=== PATIENT | male | born 1975 | race Caucasian/White ===

== ENCOUNTER 2020-01-08 06:07 | Emergency (ER) | payer OTHER, SELFPAY ==
[2020-01-08] VITALS (8 sets, daily range): BP systolic 121–153; BP diastolic 74–111; PULSE 94–113; RESP 14–24; TEMP 36; O2SAT 95–100
--- NOTE | ~2020-01-08 | XR_ITS ---
EXAMINATION: XR chest 2V DATE: 01/08/2020 06:49 INDICATION: Chest pain. Overdose. TECHNIQUE: frontal and lateral views of the chest were obtained. COMPARISON: None FINDINGS: The lungs are clear with no focal airspace opacities, pulmonary edema, pleural effusion or pneumothor ax. The cardiomediastinal silhouette is normal. Mild thoracic spondylosis. IMPRESSION: 1. No acute cardiopulmonary disease. Reviewed, dictated and finalized at location A.
--- NOTE | ~2020-01-08 | CT_ITS ---
EXAMINATION: CTA chest PE protocol DATE: 01/08/2020 11:10 CDT INDICATION: Chest pain. Meth used today. Overdose. TECHNIQUE: Computed tomographic angiography (CTA) of the chest was performed with 100 mL Omnipaque-35 0 intravenous contrast. The dose-length product was 239.71 mGy-cm. Maximum intensity projection 3D-re constructions of the aorta and other arteries were constructed by the technologist on a separate work station. Automated exposure control and iterative reconstruction technique were employed. COMPARISON: Chest dated 01/08/2020 FINDINGS: The study is technically adequate without evidence for pulmonary embolism. Heart size carola l. No significant pleural or pericardial effusion. No thoracic lymphadenopathy. No evidence for aorti c aneurysm or dissection. The upper abdomen is unremarkable. There is dependent atelectasis. There is mild emphysema. No endobronchial lesions. Mild thoracic spondylosis. IMPRESSION: 1. No acute cardiopulmonary disease. No evidence for pulmonary embolism. Reviewed, dictated and finalized at location A.
--- NOTE | ~2020-01-08 | CT_ITS ---
EXAMINATION: CT brain wo con DATE: 01/08/2020 06:41 INDICATION: Altered mental status TECHNIQUE: Computed tomography (CT) of the head was performed without intravenous contrast. Sagittal and coronal reconstructions were performed. The mA was adjusted according to patient size. Iterative reconstruction technique was employed. The dose-length product was 605.33 mGy-cm. COMPARISON: None FINDINGS: Mild streak artifact along the skull base which mildly limits evaluation. Normal randle-white matter di fferentiation. No acute intracranial hemorrhage, acute infarction or abnormal extra axial fluid colle ction. Ventricles are normal and symmetric. No mass/mass effect. Mucosal thickening throughout the pa ranasal sinuses most prominent in the bilateral ethmoid sinuses. The orbits and mastoid air cells are normal. IMPRESSION: 1. No acute intracranial process. Reviewed, dictated and finalized at location A.
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
[2020-01-08] MEDS: LORAZEPAM INJ 2 MG/ML VIAL 1 MG IV PUSH (06:30)
--- NOTE | 2020-01-08 06:37 | PC.NURSE ---
pt to CT and xray at this time.
[2020-01-08 06:42] LABS: Basophils Absolute Auto 0.1 K/mm3 (0.0-0.1); Eosinophils Absolute Auto 0.5 K/mm3 (0-0.3); Eosinophils Percent Auto 3.7 % (0-4.4); Hematocrit 49.7 % (42.0-52.0); Hemoglobin 17.1 g/dL (14.0-18.0); Immature Granulocyte Absolute 0.07 K/mm3 (0.00-0.031); Immature Granulocyte Percent A 0.6 % (0-0.5); Lymphocytes Absolute Auto 2.45 K/mm3 (0.9-3.2); Lymphocytes Percent Auto 19.9 % (18.3-44.2); Mean Corpuscular HGB Conc 34.4 g/dl (32-36); Mean Corpuscular Hemoglobin 31.7 pg (26-34); Mean Corpuscular Volume 92.2 fl (80-100); Mean Platelet Volume 9.1 fl (7.4-10.4); Monocytes Absolute Auto 1.5 K/mm3 (0.1-0.6); Monocytes Percent Auto 11.9 % (2.6-8.5); Neutrophils Absolute Auto 7.8 K/mm3 (1.3-6.7); Neutrophils Percent Auto 62.9 % (45.5-73.1); Platelet Count Result 273 k/mm3 (150-375); Red Blood Count 5.39 M/mm3 (4.6-6.20); Red Cell Distribution Width 14.4 % (11.5-14.5); White Blood Count 12.3 K/mm3 (4.5-10.0)
[2020-01-08] MEDS: THIAMINE HCL 200 MG/2 ML VIAL 100 MG IV PUSH (06:51)
[2020-01-08] MEDS: FOLIC ACID 1 MG TABLET PO (06:51)
[2020-01-08] MEDS: SODIUM CHLORIDE 0.9% IV 2,000 ML 999 ML IV CONT (06:51)
--- NOTE | 2020-01-08 06:55 | PC.NURSE ---
pt attempting to urinate at this time.
[2020-01-08 06:56] LABS: Acetaminophen < 10 ug/mL (10-30); Ammonia < 9 umol/L (9-30); Ethanol < 10 mg/dL (<10); Salicylate < 1.0 mg/dL (2-20)
[2020-01-08 06:57] LABS: Alanine Aminotransferase 23 U/L (4-50); Albumin Level 4.9 g/dL (3.5-5.1); Alkaline Phosphatase 105 U/L (38-126); Aspartate Amino Transferase 34 U/L (17-59); Bilirubin,Total 0.4 mg/dL (0.2-1.3); Blood Urea Nitrogen 21 mg/dL (9-20); Carbon Dioxide 24 mmol/L (22-30); Chloride 101 mmol/L (98-107); Creatine Kinase 205 U/L (55-170); Estimated Glomerular Filt Rate > 60; Glucose 82 mg/dL (75-110); Potassium 3.9 mmol/L (3.4-5.0); Sodium 137 mmol/L (137-145)
[2020-01-08 07:00] LABS: Prothrombin Time 13.2 Seconds (11.1-14.7)
--- NOTE | 2020-01-08 07:00 | PC.NURSE ---
pt states he isn't able to urinate at this time. refused straight cath. pt instructed to use call light when he is able to give urine sample. urinal at bedside at this time. call light in reach of pt.
[2020-01-08 07:01] LABS: Partial Thromboplastin Time 27.7 SECONDS (22.3-36.8)
[2020-01-08 07:09] LABS: Troponin I < 0.012 ng/mL (0.000-0.034)
--- NOTE | 2020-01-08 07:12 | PC.NURSE ---
Assumed care of pt, pt is alert and upright on stretcher, pt on tele monitor w/ VSS, pt has fluids infusing at KVO - pt unable to provide u/a at this time, declines straight cath.
--- NOTE | 2020-01-08 07:42 | PC.NURSE ---
fluids finished infusing, pt will attempt to provide u/a
[2020-01-08 08:00] LABS: Add Urine Microscopic? YES; Appearance Urine Clear (Clear); Bilirubin Urine Negative (Negative); Blood Urine Negative (Negative); Color Urine Yellow (Yellow); Glucose Urine UA Negative (Negative); Ketones Urine 1+ mg/dL (Negative); Leukocyte Esterase Ur Negative LEU/UL (Negative); Mucus Urine Rare /lpf; Nitrate Urine Negative (Negative); Protein Urine 2+ mg/dL (Negative); RBC Urine 0-2 /hpf (0-2); Specific Grav Ur 1.021 (1.001-1.035); Squamous Epithelial Cell Urine Rare /hpf (Few); WBC Urine 0-3 /hpf
[2020-01-08 08:15] LABS: Barbiturate Screen Urine Negative (Negative); Benzodiazepines Screen Urine Negative (Negative)
[2020-01-08 08:17] LABS: Cannabinoid Screen Urine Negative (Negative); Cocaine Screen Urine Negative (Negative); Methadone Screen Urine Negative (Negative); Opiate Screen Urine Negative (Negative); Phencyclidine Screen Urine Negative (Negative)
[2020-01-08 08:28] LABS: Amphetamine Screen Urine Positive (Negative)
--- NOTE | 2020-01-08 10:37 | ECG_ITS ---
Measurements Intervals [place] Rate: 108 P: 74 FL: 170 QRS: 95 QRSD: 99 T: 57 QT: 342 QTc: 459 Interpretive Statements SINUS TACHYCARDIA RIGHT AXIS DEVIATION BASELINE ARTIFACT- I, II, AVR, AVL, AVF, V1-V2 ABNORMAL ECG Electronically Signed On 01-08-2020 10:45:04 CDT by Walter Gray D.O.
[2020-01-08 11:16] LABS: Troponin I < 0.012 ng/mL (0.000-0.034)
[2020-01-08] MEDS: LACTATED RINGERS 1,000 ML 999 ML IV CONT (11:19)
== END 2020-01-08 14:21 | disposition home or self-care (01) ==
PROVIDERS: Emergency Medicine; Emergency Provider General Practice
DX: F15.10 Other stimulant abuse, uncomplicated (principal); R41.0 Disorientation, unspecified
CPT/HCPCS: 36415; 70450; 71046; 71275; 80053; 80307; 81001; 82140; 82550; 84443; 84484; 85025; 85610; 85730; 93005; 96361; 96374; 96375; 99284; A9270; J0131; J2060; J3411; J7030; J7120; Q9967

== ENCOUNTER 2020-01-11 00:30 | Emergency (ER) | payer OTHER, SELFPAY ==
[2020-01-11] VITALS (38 sets, daily range): BP systolic 117–168; BP diastolic 76–106; PULSE 69–122; RESP 16–24; TEMP 37.3; O2SAT 91–100
[2020-01-11] MEDS: LORAZEPAM INJ 2 MG/ML VIAL IV PUSH (00:53)
[2020-01-11] MEDS: SODIUM CHLORIDE 0.9% IV 2,000 ML 999 ML IV CONT (00:53)
[2020-01-11 01:05] LABS: Ethanol 22 mg/dL (<10)
--- NOTE | 2020-01-11 01:06 | ED.PSYCH ---
HPI - Psych General Chief Complaint: Psychiatric Symptoms <Kaushal Salinas MD - Last Filed: 01/11/20 19:38> Stated Complaint: SI/meth <Kaushal Salinas MD - Last Filed: 01/11/20 19:38> Time Seen by Provider: 01/11/20 00:35 <Kaushal Salinas MD - Last Filed: 01/11/20 19:38> History of Present Illness HPI Narrative: 44 yo male w/ h/o polysubstance abuse, depression, and anxiety BIBEMS For shaking and suicidal thoughts. He reports that he has been using methamphetamine, marijuana, and alcohol for the past few days. He now reports auditory and visual halucinations and suicidal thoughts. He plans to jump off of a bridge. He was recently discharged from a psychiatric facility and says that they didn't help him because they were only concerned about his drug use. <Kaushal Salinas MD - Last Filed: 01/11/20 19:38> Related Data Home Medications: Home Medications Medication Instructions Recorded Confirmed Unable to Obtain Home Medications 01/08/20 01/08/20 <Kaushal Salinas MD - Last Filed: 01/11/20 19:38> Allergies/Adverse Reactions: Allergies Allergy/AdvReac Type Severity Reaction Status Date / Time No Known Allergies Allergy Verified 01/11/20 01:14 <Kaushal Salinas MD - Last Filed: 01/11/20 19:38> Review of Systems Review of Systems: All systems reviewed & are unremarkable except as noted in HPI and below <Kaushal Salinas MD - Last Filed: 01/11/20 19:38> Constitutional: Constitutional: Denies fever(s) <Kaushal Salinas MD - Last Filed: 01/11/20 19:38> Cardiovascular: Cardiovascular: Reports chest pain <Kaushal Salinas MD - Last Filed: 01/11/20 19:38> Respiratory: Respiratory: Reports dyspnea <Kaushal Salinas MD - Last Filed: 01/11/20 19:38> Gastrointestinal: Gastrointestinal: Reports abdominal pain <Kaushal Salinas MD - Last Filed: 01/11/20 19:38> Musculoskeletal: Musculoskeletal: Reports back pain <Kaushal Salinas MD - Last Filed: 01/11/20 19:38> Neurologic: Reports confusion and Reports weakness <Kaushal Salinas MD - Last Filed: 01/11/20 19:38> Psychiatric: Psychiatric: Reports anxiety, Reports depression and Reports suicidal ideation <Kaushal Salinas MD - Last Filed: 01/11/20 19:38> PMFSH Past Medical History Medical History: Medical History Alcohol abuse Methamphetamine use <Kaushal Salinas MD - Last Filed: 01/11/20 19:38> Social History Social History: Social History Smoking status: Current every day smoker Alcohol intake: current Substance use: current Substance use type: amphetamines Gender identity (if verbalized by the patient): Male <Kaushal Salinas MD - Last Filed: 01/11/20 19:38> Exam Const: General: alert <Kaushal Salinas MD - Last Filed: 01/11/20 19:38> Nutritional Appearance: well nourished <Kaushal Salinas MD - Last Filed: 01/11/20 19:38> Orientation/consciousness: patient oriented x3 <Kaushal Salinas MD - Last Filed: 01/11/20 19:38> HENMT: Other: Dry MM <Kaushal Salinas MD - Last Filed: 01/11/20 19:38> Resp: Effort & Inspection: normal respiratory effort <Kaushal Salinas MD - Last Filed: 01/11/20 19:38> Auscultation: clear to auscultation bilaterally <Kaushal Salinas MD - Last Filed: 01/11/20 19:38> Cardio: Rate: tachycardic <Kaushal Salinas MD - Last Filed: 01/11/20 19:38> Rhythm: regular rhythm <Kaushal Salinas MD - Last Filed: 01/11/20 19:38> GI: GI Palp: Yes Soft to palpation and No Tenderness to palpation present (GI) <Kaushal Salinas MD - Last Filed: 01/11/20 19:38> Skin: General skin exam: normal color <Kaushal Salinas MD - Last Filed: 01/11/20 19:38> Neuro: General: patient oriented x3, moves all extremities and CN's II-XI intact bilaterally <Kaushal Salinas MD - Last Filed:
[2020-01-11 01:09] LABS: Troponin I < 0.012 ng/mL (0.000-0.034)
[2020-01-11 01:18] LABS: Alanine Aminotransferase 21 U/L (4-50); Albumin Level 4.1 g/dL (3.5-5.1); Alkaline Phosphatase 80 U/L (38-126); Aspartate Amino Transferase 31 U/L (17-59); Bilirubin,Total 0.3 mg/dL (0.2-1.3); Blood Urea Nitrogen 12 mg/dL (9-20); Calcium 9.1 mg/dL (8.4-10.2); Carbon Dioxide 24 mmol/L (22-30); Chloride 103 mmol/L (98-107); Creatine Kinase 222 U/L (55-170); Estimated CRCL calculation 71 ml/min; Estimated Glomerular Filt Rate > 60; Glucose 101 mg/dL (75-110); Potassium 3.6 mmol/L (3.4-5.0); Sodium 135 mmol/L (137-145)
[2020-01-11 01:30] LABS: Basophils Absolute Auto 0.1 K/mm3 (0.0-0.1); Eosinophils Absolute Auto 0.4 K/mm3 (0-0.3); Eosinophils Percent Auto 4.4 % (0-4.4); Hematocrit 36.6 % (42.0-52.0); Hemoglobin 12.2 g/dL (14.0-18.0); Immature Granulocyte Absolute 0.02 K/mm3 (0.00-0.031); Immature Granulocyte Percent A 0.2 % (0-0.5); Lymphocytes Absolute Auto 2.32 K/mm3 (0.9-3.2); Lymphocytes Percent Auto 25.9 % (18.3-44.2); Mean Corpuscular HGB Conc 33.3 g/dl (32-36); Mean Corpuscular Hemoglobin 31.4 pg (26-34); Mean Corpuscular Volume 94.1 fl (80-100); Mean Platelet Volume 8.8 fl (7.4-10.4); Monocytes Absolute Auto 1.1 K/mm3 (0.1-0.6); Monocytes Percent Auto 12.3 % (2.6-8.5); Neutrophils Percent Auto 56.2 % (45.5-73.1); Platelet Count Result 217 k/mm3 (150-375); Red Blood Count 3.89 M/mm3 (4.6-6.20); Red Cell Distribution Width 14.4 % (11.5-14.5)
[2020-01-11 03:12] LABS: Add Urine Microscopic? NO; Amphetamine Screen Urine Positive (Negative); Appearance Urine Clear (Clear); Barbiturate Screen Urine Negative (Negative); Benzodiazepines Screen Urine Negative (Negative); Bilirubin Urine Negative (Negative); Blood Urine Negative (Negative); Cannabinoid Screen Urine Positive (Negative); Cocaine Screen Urine Negative (Negative); Color Urine Yellow (Yellow); Glucose Urine UA Negative (Negative); Ketones Urine Negative (Negative); Leukocyte Esterase Ur Negative LEU/UL (Negative); Methadone Screen Urine Negative (Negative); Mucus Urine Rare /lpf; Nitrate Urine Negative (Negative); Opiate Screen Urine Negative (Negative); Phencyclidine Screen Urine Negative (Negative); Protein Urine Negative (Negative); RBC Urine 0-2 /hpf (0-2); Specific Grav Ur 1.014 (1.001-1.035); Urobilinogen Urine Negative mg/dL (<2.0); WBC Urine 0-3 /hpf
--- NOTE | 2020-01-11 03:33 | PC.NURSE ---
This nurse attempted to contact Crisis twice with no answer. This nurse left a message for them to call back.
--- NOTE | 2020-01-11 03:43 | PC.NURSE ---
Jon from Crisis calls back to get patient information. Jon stated he will send someone out to evaluate patient. Patient is medically cleared by EDP.
[2020-01-11] MEDS: ACETAMINOPHEN 500 MG TABLET 1000 MG PO (04:25)
--- NOTE | 2020-01-11 04:31 | PC.NURSE ---
This nurse went to give patient ordered tylenol to patient and after giving patient the medications, patient then inquired and asked about the vocera this nurse was wearing and its function. Patient then urgently placed his right hand on this nurse's right breast. This nurse immediately pulled away and instructed the patient that it was not appropriate and will not be tolerated at all. Patient then rested back in the stretcher. This nurse left the room, sitter at bedside. ED manager activities notified of incident.
--- NOTE | 2020-01-11 04:51 | PC.NURSE ---
Crisis here to evaluate patient.
--- NOTE | 2020-01-11 16:32 | PC.NURSE ---
spoke with crisis per dr harley request. Per Dr. Harley, pt is req to speak to crisis again, stating he is no longer si. the groundskeeping maintenance worker stated they will not reassess the pt until his involuntary petition expires Sunday am. Dr. Harley aware, Dr. Harley back in to see the patient.
--- NOTE | 2020-01-11 19:04 | PC.NURSE ---
Report taken from MASSIEL Otero.
[2020-01-12] MEDS: LORAZEPAM 1 MG TABLET 2 MG PO (01:27)
--- NOTE | 2020-01-12 01:30 | PC.NURSE ---
Patient called out to desk, credit controller into room. Patient requested medication for agitation. MD aware, orders placed, meds given. Patient remains calm and cooperative at this time. Sitter at bedside.
[2020-01-12 01:35] VITALS: BP 130/86; PULSE 84; RESP 16; O2SAT 100
--- NOTE | 2020-01-12 07:39 | PC.NURSE ---
Pt resting at this time with eyes closed. Pt has even rise and fall of chest. Pt has no signs of distress. Pt has sitter at bedside.
== END 2020-01-12 10:19 | disposition home or self-care (01) ==
PROVIDERS: Emergency Medicine; Emergency Provider Emergency Medicine
DX: F15.10 Other stimulant abuse, uncomplicated (principal); F12.10 Cannabis abuse, uncomplicated; Z72.89 Other problems related to lifestyle; R45.850 Homicidal ideations; F17.200 Nicotine dependence, unspecified, uncomplicated
CPT/HCPCS: 36415; 80053; 80307; 81003; 82550; 84443; 84484; 85025; 96361; 96374; 99284; A9270; J2060; J7030

== ENCOUNTER 2020-02-01 09:05 | Emergency (ER) | payer OTHER, SELFPAY ==
[2020-02-01 09:01] VITALS: BP 117/80; PULSE 93; RESP 21; O2SAT 96
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
[2020-02-01 09:10] VITALS: RESP 21
--- NOTE | 2020-02-01 09:12 | ECG_ITS ---
Measurements Intervals [place] Rate: 93 P: 74 MA: 159 QRS: 80 QRSD: 92 T: 55 QT: 356 QTc: 443 Interpretive Statements SINUS RHYTHM BASELINE ARTIFACT- I, II, III, AVR, AVL, AVF, V3 BORDERLINE ECG Electronically Signed On 02-01-2020 12:55:47 CDT by Walter Gray D.O.
[2020-02-01 09:27] LABS: Basophils Absolute Auto 0.1 K/mm3 (0.0-0.1); Eosinophils Absolute Auto 0.5 K/mm3 (0-0.3); Eosinophils Percent Auto 5.6 % (0-4.4); Hematocrit 47.9 % (42.0-52.0); Hemoglobin 16.3 g/dL (14.0-18.0); Immature Granulocyte Absolute 0.03 K/mm3 (0.00-0.031); Immature Granulocyte Percent A 0.3 % (0-0.5); Lymphocytes Absolute Auto 2.16 K/mm3 (0.9-3.2); Lymphocytes Percent Auto 22.5 % (18.3-44.2); Mean Corpuscular Hemoglobin 31.5 pg (26-34); Mean Corpuscular Volume 92.5 fl (80-100); Mean Platelet Volume 9.2 fl (7.4-10.4); Monocytes Absolute Auto 0.9 K/mm3 (0.1-0.6); Monocytes Percent Auto 9.4 % (2.6-8.5); Neutrophils Absolute Auto 5.9 K/mm3 (1.3-6.7); Neutrophils Percent Auto 61.2 % (45.5-73.1); Platelet Count Result 245 k/mm3 (150-375); Red Blood Count 5.18 M/mm3 (4.6-6.20); Red Cell Distribution Width 14.4 % (11.5-14.5); White Blood Count 9.6 K/mm3 (4.5-10.0)
[2020-02-01] MEDS: SODIUM CHLORIDE 0.9% IV 1,000 ML 999 ML IV CONT (09:32)
[2020-02-01 09:39] LABS: Sodium 137 mmol/L (137-145)
[2020-02-01 09:41] LABS: Acetaminophen < 10 ug/mL (10-30); Alanine Aminotransferase 17 U/L (4-50); Albumin Level 4.4 g/dL (3.5-5.1); Alkaline Phosphatase 101 U/L (38-126); Aspartate Amino Transferase 27 U/L (17-59); Bilirubin,Total 0.7 mg/dL (0.2-1.3); Blood Urea Nitrogen 11 mg/dL (9-20); Calcium 9.7 mg/dL (8.4-10.2); Carbon Dioxide 27 mmol/L (22-30); Chloride 103 mmol/L (98-107); Estimated CRCL calculation 63 ml/min; Estimated Glomerular Filt Rate > 60; Ethanol < 10 mg/dL (<10); Glucose 106 mg/dL (75-110); Potassium 3.7 mmol/L (3.4-5.0); Salicylate < 1.0 mg/dL (2-20)
[2020-02-01 10:10] LABS: Thyroid Stimulating Hormone 0.505 uIU/mL (0.465-4.680)
[2020-02-01 10:35] VITALS: BP 103/74; PULSE 92; RESP 22; O2SAT 98
[2020-02-01 10:41] LABS: Add Urine Microscopic? YES; Appearance Urine Clear (Clear); Bilirubin Urine Negative (Negative); Blood Urine Negative (Negative); Calcium Oxalate Crystals Urine Present /hpf; Color Urine Amber (Yellow); Glucose Urine UA Negative (Negative); Hyaline Casts Urine 20-29 /lpf; Ketones Urine Trace mg/dL (Negative); Leukocyte Esterase Ur Negative LEU/UL (Negative); Mucus Urine Heavy /lpf; Nitrate Urine Negative (Negative); Protein Urine 1+ mg/dL (Negative); Specific Grav Ur 1.029 (1.001-1.035)
[2020-02-01 10:48] LABS: Barbiturate Screen Urine Negative (Negative); Benzodiazepines Screen Urine Negative (Negative)
[2020-02-01 11:07] LABS: Cannabinoid Screen Urine Positive (Negative); Cocaine Screen Urine Negative (Negative); Methadone Screen Urine Negative (Negative); Opiate Screen Urine Negative (Negative); Phencyclidine Screen Urine Negative (Negative)
[2020-02-01 11:32] LABS: Amphetamine Screen Urine Positive (Negative)
[2020-02-01 11:41] VITALS: BP 127/77; PULSE 88; RESP 20; O2SAT 100
[2020-02-01 12:05] VITALS: BP 112/81; PULSE 85; RESP 18; O2SAT 100
== END 2020-02-01 12:05 | disposition home or self-care (01) ==
PROVIDERS: Emergency Provider Emergency Medicine
DX: F19.10 Other psychoactive substance abuse, uncomplicated (principal); F17.210 Nicotine dependence, cigarettes, uncomplicated
CPT/HCPCS: 36415; 51701; 80053; 80307; 81001; 84443; 85025; 87086; 93005; 96360; 99283; J7030

== ENCOUNTER 2020-05-25 14:32 | Emergency (ER) | payer OTHER, SELFPAY ==
--- NOTE | 2020-05-25 14:38 | ECG_ITS ---
Measurements Intervals [place] Rate: 121 P: 73 PA: 147 QRS: 100 QRSD: 94 T: 53 QT: 302 QTc: 429 Interpretive Statements SINUS TACHYCARDIA DELAYED PRECORDIAL R/S TRANSITION BASELINE ARTIFACT- I, II, III, AVR, AVL, AVF, V1-V6 ABNORMAL ECG Electronically Signed On 05-25-2020 14:47:26 CDT by Walter Gray D.O.
[2020-05-25 14:41] VITALS: BP 145/93; PULSE 60; RESP 18; TEMP 36.8; O2SAT 100
--- NOTE | 2020-05-25 14:46 | PC.NURSE ---
EKG done at 1443. Patient will not hold still at this time, and keeps shaking. Dr. Street said to delete this EKG, and that we would do another one later.
[2020-05-25 14:52] LABS: Basophils Absolute Auto 0.1 K/mm3 (0.0-0.1); Basophils Percent Auto 1.3 % (0.2-1.2); Eosinophils Absolute Auto 0.3 K/mm3 (0-0.3); Eosinophils Percent Auto 3.1 % (0-4.4); Hematocrit 49.5 % (42.0-52.0); Hemoglobin 16.9 g/dL (14.0-18.0); Immature Granulocyte Absolute 0.03 K/mm3 (0.00-0.031); Immature Granulocyte Percent A 0.3 % (0-0.5); Lymphocytes Absolute Auto 2.57 K/mm3 (0.9-3.2); Lymphocytes Percent Auto 23.2 % (18.3-44.2); Mean Corpuscular HGB Conc 34.1 g/dl (32-36); Mean Corpuscular Hemoglobin 31.5 pg (26-34); Mean Corpuscular Volume 92.2 fl (80-100); Mean Platelet Volume 8.7 fl (7.4-10.4); Monocytes Percent Auto 9.1 % (2.6-8.5); Platelet Count Result 309 k/mm3 (150-375); Red Blood Count 5.37 M/mm3 (4.6-6.20); Red Cell Distribution Width 14.8 % (11.5-14.5); White Blood Count 11.1 K/mm3 (4.5-10.0)
--- NOTE | 2020-05-25 15:02 | PC.NURSE ---
Pt ambulatory out of waiting room.
[2020-05-25 15:03] LABS: Anion Gap 9 mmol/L (8-16); Blood Urea Nitrogen 11 mg/dL (9-20); Calcium 9.8 mg/dL (8.4-10.2); Carbon Dioxide 27 mmol/L (22-30); Chloride 104 mmol/L (98-107); Estimated CRCL calculation 78 ml/min; Estimated Glomerular Filt Rate > 60; Glucose 106 mg/dL (75-110); Potassium 4.2 mmol/L (3.4-5.0); Prothrombin Time 13.1 Seconds (11.1-14.7); Sodium 140 mmol/L (137-145)
[2020-05-25 15:04] LABS: Partial Thromboplastin Time 27.5 SECONDS (22.3-36.8)
[2020-05-25 15:15] LABS: Troponin I < 0.012 ng/mL (0.000-0.034)
== END 2020-05-25 15:41 | disposition left against medical advice (07) ==
LOC: ANHED 15:31
PROVIDERS: Emergency Provider Emergency Medicine
DX: R07.9 Chest pain, unspecified (principal); R00.0 Tachycardia, unspecified
CPT/HCPCS: 36415; 80048; 84484; 85025; 85610; 85730; 93005; 99199

== ENCOUNTER 2020-11-13 08:35 | Emergency (ER) | payer OTHER, SELFPAY ==
[2020-11-13] VITALS (12 sets, daily range): BP systolic 84–137; BP diastolic 53–116; PULSE 72–108; RESP 15–30; TEMP 37; O2SAT 97–100
--- NOTE | ~2020-11-13 | CT_ITS ---
EXAMINATION: CT brain wo con DATE: 11/13/2020 11:07 INDICATION: Altered mental status TECHNIQUE: Computed tomography (CT) of the head was performed without intravenous contrast. Sagittal and coronal reconstructions were performed. The mA was adjusted according to patient size. Iterative reconstruction technique was employed. The dose-length product was 605.33 mGy-cm. COMPARISON: head CT dated 01/08/2020 FINDINGS: No acute intracranial hemorrhage, acute infarction or abnormal extra axial fluid collection. Ventricl es are normal and symmetric. No mass/mass effect. Mucosal thickening in the left sphenoid and bilater al frontal and ethmoid sinuses. The orbits and mastoid air cells are normal. IMPRESSION: 1. No acute intracranial process. Reviewed, dictated and finalized at location A.
--- NOTE | ~2020-11-13 | XR_ITS ---
EXAMINATION: XR chest 1V portable DATE: 11/13/2020 10:43 INDICATION: Chest pain TECHNIQUE: frontal view of the chest was obtained. COMPARISON: Chest radiograph and CT dated 01/08/2020 FINDINGS: Persistent small opacity at the medial left lung base corresponding to a focus of atelectasis/scarrin g on the prior studies. No other airspace opacities, pulmonary edema, pleural effusion or pneumothora x. The cardiomediastinal silhouette is normal conifer mild leftward rotation of the patient. Visualiz ed bones and soft tissues are unremarkable. IMPRESSION: 1. No significant change in focal mild left basilar atelectasis/scarring. No other acute cardiopulmon gabbi disease. Reviewed, dictated and finalized at location A. IMPRESSION: 1. No significant change in focal mild left basilar atelectasis/scarring. No ot her acute cardiopulmonary disease.
--- NOTE | 2020-11-13 08:40 | ECG_ITS ---
Measurements Intervals [place] Rate: 103 P: 81 [place]: 146 QRS: 227 QRSD: 90 T: 72 QT: 345 QTc: 452 Interpretive Statements SINUS TACHYCARDIA LEFT ATRIAL ENLARGEMENT DELAYED PRECORDIAL R/S TRANSITION NONSPECIFIC ST ELEVATION IN ANTERIOR LEADS BASELINE ARTIFACT- I, II, III, AVR, AVL, AVF, V1-V6 ABNORMAL ECG Electronically Signed On 11-13-2020 9:02:30 CDT by Walter Gray D.O.
--- NOTE | 2020-11-13 08:45 | PC.NURSE ---
Pt arrives alert and unable to focus to answer questions appropriately. Repeatedly states I woke up in piss all over myself, I am hearing voices. I wont do this again, I did meth last night but just a little. I never did so much like that before. I wont do this again. I feel terrible, I've never felt like this. Dont put a tube in my throat, its not that bad. Pt shaking and unable to remain still for appropriate vs and ekg. This RN questioned patient on voices and asked if he is having command hallucinations. Pt states No, I just keep hearing things, I feel terrible, I will never do this again. Pt given urinal to attempt u/a. Declines straight cath at this time. Pt on tele monitor, given call light, blood work sent to lab.
[2020-11-13 08:50] LABS: Basophils Absolute Auto 0.1 K/mm3 (0.0-0.1); Basophils Percent Auto 1.2 % (0.2-1.2); Eosinophils Absolute Auto 0.4 K/mm3 (0-0.3); Eosinophils Percent Auto 3.9 % (0-4.4); Hematocrit 48.5 % (42.0-52.0); Hemoglobin 16.6 g/dL (14.0-18.0); Immature Granulocyte Absolute 0.04 K/mm3 (0.00-0.031); Immature Granulocyte Percent A 0.4 % (0-0.5); Lymphocytes Absolute Auto 2.37 K/mm3 (0.9-3.2); Lymphocytes Percent Auto 23.2 % (18.3-44.2); Mean Corpuscular HGB Conc 34.2 g/dl (32-36); Mean Corpuscular Hemoglobin 30.8 pg (26-34); Mean Platelet Volume 8.8 fl (7.4-10.4); Monocytes Absolute Auto 1.2 K/mm3 (0.1-0.6); Monocytes Percent Auto 11.6 % (2.6-8.5); Neutrophils Absolute Auto 6.1 K/mm3 (1.3-6.7); Neutrophils Percent Auto 59.7 % (45.5-73.1); Platelet Count Result 379 k/mm3 (150-375); Red Blood Count 5.39 M/mm3 (4.6-6.20); Red Cell Distribution Width 14.3 % (11.5-14.5); White Blood Count 10.2 K/mm3 (4.5-10.0)
--- NOTE | 2020-11-13 08:51 | PC.NURSE ---
Pt also states he has midsternal CP on arrival. Per EMS pt ambulated to the station (reports he is homeless) and c/o chest pain following meth use.
[2020-11-13] MEDS: SODIUM CHLORIDE 0.9% IV 1,000 ML 999 ML IV CONT ×4 (09:17→14:37)
[2020-11-13 09:23] LABS: Alanine Aminotransferase 34 U/L (4-50); Albumin Level 4.9 g/dL (3.5-5.1); Alkaline Phosphatase 110 U/L (38-126); Anion Gap 11 mmol/L (8-16); Aspartate Amino Transferase 93 U/L (17-59); Bilirubin,Total 1.1 mg/dL (0.2-1.3); Blood Urea Nitrogen 32 mg/dL (9-20); Calcium 9.9 mg/dL (8.4-10.2); Carbon Dioxide 28 mmol/L (22-30); Chloride 98 mmol/L (98-107); Estimated Glomerular Filt Rate > 60; Glucose 122 mg/dL (75-110); Sodium 137 mmol/L (137-145)
--- NOTE | 2020-11-13 09:39 | PC.NURSE ---
Pt reports to this RN Just let me go, let me walk out of here and I will let my heart explode. Im a worthless piece of shit. Just let me go . This RN asked pt if he planned to harm himself. Pt states Yes, I probably will. I'm homeless and a worthless piece of shit. Suicide precautions initiated, room cleared for pt safety, belongings removed, pt placed in green scrubs, EDP made aware. Sitter at bedside.
[2020-11-13 09:56] LABS: Ethanol < 10 mg/dL (<10)
[2020-11-13 10:07] LABS: Add Urine Microscopic? YES; Appearance Urine Clear (Clear); Bilirubin Urine Negative (Negative); Blood Urine Negative (Negative); Color Urine Yellow (Yellow); Glucose Urine UA Negative (Negative); Ketones Urine Trace mg/dL (Negative); Leukocyte Esterase Ur Negative LEU/UL (Negative); Mucus Urine Rare /lpf; Nitrate Urine Negative (Negative); Protein Urine 1+ mg/dL (Negative); RBC Urine 0-2 /hpf (0-2); Specific Grav Ur 1.023 (1.001-1.035); Urobilinogen Urine Negative mg/dL (<2.0); WBC Urine 0-3 /hpf
[2020-11-13 10:14] LABS: Barbiturate Screen Urine Negative (Negative); Benzodiazepines Screen Urine Negative (Negative)
[2020-11-13 10:34] LABS: Thyroid Stimulating Hormone 0.946 uIU/mL (0.465-4.680)
[2020-11-13 10:39] LABS: Amphetamine Screen Urine Positive (Negative)
[2020-11-13 10:41] LABS: Cannabinoid Screen Urine Negative (Negative); Cocaine Screen Urine Negative (Negative); Methadone Screen Urine Negative (Negative); Opiate Screen Urine Negative (Negative); Phencyclidine Screen Urine Negative (Negative)
--- NOTE | 2020-11-13 10:47 | PC.NURSE ---
called laboratory and requested additional labs to be added to tubes sent down per provider order.
[2020-11-13] MEDS: FAMOTIDINE 20 MG/2 ML VIAL IV PUSH (10:50)
[2020-11-13] MEDS: LORazepam INJ (*CRX) 2 MG/ML VIAL 1 MG IV PUSH (10:50)
[2020-11-13 11:06] LABS: Creatine Kinase 1183 U/L (55-170)
[2020-11-13 11:20] LABS: Troponin I < 0.012 ng/mL (0.000-0.034)
--- NOTE | 2020-11-13 12:26 | ED.GENADULT ---
HPI - General Adult General Chief complaint: Psychiatric Symptoms <Garrett De Leon PA-C - Last Filed: 11/13/20 19:56> Stated complaint: CP <Garrett De Leon PA-C - Last Filed: 11/13/20 19:56> Time Seen by Provider: 11/13/20 10:06 <Garrett De Leon PA-C - Last Filed: 11/13/20 19:56> Source: patient and RN notes reviewed <Garrett De Leon PA-C - Last Filed: 11/13/20 19:56> Mode of arrival: ambulatory <Garrett De Leon PA-C - Last Filed: 11/13/20 19:56> Limitations: no limitations <Garrett De Leon PA-C - Last Filed: 11/13/20 19:56> History of Present Illness HPI narrative: Patient is a 45-year-old male who presents to emergency department with SI patient with longstanding history of mental illness and drug abuse patient on arrival notes that he has thoughts of harming himself has had recent hospitalizations for similar patient notes history of methamphetamine and has had a recent use of methamphetamine. Patient notes some mild discomfort of the upper abdomen and on arrival is restless and appears anxious but does answer questions. Patient denies injury or trauma or any self-harm <Garrett De Leon PA-C - Last Filed: 11/13/20 19:56> Related Data Home medications: Home Medications Medication Instructions Recorded Confirmed Unable to Obtain Home Medications 01/08/20 01/08/20 <Garrett De Leon PA-C - Last Filed: 11/13/20 19:56> Allergies/adverse reactions: Allergies Allergy/AdvReac Type Severity Reaction Status Date / Time haloperidol Allergy Swelling Verified 11/13/20 10:17 of Lip/Tongue/Throat <Garrett De Leon PA-C - Last Filed: 11/13/20 19:56> Review of Systems Review of Systems: All systems reviewed & are unremarkable except as noted in HPI and below <Garrett De Leon PA-C - Last Filed: 11/13/20 19:56> PMFSH Past Medical History Medical History: Medical History (Updated 11/13/20 @ 12:29 by Garrett De Leon PA-C) Alcohol abuse Methamphetamine use <BEBA Gee Last Filed: 11/13/20 19:56> Social History Social History: Social History Smoking status: Current every day smoker Alcohol intake: current Substance use: current Substance use type: methamphetamine Gender identity (if verbalized by the patient): Male <Garrett De Leon PA-C - Last Filed: 11/13/20 19:56> Exam Narrative: Exam Narrative: GENERAL: Well-appearing, well-nourished, and in no acute distress. HEAD: Normocephalic, atraumatic. EYES: PERRLA and EOMI. ENT: Nares clear, no rhinorrhea or epistaxis. Mucous membranes moist. CHEST: Clear to auscultation. No respiratory distress. No wheezes rales or rhonchi HEART: Regular rate and rhythm. No murmur heard. Normal peripheral pulses. ABDOMEN: Soft, nontender, nondistended EXTREMITIES: Normal range of motion. No edema. SKIN: Warm, dry, no rash. NEURO: No focal deficits. Alert and oriented. Cranial nerves II through XII grossly intact PSYCH: Acutely anxious <Garrett De Leon PA-C - Last Filed: 11/13/20 19:56> Course Course Emergency Course: Patient resting comfortably at this time hemodynamically stable in no distress with continued hydration <BEBA Gee Last Filed: 11/13/20 19:56> Reevaluation(s) Reevaluation #1: Patient has remained stable throughout the day and is resting comfortably in the room in no distress <Garrett De Leon PA-C - Last Filed: 11/13/20 19:56> Patient feeling okay, telling me that when he is reported that he would like to kill himself was under the influence of drugs and currently feeling okay and declined any ideation or feelings about harming himself. He would like to quit using drugs and live a decent life. Patient agreed with the contract between him and the crisis <Dusty Biggs MD - Last Filed: 11/14/20 14:13> Date: 11/13/20 <Garrett De Leon PA-C - Last Jose
--- NOTE | 2020-11-13 15:10 | PC.NURSE ---
Spoke with Vane from [facility] regarding pt. Requested pt chart. Faxed at [phone].
--- NOTE | 2020-11-13 16:15 | PC.NURSE ---
Food tray ordered for pt at this time.
--- NOTE | 2020-11-13 18:59 | PC.NURSE ---
Spoke w/ Korin from Crisis on the phone, discussed pt status. States she will continue to seek placement for the pt. Notified her no accepting facilities at this time, notified pt states he is voluntary and willing to seek treatment. Pt is calm and cooperative. Pt on tele monitor. VSS. Sitter at bedside.
[2020-11-13 19:44] LABS: SARS-CoV-2 RNA PCR Negative
[2020-11-14 02:46] VITALS: BP 113/68; PULSE 74; RESP 18; O2SAT 100
--- NOTE | 2020-11-14 09:47 | PC.NURSE ---
Spoke with Becki at [facility] for psychiatric placement. States they are unable to meet this patients needs at this time.
--- NOTE | 2020-11-14 09:53 | PC.NURSE ---
Spoke with Crisis at this time and updated facility that patient is no SI. States will come out to evaluate patient around noon.
[2020-11-14 14:22] VITALS: BP 118/76; PULSE 70; RESP 20; O2SAT 100
== END 2020-11-14 14:25 | disposition home or self-care (01) ==
PROVIDERS: Emergency Medicine Emergency Medical Services; Emergency Provider Emergency Medicine
DX: R45.851 Suicidal ideations (principal); E86.0 Dehydration; F15.10 Other stimulant abuse, uncomplicated; Z20.822 Contact with and (suspected) exposure to COVID-19; F17.200 Nicotine dependence, unspecified, uncomplicated
CPT/HCPCS: 36415; 51701; 70450; 71045; 80053; 80307; 81001; 82550; 84443; 84484; 85025; 93005; 96361; 96374; 96375; 99284; C9803; J2060; J7030; U0003; U0005

== ENCOUNTER 2021-02-10 12:22 | Observation (INO) | payer OTHER, SELFPAY ==
[2021-02-10] VITALS (19 sets, daily range): BP systolic 105–117; BP diastolic 48–70; PULSE 83–100; RESP 14–28; TEMP 36.2–36.8; O2SAT 90–100; BMI 26.2
--- NOTE | ~2021-02-10 | US_ITS ---
EXAMINATION: US venous doppler [facility] DATE: 02/10/2021 13:53 INDICATION: Lower limb edema. TECHNIQUE: Grayscale ultrasound images without and with compression and Doppler ultrasound images of the bilateral lower extremity veins were obtained. COMPARISON: None. FINDINGS: The visualized portions of right common femoral vein, profunda (deep) femoral vein, femoral vein, pop liteal vein, peroneal veins, posterior tibial veins, and greater saphenous vein outflow are patent. The visualized portions of left common femoral vein, profunda femoral vein, femoral vein, popliteal v ein, peroneal veins, posterior tibial veins, and greater saphenous vein outflow are patent. IMPRESSION: 1. No deep venous thrombosis. Reviewed, dictated and finalized at location A.
--- NOTE | ~2021-02-10 | CT_ITS ---
EXAMINATION: CTA chest PE protocol DATE: 02/10/2021 17:18 INDICATION: Shortness of breath. Elevated d-dimer. TECHNIQUE: Computed tomography (CT) pulmonary angiogram of the chest was performed with 100 mL Omnipa que-350 intravenous contrast. Additional 3D reconstructions utilizing coronal maximum intensity proje ction (MIP) were performed. The dose-length product was 204.46 mGy-cm. COMPARISON: None FINDINGS: Excellent contrast opacification of the pulmonary arteries. There is mild streak artifact from dense contrast in the superior vena cava and right atrium. There is moderate respiratory motion artifact wh ich decreases sensitivity in the subsegmental pulmonary arteries at the bilateral lower lung zones. A dditional mild respiratory motion in the mid and upper lungs which does not significantly limit evalu ation. No pulmonary embolism. Reticular at the lung bases and along the dependent aspect of the bilat eral upper and lower lobes which could represent atelectasis or mild pulmonary edema in the acute set ting or or chronic interstitial lung disease.. No pneumonia, pleural effusion or pneumothorax. Heart size is normal. There appears to be left ventricular myocardial hypertrophy although this could be re lated to systolic phase of imaging as the heart size appears decreased since the prior study. Moderat e-sized pericardial effusion. No evident leftward bowing of the ventricular septum to suggest tampona de physiology. Thoracic aorta is normal in caliber with no dissection. Small sliding-type hiatal ge ia. Wall thickening in the mid to distal esophagus which could be related to reflux esophagitis. Mild ly prominent but still normal-sized mediastinal and right hilar lymph nodes which may be reactive. No pathologically enlarged thoracic lymphadenopathy. Mild thoracic spondylosis. IMPRESSION: 1. No pulmonary embolism. Sensitivity decreased in the subsegmental pulmonary arteries in the bilater al lower lung zones due to respiratory motion. 2. New moderate-sized pericardial effusion. There is also new apparent myocardial thickening of the l eft ventricle although this could be related to systolic phase of imaging as the heart size normal ap pears decreased since the prior study. 3. Mild reticular opacities at the lung bases and dependent lungs most likely atelectasis although di fferential includes mild pulmonary edema or chronic interstitial lung disease. 4. Small sliding-type hiatal hernia with wall thickening in the mid to distal esophagus which could b e related to reflux esophagitis. Reviewed, dictated and finalized at location A. IMPRESSION: 1. No pulmonary embolism. Sensitivity decreased in the subsegmental pulmonary a rteries in the bilateral lower lung zones due to respiratory motion. 2. New moderate-sized pericardial effusion. There is also new apparent myocardi al thickening of the left ventricle although this could be related to systolic phase of imaging as the heart size normal appears decreased since the prior castro dy. 3. Mild reticular opacities at the lung bases and dependent lungs most likely a telectasis although differential includes mild pulmonary edema or chronic inter stitial lung disease. 4. Small sliding-type hiatal hernia with wall thickening in the mid to distal e sophagus which could be related to reflux esophagitis.
--- NOTE | ~2021-02-10 | XR_ITS ---
EXAMINATION: XR chest 2V EXAM DATE: 02/10/2021 13:26 INDICATION: Edema, sob, lower extremity edema. TECHNIQUE: Frontal and lateral projections of the chest obtained and reviewed. Comparison is made to prior examination from 11/13/2020. FINDINGS: Small amount of left basilar atelectasis or pneumonia. The lungs are otherwise clear. The re are no pleural effusions. The cardiomediastinal silhouette is within normal limits. There is no pneumothorax suspected. The bones and soft tissues are unremarkable. IMPRESSION: Small amount of left basilar atelectasis or pneumonia. Reviewed, dictated and finalized at location B.
--- NOTE | 2021-02-10 13:15 | ECG_ITS ---
Measurements Intervals [place] Rate: 84 P: 71 WI: 152 QRS: 89 QRSD: 91 T: 56 QT: 363 QTc: 432 Interpretive Statements SINUS RHYTHM DELAYED PRECORDIAL R/S TRANSITION BORDERLINE ECG Electronically Signed On 02-10-2021 15:56:25 CDT by Walter Gray D.O.
--- NOTE | 2021-02-10 13:18 | ED.EXTPRO ---
HPI - Extremity Problem General Chief complaint: Extremity Problem,Nontraumatic <Yvonne Cleaning PA-C - Last Filed: 02/10/21 19:43> Stated complaint: swollen hands & feet <BEBA Griffin Last Filed: 02/10/21 19:43> Time Seen by Provider: 02/10/21 12:45 <Yvonne Cleaning PA-C - Last Filed: 02/10/21 19:43> Source: patient <BEBA Griffin Last Filed: 02/10/21 19:43> Mode of arrival: EMS <BEBA Griffin Last Filed: 02/10/21 19:43> Limitations: no limitations <BEBA Griffin Last Filed: 02/10/21 19:43> History of Present Illness HPI Narrative: This is a 45 year old male that presents to the ER for swollen hands and feet present over the last couple of days. Reports pain in the right foot that is now radiating up into the leg. Also reports feeling short of breath over the last couple of days, worse with exertion. Denies fever, erythema, warmth, or chest pain. <BEBA Griffin Last Filed: 02/10/21 19:43> Related Data Home medications: Home Medications Medication Instructions Recorded Confirmed aripiprazole mg 02/10/21 02/10/21 bupropion HCl mg PO 02/10/21 buspirone mg 02/10/21 <BEBA Griffin Last Filed: 02/10/21 19:43> Allergies/Adverse reactions: Allergies Allergy/AdvReac Type Severity Reaction Status Date / Time haloperidol Allergy Swelling Verified 02/10/21 13:51 of Lip/Tongue/Throat <BEBA Griffin Last Filed: 02/10/21 19:43> Review of Systems Review of Systems: Narrative: CONSTITUTIONAL: Denies fever CARDIOVASCULAR: Reports edema. Denies chest pain RESPIRATORY: Reports dyspnea. SKIN: Denies rash MUSCULOSKELETAL: Reports myalgia. NEUROLOGIC: Denies numbness <BEBA Griffin Last Filed: 02/10/21 19:43> All systems reviewed & are unremarkable except as noted in HPI and below <Yvonne Cleaning PA-C - Last Filed: 02/10/21 19:43> [facility] Past Medical History Medical History: Medical History (Updated 02/10/21 @ 19:32 by Yvonne Cleaning PA-C) Alcohol abuse Methamphetamine use <Yvonne Cleaning PA-C - Last Filed: 02/10/21 19:43> Social History Social History: Social History Smoking status: Current every day smoker Alcohol intake: current Substance use: current Substance use type: methamphetamine Gender identity (if verbalized by the patient): Male <Yvonne Cleaning PA-C - Last Filed: 02/10/21 19:43> Exam Narrative: Exam Narrative: GENERAL: Disheveled, well-nourished, and in no acute distress. HEAD: Normocephalic, atraumatic. EYES: EOMI. ENT: Nares clear, no rhinorrhea or epistaxis. Mucous membranes moist. Oropharynx without tonsillar hypertrophy exudate or other lesions. NECK: Supple. No adenopathy or masses. CHEST: Clear to auscultation. No respiratory distress. No wheezes rales or rhonchi HEART: Regular rate and rhythm. No murmur heard. Normal peripheral pulses. EXTREMITIES: Normal range of motion. No erythema or warmth. Mild edema about the feet bilaterally (R>L). Normal peripheral pulses SKIN: Warm, dry, no rash. NEURO: No focal deficits. Alert and oriented x3. PSYCH: Normal mood and affect <Yvonne Cleaning PA-C - Last Filed: 02/10/21 19:43> Course STOCK FITTER/PA Physician Supervision Patient seen evaluate myself, heart regular rate and rhythm without murmur lungs clear to station bilaterally abdomen soft nontender discussed with patient need for admission all questions were answered patient in agreement at this time <Bernard Pedroza DO - Last Filed: 02/10/21 19:46> Consultations Consultation #1: Spoke with Dr. Reese about patient and workup who will consult <Yvonne Cleaning PA-C - Last Filed: 02/10/21 19:43> Date: 02/10/21 <Yvonne Cleaning PA-C - Last Filed: 02/10/21 19:43> Time: 19:32 <Yvonne Cleaning PA-C - Last Filed: 02/10/21 19:43> Consultation #2:
--- NOTE | 2021-02-10 13:31 | PC.NURSE ---
Pt in ultrasound at this time
[2021-02-10 14:11] LABS: Basophils Absolute Auto 0.1 K/mm3 (0.0-0.1); Basophils Percent Auto 0.8 % (0.2-1.2); Eosinophils Absolute Auto 1.4 K/mm3 (0-0.3); Eosinophils Percent Auto 8.2 % (0-4.4); Hematocrit 35.3 % (42.0-52.0); Hemoglobin 11.2 g/dL (14.0-18.0); Immature Granulocyte Absolute 0.25 K/mm3 (0.00-0.031); Immature Granulocyte Percent A 1.5 % (0-0.5); Lymphocytes Absolute Auto 1.39 K/mm3 (0.9-3.2); Lymphocytes Percent Auto 8.4 % (18.3-44.2); Mean Corpuscular HGB Conc 31.7 g/dl (32-36); Mean Corpuscular Volume 91.5 fl (80-100); Mean Platelet Volume 8.1 fl (7.4-10.4); Monocytes Absolute Auto 0.8 K/mm3 (0.1-0.6); Monocytes Percent Auto 4.7 % (2.6-8.5); Neutrophils Absolute Auto 12.7 K/mm3 (1.3-6.7); Neutrophils Percent Auto 76.4 % (45.5-73.1); Platelet Count Result 475 k/mm3 (150-375); Red Blood Count 3.86 M/mm3 (4.6-6.20); White Blood Count 16.6 K/mm3 (4.5-10.0)
[2021-02-10 14:20] LABS: Prothrombin Time 13.3 Seconds (11.1-14.7)
[2021-02-10 14:22] LABS: Partial Thromboplastin Time 33.6 SECONDS (22.3-36.8)
[2021-02-10 14:23] LABS: Alanine Aminotransferase 44 U/L (4-50); Albumin Level 2.6 g/dL (3.5-5.1); Alkaline Phosphatase 73 U/L (38-126); Anion Gap 3 mmol/L (8-16); Aspartate Amino Transferase 62 U/L (17-59); Bilirubin,Total < 0.1 mg/dL (0.2-1.3); Blood Urea Nitrogen 12 mg/dL (9-20); Calcium 8.6 mg/dL (8.4-10.2); Carbon Dioxide 30 mmol/L (22-30); Chloride 97 mmol/L (98-107); Estimated Glomerular Filt Rate > 60; Glucose 91 mg/dL (75-110); Potassium 3.8 mmol/L (3.4-5.0); Sodium 130 mmol/L (137-145)
[2021-02-10 14:31] LABS: NT Pro B Type Natriuretic Pept 191 pg/mL (5-100)
--- NOTE | 2021-02-10 14:48 | PC.NURSE ---
called hematology and talked to kasi humphrey on a D dimer at [id number]
--- NOTE | 2021-02-10 15:06 | PC.NURSE ---
Pt requesting meal tray.
[2021-02-10 15:30] LABS: D Dimer 1.23 ug/mL (<0.48)
[2021-02-10 18:44] LABS: Troponin I 0.164 ng/mL (0.000-0.034)
[2021-02-10 19:29] LABS: Troponin I 0.178 ng/mL (0.000-0.034)
--- NOTE | 2021-02-10 20:54 | PM.IMHP ---
H&P: HPI History of Present Illness Date/Time: 02/11/21 00:15 Chief Complaint: Swelling of hands and feet Narrative: 45-year-old male past medical history of chronic alcohol and amphetamine abuse, schizophrenia, depression and PTSD who presented to the ER via EMS due to bilateral hands and feet swelling. He reports that for the last 3 days he has been having bilateral hand and feet swelling. It has been associated with shortness of breath. His shortness of breath is worse with activity. He denies any orthopnea or paroxysmal nocturnal dyspnea. He denies any significant cough. He has not had a fevers or chills. He is fully vaccinated is COVID-19. He last Smoked methamphetamines 5-7 days ago. He last used marijuana On the day of presentation to the ER. he used to use heroin but quit using it several years ago. he reports he quit drinking alcohol several months ago. 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 He denies any chest pain or palpitations. He has been having intermittent nausea and he is associated with his chronic heartburn. He does not take any medications for heartburn. He denies any hematochezia or melena. He has been having normal bowel movements. He denies any changes in urinary frequency. He denies any foaming urine. Review of Systems Review of Systems: Narrative: 12 systems were reviewed with pertinent positives and negatives per HPI. Except as documented in the HPI, all other systems were reviewed and are negative. [facility] Past Medical History Medical History (Updated 02/10/21 @ 21:11 by Betsy Hagan DO) Alcohol abuse Depression Methamphetamine use PTSD (post-traumatic stress disorder) Schizophrenia Surgical History Surgical History (Updated 02/10/21 @ 20:58 by Betsy Hagan DO) No pertinent past surgical history Family History Family History Sibling Asthma Grandparent Cancer Social History Social History (Updated 02/11/21 @ 04:41 by Betys Hagan DO) Social History: He is unemployed and homeless. He is estranged from his family members. Smoking packs per day: 2 Smoking cigarettes per day: 40.0 Years smoked: 34 Smoking pack-years: 68.00 Smoking status: Current every day smoker Tobacco type: cigarettes Alcohol intake: former Substance use: current Substance use type: marijuana and methamphetamine Last use: 02/04 meth 02/10 marijuana Living arrangements: homeless Additional occupation/education comments: Unemployed Gender identity (if verbalized by the patient): Male Spiritual care concerns: No Comments He reports that he is estranged from his family members. He has not talked to his mother in over here. He does not know much about his father. He has not spoken to his siblings and several years. Meds Home Medications and Allergies Home Medications Medication Instructions Recorded Confirmed Type aripiprazole 10 mg PO DAILY 02/10/21 02/10/21 History bupropion HCl 150 mg PO DAILY 02/10/21 02/10/21 History buspirone 10 mg PO BID 02/10/21 02/10/21 History Allergies Allergy/AdvReac Type Severity Reaction Status Date / Time haloperidol Allergy Swelling Verified 02/10/21 13:51 of Lip/Tongue/Throat Vital Signs Vital Signs - 24 hr 02/10/21 12:21 02/10/21 13:50 02/10/21 16:58 Temperature 98.2 F Pulse Rate 98 86 92 Respiratory Rate 28 H 21 H 14 Blood Pressure 117/70 105/62 105/62 Pulse Oximetry 96 97 96 02/10/21 18:28 02/10/21 19:00 02/10/21 19:15 Temperature Pulse Rate 88 87 88 Respiratory Rate 20 18 Blood Pressure 110/66 Pulse Oximetry 98 98 100 02/10/21 19:30 02/10/21 19:45 02/10/21 20:00 Temperature Pulse Rate 88 88 89 Respiratory Rate 19 18 Blood Pressure Pulse Oximetry 99 99 98 02/10/21 20:15 Temperature Pu
[2021-02-10 21:14] LABS: Ethanol < 10 mg/dL (<10)
[2021-02-10 23:13] LABS: Alanine Aminotransferase 39 U/L (4-50); Albumin Level 2.4 g/dL (3.5-5.1); Alkaline Phosphatase 75 U/L (38-126); Anion Gap 3 mmol/L (8-16); Aspartate Amino Transferase 53 U/L (17-59); Bilirubin,Total 0.2 mg/dL (0.2-1.3); Blood Urea Nitrogen 13 mg/dL (9-20); Calcium 8.7 mg/dL (8.4-10.2); Carbon Dioxide 30 mmol/L (22-30); Chloride 99 mmol/L (98-107); Estimated CRCL calculation 77 ml/min; Estimated Glomerular Filt Rate > 60; Glucose 124 mg/dL (75-110); Potassium 3.9 mmol/L (3.4-5.0); Sodium 132 mmol/L (137-145)
[2021-02-10 23:22] LABS: Troponin I 0.186 ng/mL (0.000-0.034)
[2021-02-10] MEDS: THIAMINE HCL 200 MG/2 ML VIAL 100 MG IV PUSH (23:30)
--- NOTE | 2021-02-10 23:41 | PC.NURSE ---
This patient, Dhiraj Keane, was admitted to IMU Room 206-02 on 02/10/21 at 2225. Patient/family oriented to hospital policies and general routines including ID bracelet, bed and alarms, visiting hours, pain management, procedures, bathroom and other care routines, personal items, smoking policy, room service/diet, and visiting hours. Information on how to activate the Rapid Response Team has been discussed. Patient/Family are encouraged to report perceived risks to care and to ask questions if they do not understand what they are told or what they should do.
[2021-02-11] VITALS (13 sets, daily range): BP systolic 100–115; BP diastolic 45–54; PULSE 81–101; RESP 16–20; TEMP 36.1–36.8; O2SAT 94–98; BMI 26.2
[2021-02-11] MEDS: ZOLPIDEM TARTRATE (*CRX) 5 MG TABLET PO (01:29)
[2021-02-11 01:31] LABS: Add Urine Microscopic? NO; Appearance Urine Clear (Clear); Bilirubin Urine Negative (Negative); Blood Urine Negative (Negative); Color Urine Yellow (Yellow); Glucose Urine UA Negative (Negative); Ketones Urine Negative (Negative); Leukocyte Esterase Ur Negative LEU/UL (Negative); Nitrate Urine Negative (Negative); Protein Urine Negative (Negative); Specific Grav Ur 1.019 (1.001-1.035); Urobilinogen Urine Negative mg/dL (<2.0)
[2021-02-11 02:08] LABS: Amphetamine Screen Urine Negative (Negative); Barbiturate Screen Urine Negative (Negative); Benzodiazepines Screen Urine Negative (Negative); Cannabinoid Screen Urine Positive (Negative); Cocaine Screen Urine Negative (Negative); Methadone Screen Urine Negative (Negative); Opiate Screen Urine Negative (Negative); Phencyclidine Screen Urine Negative (Negative)
[2021-02-11 05:18] LABS: Hematocrit 36.8 % (42.0-52.0); Hemoglobin 11.7 g/dL (14.0-18.0); Mean Corpuscular HGB Conc 31.8 g/dl (32-36); Mean Corpuscular Hemoglobin 29.2 pg (26-34); Mean Corpuscular Volume 91.8 fl (80-100); Mean Platelet Volume 8.2 fl (7.4-10.4); Platelet Count Result 497 k/mm3 (150-375); Red Blood Count 4.01 M/mm3 (4.6-6.20); Red Cell Distribution Width 16.2 % (11.5-14.5); White Blood Count 14.9 K/mm3 (4.5-10.0)
[2021-02-11 05:37] LABS: Alanine Aminotransferase 37 U/L (4-50); Albumin Level 2.4 g/dL (3.5-5.1); Alkaline Phosphatase 78 U/L (38-126); Anion Gap 0 mmol/L (8-16); Aspartate Amino Transferase 54 U/L (17-59); Bilirubin,Total 0.2 mg/dL (0.2-1.3); Blood Urea Nitrogen 13 mg/dL (9-20); Calcium 8.4 mg/dL (8.4-10.2); Carbon Dioxide 28 mmol/L (22-30); Chloride 103 mmol/L (98-107); Estimated CRCL calculation 86 ml/min; Estimated Glomerular Filt Rate > 60; Glucose 99 mg/dL (75-110); Magnesium 1.7 mg/dL (1.6-2.3); Potassium 4.2 mmol/L (3.4-5.0); Sodium 131 mmol/L (137-145)
[2021-02-11 05:41] LABS: Troponin I 0.177 ng/mL (0.000-0.034)
--- NOTE | 2021-02-11 06:00 | ECHO_ITS ---
Patient Info Name: Dhiraj Keane Age: 45 years : 1975 Gender: Male Ht: 65 in Wt: 157 lbs BSA: 1.82 m2 HR: 91 bpm BP: 113 / 45 mmHg Heart Rhythm: Sinus Rhythm Technical Quality: Good Exam Date: 02/11/2021 8:04 AM Exam Location: [facility] Patient Status: Inpatient Admit Date: 02/10/2021 Staff Ordering Physician: Yvonne Cleaning PA-C [employer] Chief: Martlel Tobias RDCS, RT Attending Provider: Betsy Hagan DO Referring Physician: Black MARTINEZ; Exam Type: CA echo doppler color flow Study Info Indications I31.3 - Pericardial effusion (noninflammatory) Complete two-dimentional, color flow and Doppler transthoracic echocardiogram is performed with agitated saline and with contrast to opacify the left ventricle and to improve the delineation of the left ventricle endocardial borders. Complete two-dimensional, color flow and Doppler transthoracic echocardiogram is performed. Strain analysis performed. Summary 1. Complete two-dimensional, color flow and Doppler transthoracic echocardiogram is performed. 2. Left ventricular chamber dimension is normal. 3. Left ventricular systolic function is normal, estimated at >70%. 4. There is moderately increased left ventricular wall thickness. 5. The left ventricular diastolic function is normal. 6. Global longitudinal strain is normal at -19 %. 7. Normal inferior vena cava with >50% collapse upon inspiration consistent with normal right atrial pressure, 5 mmHg. 8. There is a small pericardial effusion largest anteriorly at 0.9cm, trivial posteriorly. No tamponade physiology by mitral/tricuspid inflow velocities. Left Ventricle Left ventricular chamber dimension is normal. Left ventricular systolic function is normal, estimated at >70%. There is moderately increased left ventricular wall thickness. The left ventricular diastolic function is normal. Global longitudinal strain is normal at -19 %. Right Ventricle Right ventricular chamber dimension is normal. Left Atria Left atrial chamber dimension is normal. Right Atria Right atrial chamber dimension is normal. Aortic Valve The aortic valve is trileaflet. There is no aortic valve stenosis. There is no aortic valve regurgitation. Pulmonic Valve The pulmonic valve is normal. There is trace pulmonic regurgitation. Mitral Valve The mitral valve has normal leaflets. There is no mitral valve regurgitation. Tricuspid Valve The tricuspid valve leaflets are normal. There is trace tricuspid valve regurgitation. No pulmonary hypertension, estimated pulmonary arterial systolic pressure is 24 mmHg. Pericardium/Pleural The pericardium appears normal. There is a small pericardial effusion largest anteriorly at 0.9cm, trivial posteriorly. No tamponade physiology by mitral/tricuspid inflow velocities. Inferior Vena Cava Normal inferior vena cava with >50% collapse upon inspiration consistent with normal right atrial pressure, 5 mmHg. Aorta The aortic root size at the sinus of Valsalva is normal. Left Ventricular Outflow Tract Name Value Normal LVOT 2D LVOT Diameter 2.1 cm LVOT Doppler
[2021-02-11 06:35] LABS: Hepatitis B Surface Antigen Negative (Negative)
[2021-02-11 06:41] LABS: HAV RESULT Negative (Negative); Hepatitis B Core IgM Result Negative (Negative)
[2021-02-11 06:52] LABS: Hepatitis C Virus Antibody Negative (Negative)
--- NOTE | 2021-02-11 09:05 | PM.IMPN ---
Progress Note: A&P Assessment and Plan (1) Acute pericardial effusion: Code(s): I30.9 - Acute pericarditis, unspecified Status: Acute Assessment and Plan: New moderate pericardial effusion by CT. Could be infectious/inflammatory or due to low protein state given patient's low total serum protein and hypoalbuminemia. Given the patient's IV drug use history, blood cultures checked. Echo ordered. Add TB testing since he is homeless. Cardiology consulted. Echo ordered. (2) Elevated troponin: Code(s): R77.8 - Other specified abnormalities of plasma proteins Status: Acute Assessment and Plan: Troponin 0.164 up to 0.186. EKG showing delayed transition. Suspect pericarditis, possibly viral. Echo ordered. Cardiology consult. (3) Hypoalbuminemia: Code(s): E88.09 - Other disorders of plasma-protein metabolism, not elsewhere classified Status: Acute Assessment and Plan: Patient had normal albumin in October but here albumin low at 2.6. UA has shown proteinuria in the past intermittently but no proteinuria at this time. This could be related to malnutrition, celiac or GI loss. Consider also loss and that he need to be at a higher serum threshold to spill protein. Also consider liver dysfunction but felt less likely given the normal coags. Check prealbumin, etc. Check urine protein. (4) Alcohol abuse: Code(s): F10.10 - Alcohol abuse, uncomplicated Status: Acute Assessment and Plan: The patient claims that she has not drank alcohol in several months. Alcohol level negative. CIWA protocol ordered and is running 0-1. Continue thiamine and folic acid supplementation. Ativan available prn for signs/symptoms of worsening withdrawal. (5) Methamphetamine use: Code(s): F15.10 - Other stimulant abuse, uncomplicated Status: Acute Assessment and Plan: Patient smoked methamphetamines 5-7 days ago. UDS positive only for marijuana. Chase has been educated about the benefits of abstaining from drug use. Hepatitis panel negative. Check HIV (6) DVT prophylaxis: Code(s): Z29.9 - Encounter for prophylactic measures, unspecified Status: Acute Assessment and Plan: SCDs Subjective Date/time seen: 02/11/21 09:05 Interval history: 45yo male with hx of alcoholism, methamphetamine abuse, schizophrenia, depression and PTSD here for bilateral hands and feet swelling. Patient is hungry and threatening to sign out against medical advise. He feels 'crabby' but denies CP or abd pain. Complains of mild SOB. No n/v. No change in the leg edema. received J&J COVID vaccine in September Exam Narrative: Exam Narrative: AF 97.5 104/53 81 16 98% ra Gen - NARD lying almost flat in bed Chest - mild bibasialr inspiratory crackles, nml RR CV - RRR S1/S2; tele showing 8 beat run NSVT Abd - Soft, NT/ND, Positive BS Ext - 1+ mostly nonpitting pedal edema Neuro - Alert and oriented. Nonfocal exam. Psych - alert, easily redirected. disheveled appearing Skin - Warm and dry, numerous tattoos through out Objective Data Vital Signs Vital Signs: Vital Signs - 24 hr 02/10/21 12:21 02/10/21 13:50 02/10/21 16:58 Temperature 98.2 F Pulse Rate 98 86 92 Respiratory Rate 28 H 21 H 14 Blood Pressure 117/70 105/62 105/62 Pulse Oximetry 96 97 96 02/10/21 18:28 02/10/21 19:00 02/10/21 19:15 Temperature Pulse Rate 88 87 88 Respiratory Rate 20 18 Blood Pressure 110/66 Pulse Oximetry 98 98 100 02/10/21 19:30 02/10/21 19:45 02/10/21 20:00 Temperature Pulse Rate 88 88 89 Respiratory Rate 19 18 Blood Pressure Pulse Oximetry 99 99 98 02/10/21 20:15 02/10/21 20:30 02/10/21 20:45 Temperature Pulse Rate 85 93 95 Respiratory Rate 16 20 16 Blood Pressure Pulse Oximetry 99 97 97 02/10/21 21:00 02/10/21 21:15 02/10/21 21:23 Temperature Pulse Rate 98 95 Respiratory Rate 20 Blood Pressure 1
[2021-02-11] MEDS: THIAMINE HCL 100 MG TABLET PO (10:02)
[2021-02-11] MEDS: buPROPion HCL XL (24 HR) 150 MG TABCR PO (10:02)
[2021-02-11] MEDS: FAMOTIDINE 20 MG TABLET PO ×2 (10:03→22:06)
[2021-02-11] MEDS: ARIPiprazole 10 MG TABLET PO (10:03)
[2021-02-11] MEDS: FOLIC ACID 1 MG TABLET PO (10:03)
[2021-02-11] MEDS: busPIRone HCL 10 MG TABLET PO ×2 (10:03→18:10)
[2021-02-11 11:52] LABS: Magnesium 1.7 mg/dL (1.6-2.3)
[2021-02-11 11:59] LABS: Prealbumin 11.1 mg/dL (17.6-36.0)
[2021-02-11 12:32] LABS: HIV 1/2 Ab P24 Ag Result Negative (Negative)
[2021-02-11 12:53] LABS: Iron 23 ug/dL (49-181)
[2021-02-11 13:03] LABS: Percent Iron Saturation 12 % (20-50)
--- NOTE | 2021-02-11 13:08 | PCNSR ---
On 02/11/21, the student,Laura Pacheco, provided care and completed [facility] documentation on this patient. I have reviewed the student's documentation and agree with the findings.
[2021-02-11 13:25] LABS: Thyroid Stimulating Hormone Reflex 0.801 uIU/mL (0.465-4.68)
[2021-02-11] MEDS: FUROSEMIDE INJ 40 MG/4 ML VIAL 20 MG IV PUSH (14:21)
[2021-02-11 14:41] LABS: Creatinine Urine 31.1 mg/dL; Total Protein Urine Random 13 mg/dL; Ur Ttl Prot Creatinine Ratio 0.42 mg/mg (0-0.20)
--- NOTE | 2021-02-11 16:10 | PM.CNCAR ---
Assessment and Plan Assessment and plan (1) Elevated troponin: Code(s): R77.8 - Other specified abnormalities of plasma proteins Status: Acute Assessment and Plan: Flat troponin elevation most likely type 2 infarct in setting of strain secondary to nutritional status, drug abuse. No clinical evidence of ACS by EKG or troponin trend. Patient did not present with chest pain although reports atypical sharp chest pain randomly. 2D echocardiogram with normal LV systolic function, moderate LVH without wall motion abnormality. Elevated troponin may be secondary to pericardial inflammatory process although symptoms nor exam corroborate clinical diagnosis of pericarditis. Therefore, I do not feel antiinflammatories indicated at this time. Continue to monitor in this regard. No indication for ischemic workup at this time unless change in clinical status warrants. (2) SOB (shortness of breath): Code(s): R06.02 - Shortness of breath Status: Acute Assessment and Plan: Resolved with IV Lasix x1. BNP 191, mildly elevated presentation with suggestion of possible mild pulmonary vascular congestion on chest x-ray and CT angiogram. No pulmonary embolism noted. Normal LV systolic function. Lower extremity edema more likely secondary to low protein and hypoalbuminemia with 3rd spacing possible strain due to drug abuse as opposed to acute decompensated heart failure. Nonetheless, continue to monitor volume status. As needed diuresis. (3) Hypoalbuminemia: Code(s): E88.09 - Other disorders of plasma-protein metabolism, not elsewhere classified Status: Acute Assessment and Plan: Nutritional support. Defer to primary service. (4) Pericardial effusion: Code(s): I31.3 - Pericardial effusion (noninflammatory) Status: Acute Assessment and Plan: Small, incidental discovery on CT angiogram of the chest and echocardiogram. No indication for hemodynamic instability. Clinical picture is not consistent with acute pericarditis. Will monitor clinically as appropriate recommendations to follow. (5) Polysubstance abuse: Code(s): F19.10 - Other psychoactive substance abuse, uncomplicated Status: Acute Assessment and Plan: Abstinence from alcohol, amphetamines. Defer to primary service in this regard. History of Present Illness History of Present Illness Consult date/time: Date of service:02/11/21 16:10 Cardiology consultation at the request of Dr. Hagan of the [facility] service for opinion regarding pericardial effusion noted on CT scan and elevated troponin. Requesting physician: Betsy Hagan, Consult reason: Other ( pericardial effusion, elevated troponin) Reason For Visit: Pericardial Effusion, Elevated Troponin Narrative: patient is a 45-year-old male with a history of alcohol abuse, methamphetamine abuse, schizophrenia, depression, PTSD who presented to the emergency department in [place] for swelling in his hands and feet for the past 2-3 days. He said he also appreciated some mild shortness of breath with activity but no orthopnea or PND at presentation. He denied cough or chest pain. He denies recent illness or fevers or chills. Patient was given IV Lasix 20 mg x 1 and states his breathing has improved. CT angiogram of the chest at presentation was obtained which revealed moderate pericardial effusion per radiology, no pulmonary embolism reticular opacities at lung bases atelectasis although mild pulmonary edema or interstitial lung disease considerations. There is a small sliding hiatal hernia with wall thickening possibly related to reflux esophagitis. Patient states he has had occasional mild sharp pain none presently but nonexertional. Eating and drinking without difficulty. Blood cultures pending. Drug screen positive for cannabinoids this time although previous drug screens repeatedly positive for amphetamines. patient reports he has Re
[2021-02-12] VITALS (7 sets, daily range): BP systolic 112–125; BP diastolic 47–65; PULSE 82–97; RESP 16; TEMP 36.1–36.3; O2SAT 99–100
--- NOTE | 2021-02-12 04:40 | PC.NURSE ---
Patient refuses to have am labs drawn.
[2021-02-12 07:56] LABS: Basophils Absolute Auto 0.1 K/mm3 (0.0-0.1); Basophils Percent Auto 0.9 % (0.2-1.2); Eosinophils Absolute Auto 1.3 K/mm3 (0-0.3); Eosinophils Percent Auto 9.1 % (0-4.4); Hematocrit 38.1 % (42.0-52.0); Hemoglobin 12.3 g/dL (14.0-18.0); Immature Granulocyte Absolute 0.39 K/mm3 (0.00-0.031); Immature Granulocyte Percent A 2.7 % (0-0.5); Lymphocytes Absolute Auto 1.08 K/mm3 (0.9-3.2); Lymphocytes Percent Auto 7.5 % (18.3-44.2); Mean Corpuscular HGB Conc 32.3 g/dl (32-36); Mean Corpuscular Hemoglobin 29.1 pg (26-34); Mean Corpuscular Volume 90.3 fl (80-100); Mean Platelet Volume 7.8 fl (7.4-10.4); Monocytes Absolute Auto 0.4 K/mm3 (0.1-0.6); Monocytes Percent Auto 2.6 % (2.6-8.5); Neutrophils Absolute Auto 11.1 K/mm3 (1.3-6.7); Neutrophils Percent Auto 77.2 % (45.5-73.1); Platelet Count Result 500 k/mm3 (150-375); Red Blood Count 4.22 M/mm3 (4.6-6.20); White Blood Count 14.3 K/mm3 (4.5-10.0)
[2021-02-12 08:11] LABS: Albumin Level 2.5 g/dL (3.5-5.1); Anion Gap 4 mmol/L (8-16); Blood Urea Nitrogen 13 mg/dL (9-20); Calcium 8.3 mg/dL (8.4-10.2); Carbon Dioxide 27 mmol/L (22-30); Chloride 100 mmol/L (98-107); Estimated CRCL calculation 86 ml/min; Estimated Glomerular Filt Rate > 60; Glucose 157 mg/dL (65-110); Phosphorus 3.4 mg/dL (2.5-4.5); Potassium 3.9 mmol/L (3.4-5.0); Sodium 131 mmol/L (137-145)
[2021-02-12] MEDS: ARIPiprazole 10 MG TABLET PO (08:47)
[2021-02-12] MEDS: FAMOTIDINE 20 MG TABLET PO (08:47)
[2021-02-12] MEDS: busPIRone HCL 10 MG TABLET PO (08:47)
[2021-02-12] MEDS: buPROPion HCL XL (24 HR) 150 MG TABCR PO (08:47)
[2021-02-12] MEDS: FOLIC ACID 1 MG TABLET PO (08:47)
[2021-02-12] MEDS: THIAMINE HCL 100 MG TABLET PO (08:47)
--- NOTE | 2021-02-12 10:47 | PM.PNCARD ---
Progress Note: A&P Assessment and Plan (1) Elevated troponin: Code(s): R77.8 - Other specified abnormalities of plasma proteins Status: Acute Assessment and Plan: Flat troponin elevation most likely type 2 infarct in setting of strain secondary to nutritional status, drug abuse. No clinical evidence of ACS by EKG or troponin trend. Patient did not present with chest pain although reports atypical sharp chest pain randomly. 2D echocardiogram with normal LV systolic function, moderate LVH without wall motion abnormality. No clinical evidence of pericarditis. Advised patient should he developed chest pain, declining activity tolerance, worsening shortness of breath to return to the emergency department. We discussed ischemic evaluation with stress test patient is not interested in pursuing additional testing at this time and sites is homeless status as an additional problem. Advised to take aspirin enteric-coated 81 mg daily if possible. He states he will seek assistance from his local [employer] and see if they are able to help. Minimize sodium intake as much as possible monitor for recurrence of swelling. Primary service plans for discharge today. No indication to keep patient hospitalized for cardiac perspective. Patient is without means for scheduled follow-up unfortunately. He understands these risks as discussed and the limitations. Advised patient will assist in anyway possible but should he have further problems to return to the emergency department. Disposition per hospitalist service. (2) SOB (shortness of breath): Code(s): R06.02 - Shortness of breath Status: Acute Assessment and Plan: Resolved with IV Lasix x1 with Prominent response and resolution of symptoms. No clinical indication to continue diuretic therapy. Follow-up inability to obtain medications highly problematic Given social circumstances. (3) Hypoalbuminemia: Code(s): E88.09 - Other disorders of plasma-protein metabolism, not elsewhere classified Status: Acute Assessment and Plan: Nutritional support. Defer to primary service. (4) Pericardial effusion: Code(s): I31.3 - Pericardial effusion (noninflammatory) Status: Acute Assessment and Plan: Small, incidental discovery on CT angiogram of the chest and echocardiogram. No indication for hemodynamic instability. Clinical picture is not consistent with acute pericarditis. precise etiology remains unclear at this time. (5) Polysubstance abuse: Code(s): F19.10 - Other psychoactive substance abuse, uncomplicated Status: Acute Assessment and Plan: Abstinence from alcohol, amphetamines. Defer to primary service in this regard. Subjective Date/time seen: Date of service: 02/12/21 10:47 Follow-up for pericardial effusion, elevated troponin no new issues overnight. Patient states he is feeling much better and would like to be discharged. Patient is homeless and has no direct resources. No chest pain, shortness of breath edema resolved. No dizziness. Eating well, no nausea vomiting. Telemetry unremarkable. Review of Systems Review of Systems: All systems reviewed & are unremarkable except as noted in HPI and below Constitutional: Constitutional: Reports as per HPI, Reports no additional constitutional complaints and Denies fatigue Eyes: Eyes: Reports as per HPI and Reports no additional eye complaints ENT: Reports system reviewed and no additional complaints, except as documented and Reports as per HPI Cardiovascular: Cardiovascular: Reports as per HPI, Reports no additional cardiovascular complaints, Denies chest pain, Denies pedal edema, Denies leg edema, Denies palpitations and Reports dyspnea Respiratory: Respiratory: Reports as per HPI, Reports no additional respiratory complaints, Denies cough and Denies dyspnea Gastrointestinal: Gastrointestinal: Reports as per HPI, Reports no evelyn
--- NOTE | 2021-02-12 12:45 | PM.DS ---
DS: Admitting Diagnosis Admitting Diagnosis Admitting Diagnosis: Acute pericarditis with associated pericardial effusion elevated troponin likely demand ischemia hypo albuminemia history of alcohol abuse DS: Discharge Diagnosis Discharge Diagnosis (1) Elevated troponin: Code(s): R77.8 - Other specified abnormalities of plasma proteins Status: Acute Assessment and Plan: Flat troponin elevation most likely type 2 infarct in setting of strain secondary to nutritional status, drug abuse. No clinical evidence of ACS by EKG or troponin trend. Patient did not present with chest pain although reports atypical sharp chest pain randomly. 2D echocardiogram with normal LV systolic function, moderate LVH without wall motion abnormality. No clinical evidence of pericarditis. Advised patient should he developed chest pain, declining activity tolerance, worsening shortness of breath to return to the emergency department. We discussed ischemic evaluation with stress test patient is not interested in pursuing additional testing at this time and cites is homeless status as an additional problem. Advised to take aspirin enteric-coated 81 mg daily if possible. He states he will seek assistance from his local [employer] and see if they are able to help. Minimize sodium intake as much as possible monitor for recurrence of swelling. Cardiology service have cleared him for discharge. Patient is without means for scheduled follow-up unfortunately. He understands these risks as discussed and the limitations. Advised patient will assist in anyway possible but should he have further problems to return to the emergency department. he had minimal leukocytosis which has been trending down. His WBC count on the day of discharge was 14.3. He remained afebrile. There was no other focus of infection. Cultures remain negative. He was not started on any antibiotics. (2) SOB (shortness of breath): Code(s): R06.02 - Shortness of breath Status: Acute Assessment and Plan: Resolved with IV Lasix x1 with prominent response and resolution of symptoms. No clinical indication to continue diuretic therapy. Follow-up inability to obtain medications highly problematic given social circumstances. (3) Hypoalbuminemia: Code(s): E88.09 - Other disorders of plasma-protein metabolism, not elsewhere classified Status: Acute Assessment and Plan: Patient had normal albumin in October but here albumin low at 2.6. UA has shown proteinuria in the past intermittently but no proteinuria at this time. This could be related to malnutrition, celiac or GI loss. Consider also loss and that he need to be at a higher serum threshold to spill protein. Also consider liver dysfunction but felt less likely given the normal coags. Nutritional support. He was encouraged to address his nutritional status. (4) Pericardial effusion: Code(s): I31.3 - Pericardial effusion (noninflammatory) Status: Acute Assessment and Plan: Small, incidental discovery on CT angiogram of the chest and echocardiogram. No indication for hemodynamic instability. Clinical picture is not consistent with acute pericarditis. precise etiology remains unclear at this time. It can be related to patient low total serum protein and hypo albuminemia. No further workup from Cardiology recommended. He was encouraged to address his nutritional status. QuantiFERON gold test has been ordered which is pending. (5) Polysubstance abuse: Code(s): F19.10 - Other psychoactive substance abuse, uncomplicated Status: Acute Assessment and Plan: Abstinence from alcohol, amphetamines. Patient smoked methamphetamines 5-7 days ago. UDS positive only for marijuana. Patient has been educated about the benefits of abstaining from drug use. Hepatitis panel negative. (6) Alcohol abuse: Code(s): F10.10 -
== END 2021-02-12 11:18 | disposition home or self-care (01) ==
LOC: ANHED 19:32 → ANHIMU 23:32
PROVIDERS: Internal Medicine; Physician Assistant; Admitting Provider Internal Medicine; Emergency Provider Emergency Medicine; Visit Provider Internal Medicine Critical Care Medicine
DX: R77.8 Other specified abnormalities of plasma proteins (principal); I31.3 Pericardial effusion (noninflammatory); M79.89 Other specified soft tissue disorders; R06.02 Shortness of breath; E87.1 Hypo-osmolality and hyponatremia; F20.9 Schizophrenia, unspecified; F12.90 Cannabis use, unspecified, uncomplicated; F15.10 Other stimulant abuse, uncomplicated; F19.10 Other psychoactive substance abuse, uncomplicated; F32.9 Major depressive disorder, single episode, unspecified; F43.10 Post-traumatic stress disorder, unspecified; F17.210 Nicotine dependence, cigarettes, uncomplicated; F10.10 Alcohol abuse, uncomplicated; Z59.0 Homelessness; Z20.6 Contact with and (suspected) exposure to human immunodeficiency virus [HIV]; Z11.4 Encounter for screening for human immunodeficiency virus [HIV]
CPT/HCPCS: 36415; 71046; 71275; 80053; 80069; 80074; 80307; 81003; 82570; 83540; 83550; 83735; 83880; 84134; 84156; 84443; 84484; 85025; 85027; 85380; 85610; 85730; 86703; 87040; 93005; 93306; 93970; 96374; 99285; A9270; G0378; G0379; G0432; J1940; J3411; Q9967

== ENCOUNTER 2021-02-20 12:44 | Emergency (ER) | payer OTHER, SELFPAY ==
--- NOTE | ~2021-02-20 | XR_ITS ---
XR chest 2V DATE: 02/20/2021 13:11 INDICATION: Shortness of breath. Bilateral lower extremity edema for 3 days TECHNIQUE: PA and lateral views COMPARISON: 02/10/2021 CT pulmonary scan 02/10/2021 2 view chest 01/07/2022 view chest FINDINGS: There is mild infiltrate and/or atelectasis at the lung bases. Normal heart size. No hilar or mediastinal enlargement. No pleural effusion or pulmonary vascular con gestion or pneumothorax. IMPRESSION: Mild bibasilar infiltrate and/atelectasis Reviewed, dictated and finalized at [facility].
--- NOTE | 2021-02-20 12:46 | ECG_ITS ---
Measurements Intervals [place] Rate: 97 P: 63 ND: 176 QRS: 55 QRSD: 98 T: 41 QT: 353 QTc: 450 Interpretive Statements SINUS RHYTHM BASELINE WANDER- V4-V6 NORMAL ECG Electronically Signed On 02-20-2021 16:27:52 CDT by Walter Gray D.O.
[2021-02-20 12:47] VITALS: BP 110/72; PULSE 99; RESP 20; TEMP 36.5; O2SAT 97
[2021-02-20 13:22] LABS: Basophils Absolute Auto 0.2 K/mm3 (0.0-0.1); Basophils Percent Auto 0.9 % (0.2-1.2); Eosinophils Absolute Auto 1.4 K/mm3 (0-0.3); Eosinophils Percent Auto 8.5 % (0-4.4); Hematocrit 38.8 % (42.0-52.0); Hemoglobin 12.1 g/dL (14.0-18.0); Immature Granulocyte Absolute 0.39 K/mm3 (0.00-0.031); Immature Granulocyte Percent A 2.3 % (0-0.5); Lymphocytes Absolute Auto 1.43 K/mm3 (0.9-3.2); Lymphocytes Percent Auto 8.5 % (18.3-44.2); Mean Corpuscular HGB Conc 31.2 g/dl (32-36); Mean Corpuscular Hemoglobin 28.3 pg (26-34); Mean Corpuscular Volume 90.9 fl (80-100); Mean Platelet Volume 8.3 fl (7.4-10.4); Monocytes Absolute Auto 0.5 K/mm3 (0.1-0.6); Monocytes Percent Auto 2.7 % (2.6-8.5); Neutrophils Percent Auto 77.1 % (45.5-73.1); Platelet Count Result 529 k/mm3 (150-375); Red Blood Count 4.27 M/mm3 (4.6-6.20); Red Cell Distribution Width 16.8 % (11.5-14.5); White Blood Count 16.9 K/mm3 (4.5-10.0)
[2021-02-20 13:31] LABS: INR 1.1; Prothrombin Time 13.6 Seconds (11.1-14.7)
[2021-02-20 13:32] LABS: Partial Thromboplastin Time 38.8 SECONDS (22.3-36.8)
[2021-02-20 13:34] LABS: Anion Gap 5 mmol/L (8-16); Blood Urea Nitrogen 14 mg/dL (9-20); Calcium 8.3 mg/dL (8.4-10.2); Carbon Dioxide 26 mmol/L (22-30); Chloride 103 mmol/L (98-107); Estimated CRCL calculation 77 ml/min; Estimated Glomerular Filt Rate > 60; Glucose 136 mg/dL (65-110); Potassium 3.4 mmol/L (3.4-5.0); Sodium 134 mmol/L (137-145)
[2021-02-20 13:54] LABS: NT Pro B Type Natriuretic Pept 98 pg/mL (5-100)
--- NOTE | 2021-02-20 14:34 | ED.SOB ---
HPI - SOB/Dyspnea General Chief Complaint: Shortness of Breath/Dyspnea Stated Complaint: swelling Time Seen by Provider: 02/20/21 14:31 History of Present Illness HPI Narrative: Chest pain, SOB, LE swelling. He has had these symptoms before, but states that they are worse since yesterday after using meth. He was recently hospitalized for the same. He was found to have elevated, but flat troponins and relatively normal ECHO. He declined further testing. Related Data Home Medications Medication Instructions Recorded Confirmed aripiprazole 10 mg PO DAILY 02/10/21 02/10/21 buspirone 10 mg PO BID 02/10/21 02/10/21 aspirin [Adult Aspirin EC Low 81 mg PO DAILY 02/20/21 Strength] Allergies Allergy/AdvReac Type Severity Reaction Status Date / Time haloperidol Allergy Swelling Verified 02/20/21 14:19 of Lip/Tongue/Throat Review of Systems Review of Systems: All systems reviewed & are unremarkable except as noted in HPI and below Constitutional: Constitutional: Denies fever(s) Cardiovascular: Cardiovascular: Reports chest pain Respiratory: Respiratory: Reports dyspnea Gastrointestinal: Gastrointestinal: Denies abdominal pain PMFSH Past Medical History Medical History Alcohol abuse Depression Methamphetamine use PTSD (post-traumatic stress disorder) Schizophrenia Smoker Surgical History Surgical History No pertinent past surgical history Family History Family History Sibling Asthma Grandparent Cancer Social History Social History Social History: He is unemployed and homeless. He is estranged from his family members. Smoking packs per day: 2 Smoking cigarettes per day: 40.0 Years smoked: 34 Smoking pack-years: 68.00 Smoking status: Current every day smoker Tobacco type: cigarettes Alcohol intake: former Substance use: current Substance use type: marijuana and methamphetamine Last use: 02/04 meth 02/10 marijuana Additional occupation/education comments: Unemployed Gender identity (if verbalized by the patient): Male Spiritual care concerns: No Exam Const: General: no acute distress and alert Nutritional Appearance: well nourished Orientation/consciousness: patient oriented x3 HENMT: Head: normal to inspection Neck: Neck: normal visual inspection Chest: Chest palpation & inspection: normal inspection of the chest and no tenderness Resp: Effort & Inspection: normal respiratory effort Auscultation: clear to auscultation bilaterally Cardio: Rate: regular rate Rhythm: regular rhythm GI: GI Palp: Yes Soft to palpation and No Tenderness to palpation present (GI) Skin: General skin exam: normal color Neuro: General: patient oriented x3 and moves all extremities Speech: normal speech Extrem: General: edema bilateral (2+ ) Psych: Mental Status: mental status grossly normal Course Vital Signs Vital signs: Vital Signs Temperature 36.5 C 02/20/21 12:47 Pulse Rate 99 02/20/21 12:47 Respiratory Rate 20 02/20/21 12:47 Blood Pressure 110/72 02/20/21 12:47 Pulse Oximetry 97 02/20/21 12:47 Temperature 36.5 C 02/20/21 12:47 Pulse Rate 99 02/20/21 12:47 Respiratory Rate 20 02/20/21 12:47 Blood Pressure 110/72 02/20/21 12:47 Pulse Oximetry 97 02/20/21 12:47 MDM - SOB/Dyspnea MDM Narrative Medical decision making narrative: He again has elevated, but flat troponins. Exam appears to be unchanged from previous presentation. Patient discussed in detail with Cardiology. She does not believe that there would be any benefit to hospitalizing him again. I will emphasize obstaining from meth use and outpatient follow-up. Leukocytosis is not significantly changed from previous. Differential Diagnosis Differential diagnosis: Likely congestive hea
[2021-02-20 16:44] LABS: Troponin I 0.165 ng/mL (0.000-0.034)
[2021-02-20] MEDS: AZITHROMYCIN 250 MG TABLET 500 MG PO (17:50)
--- NOTE | 2021-02-20 18:00 | PC.NURSE ---
Covid swab ordered, pt refuses to be swabbed, states, I don't need that. Encouraged to have nurse complete test prior to discharge. Pt left without covid swab completed.
== END 2021-02-20 18:20 | disposition home or self-care (01) ==
PROVIDERS: Emergency Provider Emergency Medicine
DX: J18.9 Pneumonia, unspecified organism (principal); R07.89 Other chest pain; F32.9 Major depressive disorder, single episode, unspecified; F43.10 Post-traumatic stress disorder, unspecified; F20.9 Schizophrenia, unspecified; F17.210 Nicotine dependence, cigarettes, uncomplicated; F15.90 Other stimulant use, unspecified, uncomplicated
CPT/HCPCS: 36415; 71046; 80048; 83880; 84484; 85025; 85610; 85730; 93005; 99284; A9270

== ENCOUNTER 2021-03-15 09:39 | Emergency (ER) | payer OTHER, SELFPAY ==
--- NOTE | ~2021-03-15 | CT_ITS ---
EXAMINATION: CT abdomen pelvis w con DATE: 03/15/2021 18:58 INDICATION: Vomiting TECHNIQUE: Computed tomography (CT) of the abdomen and pelvis was performed with 100 cc Omnipaque 350 intravenous contrast. Automated exposure control and iterative reconstruction technique were employe d. Exam dose: 276.65 mGy-cm total exam DLP. COMPARISON: None. FINDINGS: Predominantly peripheral and basilar bilateral interstitial infiltrates and/or atelectasis, most prominent in the right lower lobe. Mild to moderate pericardial effusion. Heart size is within normal range. There is prominent circumferential soft tissue thickening of the distal esophagus. No hepatic space-occupying mass lesion is evident. No intrahepatic or extrahepatic bile duct or pancr eatic duct dilatation. No pancreatic mass lesion or calcification is detected. Normal morphology of the adrenal glands. Bilateral chronic pyelonephritis. 3.6 mm upper pole nonobstructing right renal calculus. 4.6 mm nonobstructing posterior mid right renal calculus. 2.4 mm nonobstructing upper pole left renal calculus. 3.9 mm nonobstructing lower pole left renal calculus. No ureteral calculus or hydroureteronephrosis is evident. Normal caliber of the abdominal aorta. No intraperitoneal or retroperitoneal or pelvic mass lesion or adenopathy or ascites. No bowel obstruction or intraperitoneal free air. The urinary bladder is distended. No bladder wall thickening. Moderate prostate enlargement. No suspicious osteolytic or osteoblastic lesions. IMPRESSION: Bilateral chronic pyelonephritis and bilateral nonobstructive nephrolithiasis Prominent circumferential soft tissue thickening of the distal esophagus suggesting esophagitis. Mild to moderate pericardial effusion Primarily peripheral and basilar bilateral interstitial infiltrates and/atelectasis, most prominent r ight lower lobe Reviewed, dictated and finalized at [facility]. Reviewed, dictated and finalized at [facility]. IMPRESSION: Bilateral chronic pyelonephritis and bilateral nonobstructive neph rolithiasis Prominent circumferential soft tissue thickening of the distal esophagus sugges ting esophagitis. Mild to moderate pericardial effusion Primarily peripheral and basilar bilateral interstitial infiltrates and/atelect asis, most prominent right lower lobe
--- NOTE | ~2021-03-15 | XR_ITS ---
EXAMINATION: XR chest 2V DATE: 03/15/2021 16:51 INDICATION: Midsternal chest pain TECHNIQUE: PA and lateral views of the chest were obtained. COMPARISON: Chest radiograph dated 02/20/2021 FINDINGS: Airspace opacities and coarse reticular opacities at the posterior lung bases. No pleural effusion or pneumothorax. The cardiomediastinal silhouette is normal. Mild thoracic spondylosis. IMPRESSION: 1. Persistent opacities in the dependent lower lung zones which could represent atelectasis, mild pul monary edema, pneumonia, chronic interstitial lung disease or some combination thereof. Reviewed, dictated and finalized at location A. IMPRESSION: 1. Persistent opacities in the dependent lower lung zones which could represent atelectasis, mild pulmonary edema, pneumonia, chronic interstitial lung diseas e or some combination thereof.
[2021-03-15 09:45] VITALS: BP 141/83; PULSE 73; RESP 18; TEMP 36.9; O2SAT 97
[2021-03-15 10:30] LABS: Basophils Absolute Auto 0.1 K/mm3 (0.0-0.1); Basophils Percent Auto 0.8 % (0.2-1.2); Eosinophils Absolute Auto 0.4 K/mm3 (0-0.3); Hematocrit 39.4 % (42.0-52.0); Hemoglobin 12.5 g/dL (14.0-18.0); Immature Granulocyte Absolute 0.22 K/mm3 (0.00-0.031); Immature Granulocyte Percent A 1.7 % (0-0.5); Lymphocytes Percent Auto 9.1 % (18.3-44.2); Mean Corpuscular HGB Conc 31.7 g/dl (32-36); Mean Corpuscular Hemoglobin 27.5 pg (26-34); Mean Corpuscular Volume 86.6 fl (80-100); Mean Platelet Volume 8.2 fl (7.4-10.4); Monocytes Absolute Auto 0.6 K/mm3 (0.1-0.6); Monocytes Percent Auto 4.3 % (2.6-8.5); Neutrophils Absolute Auto 10.7 K/mm3 (1.3-6.7); Neutrophils Percent Auto 81.1 % (45.5-73.1); Platelet Count Result 540 k/mm3 (150-375); Red Blood Count 4.55 M/mm3 (4.6-6.20); Red Cell Distribution Width 17.2 % (11.5-14.5); White Blood Count 13.2 K/mm3 (4.5-10.0)
[2021-03-15 10:34] LABS: Ethanol < 10 mg/dL (<10)
[2021-03-15 10:35] LABS: Alanine Aminotransferase 131 U/L (4-50); Albumin Level 2.7 g/dL (3.5-5.1); Alkaline Phosphatase 85 U/L (38-126); Anion Gap 0 mmol/L (8-16); Aspartate Amino Transferase 116 U/L (17-59); Bilirubin,Total 0.2 mg/dL (0.2-1.3); Blood Urea Nitrogen 15 mg/dL (9-20); Calcium 8.2 mg/dL (8.4-10.2); Carbon Dioxide 32 mmol/L (22-30); Chloride 98 mmol/L (98-107); Estimated CRCL calculation 92 ml/min; Estimated Glomerular Filt Rate > 60; Glucose 115 mg/dL (65-110); Potassium 3.9 mmol/L (3.4-5.0); Sodium 130 mmol/L (137-145)
[2021-03-15 13:08] LABS: Add Urine Microscopic? YES; Amorphous Sediment Urine Moderate; Appearance Urine Cloudy (Clear); Bilirubin Urine Negative (Negative); Blood Urine Negative (Negative); Color Urine Yellow (Yellow); Glucose Urine UA Negative (Negative); Ketones Urine Negative (Negative); Leukocyte Esterase Ur Negative LEU/UL (Negative); Nitrate Urine Negative (Negative); Protein Urine Negative (Negative); Specific Grav Ur 1.017 (1.001-1.035); Urobilinogen Urine Negative mg/dL (<2.0); WBC Urine 0-3 /hpf
--- NOTE | 2021-03-15 13:26 | ED.GENADULT ---
HPI - General Adult General Chief complaint: Psychiatric Symptoms Stated complaint: Swollen Hands and Feet,SI Time Seen by Provider: 03/15/21 11:11 Source: patient History of Present Illness HPI narrative: Patient is a 45 y/o male complaining of suicidal ideation. He states that he is depressed and wants to end his life. He is thinking about laying on railroad tracks. He also complains of bilateral hand pain and swelling for 2 weeks. He also has some abdominal pain and vomiting. Related Data Home Medications Medication Instructions Recorded Confirmed aripiprazole 10 mg PO DAILY 02/10/21 02/10/21 buspirone 10 mg PO BID 02/10/21 02/10/21 aspirin [Adult Aspirin EC Low 81 mg PO DAILY 02/20/21 Strength] Allergies Allergy/AdvReac Type Severity Reaction Status Date / Time haloperidol Allergy Swelling Verified 02/20/21 14:19 of Lip/Tongue/Throat Review of Systems Constitutional: Constitutional: Denies chills, Denies fever(s), Denies headache(s) and Denies weakness Eyes: Eyes: Denies blurry vision ENT: Denies headache(s) and Denies neck pain Cardiovascular: Cardiovascular: Denies chest pain and Denies dyspnea Respiratory: Respiratory: Denies cough and Denies dyspnea Gastrointestinal: Gastrointestinal: Reports abdominal pain, Denies diarrhea, Reports nausea and Reports vomiting Genitourinary: Genitourinary: Denies hematuria and Denies dysuria Musculoskeletal: Musculoskeletal: Denies back pain, Denies neck pain and Reports other (hand swelling) Neurologic: Denies headache(s) and Denies weakness PMFSH Past Medical History Medical History Alcohol abuse Depression Methamphetamine use PTSD (post-traumatic stress disorder) Schizophrenia Smoker Surgical History Surgical History No pertinent past surgical history Family History Family History Sibling Asthma Grandparent Cancer Social History Social History Social History: He is unemployed and homeless. He is estranged from his family members. Smoking packs per day: 2 Smoking cigarettes per day: 40.0 Years smoked: 34 Smoking pack-years: 68.00 Smoking status: Current every day smoker Tobacco type: cigarettes Alcohol intake: former Substance use: current Substance use type: amphetamines Last use: 02/04 meth 02/10 marijuana Additional occupation/education comments: Unemployed Gender identity (if verbalized by the patient): Male Spiritual care concerns: No Exam Const: General: no acute distress and well developed Orientation/consciousness: oriented to person, oriented to place, oriented to time and patient oriented x3 HENMT: Head: normocephalic Ears: external ears normal General nose exam: Normal external nose present Eyes: General: appearance normal, both eyes and all related structures Conjunctivae: conjunctivae normal Neck: Neck: normal visual inspection and full ROM Chest: Chest palpation & inspection: normal inspection of the chest and no tenderness Resp: Effort & Inspection: normal respiratory effort Auscultation: clear to auscultation bilaterally Cardio: Rate: regular rate Rhythm: regular rhythm GI: GI Palp: No abdominal tenderness and Yes Soft to palpation Skin: General skin exam: normal color and turgor normal Neuro: General: oriented to person, oriented to place, oriented to time and patient oriented x3 Cognition (Neuro): normal cognition Extrem: General: normal to inspection, full ROM and edema bilateral Psych: Appearance: grossly normal Mental Status: mental status grossly normal Affect: Sad affect present Thought content: Yes Suicidality present Course Reevaluation(s) Reevaluation #1: Patient is medically clear. Date: 03/15/21 Time: 16:07 Vital Signs Vital signs: Vital Signs Temperature 36.9 C
[2021-03-15] MEDS: MAG HYDROX/AL HYDROX/SIMETH 30 ML UDC PO (13:55)
[2021-03-15 14:32] LABS: Benzodiazepines Screen Urine Negative (Negative)
[2021-03-15 14:35] LABS: Amphetamine Screen Urine Positive (Negative); Cannabinoid Screen Urine Positive (Negative); Cocaine Screen Urine Negative (Negative); Methadone Screen Urine Negative (Negative); Opiate Screen Urine Negative (Negative); Phencyclidine Screen Urine Negative (Negative)
[2021-03-15 14:43] LABS: Barbiturate Screen Urine Negative (Negative)
--- NOTE | 2021-03-15 18:10 | PC.NURSE ---
PT PROJECTILE VOMITED RED UNDIGESTED FOOD AFTER COVID SWAB OBTAINED. PT WITH HORRIBLE GAG REFLEX AND IT TOOK 4 ATTEMPTS TO GET TO BACK OF THROAT. PT STATE ATE CANNED RAVIOLIS LAST NIGHT. DR PHILLIPS AWARE AND ORDERS GIVEN FOR IVF AND ANTIEMETIC.
[2021-03-15] MEDS: SODIUM CHLORIDE 0.9% IV 1,000 ML 999 ML IV CONT (18:15)
[2021-03-15] MEDS: ONDANSETRON INJ 4 MG/2 ML VIAL IV PUSH (18:15)
[2021-03-15 18:29] LABS: NT Pro B Type Natriuretic Pept 454 pg/mL (5-100)
[2021-03-15 18:49] LABS: EDCOVIDSCREEN Negative (Negative)
[2021-03-15 19:30] VITALS: BP 117/72; PULSE 94; RESP 16; O2SAT 99
[2021-03-15] MEDS: KETOROLAC 30 MG/ML VIAL (*BKC) IV PUSH (21:30)
--- NOTE | 2021-03-15 21:40 | PC.NURSE ---
Natalia from [facility] called at this time, [facility] would like a full chart faxed to facility.
--- NOTE | 2021-03-15 21:46 | PC.NURSE ---
Paperwork faxed to [facility] at 2013, [facility] at 2015, [facility] at [phone].
--- NOTE | 2021-03-15 21:58 | PC.NURSE ---
[facility] accepting pt at this time. Dr. Garcia will be accepting physician.
--- NOTE | 2021-03-15 22:00 | PC.NURSE ---
[facility] to call ED for report.
--- NOTE | 2021-03-15 23:21 | PC.NURSE ---
Natalia from [facility] called for pt update.
--- NOTE | 2021-03-15 23:50 | PC.NURSE ---
Gave report to Saundra at [facility] at [phone].
--- NOTE | 2021-03-16 00:04 | PC.NURSE ---
called [facility] to request transport. ETA [id number]
[2021-03-16 01:19] VITALS: BP 134/70; PULSE 76; RESP 16; TEMP 37.1; O2SAT 97
--- NOTE | 2021-03-16 02:21 | PC.NURSE ---
called [facility] for ETA update. ETA is [phone]
== END 2021-03-16 04:42 ==
PROVIDERS: Emergency Medicine; Emergency Provider Emergency Medicine
DX: F33.9 Major depressive disorder, recurrent, unspecified (principal); R10.84 Generalized abdominal pain; Z20.822 Contact with and (suspected) exposure to COVID-19; F43.10 Post-traumatic stress disorder, unspecified; F17.210 Nicotine dependence, cigarettes, uncomplicated; Z59.0 Homelessness
CPT/HCPCS: 36415; 71046; 74177; 80053; 80307; 81001; 83880; 84443; 85025; 87426; 96361; 96374; 96375; 99285; A9270; C9803; J1885; J2405; J7030; Q9967

== ENCOUNTER 2021-03-29 15:53 | Inpatient (IN) | payer OTHER, SELFPAY ==
--- NOTE | ~2021-03-29 | XR_ITS ---
EXAMINATION: XR chest 1V portable DATE: 03/29/2021 22:02 INDICATION: Smoker. TECHNIQUE: A single frontal view of the chest was obtained. COMPARISON: Chest 2 views 03/15/2021, CT abdomen and pelvis 03/15/2021, chest CT 02/10/2021 FINDINGS: There is mild atelectasis in the lower lung zones. No pleural effusion or pneumothorax. The re is enlargement of the cardiac silhouette. IMPRESSION: 1. Mild atelectasis in the lower lung zones. 2. Enlargement of the cardiac silhouette, which may be secondary to pericardial effusion as seen on t he prior CT. Reviewed, dictated and finalized at location A. IMPRESSION: 1. Mild atelectasis in the lower lung zones. 2. Enlargement of the cardiac silhouette, which may be secondary to pericardial effusion as seen on the prior CT.
[2021-03-29 15:50] VITALS: BP 125/98; PULSE 100; RESP 16; TEMP 37.1; O2SAT 98
[2021-03-29 16:24] LABS: Basophils Absolute Auto 0.1 K/mm3 (0.0-0.1); Basophils Percent Auto 0.8 % (0.2-1.2); Eosinophils Absolute Auto 0.6 K/mm3 (0-0.3); Eosinophils Percent Auto 4.2 % (0-4.4); Hematocrit 36.5 % (42.0-52.0); Hemoglobin 11.5 g/dL (14.0-18.0); Immature Granulocyte Absolute 0.23 K/mm3 (0.00-0.031); Immature Granulocyte Percent A 1.6 % (0-0.5); Lymphocytes Absolute Auto 1.71 K/mm3 (0.9-3.2); Lymphocytes Percent Auto 12.1 % (18.3-44.2); Mean Corpuscular HGB Conc 31.5 g/dl (32-36); Mean Corpuscular Hemoglobin 27.1 pg (26-34); Mean Corpuscular Volume 85.9 fl (80-100); Mean Platelet Volume 8.1 fl (7.4-10.4); Monocytes Absolute Auto 1.2 K/mm3 (0.1-0.6); Monocytes Percent Auto 8.3 % (2.6-8.5); Neutrophils Absolute Auto 10.3 K/mm3 (1.3-6.7); Platelet Count Result 504 k/mm3 (150-375); Red Blood Count 4.25 M/mm3 (4.6-6.20); Red Cell Distribution Width 18.8 % (11.5-14.5); White Blood Count 14.1 K/mm3 (4.5-10.0)
[2021-03-29 16:36] LABS: Alanine Aminotransferase 159 U/L (4-50); Albumin Level 2.7 g/dL (3.5-5.1); Alkaline Phosphatase 88 U/L (38-126); Anion Gap 3 mmol/L (8-16); Aspartate Amino Transferase 159 U/L (17-59); Bilirubin,Total 0.4 mg/dL (0.2-1.3); Blood Urea Nitrogen 14 mg/dL (9-20); Calcium 8.4 mg/dL (8.4-10.2); Carbon Dioxide 25 mmol/L (22-30); Chloride 107 mmol/L (98-107); Estimated CRCL calculation 83 ml/min; Estimated Glomerular Filt Rate > 60; Glucose 122 mg/dL (65-110); Potassium 3.7 mmol/L (3.4-5.0); Sodium 135 mmol/L (137-145)
--- NOTE | 2021-03-29 17:08 | ED.PSYCH ---
HPI - Psych General Chief Complaint: Psychiatric Symptoms <Bernard Syed MD - Last Filed: 03/30/21 17:03> Stated Complaint: SI <Bernard Syed MD - Last Filed: 03/30/21 17:03> Time Seen by Provider: 03/29/21 16:10 <Bernard Syed MD - Last Filed: 03/30/21 17:03> Source: patient <Bernard Syed MD - Last Filed: 03/30/21 17:03> Mode of arrival: ambulatory <Bernard Syed MD - Last Filed: 03/30/21 17:03> Limitations: no limitations <Bernard Syed MD - Last Filed: 03/30/21 17:03> History of Present Illness HPI Narrative: Patient is a 45-year-old male complaining of suicidal ideations that started today. Patient states that he has history of schizophrenia, anxiety and depression. Patient denies auditory or visual hallucinations. Patient denies any homicidal ideations. Patient does admit to taking meth today. <Bernard Syed MD - Last Filed: 03/30/21 17:03> Related Data Home Medications: Home Medications Medication Instructions Recorded Confirmed No Home Medications 03/29/21 03/29/21 <Bernard Syed MD - Last Filed: 03/30/21 17:03> Allergies/Adverse Reactions: Allergies Allergy/AdvReac Type Severity Reaction Status Date / Time haloperidol Allergy Swelling Verified 03/29/21 16:09 of Lip/Tongue/Throat <Bernard Syed MD - Last Filed: 03/30/21 17:03> Review of Systems Review of Systems: All systems reviewed & are unremarkable except as noted in HPI and below <Bernard Syed MD - Last Filed: 03/30/21 17:03> Constitutional: Constitutional: Denies body ache(s), Denies chills, Denies excessive sweating, Denies fatigue, Denies fever(s), Denies headache(s), Denies lethargy, Denies malaise, Denies weakness and Denies weight loss <Bernard Syed MD - Last Filed: 03/30/21 17:03> Eyes: Eyes: Denies blurry vision, Denies change in vision and Denies loss of vision <Bernard Syed MD - Last Filed: 03/30/21 17:03> ENT: Denies dizziness, Denies ear discharge, Denies headache(s), Denies lip swelling, Denies epistaxis, Denies nasal congestion, Denies neck pain, Denies throat swelling and Denies tongue swelling <Bernard Syed MD - Last Filed: 03/30/21 17:03> Cardiovascular: Cardiovascular: Denies chest pain, Denies chest pain at rest, Denies chest pain with activity, Denies diaphoresis, Denies rapid heart rate, Denies edema, Denies irregular heart rhythm, Denies lightheadedness, Denies palpitations, Denies dyspnea and Denies dyspnea on exertion <Bernard Syed MD - Last Filed: 03/30/21 17:03> Respiratory: Respiratory: Denies chest congestion, Denies cough, Denies hemoptysis, Denies dyspnea and Denies dyspnea on exertion <Bernard Syed MD - Last Filed: 03/30/21 17:03> Gastrointestinal: Gastrointestinal: Denies abdominal pain, Denies melena, Denies hematochezia, Denies diarrhea, Denies nausea, Denies vomiting and Denies hematemesis <Bernard Syed MD - Last Filed: 03/30/21 17:03> Musculoskeletal: Musculoskeletal: Denies abnormal gait, Denies deformity, Denies joint swelling, Denies limited range of motion, Denies neck pain and Denies numbness <Bernard Syed MD - Last Filed: 03/30/21 17:03> Neurologic: Denies Abnormal speech present, Denies abnormal gait, Denies confusion, Denies dizziness, Denies headache(s), Denies focal weakness, Denies loss of vision, Denies numbness, Denies Other visual disturbances, Denies Sensory deficit (Neuro) and Denies weakness <Bernard Syed MD - Last Filed: 03/30/21 17:03> Psychiatric: Psychiatric: Denies confusion, Denies depression, Denies auditory hallucinations and Denies homicidal ideation <Bernard Syed MD - Last Filed: 03/30/21 17:03> Endocrine: Endocrine: Denies cold intolerance, Denies excessive sweating, Denies fatigue, Denies heat intolerance and Denies palpitations <Bernard Syed MD - Last Filed: 03/30/21 17:03> Hematologic/Lymphatic: H
[2021-03-29 17:26] LABS: Ethanol < 10 mg/dL (<10)
[2021-03-29 17:52] LABS: Add Urine Microscopic? NO; Appearance Urine Clear (Clear); Bilirubin Urine Negative (Negative); Blood Urine Negative (Negative); Color Urine Yellow (Yellow); Glucose Urine UA Negative (Negative); Ketones Urine Negative (Negative); Leukocyte Esterase Ur Negative LEU/UL (Negative); Nitrate Urine Negative (Negative); Protein Urine Negative (Negative); Urobilinogen Urine Negative mg/dL (<2.0)
[2021-03-29 18:06] LABS: Barbiturate Screen Urine Negative (Negative); Benzodiazepines Screen Urine Negative (Negative)
[2021-03-29 18:09] LABS: Cannabinoid Screen Urine Positive (Negative); Cocaine Screen Urine Negative (Negative); Methadone Screen Urine Negative (Negative); Opiate Screen Urine Negative (Negative); Phencyclidine Screen Urine Negative (Negative)
[2021-03-29 18:44] LABS: Amphetamine Screen Urine Positive (Negative)
[2021-03-29 19:00] VITALS: BP 101/66; PULSE 90; RESP 20; O2SAT 100
[2021-03-29] MEDS: LORazepam (*CRX) 1 MG TABLET 2 MG PO (19:56)
--- NOTE | 2021-03-29 20:52 | PC.NURSE ---
Natalia from [facility] wants RN to call [facility] at [phone] so they can gather further information.
--- NOTE | 2021-03-29 20:56 | PC.NURSE ---
Called [facility] at this time, request for toxicology and voluntary admission form to be faxed to [phone].
[2021-03-29 21:17] LABS: EDCOVIDSCREEN Negative (Negative)
--- NOTE | 2021-03-29 21:46 | PC.NURSE ---
[facility] contacted RN, potential accepting physician requesting chest XY and BNP prior to admission due to a recent admission to their facility. ERP aware.
[2021-03-29 22:14] LABS: NT Pro B Type Natriuretic Pept 627 pg/mL (5-100)
--- NOTE | 2021-03-29 22:33 | PC.NURSE ---
Faxed further information needed to [facility] at this time.
--- NOTE | 2021-03-29 22:48 | PC.NURSE ---
[facility] called, [facility] will not be accepting pt because pt is too medically complicated for facility at this time.
--- NOTE | 2021-03-29 23:04 | PC.NURSE ---
Spoke with Natalia about [facility] not accepting pt at this time. Natalia will call for further updates in the morning.
[2021-03-29] MEDS: FUROSEMIDE 40 MG TABLET PO (23:05)
[2021-03-29 23:06] VITALS: BP 136/73; PULSE 72; RESP 18; O2SAT 97
[2021-03-30] MEDS: LORazepam (*CRX) 1 MG TABLET PO (05:34)
[2021-03-30 05:35] VITALS: BP 106/63; PULSE 85; RESP 18; O2SAT 100
--- NOTE | 2021-03-30 06:56 | PC.NURSE ---
Safety tray ordered for pt at this time.
[2021-03-30] MEDS: ONDANSETRON HCL ODT 4 MG TABLET PO (12:44)
--- NOTE | 2021-03-30 12:44 | PC.NURSE ---
medicated for nausea after lunch. no emesis
--- NOTE | 2021-03-30 14:17 | PC.NURSE ---
pt reports no longer having nausea or stomach upset after zofran odt
[2021-03-30 14:28] LABS: Alanine Aminotransferase 155 U/L (4-50); Albumin Level 2.5 g/dL (3.5-5.1); Alkaline Phosphatase 108 U/L (38-126); Anion Gap 5 mmol/L (8-16); Aspartate Amino Transferase 127 U/L (17-59); Bilirubin,Total < 0.1 mg/dL (0.2-1.3); Blood Urea Nitrogen 12 mg/dL (9-20); Calcium 8.4 mg/dL (8.4-10.2); Carbon Dioxide 32 mmol/L (22-30); Chloride 97 mmol/L (98-107); Estimated CRCL calculation 83 ml/min; Estimated Glomerular Filt Rate > 60; Glucose 109 mg/dL (65-110); Potassium 3.6 mmol/L (3.4-5.0); Sodium 134 mmol/L (137-145)
[2021-03-30 14:37] LABS: NT Pro B Type Natriuretic Pept 572 pg/mL (5-100)
[2021-03-30 17:34] VITALS: BP 145/90; PULSE 81; RESP 16; TEMP 36.5; O2SAT 97
--- NOTE | 2021-03-30 19:16 | PC.NURSE ---
lg amt brown emesis
--- NOTE | 2021-03-30 19:25 | ECG_ITS ---
Measurements Intervals [place] Rate: 70 P: 66 VA: 161 QRS: -30 QRSD: 124 T: 53 QT: 428 QTc: 463 Interpretive Statements SINUS RHYTHM ATRIAL PREMATURE COMPLEX INTRAVENTRICULAR CONDUCTION DELAY CANNOT RULE OUT SEPTAL INFARCT, AGE INDETERMINATE BASELINE ARTIFACT- II, III, AVR, AVF, V2-V6 ABNORMAL ECG Electronically Signed On 03-31-2021 6:19:44 CDT by Walter Gray D.O.
--- NOTE | 2021-03-30 19:25 | PC.NURSE ---
emesis tests positive for blood. will transfer to medical room in ed.
[2021-03-30 19:47] LABS: Basophils Absolute Auto 0.1 K/mm3 (0.0-0.1); Basophils Percent Auto 0.6 % (0.2-1.2); Eosinophils Absolute Auto 0.4 K/mm3 (0-0.3); Eosinophils Percent Auto 2.3 % (0-4.4); Hematocrit 38.8 % (42.0-52.0); Hemoglobin 12.2 g/dL (14.0-18.0); Immature Granulocyte Absolute 0.15 K/mm3 (0.00-0.031); Lymphocytes Absolute Auto 1.08 K/mm3 (0.9-3.2); Lymphocytes Percent Auto 7.2 % (18.3-44.2); Mean Corpuscular HGB Conc 31.4 g/dl (32-36); Mean Corpuscular Hemoglobin 27.4 pg (26-34); Mean Platelet Volume 8.3 fl (7.4-10.4); Monocytes Percent Auto 6.4 % (2.6-8.5); Neutrophils Absolute Auto 12.3 K/mm3 (1.3-6.7); Neutrophils Percent Auto 82.5 % (45.5-73.1); Platelet Count Result 522 k/mm3 (150-375); Red Blood Count 4.46 M/mm3 (4.6-6.20); Red Cell Distribution Width 18.7 % (11.5-14.5); White Blood Count 14.9 K/mm3 (4.5-10.0)
[2021-03-30] MEDS: ONDANSETRON INJ 4 MG/2 ML VIAL IV PUSH (19:48)
[2021-03-30] MEDS: PANTOPRAZOLE SODIUM IV 40 MG VIAL IV PUSH (19:48)
[2021-03-30] MEDS: SODIUM CHLORIDE 0.9% IV 1,000 ML 999 ML IV CONT ×2 (19:48)
[2021-03-30 20:02] LABS: Alanine Aminotransferase 141 U/L (4-50); Albumin Level 2.5 g/dL (3.5-5.1); Alkaline Phosphatase 102 U/L (38-126); Anion Gap 0 mmol/L (8-16); Aspartate Amino Transferase 110 U/L (17-59); Bilirubin,Total 0.3 mg/dL (0.2-1.3); Blood Urea Nitrogen 15 mg/dL (9-20); Calcium 8.4 mg/dL (8.4-10.2); Carbon Dioxide 33 mmol/L (22-30); Chloride 100 mmol/L (98-107); Estimated CRCL calculation 94 ml/min; Estimated Glomerular Filt Rate > 60; Glucose 121 mg/dL (65-110); Sodium 133 mmol/L (137-145)
[2021-03-30 21:21] VITALS: BP 152/110; PULSE 77; RESP 25; O2SAT 98
--- NOTE | 2021-03-30 21:21 | PC.NURSE ---
pt vomited on self and in the bed. pt cleaned up w/ fresh scrubs. pt resting at this time. sitter at bedside.
[2021-03-30 21:35] VITALS: BP 131/93; PULSE 71; RESP 20; O2SAT 97
--- NOTE | 2021-03-30 21:35 | PC.NURSE ---
Pt refusing NG tube at this time. Discussed POC and purpose for order, pt states has had one in the past and will absolutely not allow an RN to place per order at this time. night clerk auditor made aware.
[2021-03-30 21:46] LABS: Hematocrit 34.9 % (42.0-52.0)
--- NOTE | 2021-03-30 23:53 | PM.IMHP ---
H&P: HPI History of Present Illness Date/Time: 03/30/21 23:53 Chief Complaint: COFFEE-GROUND EMESIS Narrative: THIS IS A 45-YEAR-OLD MALE WITH PAST MEDICAL HISTORY SIGNIFICANT FOR ALCOHOL DEPENDENCE, METHAMPHETAMINE ABUSE, SCHIZOPHRENIA, DEPRESSION. PATIENT HAS BEEN BOARDED IN EMERGENCY ROOM AFTER HE PRESENTED DUE TO SUICIDAL IDEATIONS PATIENT HAS BEEN AWAITING HE A BED IN PSYCH FACILITY WHEN HE HAD COFFEE-GROUND EMESIS. NOW THE PATIENT HAS BEEN PLACED IN OBSERVATION STATUS FOR FURTHER EVALUATION AND ASSESSMENT. AT THE TIME OF MY VISIT PATIENT WAS UNDER THE EFFECT OF PSYCHOTROPICS IN A RECUMBENT POSITION. PRELIMINARY WORKUP HAS BEEN ESSENTIALLY NONREVEALING. Review of Systems Review of Systems: ROS unobtainable: Yes unobtainable due to mental status (SEDATED) PMFSH Past Medical History Medical History Alcohol abuse Depression Methamphetamine use PTSD (post-traumatic stress disorder) Schizophrenia Smoker Surgical History Surgical History No pertinent past surgical history Family History Family History Sibling Asthma Grandparent Cancer Social History Social History Social History: He is unemployed and homeless. He is estranged from his family members. Smoking packs per day: 2 Smoking cigarettes per day: 40.0 Years smoked: 35 Smoking pack-years: 70.00 Smoking status: Current some day smoker Tobacco type: cigarettes Alcohol intake: former Substance use: current Substance use type: marijuana and methamphetamine Last use: 02/04 meth 02/10 marijuana Additional occupation/education comments: Unemployed Gender identity (if verbalized by the patient): Male Spiritual care concerns: No Meds Home Medications and Allergies Home Medications Medication Instructions Recorded Confirmed Type No Home Medications 03/29/21 03/29/21 History Allergies Allergy/AdvReac Type Severity Reaction Status Date / Time haloperidol Allergy Swelling Verified 03/29/21 16:09 of Lip/Tongue/Throat Vital Signs Vital Signs - 24 hr 03/30/21 05:35 03/30/21 17:34 03/30/21 21:21 Temperature 97.7 F Pulse Rate 85 81 77 Respiratory Rate 18 16 25 H Blood Pressure 106/63 145/90 H 152/110 H Pulse Oximetry 100 97 98 03/30/21 21:35 Temperature Pulse Rate 71 Respiratory Rate 20 Blood Pressure 131/93 H Pulse Oximetry 97 Exam Narrative: LAYING IN STORM Const: General: comfortable, no acute distress, well developed, alert, awake, ill appearing chronically and other (Unkempt) Nutritional Appearance: thin HENMT: Head: normal to inspection, normocephalic and atraumatic Ears: hearing grossly normal bilaterally General nose exam: Normal external nose present Face and sinus: normal facial exam Mouth: Yes Normal oral and palatal mucosa present Eyes: General: appearance normal, both eyes and all related structures Alignment and Position: alignment normal Sclera: sclerae normal Pupils: Equal, round and reactive pupils present EOM: EOMs intact bilaterally Neck: Neck: normal visual inspection, full ROM, no lymphadenopathy, supple and no JVD Thyroid: thyroid normal Lymphatic: no lymphadenopathy noted Resp: Effort & Inspection: normal respiratory effort and able to speak in complete sentences Auscultation: clear to auscultation bilaterally Cardio: Jugular venous distension: no JVD Rate: regular rate Rhythm: regular rhythm Heart sounds: S1 normal heart sound present and S2 normal heart sound present GI: GI Palp: Yes Soft to palpation, No Tenderness to palpation present (GI), No Guarding due to palpation present (GI) and Yes No hepatosplenomegaly present : General: Yes deferred Skin: Rashes: no rashes Wounds: no wounds Neuro: General: oriented to person, oriented to place and CN's II-XI intact bilaterally
[2021-03-31] VITALS (15 sets, daily range): BP systolic 92–142; BP diastolic 52–91; PULSE 67–103; RESP 19–27; TEMP 35.7–37.2; O2SAT 93–100; BMI 25.6
[2021-03-31] MEDS: SODIUM CHLORIDE 0.9% IV 1,000 ML 125 ML IV CONT ×3 (00:41→17:05)
--- NOTE | 2021-03-31 01:35 | ADMGEN ---
This patient, Dhiraj Keane, was admitted to Intensive Care Unit-10. Patient/family oriented to hospital policies and general routines including ID bracelet, bed and alarms, visiting hours, pain management, procedures, bathroom and other care routines, personal items, smoking policy, room service/diet, and visiting hours. Information on how to activate the Rapid Response Team has been discussed. Patient/Family are encouraged to report perceived risks to care and to ask questions if they do not understand what they are told or what they should do.
--- NOTE | 2021-03-31 01:41 | PC.NURSE ---
Pt fluids not stopped in chart because they were still running when pt sent to floor.
[2021-03-31 03:52] LABS: Basophils Absolute Auto 0.1 K/mm3 (0.0-0.1); Basophils Percent Auto 0.7 % (0.2-1.2); Eosinophils Absolute Auto 0.2 K/mm3 (0-0.3); Eosinophils Percent Auto 1.7 % (0-4.4); Hematocrit 36.2 % (42.0-52.0); Hemoglobin 11.5 g/dL (14.0-18.0); Immature Granulocyte Percent A 0.7 % (0-0.5); Lymphocytes Percent Auto 8.8 % (18.3-44.2); Mean Corpuscular HGB Conc 31.8 g/dl (32-36); Mean Corpuscular Hemoglobin 27.9 pg (26-34); Mean Corpuscular Volume 87.9 fl (80-100); Mean Platelet Volume 8.4 fl (7.4-10.4); Monocytes Absolute Auto 1.1 K/mm3 (0.1-0.6); Monocytes Percent Auto 8.2 % (2.6-8.5); Neutrophils Absolute Auto 10.9 K/mm3 (1.3-6.7); Neutrophils Percent Auto 79.9 % (45.5-73.1); Platelet Count Result 464 k/mm3 (150-375); Red Blood Count 4.12 M/mm3 (4.6-6.20); Red Cell Distribution Width 18.7 % (11.5-14.5); White Blood Count 13.6 K/mm3 (4.5-10.0)
--- NOTE | 2021-03-31 06:48 | PC.NURSE ---
This patient, hDiraj Keane, was transferred to [facility] on 03/31/21 at 0645. Personal belongings sent with patient. Report given to Juli. Appropriate documentation sent with patient.
[2021-03-31] MEDS: PANTOPRAZOLE SODIUM IV 40 MG VIAL IV PUSH (07:55)
[2021-03-31 09:29] LABS: Hematocrit 35.5 % (42.0-52.0); Hemoglobin 11.1 g/dL (14.0-18.0)
[2021-03-31 09:46] LABS: Lipase 25 U/L (23-300)
--- NOTE | 2021-03-31 11:16 | PM.IMPN ---
Progress Note: A&P Assessment and Plan (1) Acute upper GI bleeding: Code(s): K92.2 - Gastrointestinal hemorrhage, unspecified Status: Acute Assessment and Plan: patient has not had any vomiting since coming to this room. his hemoglobin has been stable this morning. patient is currently NPO GI consulted plan for EGD today. monitor hemoglobin and transfuse if needed continue IV PPI q.12 hours (2) Abdominal pain: Code(s): R10.9 - Unspecified abdominal pain Status: Acute Assessment and Plan: likely secondary to gastritis I check lipase and was normal his LFTs abnormal likely secondary to alcohol abuse Patient had recent CT abdomen pelvis which was unremarkable from he paddle biliary standpoint (3) Suicide ideation: Code(s): R45.851 - Suicidal ideations Status: Acute Assessment and Plan: Sitter at bedside one-to-one Awaiting bed psych facility (4) Schizophrenia: Qualifiers: Schizophrenia type: unspecified Qualified Code(s): F20.9 - Schizophrenia, unspecified Code(s): F20.9 - Schizophrenia, unspecified Status: Acute Assessment and Plan: Patient apparently on no home medication patient will be transferred to psych facility after EGD depending on findings (5) Polysubstance abuse: Code(s): F19.10 - Other psychoactive substance abuse, uncomplicated Status: Acute Assessment and Plan: Patient uses methamphetamine, tobacco and alcohol. (6) Alcohol abuse: Code(s): F10.10 - Alcohol abuse, uncomplicated Status: Acute Assessment and Plan: encourage patient to quit add thiamine and folic acid monitor for withdrawal symptoms (7) Methamphetamine abuse: Code(s): F15.10 - Other stimulant abuse, uncomplicated Status: Acute Assessment and Plan: encouraged patient to quit (8) Tobacco abuse: Code(s): Z72.0 - Tobacco use Status: Acute Assessment and Plan: patient was counseled to quit smoking Additional Plan DVT prophylaxis - SCDs Subjective Date/time seen: 03/31/21 11:16 patient states he is feeling better although he continues to feel weak and tired. He has not had any vomiting since he came to this from. He was eating in the ED but currently is NPO. He states he still feels depressed. He states his abdomen is still hurting it is 3 to 4/10, does not radiate anywhere else, mostly located upper abdomen, no aggravating or relieving factor. All othersystems were reviewed and were negative Review of Systems Review of Systems: All systems reviewed & are unremarkable except as noted in HPI and below ( subjective) Exam Narrative: General: Pt is alert awake and in NAD Lungs/Chest: Trachea central Clear BS B/L, No crackles or wheezing. Cardiac: RRR. Normal S1 S2. No murmurs Circulation: Pedal pulses are intact and symmetrical. Abdomen: Normal bowel sounds.. Soft. mild tenderness to palpation in epigastric area Extremities: No clubbing, cyanosis or edema. Warm : Be in place Neurologic: Follows commands. Moves all 4 extremities PERRL AO x3 Skin: No Rash, several tattoos Objective Data Vital Signs Vital Signs: Vital Signs - 24 hr 03/30/21 17:34 03/30/21 21:21 03/30/21 21:35 Temperature 36.5 C Pulse Rate 81 77 71 Respiratory Rate 16 25 H 20 Blood Pressure 145/90 H 152/110 H 131/93 H Pulse Oximetry 97 98 97 03/31/21 01:40 03/31/21 02:00 03/31/21 04:00 Temperature 37.2 C Pulse Rate 82 78 89 Respiratory Rate 19 20 Blood Pressure 136/80 141/91 H Pulse Oximetry 98 97 03/31/21 06:00 03/31/21 08:00 03/31/21 10:00 Temperature 36.8 C Pulse Rate 95 103 H 96 Respiratory Rate 21 H Blood Pressure 126/73 Pulse Oximetry 94 Intake/Output Intake/Output: Intake & Output 03/28/21 03/29/21 03/30/21 03/31/21 23:59 23:59 23:59 23:59 Intake Total 1999 1000 Output Total 0 Balance 1999 1000 Meds/Re
[2021-03-31] MEDS: LACTATED RINGERS 1,000 ML 150 ML IV CONT (11:30)
--- NOTE | 2021-03-31 11:33 | SUR.PREOP ---
Patient brought down to GI lab with sitter at bedside.
--- NOTE | 2021-03-31 11:46 | WPDANESEPPF ---
Anes - Initial Pre Proc Eval Procedure: Operation Date: 03/31/21 11:45 Proposed Procedures p Esophagogastroduodenoscopy - Remy Hyatt MD Date/Time: 03/31/21 11:46 Surgeon: Justino Wiley MD Pre Op Diagnosis: Upper GI Bleed, Suicidal Ideation Patient Data Age: 45 Gender: M Height: 1.63 m Weight: 67.8 kg Last Vital Signs Temp 96.3 F L 03/31/21 11:31 Pulse 91 03/31/21 11:31 Resp 22 H 03/31/21 11:31 BP 142/90 H 03/31/21 11:31 Pulse Ox 93 03/31/21 11:31 Allergies Allergy/AdvReac Type Severity Reaction Status Date / Time haloperidol Allergy Swelling Verified 03/29/21 16:09 of Lip/Tongue/Throat Home Medications Medication Instructions Recorded Confirmed Type No Home Medications 03/29/21 03/29/21 History Laboratory Tests 03/30/21 03/30/21 03/30/21 14:01 14:01 19:41 WBC 14.9 K/mm3 H K/mm3 (4.5-10.0) RBC 4.46 M/mm3 L M/mm3 (4.6-6.20) Hgb 12.2 g/dL L g/dL (14.0-18.0) Hct 38.8 % L % (42.0-52.0) MCV 87.0 fl fl (80-100) MCH 27.4 pg pg (26-34) MCHC 31.4 g/dl L g/dl (32-36) RDW 18.7 % H % (11.5-14.5) Plt Count 522 k/mm3 H k/mm3 (150-375) MPV 8.3 fl fl (7.4-10.4) Immature Gran % (Auto) 1.0 % H % (0-0.5) Neut % (Auto) 82.5 % H % (45.5-73.1) Lymph % (Auto) 7.2 % L % (18.3-44.2) [place] % (Auto) 6.4 % % (2.6-8.5) Eos % (Auto) 2.3 % % (0-4.4) Baso % (Auto) 0.6 % % (0.2-1.2) Lymph # (Auto) 1.08 K/mm3 K/mm3 (0.9-3.2) [place] # (Auto) 1.0 K/mm3 H K/mm3 (0.1-0.6) Eos # (Auto) 0.4 K/mm3 H K/mm3 (0-0.3) Baso # (Auto) 0.1 K/mm3 K/mm3 (0.0-0.1) Abs Immat Gran (auto) 0.15 K/mm3 H K/mm3 (0.00-0.031) Absolute Neuts (auto) 12.3 K/mm3 H K/mm3 (1.3-6.7) Absolute Nucleated RBC 0.0 K/mm3 K/mm3 (0.0-0.012) Nucleated RBC % 0.0 % % (0.0-0.2) Sodium 134 mmol/L L mmol/L (137-145) Potassium 3.6 mmol/L mmol/L (3.4-5.0) Chloride 97 mmol/L L mmol/L (98-107) Carbon Dioxide 32 mmol/L H mmol/L (22-30) Anion Gap 5 mmol/L L mmol/L (8-16) BUN 12 mg/dL mg/dL (9-20) Creatinine 0.80 mg/dL mg/dL (0.7-1.3) Estim Creat Clear Calc 83 ml/min ml/min Estimated GFR > 60 (59 - ) Glucose 109 mg/dL mg/dL (65-110) Calcium 8.4 mg/dL mg/dL (8.4-10.2) Total Bilirubin < 0.1 mg/dL L mg/dL (0.2-1.3) AST 127 U/L H U/L (17-59) ALT 155 U/L H U/L (4-50) Alkaline Phosphatase 108 U/L U/L (38-126) NT-Pro-B Natriuret Pep 572 pg/mL H pg/mL (5-100) Total Protein 5.0 g/dL L g/dL (6.3-8.2) Albumin 2.5 g/dL L g/dL (3.5-5.1) Lipase 03/30/21 03/30/21 03/31/21 19:41 21:42 03:44 WBC 13.6 K/mm3 H K/mm3 (4.5-10.0) RBC 4.12 M/mm3 L M/mm3 (4.6-6.20) Hgb 11.0 g/dL L g/dL 11.5 g/dL L g/dL (14.0-18.0) (14.0-18.0) Hct 34.9 % L % 36.2 % L % (42.0-52.0) (42.0-52.0) MCV 87.9 fl fl (80-100) MCH 27.9 pg pg (26-34) MCHC 31.8 g/dl L g/dl (32-36) RDW 18.7 % H % (11.5-14.5) Plt Count 464 k/mm3 H k/mm3 (150-375) MPV 8.4 fl fl (7.4-10.4) Immature Gran % (Auto) 0.7 % H % (0-0.5) Neut % (Auto) 79.9 % H % (45.5-73.1) Lymph % (Auto) 8.8 % L % (18.3-44.2) [place] % (Auto) 8.2 % % (2.6-8.5) Eos % (Auto) 1.7 % % (0-4.4) Baso % (Auto) 0.7 % % (0.2-1.2) Lymph # (Auto) 1.20 K/mm3 K/mm3 (0.9-3.2) [place] # (Auto) 1.1 K/mm3 H K/mm3 (0.1-0.6) Eos # (Auto) 0.2 K/mm3 K/mm3 (0-0.3) Baso # (Auto) 0.1 K/mm3 K/mm3 (0.0-0.1) Abs Immat Gran
--- NOTE | 2021-03-31 11:49 | WPDGICN ---
Assessment and Plan Assessment and plan (1) Acute upper GI bleeding: Code(s): K92.2 - Gastrointestinal hemorrhage, unspecified Status: Acute Assessment and Plan: on iv protonix, hb stable will proceed with urgent egd and more recommendations after scope he is hemodynamically stable (2) Coffee ground emesis: Code(s): K92.0 - Hematemesis Status: Acute Assessment and Plan: egd, assess if ulcers, esophagitis, etc (3) Suicide ideation: Code(s): R45.851 - Suicidal ideations Status: Acute Assessment and Plan: sitter at bedside and eventually will need psych evaluation (4) Polysubstance abuse: Code(s): F19.10 - Other psychoactive substance abuse, uncomplicated Status: Acute (5) Alcohol abuse: Code(s): F10.10 - Alcohol abuse, uncomplicated Status: Acute (6) Schizophrenia: Qualifiers: Schizophrenia type: unspecified Qualified Code(s): F20.9 - Schizophrenia, unspecified Code(s): F20.9 - Schizophrenia, unspecified Status: Acute GI Consult Note Consult date/time: 03/31/21 11:49 Reason for consult: coffee ground emesis HPI: Dhiraj Keane is a 45 year old male with chronic alcohol and amphetamine abuse, schizophrenia, depression and PTSD who was brought here for suicidal ideation but also complained of coffee ground emesis on arrival. He says that is not taking any meds in regular basis, he thinks that had EGD years ago but he is not good historian. Hb stable at mid 11. He was admitted to ICU for suicidal precautions and plan is to transfer to psych facility after medical stable. Last hospitalization 01/2021 for edema. Review of Systems Constitutional: Constitutional: Denies headache(s) and Denies weakness Eyes: Eyes: Denies blurry vision ENT: Reports Normal hearing present, Denies headache(s) and Denies neck pain Cardiovascular: Cardiovascular: Denies chest pain and Denies dyspnea Respiratory: Respiratory: Denies dyspnea Gastrointestinal: Gastrointestinal: Reports hematemesis Genitourinary: Genitourinary: Denies dysuria Musculoskeletal: Musculoskeletal: Denies neck pain Integumentary/Breasts: Skin/Breast: Denies dry skin Neurologic: Reports Normal hearing present, Denies headache(s) and Denies weakness Psychiatric: Psychiatric: Reports anxiety, Reports depression and Reports suicidal ideation Endocrine: Endocrine: Denies change in body appearance Hematologic/Lymphatic: Hematologic/Lymphatic: Denies easy bleeding Allergic/Immunologic: Allergic/Immunologic: Denies urticaria PMFSH Past Medical History Medical History Alcohol abuse 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 He is estranged from his family members. Smoking packs per day: 2 Smoking cigarettes per day: 40.0 Years smoked: 35 Smoking pack-years: 70.00 Smoking status: Current some day smoker Tobacco type: cigarettes Alcohol intake: former Substance use: current Substance use type: marijuana and methamphetamine Last use: 02/04 meth 02/10 marijuana Additional occupation/education comments: Unemployed Gender identity (if verbalized by the patient): Male Spiritual care concerns: No Meds Home Medications and Allergies Home Medications Medication Instructions Recorded Confirmed Type No Home Medications 03/29/21 03/29/21 History Allergies Allergy/AdvReac Type Severity Reaction Status Date / Time haloperidol Allergy Swelling Verified
[2021-03-31 15:52] LABS: Hematocrit 34.9 % (42.0-52.0); Hemoglobin 10.9 g/dL (14.0-18.0)
[2021-03-31] MEDS: SUCRALFATE SUSP 100 MG/ML 10 ML UDC 1000 MG PO ×2 (17:04→20:47)
[2021-03-31] MEDS: PANTOPRAZOLE 40 MG TABLET PO (20:47)
[2021-04-01] VITALS (9 sets, daily range): BP systolic 111–115; BP diastolic 66–72; PULSE 79–87; RESP 20–23; TEMP 36.7–36.9; O2SAT 94–97
[2021-04-01] MEDS: SODIUM CHLORIDE 0.9% IV 1,000 ML 125 ML IV CONT ×2 (00:55→08:55)
[2021-04-01 05:09] LABS: Hematocrit 35.5 % (42.0-52.0); Hemoglobin 10.8 g/dL (14.0-18.0); Mean Corpuscular HGB Conc 30.4 g/dl (32-36); Mean Corpuscular Hemoglobin 27.5 pg (26-34); Mean Corpuscular Volume 90.3 fl (80-100); Mean Platelet Volume 8.5 fl (7.4-10.4); Platelet Count Result 452 k/mm3 (150-375); Red Blood Count 3.93 M/mm3 (4.6-6.20); Red Cell Distribution Width 19.3 % (11.5-14.5)
[2021-04-01 05:22] LABS: Alanine Aminotransferase 82 U/L (4-50); Alkaline Phosphatase 78 U/L (38-126); Anion Gap 4 mmol/L (8-16); Aspartate Amino Transferase 70 U/L (17-59); Bilirubin,Total < 0.1 mg/dL (0.2-1.3); Blood Urea Nitrogen 10 mg/dL (9-20); Calcium 7.4 mg/dL (8.4-10.2); Carbon Dioxide 25 mmol/L (22-30); Chloride 106 mmol/L (98-107); Estimated CRCL calculation 108 ml/min; Estimated Glomerular Filt Rate > 60; Glucose 119 mg/dL (65-110); Magnesium 1.7 mg/dL (1.6-2.3); Potassium 3.5 mmol/L (3.4-5.0); Sodium 135 mmol/L (137-145)
[2021-04-01] MEDS: SUCRALFATE SUSP 100 MG/ML 10 ML UDC 1000 MG PO (06:39)
[2021-04-01] MEDS: PANTOPRAZOLE 40 MG TABLET PO (08:55)
[2021-04-01] MEDS: THIAMINE HCL 200 MG/2 ML VIAL 100 MG IV PUSH (08:55)
[2021-04-01] MEDS: FOLIC ACID 1 MG/0.2 ML INJ IV PUSH (08:55)
--- NOTE | 2021-04-01 19:58 | PM.DS ---
DS: Admitting Diagnosis Admitting Diagnosis Acute upper GI bleeding DS: Discharge Diagnosis Discharge Diagnosis (1) Acute upper GI bleeding: Code(s): K92.2 - Gastrointestinal hemorrhage, unspecified Status: Acute Assessment and Plan: Reflux esophagitis Hiatal hernia No active bleeding. NO additional episodes of vomiting. His hemoglobin has been stable this morning. Discharge on PPI and sucralfate per Gi recommendations. (2) Abdominal pain: Code(s): R10.9 - Unspecified abdominal pain Status: Acute Assessment and Plan: likely secondary to gastritis; lipase was normal; deranged LFTs likely secondary to alcohol abuse Patient had recent CT abdomen pelvis which was unremarkable from the hepatobiliary standpoint (3) Suicide ideation: Code(s): R45.851 - Suicidal ideations Status: Acute Assessment and Plan: Sitter at bedside one-to-one Awaiting bed psych facility Discharge after signing care contract. (4) Schizophrenia: Qualifiers: Schizophrenia type: unspecified Qualified Code(s): F20.9 - Schizophrenia, unspecified Code(s): F20.9 - Schizophrenia, unspecified Status: Acute Assessment and Plan: Patient apparently on no home medication patient will be discharged home and follow up with psychiatry as an outpatient. (5) Polysubstance abuse: Code(s): F19.10 - Other psychoactive substance abuse, uncomplicated Status: Acute Assessment and Plan: Patient uses methamphetamine, tobacco and alcohol. (6) Alcohol abuse: Code(s): F10.10 - Alcohol abuse, uncomplicated Status: Acute Assessment and Plan: encouraged patient to quit supplemented thiamine and folic acid monitor for withdrawal symptoms; no events. (7) Methamphetamine abuse: Code(s): F15.10 - Other stimulant abuse, uncomplicated Status: Acute Assessment and Plan: encouraged patient to quit (8) Tobacco abuse: Code(s): Z72.0 - Tobacco use Status: Acute Assessment and Plan: patient was counseled to quit smoking DS: Summary Hospital Course Reason for hospitalization: upper GI bleeding Hospital Course: THIS IS A 45-YEAR-OLD MALE WITH PAST MEDICAL HISTORY SIGNIFICANT FOR ALCOHOL DEPENDENCE, METHAMPHETAMINE ABUSE, SCHIZOPHRENIA, DEPRESSION. PATIENT HAS BEEN BOARDED IN EMERGENCY ROOM AFTER HE PRESENTED DUE TO SUICIDAL IDEATIONS PATIENT HAS BEEN AWAITING HE A BED IN PSYCH FACILITY WHEN HE HAD COFFEE-GROUND EMESIS. NOW THE PATIENT HAS BEEN PLACED IN OBSERVATION STATUS FOR FURTHER EVALUATION AND ASSESSMENT. PATIENT UNDERWENT EGD REVEALING A HIATAL HERNIA AND REFLUX ESOPHAGITIS. PATIENT HAS BEEN HOMELESS FOR A WHILE. HE STILL FEELS DEPRESSED, BUT WILLING TO GO STAY WITH HIS BROTHER. HE WAS DISCHARGED ON HIGH DOSE PPI AND CARAFATE. HE WILL FOLLOW UP FOR PSYCHIATRIC AND CHEMICAL DEPENDENCY CARE AN OUTPATIENT. Time Spent with Patient Time attestation: Total time spent providing and/or coordinating discharge services: Exam Narrative: General: Pt is alert awake and in NAD Lungs/Chest: Trachea central Clear BS B/L, No crackles or wheezing. Cardiac: RRR. Normal S1 S2. No murmurs Circulation: Pedal pulses are intact and symmetrical. Abdomen: Normal bowel sounds.. Soft. mild tenderness to palpation in epigastric area Extremities: No clubbing, cyanosis; moderate edema all 4 extremities. Warm : Be in place Neurologic: Follows commands. Moves all 4 extremities PERRL AO x3 Skin: No Rash, several tattoos Const: General: comfortable, no acute distress, well developed, alert, awake, ill appearing chronically and other (Unkempt) Nutritional Appearance: thin Orientation/consciousness: oriented to person and oriented to place HENMT: Head: normal to inspection, normocephalic and atraumatic Ears: hearing grossly normal bilaterally General nose exam: Normal external nose present Face and sinus: normal facial exam Mo
== END 2021-04-01 15:10 | disposition home or self-care (01) | DRG 243 ==
LOC: ANHED 03-30 21:23 → ANHICU 03-31 09:40
PROVIDERS: Emergency Medicine; Internal Medicine; Internal Medicine Gastroenterology; Admitting Provider Internal Medicine; Emergency Provider Family Medicine; Visit Provider Internal Medicine
PROC: 0DJ08ZZ Inspection of Upper Intestinal Tract, Via Natural or Artificial Opening Endoscopic (ICD-10-PCS; CPT 43235; principal; 2021-03-31 11:45)
DX: K21.01 Gastro-esophageal reflux disease with esophagitis, with bleeding (principal); K29.70 Gastritis, unspecified, without bleeding; K44.9 Diaphragmatic hernia without obstruction or gangrene; Z20.822 Contact with and (suspected) exposure to COVID-19; R45.851 Suicidal ideations; F20.9 Schizophrenia, unspecified; F10.10 Alcohol abuse, uncomplicated; F15.10 Other stimulant abuse, uncomplicated; F17.210 Nicotine dependence, cigarettes, uncomplicated; F32.9 Major depressive disorder, single episode, unspecified; F43.10 Post-traumatic stress disorder, unspecified; Z59.0 Homelessness; Z63.8 Other specified problems related to primary support group
CPT/HCPCS: 36415; 71045; 80053; 80307; 81003; 83690; 83735; 83880; 84443; 85014; 85018; 85025; 85027; 87426; 88305; 88313; 93005; 96361; 96374; 96375; 99285; A9270; C9113; C9803; J2405; J2704; J3411; J7030; J7120

== ENCOUNTER 2021-04-24 18:20 | Emergency (ER) | payer OTHER, SELFPAY ==
--- NOTE | 2021-04-24 18:30 | PC.NURSE ---
Patient was brought in my [facility] for hand swelling. While checking patient in, patient states he was just trying to fall asleep on the train tracks so he could fall asleep and not wake up. EMS also states patient has been doing meth daily for 3 days. Patient denies that in intake. Patient repeatedly saying I just wish I would have gone to bed on the tracks to wait for the train.
[2021-04-24 18:52] VITALS: BP 114/66; PULSE 111; RESP 16; TEMP 36.8; O2SAT 96
--- NOTE | 2021-04-24 19:28 | ED.PSYCH ---
HPI - Psych General Chief Complaint: Psychiatric Symptoms <Cristian Brown MD - Last Filed: 04/25/21 07:20> Stated Complaint: hand swelling, SI <Cristian Brown MD - Last Filed: 04/25/21 07:20> Time Seen by Provider: 04/24/21 18:59 <Cristian Brown MD - Last Filed: 04/25/21 07:20> History of Present Illness HPI Narrative: Patient is a 45-year-old male who presents to the ER with suicidal ideation. Reports history of depression and previous hospitalizations for suicidal ideation. Reports that he is lost everything in his life due to drug use. Last use was 1 or 2 days ago he is unsure when. He prefers methamphetamine. His plan is to lay down and go to sleep on the train tracks and attempt to end his own life. Patient also reports some swelling in his hands and feet. Unsure when it started. No pain. No redness. Denies trauma. Patient reported abdominal pain to the nurse but specifically denies it for me. <Cristian Brown MD - Last Filed: 04/25/21 07:20> Related Data Allergies/Adverse Reactions: Allergies Allergy/AdvReac Type Severity Reaction Status Date / Time haloperidol Allergy Swelling Verified 04/24/21 19:04 of Lip/Tongue/Throat <Cristian Brown MD - Last Filed: 04/25/21 07:20> Review of Systems Review of Systems: All systems reviewed & are unremarkable except as noted in HPI and below <Cristian Brown MD - Last Filed: 04/25/21 07:20> Constitutional: Constitutional: Denies chills, Denies fever(s) and Denies weakness <Cristian Brown MD - Last Filed: 04/25/21 07:20> ENT: Denies nasal congestion and Denies sore throat <Cristian Brown MD - Last Filed: 04/25/21 07:20> Cardiovascular: Cardiovascular: Denies chest pain, Denies rapid heart rate and Denies radiating jaw, neck or arm pain <Cristian Brown MD - Last Filed: 04/25/21 07:20> Respiratory: Respiratory: Denies cough, Denies dyspnea and Denies wheezing <Crsitian Brown MD - Last Filed: 04/25/21 07:20> Gastrointestinal: Gastrointestinal: Denies abdominal pain, Denies nausea and Denies vomiting <Cristian Brown MD - Last Filed: 04/25/21 07:20> Genitourinary: Genitourinary: Denies dysuria and Denies urinary frequency <Cristian Brown MD - Last Filed: 04/25/21 07:20> Musculoskeletal: Musculoskeletal: Denies arthralgias and Denies muscle cramps <Cristian Brown MD - Last Filed: 04/25/21 07:20> Comments: Hand and foot edema <Cristian Brown MD - Last Filed: 04/25/21 07:20> Neurologic: Denies focal weakness and Denies numbness <Cristian Brown MD - Last Filed: 04/25/21 07:20> PMFSH Past Medical History Medical History: Medical History Alcohol abuse Coffee ground emesis Depression Methamphetamine use PTSD (post-traumatic stress disorder) Schizophrenia Smoker <Cristian Brown MD - Last Filed: 04/25/21 07:20> Surgical History Surgical History: Surgical History No pertinent past surgical history <Cristian Brown MD - Last Filed: 04/25/21 07:20> Family History Family History: Family History Sibling Asthma Grandparent Cancer <Cristian Brown MD - Last Filed: 04/25/21 07:20> Social History Social History: Social History Social History: He is unemployed and homeless. He is estranged from his family members. Smoking packs per day: 2 Smoking cigarettes per day: 40.0 Years smoked: 35 Smoking pack-years: 70.00 Smoking status: Current some day smoker Tobacco type: cigarettes Alcohol intake: former Substance use: current Substance use type: marijuana and methamphetamine Last use: 02/04 meth 02/10 marijuana Additional occupation/education comments: Unemployed Gender identity (if verbalized by the patient): Male Spiritual care concern
--- NOTE | 2021-04-24 19:45 | PC.NURSE ---
pt resting on stretcher c eyes closed. awakens easily to voice. speech mumbled. a/o x 4. answers yes when asked if he wants to hurt himself. reports he wants to fall asleep on the train tracks . Denies homicidal thoughts. Denies auditory or visual hallucinations. blood and urine obtained and sent to lab as ordered. awaiting medical clearance for crisis counseling.
[2021-04-24 19:59] LABS: Basophils Absolute Auto 0.1 K/mm3 (0.0-0.1); Basophils Percent Auto 0.8 % (0.2-1.2); Eosinophils Absolute Auto 0.1 K/mm3 (0-0.3); Eosinophils Percent Auto 0.5 % (0-4.4); Hematocrit 32.3 % (42.0-52.0); Hemoglobin 10.5 g/dL (14.0-18.0); Immature Granulocyte Percent A 1.4 % (0-0.5); Lymphocytes Absolute Auto 1.16 K/mm3 (0.9-3.2); Lymphocytes Percent Auto 8.1 % (18.3-44.2); Mean Corpuscular HGB Conc 32.5 g/dl (32-36); Mean Corpuscular Hemoglobin 28.1 pg (26-34); Mean Corpuscular Volume 86.4 fl (80-100); Mean Platelet Volume 8.4 fl (7.4-10.4); Monocytes Absolute Auto 1.6 K/mm3 (0.1-0.6); Monocytes Percent Auto 10.9 % (2.6-8.5); Neutrophils Absolute Auto 11.2 K/mm3 (1.3-6.7); Neutrophils Percent Auto 78.3 % (45.5-73.1); Platelet Count Result 570 k/mm3 (150-375); Red Blood Count 3.74 M/mm3 (4.6-6.20); Red Cell Distribution Width 20.6 % (11.5-14.5); White Blood Count 14.3 K/mm3 (4.5-10.0)
[2021-04-24 20:04] LABS: Add Urine Microscopic? YES; Appearance Urine Clear (Clear); Bacteria Urine Trace /hpf; Bilirubin Urine Negative (Negative); Blood Urine 1+ (Negative); Color Urine Yellow (Yellow); Glucose Urine UA Negative (Negative); Ketones Urine 2+ mg/dL (Negative); Leukocyte Esterase Ur Negative LEU/UL (Negative); Mucus Urine Rare /lpf; Nitrate Urine Negative (Negative); Protein Urine Negative (Negative); RBC Urine 0-2 /hpf (0-2); Specific Grav Ur 1.017 (1.001-1.035); Urobilinogen Urine Negative mg/dL (<2.0); WBC Urine 0-3 /hpf
[2021-04-24 20:11] LABS: Ethanol < 10 mg/dL (<10)
[2021-04-24 20:12] LABS: Anion Gap 8 mmol/L (8-16); Barbiturate Screen Urine Negative (Negative); Benzodiazepines Screen Urine Negative (Negative); Blood Urea Nitrogen 23 mg/dL (9-20); Calcium 8.9 mg/dL (8.4-10.2); Carbon Dioxide 24 mmol/L (22-30); Chloride 109 mmol/L (98-107); Estimated CRCL calculation 86 ml/min; Estimated Glomerular Filt Rate > 60; Glucose 144 mg/dL (65-110); Potassium 4.1 mmol/L (3.4-5.0); Sodium 141 mmol/L (137-145)
[2021-04-24 20:14] LABS: Cannabinoid Screen Urine Negative (Negative); Cocaine Screen Urine Negative (Negative); Methadone Screen Urine Negative (Negative); Opiate Screen Urine Negative (Negative); Phencyclidine Screen Urine Negative (Negative)
[2021-04-24 20:37] LABS: Amphetamine Screen Urine Positive (Negative)
--- NOTE | 2021-04-24 22:02 | PC.NURSE ---
Pt moved from ED 14 to ED 15 at approx. 2114.
--- NOTE | 2021-04-25 00:10 | PC.NURSE ---
Per crisis education coordinator, who saw pt approx. 2200 last pm, pt to be reevaluated in the am. homeless pt reported to multiple staff members that he was withdrawing from crystal meth, and needed to sleep bc he had been awake x 3 days. pt currently resting on bed with eyes closed, resps even, nonlabored, regular. no s/s of distress.
--- NOTE | 2021-04-25 01:59 | PC.NURSE ---
appears asleep. no distress. requested sleeping med and md declined.
[2021-04-25] MEDS: LORazepam (*CRX) 1 MG TABLET PO ×2 (08:02→18:03)
--- NOTE | 2021-04-25 08:02 | PC.NURSE ---
medicated with ativan for pt c/o feeling anxious
[2021-04-25 09:00] VITALS: BP 112/69; PULSE 93; RESP 16; TEMP 36.7; O2SAT 96
--- NOTE | 2021-04-25 13:07 | PC.NURSE ---
CK ordered per request of [facility]'s request.
[2021-04-25 13:34] LABS: Creatine Kinase 1147 U/L (55-170)
[2021-04-25 17:57] VITALS: BP 138/80; PULSE 95; RESP 16; O2SAT 95
[2021-04-25] MEDS: ONDANSETRON HCL ODT 4 MG TABLET PO (18:54)
--- NOTE | 2021-04-25 20:47 | PC.NURSE ---
Spoke with crisis and scheduled a 24 hour re eval for 2200 tonight.
[2021-04-25 21:33] VITALS: BP 121/74; PULSE 78; RESP 20; O2SAT 98
[2021-04-25] MEDS: SUCRALFATE SUSP 100 MG/ML 10 ML UDC 1000 MG PO (23:58)
[2021-04-26] MEDS: PANTOPRAZOLE 40 MG TABLET PO (00:43)
[2021-04-26 02:57] VITALS: BP 118/70; PULSE 72; RESP 18; O2SAT 98
[2021-04-26 05:48] VITALS: BP 119/70; PULSE 79; RESP 18; TEMP 36.8; O2SAT 99
--- NOTE | 2021-04-26 20:52 | PC.NURSE ---
vrbo from erp dr bo for ativan 1mg
[2021-04-26] MEDS: LORazepam (*CRX) 1 MG TABLET PO (21:20)
--- NOTE | 2021-04-26 22:15 | PC.NURSE ---
this rn at bedside to collect covid swab for [facility] placement at this time. pt compliant and nice, willing to do swab if it is going to help him get a placement.
[2021-04-26 22:32] LABS: EDCOVIDSCREEN Negative (Negative)
--- NOTE | 2021-04-26 22:42 | PC.NURSE ---
called Amparo from [place] to notify her that pt's covid swab was negative. faxed results over to her.
--- NOTE | 2021-04-27 01:32 | PC.NURSE ---
Amparo from [facility] called. Patient denied by Dr. Luong.
[2021-04-27 05:38] VITALS: BP 91/56; PULSE 93; RESP 15; O2SAT 96
--- NOTE | 2021-04-27 07:03 | PC.NURSE ---
pt. agitated and requesting ativan
[2021-04-27 07:06] VITALS: BP 97/56; PULSE 85; RESP 22; O2SAT 98
--- NOTE | 2021-04-27 07:06 | PC.NURSE ---
pt tray ordered
[2021-04-27 07:59] LABS: Basophils Absolute Auto 0.2 K/mm3 (0.0-0.1); Basophils Percent Auto 1.3 % (0.2-1.2); Eosinophils Percent Auto 7.9 % (0-4.4); Hematocrit 34.7 % (42.0-52.0); Hemoglobin 10.8 g/dL (14.0-18.0); Immature Granulocyte Absolute 0.16 K/mm3 (0.00-0.031); Immature Granulocyte Percent A 1.3 % (0-0.5); Lymphocytes Absolute Auto 1.75 K/mm3 (0.9-3.2); Lymphocytes Percent Auto 13.8 % (18.3-44.2); Mean Corpuscular HGB Conc 31.1 g/dl (32-36); Mean Corpuscular Hemoglobin 27.6 pg (26-34); Mean Corpuscular Volume 88.5 fl (80-100); Mean Platelet Volume 8.1 fl (7.4-10.4); Monocytes Absolute Auto 0.9 K/mm3 (0.1-0.6); Monocytes Percent Auto 6.9 % (2.6-8.5); Neutrophils Absolute Auto 8.7 K/mm3 (1.3-6.7); Neutrophils Percent Auto 68.8 % (45.5-73.1); Platelet Count Result 491 k/mm3 (150-375); Red Blood Count 3.92 M/mm3 (4.6-6.20); White Blood Count 12.7 K/mm3 (4.5-10.0)
[2021-04-27 08:15] LABS: Alanine Aminotransferase 92 U/L (4-50); Albumin Level 2.8 g/dL (3.5-5.1); Alkaline Phosphatase 74 U/L (38-126); Anion Gap 4 mmol/L (8-16); Aspartate Amino Transferase 75 U/L (17-59); Bilirubin,Total 0.2 mg/dL (0.2-1.3); Blood Urea Nitrogen 12 mg/dL (9-20); Calcium 8.6 mg/dL (8.4-10.2); Carbon Dioxide 33 mmol/L (22-30); Chloride 98 mmol/L (98-107); Creatine Kinase 882 U/L (55-170); Estimated CRCL calculation 98 ml/min; Estimated Glomerular Filt Rate > 60; Glucose 116 mg/dL (65-110); Potassium 3.8 mmol/L (3.4-5.0); Sodium 135 mmol/L (137-145)
--- NOTE | 2021-04-27 08:46 | PC.NURSE ---
Patient requested medication, patient currently sleeping will hold medication until patient is awake.
--- NOTE | 2021-04-27 11:08 | PC.NURSE ---
Patient now awake and requesting his meal and medication and states he would like to sign out after his meal
[2021-04-27] MEDS: LORazepam (*CRX) 1 MG TABLET PO (11:45)
== END 2021-04-27 14:14 | disposition home or self-care (01) ==
PROVIDERS: Emergency Medicine; General Practice; Emergency Provider Emergency Medicine
DX: F32.9 Major depressive disorder, single episode, unspecified (principal); Z20.822 Contact with and (suspected) exposure to COVID-19; F43.10 Post-traumatic stress disorder, unspecified; F20.9 Schizophrenia, unspecified; F17.210 Nicotine dependence, cigarettes, uncomplicated
CPT/HCPCS: 36415; 80048; 80053; 80307; 81001; 82550; 84443; 85025; 87426; 99284; A9270; C9803

== ENCOUNTER 2021-05-01 03:15 | Emergency (ER) | payer OTHER, SELFPAY ==
[2021-05-01 03:17] VITALS: BP 109/70; PULSE 69; RESP 16; TEMP 36.4; O2SAT 98
[2021-05-01 04:07] LABS: Basophils Absolute Auto 0.1 K/mm3 (0.0-0.1); Eosinophils Absolute Auto 0.7 K/mm3 (0-0.3); Eosinophils Percent Auto 5.3 % (0-4.4); Hematocrit 32.9 % (42.0-52.0); Hemoglobin 10.4 g/dL (14.0-18.0); Immature Granulocyte Absolute 0.15 K/mm3 (0.00-0.031); Immature Granulocyte Percent A 1.2 % (0-0.5); Lymphocytes Absolute Auto 1.51 K/mm3 (0.9-3.2); Mean Corpuscular HGB Conc 31.6 g/dl (32-36); Mean Corpuscular Hemoglobin 27.5 pg (26-34); Mean Platelet Volume 8.5 fl (7.4-10.4); Monocytes Absolute Auto 1.3 K/mm3 (0.1-0.6); Monocytes Percent Auto 10.6 % (2.6-8.5); Neutrophils Absolute Auto 8.8 K/mm3 (1.3-6.7); Neutrophils Percent Auto 69.9 % (45.5-73.1); Platelet Count Result 496 k/mm3 (150-375); Red Blood Count 3.78 M/mm3 (4.6-6.20); Red Cell Distribution Width 21.2 % (11.5-14.5); White Blood Count 12.6 K/mm3 (4.5-10.0)
[2021-05-01 04:18] LABS: Add Urine Microscopic? NO; Appearance Urine Clear (Clear); Bilirubin Urine Negative (Negative); Blood Urine Negative (Negative); Color Urine Yellow (Yellow); Glucose Urine UA Negative (Negative); Ketones Urine Negative (Negative); Leukocyte Esterase Ur Negative LEU/UL (Negative); Nitrate Urine Negative (Negative); Protein Urine Negative (Negative); Specific Grav Ur 1.016 (1.001-1.035); Urobilinogen Urine Negative mg/dL (<2.0)
[2021-05-01 04:24] LABS: Potassium 3.9 mmol/L (3.4-5.0)
[2021-05-01 04:26] LABS: Alanine Aminotransferase 97 U/L (4-50); Albumin Level 3.2 g/dL (3.5-5.1); Alkaline Phosphatase 65 U/L (38-126); Anion Gap 4 mmol/L (8-16); Aspartate Amino Transferase 103 U/L (17-59); Bilirubin,Total < 0.1 mg/dL (0.2-1.3); Blood Urea Nitrogen 19 mg/dL (9-20); Calcium 8.8 mg/dL (8.4-10.2); Carbon Dioxide 31 mmol/L (22-30); Chloride 98 mmol/L (98-107); Estimated Glomerular Filt Rate > 60; Glucose 111 mg/dL (65-110); Sodium 133 mmol/L (137-145)
[2021-05-01 04:31] LABS: Amphetamine Screen Urine Positive (Negative); Barbiturate Screen Urine Negative (Negative); Benzodiazepines Screen Urine Negative (Negative); Cannabinoid Screen Urine Positive (Negative); Cocaine Screen Urine Negative (Negative); Methadone Screen Urine Negative (Negative); Opiate Screen Urine Negative (Negative); Phencyclidine Screen Urine Negative (Negative)
[2021-05-01 04:42] LABS: Ethanol < 10 mg/dL (<10)
[2021-05-01 04:58] LABS: Thyroid Stimulating Hormone 0.806 uIU/mL (0.465-4.680)
--- NOTE | 2021-05-01 06:26 | ED.GENADULT ---
HPI - General Adult General Chief complaint: Psychiatric Symptoms <Cristian Brown MD - Last Filed: 05/01/21 06:29> Stated complaint: SI/ meth <Cristian Brown MD - Last Filed: 05/01/21 06:29> Time Seen by Provider: 05/01/21 03:28 <Cristian Brown MD - Last Filed: 05/01/21 06:29> History of Present Illness HPI narrative: Patient is a 45-year-old male who presents ER reports of suicidal ideation. He walked into a police station and stated he wanted a medical exam for swollen hands and then when EMS arrived he reported that he was suicidal. Reports he wants to hang himself. To me he reports he wants to both hang himself or lay on a railroad track and be hit by a train. This is similar to when he was here previously declaring suicidal ideation. The suicidal ideation seems very passive. He reports he wants to take his own life because he is relapsed and started using methamphetamine again. <Cristian Brown MD - Last Filed: 05/01/21 06:29> Related Data Allergies/adverse reactions: Allergies Allergy/AdvReac Type Severity Reaction Status Date / Time haloperidol Allergy Swelling Verified 04/24/21 19:04 of Lip/Tongue/Throat <Cristian Brown MD - Last Filed: 05/01/21 06:29> Review of Systems Review of Systems: All systems reviewed & are unremarkable except as noted in HPI and below <Cristian Brown MD - Last Filed: 05/01/21 06:29> Constitutional: Constitutional: Denies chills, Denies fever(s) and Denies weakness <Cristian Brown MD - Last Filed: 05/01/21 06:29> ENT: Denies nasal congestion and Denies sore throat <Cristian Brown MD - Last Filed: 05/01/21 06:29> Cardiovascular: Cardiovascular: Denies chest pain, Denies rapid heart rate and Denies radiating jaw, neck or arm pain <Cristian Brown MD - Last Filed: 05/01/21 06:29> Respiratory: Respiratory: Denies cough and Denies dyspnea <Cristian Brown MD - Last Filed: 05/01/21 06:29> Gastrointestinal: Gastrointestinal: Denies abdominal pain, Denies diarrhea, Denies nausea and Denies vomiting <Cristian Brown MD - Last Filed: 05/01/21 06:29> Psychiatric: Psychiatric: Reports depression, Denies homicidal ideation and Reports suicidal ideation <Cristian Brown MD - Last Filed: 05/01/21 06:29> PMFSH Past Medical History Medical History: Medical History Alcohol abuse Coffee ground emesis Depression Methamphetamine use PTSD (post-traumatic stress disorder) Schizophrenia Smoker <Cristian Brown MD - Last Filed: 05/01/21 06:29> Surgical History Surgical History: Surgical History No pertinent past surgical history <Cristian Brown MD - Last Filed: 05/01/21 06:29> Family History Family History: Family History Sibling Asthma Grandparent Cancer <Cristian Brown MD - Last Filed: 05/01/21 06:29> Social History Social History: Social History Social History: He is unemployed and homeless. He is estranged from his family members. Smoking packs per day: 2 Smoking cigarettes per day: 40.0 Years smoked: 35 Smoking pack-years: 70.00 Smoking status: Current some day smoker Tobacco type: cigarettes Alcohol intake: former Substance use: current Substance use type: marijuana and methamphetamine Last use: 02/04 meth 02/10 marijuana Additional occupation/education comments: Unemployed Gender identity (if verbalized by the patient): Male Spiritual care concerns: No <Cristian Brown MD - Last Filed: 05/01/21 06:29> Exam Narrative: GENERAL: Unkept in appearance, malodorous, and in no acute distress. HEAD: Normocephalic, atraumatic. EYES: PERRL and EOMI. ENT: Mucous membranes moist. CHEST: Clear to auscultation. No respiratory distress. HEART: Regular rate and rhyt
--- NOTE | 2021-05-01 11:30 | PC.NURSE ---
patient reports that he is homeless by choice and that he comes to the er for a safe place to sleep and to get some meals. denies thoughts of self harm at this time
--- NOTE | 2021-05-01 12:19 | PC.NURSE ---
discussed with patient impending discharge after being safety contracted by [facility]. patient states he is not ready to leave and that he will kill himself if we make him go. [facility] crisis called with up date
--- NOTE | 2021-05-01 17:15 | PC.NURSE ---
[facility] break up worker here to see patient . patient states he is no longerhaving thoughts of self harm and is ready to go
[2021-05-01 17:16] VITALS: BP 140/78; PULSE 87; RESP 18; O2SAT 99
== END 2021-05-01 17:18 | disposition home or self-care (01) ==
PROVIDERS: Emergency Provider Emergency Medicine
DX: F19.10 Other psychoactive substance abuse, uncomplicated (principal); F32.A Depression, unspecified; F17.210 Nicotine dependence, cigarettes, uncomplicated
CPT/HCPCS: 36415; 80053; 80307; 81003; 84443; 85025; 99284

== ENCOUNTER 2021-05-11 19:22 | Observation (INO) | payer OTHER, SELFPAY ==
--- NOTE | ~2021-05-11 | CT_ITS ---
EXAMINATION: CT brain wo con DATE: 05/11/2021 20:19 INDICATION: Altered mental status. Overdose. Confusion. TECHNIQUE: Computed tomography (CT) of the head was performed without intravenous contrast. The mA wa s adjusted according to patient size. Iterative reconstruction technique was employed. The dose-lengt h product was 1210.67 mGy-cm. COMPARISON: Head CT 11/13/2020 FINDINGS: Motion artifact is noted. There is no intracranial hemorrhage, acute infarction, or abnorma l intracranial mass lesion. The ventricles are normal in size. The paranasal sinuses are clear. The o rbits are normal. The mastoid air cells are normal. IMPRESSION: 1. Normal brain. Reviewed, dictated and finalized at location A. IMPRESSION: 1. Normal brain.
--- NOTE | ~2021-05-11 | XR_ITS ---
EXAMINATION: XR chest 1V DATE: 05/11/2021 20:03 INDICATION: Chest pain. Overdose. TECHNIQUE: A single frontal view of the chest was obtained. COMPARISON: Chest single view 03/29/2021, CT abdomen and pelvis 03/15/2021 FINDINGS: There is no pneumonia, pleural effusion, or pneumothorax. There is enlargement of the cardi ac silhouette. IMPRESSION: 1. Enlargement of the cardiac silhouette, which may be secondary to pericardial effusion as seen on t he prior CT. Reviewed, dictated and finalized at location A. IMPRESSION: 1. Enlargement of the cardiac silhouette, which may be secondary to pericardial effusion as seen on the prior CT.
--- NOTE | 2021-05-11 19:21 | ED.OVERDOSE ---
HPI - Overdose General Chief Complaint: Psychiatric Symptoms Stated Complaint: withdraw from meth Source: patient and EMS Mode of arrival: EMS Limitations: clinical condition and intoxication History of Present Illness HPI Narrative: Patient is a 45-year-old male with a history of methamphetamine use, alcohol abuse, who presents for evaluation of chest pain. Patient reports that he has been using methamphetamines, last use over 12 hours ago. Patient states he has chest pain in the center of his chest. He reports abdominal pain. Patient is quite agitated at the time of assessment. He is awake, alert and oriented to person, place, and to time. He is rocking back and forth on the bed, arms crossed over his chest. He denies heroin use, cocaine use. He does report marijuana use. He reports taking a few shots of alcohol last night. Patient states he is from [place]. He also is suicidal, states he wants in his life by jumping in front of a train. Patient states he has a history of suicide attempt with hospitalization in the past. Related Data Home Medications Medication Instructions Recorded Confirmed No Home Medications 05/11/21 05/11/21 Allergies Allergy/AdvReac Type Severity Reaction Status Date / Time haloperidol Allergy Swelling Verified 05/11/21 20:00 of Lip/Tongue/Throat Review of Systems Review of Systems: CONSTITUTIONAL: Denies fever, chills, or sweats. EYES: Denies visual changes, redness, or discharge. ENT: Denies rhinorrhea, congestion, sore throat, or otalgia. CARDIOVASCULAR: Reports chest pain RESPIRATORY: Denies cough or dyspnea. GASTROINTESTINAL: Reports abdominal pain, without nausea, vomiting, or diarrhea. GENITOURINARY: Denies dysuria or hematuria. SKIN: Denies rash or itching. MUSCULOSKELETAL: Denies back pain, joint pain, or myalgia. NEUROLOGIC: Denies headache, numbness, or weakness. PSYCH: Reports suicidal ideation PMFSH Past Medical History Medical History Alcohol abuse 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 He is estranged from his family members. Smoking packs per day: 2 Smoking cigarettes per day: 40.0 Years smoked: 35 Smoking pack-years: 70.00 Smoking status: Current some day smoker Tobacco type: cigarettes Alcohol intake: former Substance use: current Substance use type: methamphetamine Last use: 02/04 meth 02/10 marijuana Additional occupation/education comments: Unemployed Gender identity (if verbalized by the patient): Male Spiritual care concerns: No Exam Narrative: GENERAL: Awake, alert, agitated HEAD: Normocephalic, atraumatic. EYES: PERRLA and EOMI. ENT: Nares clear, no rhinorrhea or epistaxis. Mucous membranes dry. NECK: Supple. CHEST: No respiratory distress, breathing even and non labored HEART: Regular rate, sinus rhythm ABDOMEN:Non distended, non tender EXTREMITIES: Normal range of motion. Bilateral lower extremity edema to the mid shins, nonpitting, no erythema or calf pain SKIN: Warm, dry, no rash. NEURO:No focal deficits. Alert and oriented x3 Course Vital Signs Vital signs: Vital Signs Temperature 36.7 C 05/11/21 19:28 Pulse Rate 110 H 05/11/21 19:28 Respiratory Rate 26 H 05/11/21 19:28 Blood Pressure 113/69 05/11/21 19:28 Pulse Oximetry 97 05/11/21 19:28 Temperature 36.7 C 05/11/21 19:28 Pulse Rate 99 05/11/21 22:41 Respiratory Rate 16 05/11/21 22:41 Blood Pressure 109/71 05/11/21 22:41 Pulse Oximetry 98 05/11/21
[2021-05-11 19:28] VITALS: BP 113/69; PULSE 110; RESP 26; TEMP 36.7; O2SAT 97
--- NOTE | 2021-05-11 19:30 | ECG_ITS ---
Measurements Intervals [place] Rate: 106 P: 69 AK: 186 QRS: -50 QRSD: 129 T: 68 QT: 359 QTc: 478 Interpretive Statements SINUS TACHYCARDIA LEFT AXIS DEVIATION CANNOT RULE OUT SEPTAL INFARCT, AGE INDETERMINATE BASELINE ARTIFACT- I, II, AVR, AVL, AVF, V1, V3-V6 ABNORMAL ECG Electronically Signed On 05-12-2021 6:43:23 CDT by Walter Gray D.O.
[2021-05-11] MEDS: LORazepam INJ (*CRX) 2 MG/ML VIAL 1 MG IM (19:46)
[2021-05-11 19:54] LABS: Basophils Absolute Auto 0.1 K/mm3 (0.0-0.1); Basophils Percent Auto 1.1 % (0.2-1.2); Eosinophils Absolute Auto 0.4 K/mm3 (0-0.3); Eosinophils Percent Auto 2.9 % (0-4.4); Hematocrit 32.4 % (42.0-52.0); Hemoglobin 10.4 g/dL (14.0-18.0); Immature Granulocyte Absolute 0.21 K/mm3 (0.00-0.031); Immature Granulocyte Percent A 1.6 % (0-0.5); Mean Corpuscular HGB Conc 32.1 g/dl (32-36); Mean Corpuscular Hemoglobin 27.7 pg (26-34); Mean Corpuscular Volume 86.2 fl (80-100); Mean Platelet Volume 8.2 fl (7.4-10.4); Monocytes Absolute Auto 1.3 K/mm3 (0.1-0.6); Monocytes Percent Auto 9.8 % (2.6-8.5); Neutrophils Absolute Auto 9.1 K/mm3 (1.3-6.7); Neutrophils Percent Auto 70.6 % (45.5-73.1); Platelet Count Result 484 k/mm3 (150-375); Red Blood Count 3.76 M/mm3 (4.6-6.20); Red Cell Distribution Width 19.9 % (11.5-14.5); White Blood Count 12.9 K/mm3 (4.5-10.0)
[2021-05-11 20:06] LABS: Alanine Aminotransferase 98 U/L (4-50); Albumin Level 3.3 g/dL (3.5-5.1); Alkaline Phosphatase 81 U/L (38-126); Anion Gap 8 mmol/L (8-16); Aspartate Amino Transferase 124 U/L (17-59); Bilirubin,Total 0.5 mg/dL (0.2-1.3); Blood Urea Nitrogen 22 mg/dL (9-20); Carbon Dioxide 23 mmol/L (22-30); Chloride 102 mmol/L (98-107); Estimated CRCL calculation 77 ml/min; Estimated Glomerular Filt Rate > 60; Glucose 77 mg/dL (65-110); Potassium 4.1 mmol/L (3.4-5.0); Sodium 133 mmol/L (137-145)
[2021-05-11 20:10] LABS: Acetaminophen < 10 ug/mL (10-30); Ethanol < 10 mg/dL (<10); Salicylate < 1.0 mg/dL (2-20)
--- NOTE | 2021-05-11 20:31 | ECG_ITS ---
Measurements Intervals [place] Rate: 106 P: 77 NC: 200 QRS: -55 QRSD: 130 T: 78 QT: 362 QTc: 482 Interpretive Statements SINUS TACHYCARDIA LEFT AXIS DEVIATION CANNOT RULE OUT SEPTAL INFARCT, AGE INDETERMINATE BASELINE ARTIFACT- II, V3-V5 ABNORMAL ECG Electronically Signed On 05-12-2021 6:43:51 CDT by Walter Gray D.O.
[2021-05-11 20:32] LABS: Troponin I 0.198 ng/mL (0.000-0.034)
[2021-05-11 20:37] LABS: Thyroid Stimulating Hormone 0.819 uIU/mL (0.465-4.680)
--- NOTE | 2021-05-11 22:08 | PM.IMHP ---
H&P: HPI History of Present Illness Date/Time: 05/11/21 22:08 Chief Complaint: Chest pain Narrative: This is a 45-year-old male with past medical history significant for methamphetamine use, pericardial effusion, posttraumatic stress disorder, schizophrenia, tobacco dependence. Patient presented to the emergency room complaining of chest pain and suicidal ideation also patient does admit to doing methamphetamine for the last several days. Patient denies any shortness of breath ,cough ,sputum production, PND ,orthopnea ,nausea, vomiting ,abdominal pain, leg pain, leg swelling ,syncope or near-syncope. When asked if he still thinking about hurting himself he says yes patient can not really give much history he denied any discomfort at the time of my visit. Preliminary workup was significant for chest x-ray with abnormal cardiac silhouette. A urine tox was significant for amphetamine. Initial troponins were elevated. Review of Systems Review of Systems: Chest pain, suicidal ideation, methamphetamine use. Constitutional: Constitutional: Denies chills, Denies fever(s), Denies night sweats and Denies weakness Eyes: Eyes: Denies change in vision ENT: Denies dysphagia, Denies nasal congestion, Denies nasal discharge, Denies nasal obstruction and Denies odynophagia Cardiovascular: Cardiovascular: Reports chest pain Respiratory: Respiratory: Denies cough and Denies dyspnea Gastrointestinal: Gastrointestinal: Denies diarrhea, Denies nausea and Denies vomiting Genitourinary: Genitourinary: Reports no additional male genitourinary complaints Musculoskeletal: Musculoskeletal: Reports no additional musculoskeletal complaints Integumentary/Breasts: Skin/Breast: Reports system reviewed and no additional complaints, except as docu Neurologic: Reports system reviewed and no additional complaints, except as documented Psychiatric: Psychiatric: Reports suicidal ideation Endocrine: Endocrine: Reports no additional endocrine complaints Hematologic/Lymphatic: Hematologic/Lymphatic: Reports no additional hematologic/lymphatic complaints Allergic/Immunologic: Allergic/Immunologic: Reports no additional allergic/immunologic complaints PMFSH Past Medical History Medical History Alcohol abuse 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 He is estranged from his family members. Smoking packs per day: 2 Smoking cigarettes per day: 40.0 Years smoked: 35 Smoking pack-years: 70.00 Smoking status: Current every day smoker Tobacco type: cigarettes Alcohol intake: current Substance use: current Substance use type: amphetamines Last use: 02/04 meth 02/10 marijuana Additional occupation/education comments: Unemployed Gender identity (if verbalized by the patient): Male Spiritual care concerns: No Meds Home Medications and Allergies Home Medications Medication Instructions Recorded Confirmed Type No Home Medications 05/11/21 05/11/21 History Allergies Allergy/AdvReac Type Severity Reaction Status Date / Time haloperidol Allergy Swelling Verified 05/11/21 20:00 of Lip/Tongue/Throat Vital Signs Vital Signs - 24 hr 05/11/21 19:28 Temperature 98.1 F Pulse Rate 110 H Respiratory Rate 26 H Blood Pressure 113/69 Pulse Oximetry 97 Exam Const: General: comfortable, no acute distress, well developed, alert and awake Nutritional Appearance: thin Orientation/consciousness: patient oriented x3 HENMT: Head: normal to inspection, n
[2021-05-11 22:41] VITALS: BP 109/71; PULSE 99; RESP 16; O2SAT 98
[2021-05-11 22:59] LABS: Add Urine Microscopic? YES; Appearance Urine Clear (Clear); Bilirubin Urine Negative (Negative); Blood Urine 2+ (Negative); Color Urine Yellow (Yellow); Glucose Urine UA Negative (Negative); Ketones Urine 1+ mg/dL (Negative); Leukocyte Esterase Ur Negative LEU/UL (Negative); Nitrate Urine Negative (Negative); Protein Urine 1+ mg/dL (Negative); Specific Grav Ur 1.015 (1.001-1.035); Urobilinogen Urine Negative mg/dL (<2.0); WBC Urine 0-3 /hpf
[2021-05-11 23:19] LABS: Barbiturate Screen Urine Negative (Negative); Benzodiazepines Screen Urine Negative (Negative)
[2021-05-11 23:34] LABS: Cannabinoid Screen Urine Negative (Negative); Methadone Screen Urine Negative (Negative); Opiate Screen Urine Negative (Negative); Phencyclidine Screen Urine Negative (Negative)
[2021-05-11 23:41] LABS: Troponin I 0.216 ng/mL (0.000-0.034)
[2021-05-11 23:57] LABS: Amphetamine Screen Urine Positive (Negative)
[2021-05-12] VITALS (11 sets, daily range): BP systolic 96–115; BP diastolic 64–84; PULSE 84–103; RESP 16–33; TEMP 36.6–36.7; O2SAT 96–98; BMI 23.3
[2021-05-12] MEDS: LACTATED RINGERS 1,000 ML 125 ML IV CONT (00:48)
[2021-05-12] MEDS: LORazepam INJ (*CRX) 2 MG/ML VIAL 1 MG IV PUSH ×3 (00:48→19:53)
[2021-05-12 02:07] LABS: Troponin I 0.215 ng/mL (0.000-0.034)
--- NOTE | 2021-05-12 11:24 | PM.CNCAR ---
Assessment and Plan Assessment and plan (1) Chest pain: Code(s): R07.9 - Chest pain, unspecified Status: Acute Assessment and Plan: Atypical, highly reproducible with palpation the chest wall diffusely described as sharp by the patient most likely musculoskeletal and noncardiac. This is very likely sequelae of methamphetamine use and not consistent with angina or myocardial ischemia. At this time, patient is otherwise hemodynamically stable and not suffering acute myocardial infarction. He is not a candidate for any further invasive testing nor is it warranted at present. (2) Elevated troponin: Code(s): R77.8 - Other specified abnormalities of plasma proteins Status: Acute Assessment and Plan: Mild elevation, flat curve essentially unchanged since January not secondary to acute coronary syndrome and/or plaque rupture. This may be secondary to an inflammatory response with polysubstance abuse possible although less likely myopericarditis. Given history of anemia, severe reflux esophagitis with mucosal tear avoidance of NSAID therapy Will advised. (3) Methamphetamine abuse: Code(s): F15.10 - Other stimulant abuse, uncomplicated Status: Acute Assessment and Plan: As above, definitely complicating patient's physical and mental health. Substance abuse support/rehabilitation crucial. (4) Polysubstance abuse: Code(s): F19.10 - Other psychoactive substance abuse, uncomplicated Status: Acute Assessment and Plan: As above. (5) Suicide ideation: Code(s): R45.851 - Suicidal ideations Status: Acute Assessment and Plan: Disposition per primary service with additional support and precautions as appropriate. (6) Pericardial effusion: Code(s): I31.3 - Pericardial effusion (noninflammatory) Status: Acute Assessment and Plan: Hemodynamically stable, incidentally noted on echocardiogram prior hospitalization without tamponade physiology. Pericardial effusion was small in size at that time. No clinical indication to suggest significant progression nor with there being intervention appropriate as he is not tachycardic nor is he hypotensive. History of Present Illness History of Present Illness Consult date/time: Date of service:05/12/21 11:24 Cardiology consultation at the request of Dr. Wiley for opinion regarding chest pain and elevated troponin. Requesting physician: Justino Wiley MD Consult reason: chest pain and Other (elevated troponin) Reason For Visit: Atypical CP, Troponin Elevation Narrative: Pt is a 45-year-old male with a past medical history significant for polysubstance abuse including methamphetamine, cocaine, alcohol, tobacco, history of small pericardial effusion, PTSD, schizophrenia whom we have previously been consulted for flat mild troponin elevation and pericardial effusion. patient presented to their emergency room with complaints of chest pain and suicidal ideation and methamphetamine use for the past several days. Electronic medical record mentions no complain of shortness of breath, cough, fevers, chills, nausea vomiting, abdominal pain. During my interview with the patient patient was not answering all questions but answered yes to complaints of chest pain he reported as sharp worse with movement, deep breathing, and coughing. patient is on suicidal precautions on IMU but in the ICU. we were asked to see this patient for complaints of chest pain and mild troponin elevation. Upon review of medical record patient has a chronically elevated troponin approximately 0.1-0.2 without significant policy change clerks supervisor this time. He had EKG is unchanged compared to prior tracings. His echocardiogram revealed normal LV function without focal wall motion abnormalities. Chest pain was highly reproducible upon palpation of his chest diffusely without obvious wincing and withdrawal. Urine drug screen significant for am
[2021-05-12 12:26] LABS: EDCOVIDSCREEN Negative (Negative)
--- NOTE | 2021-05-12 13:37 | PC.NURSE ---
PCR Covid swab sent for placement per Crisis Nurse request. Certain facilities don't accept the rapid swab.
--- NOTE | 2021-05-12 20:09 | PC.NURSE ---
When asked it pt was having thoughts of harming himself, pt stated yes. When asked if he had a plan, pt states I would jump out a window so it would be quick.
--- NOTE | 2021-05-12 20:30 | PM.IMPN ---
Progress Note: A&P Assessment and Plan (1) Suicide ideation: Code(s): R45.851 - Suicidal ideations Status: Acute Assessment and Plan: Patient was admitted the ICU on IMU status. The patient has been downgraded to medical status and is cleared for psychiatric evaluation. engine house helper is at bedside. The patient is on suicide precautions. The patient is still verbalizing suicidal ideation and methodology. (2) Methamphetamine abuse: Code(s): F15.10 - Other stimulant abuse, uncomplicated Status: Acute Assessment and Plan: Ativan as needed. (3) Chest pain: Qualifiers: Chest pain type: unspecified Qualified Code(s): R07.9 - Chest pain, unspecified Code(s): R07.9 - Chest pain, unspecified Status: Acute Assessment and Plan: Patient has elevated troponins due to methamphetamine use. His troponin profile is flat and not indicative of acute cardiac ischemia. The patient is medically cleared for psychiatric evaluation. (4) Tobacco abuse: Code(s): Z72.0 - Tobacco use Status: Acute Assessment and Plan: Nicotine patch has been ordered as needed for symptoms of withdrawal. Time Spent With Patient Time with patient: less than 15 minutes Subjective Date/time seen: 05/12/21 20:30 Interval history: The patient reports that he feels numb all over. He had been using methamphetamines for the last several days. He last used methamphetamines on the night of the he will smoke and inject methamphetamine. He reports that he still has a plan to jump out a window to harm himself as it seems the best way possible to end his life. He denies any nausea or vomiting. He denies abdominal pain. He has been urinating without difficulty. Review of Systems Constitutional: Constitutional: Reports as per HPI Exam Narrative: PHYSICAL EXAM: WEIGHT 63.5 kg BMI 23.3 General: Disheveled, poor hygiene, thin body habitus HEENT: Mucous membranes are tacky, edentulous, no oral pharyngeal erythema, no scleral icterus Respiratory: Clear to auscultation bilaterally, no increased work of breathing Cardiovascular: Regular rate, 2+ bilateral radial pedal pulses Gastrointestinal: Soft, nontender, nondistended Skin: Multiple tattoos, tanned Musculoskeletal: No clubbing, cyanosis or edema Neurological: Alert and oriented x3, speech is faint and somewhat garbled, no gross motor deficits noted on limited exam Psychiatric: Agitated, restless, uncooperative, poor judgment insight : Continent of urine Hematologic/lymphatic: No anterior cervical lymphadenopathy, no petechiae Objective Data Vital Signs Vital Signs: Vital Signs - 24 hr 05/11/21 22:41 05/12/21 01:14 05/12/21 02:00 Temperature Pulse Rate 99 99 95 Respiratory Rate 16 16 19 Blood Pressure 109/71 108/64 Pulse Oximetry 98 96 97 05/12/21 03:30 05/12/21 04:00 05/12/21 06:00 Temperature 97.8 F Pulse Rate 95 102 H 89 Respiratory Rate 25 H 26 H 19 Blood Pressure 115/79 109/84 Pulse Oximetry 96 98 97 05/12/21 08:00 05/12/21 08:08 05/12/21 09:58 Temperature Pulse Rate 84 98 88 Respiratory Rate 33 H 31 H Blood Pressure 96/69 L 108/71 Pulse Oximetry 97 05/12/21 10:00 05/12/21 16:00 Temperature 97.9 F Pulse Rate 86 91 Respiratory Rate 16 Blood Pressure 110/74 Pulse Oximetry 96 Intake/Output Intake/Output: Intake & Output 05/09/21 05/10/21 05/11/21 05/12/21 23:59 23:59 23:59 23:59 Intake Total 3060 Output Total 1200 Balance 1860 Meds/Results Medications: Active Medications Generic Name Dose Route Start Last Admin Trade Name Freq PRN Reason Stop Dose Admin Lorazepam 1 mg 05/12/21 00:38 05/12/21 19:53 Lorazepam Inj (*Crx) 2 Mg/Ml Vial IV PUSH 1 mg Q6H PRN Administration Anxiety Ondansetron HCl 4 mg 05/11/21 22:08 Ondansetron Inj 4 Mg/2 Ml Vial IV PUSH Q4H PRN Nausea Radiology Results: ITS I
[2021-05-13] MEDS: LORazepam INJ (*CRX) 2 MG/ML VIAL 1 MG IV PUSH ×3 (01:37→21:02)
[2021-05-13 05:34] LABS: Hematocrit 33.9 % (42.0-52.0); Hemoglobin 10.6 g/dL (14.0-18.0); Mean Corpuscular HGB Conc 31.3 g/dl (32-36); Mean Corpuscular Hemoglobin 27.5 pg (26-34); Mean Corpuscular Volume 87.8 fl (80-100); Mean Platelet Volume 8.4 fl (7.4-10.4); Platelet Count Result 503 k/mm3 (150-375); Red Blood Count 3.86 M/mm3 (4.6-6.20); Red Cell Distribution Width 20.1 % (11.5-14.5); White Blood Count 9.8 K/mm3 (4.5-10.0)
[2021-05-13 06:17] LABS: Alanine Aminotransferase 76 U/L (4-50); Albumin Level 2.7 g/dL (3.5-5.1); Alkaline Phosphatase 77 U/L (38-126); Anion Gap 3 mmol/L (8-16); Aspartate Amino Transferase 74 U/L (17-59); Bilirubin,Total 0.2 mg/dL (0.2-1.3); Blood Urea Nitrogen 11 mg/dL (9-20); Calcium 8.1 mg/dL (8.4-10.2); Carbon Dioxide 30 mmol/L (22-30); Chloride 102 mmol/L (98-107); Estimated CRCL calculation 113 ml/min; Estimated Glomerular Filt Rate > 60; Glucose 108 mg/dL (65-110); Potassium 3.7 mmol/L (3.4-5.0); Sodium 135 mmol/L (137-145)
[2021-05-13 08:00] VITALS: BP 111/74; PULSE 94; RESP 18; TEMP 36.6; O2SAT 97
--- NOTE | 2021-05-13 08:11 | PM.IMPN ---
Progress Note: A&P Assessment and Plan (1) Suicide ideation: Code(s): R45.851 - Suicidal ideations Status: Acute Assessment and Plan: Patient was admitted the ICU on IMU status, yesterday was downgraded to medical status and is cleared for psychiatric evaluation. hat trimmer is at bedside. The patient is on suicide precautions. The patient is still verbalizing suicidal ideation, with an active plan. (2) Methamphetamine abuse: Code(s): F15.10 - Other stimulant abuse, uncomplicated Status: Acute Assessment and Plan: Ativan as needed. (3) Chest pain: Qualifiers: Chest pain type: unspecified Qualified Code(s): R07.9 - Chest pain, unspecified Code(s): R07.9 - Chest pain, unspecified Status: Acute Assessment and Plan: Patient has elevated troponins due to methamphetamine use. His troponin profile is flat and not indicative of acute cardiac ischemia. The patient is medically cleared for psychiatric evaluation. (4) Tobacco abuse: Code(s): Z72.0 - Tobacco use Status: Acute Assessment and Plan: Nicotine patch has been ordered as needed for symptoms of withdrawal and or/per patient's request. Subjective Date/time seen: 05/13/21 08:11 Interval history: This is a 45-year-old male with past medical history significant for methamphetamine use, pericardial effusion, posttraumatic stress disorder, schizophrenia, tobacco dependence who was admitted on 05/11/2021 with complaints of chest pain and suicidal ideation. He last used methamphetamines on the night of the he will smoke and inject methamphetamine. He reports that he still has a plan to jump out a window to harm himself as it seems the best way possible to end his life. He denies any nausea or vomiting. He denies abdominal pain. He has been urinating without difficulty. S: Patient is sleeping comfortably without any distress. Review of Systems Constitutional: Constitutional: Reports as per HPI, Denies chills, Denies fever(s), Denies night sweats and Denies weakness Eyes: Eyes: Denies change in vision ENT: Denies dysphagia, Denies nasal congestion, Denies nasal discharge, Denies nasal obstruction and Denies odynophagia Cardiovascular: Cardiovascular: Reports chest pain and Denies dyspnea Respiratory: Respiratory: Denies cough and Denies dyspnea Gastrointestinal: Gastrointestinal: Denies dysphagia, Denies diarrhea, Denies nausea, Denies odynophagia and Denies vomiting Genitourinary: Genitourinary: Reports no additional male genitourinary complaints Musculoskeletal: Musculoskeletal: Reports no additional musculoskeletal complaints Integumentary/Breasts: Skin/Breast: Reports system reviewed and no additional complaints, except as docu Neurologic: Reports system reviewed and no additional complaints, except as documented and Denies weakness Psychiatric: Psychiatric: Reports suicidal ideation Endocrine: Endocrine: Reports no additional endocrine complaints Hematologic/Lymphatic: Hematologic/Lymphatic: Reports no additional hematologic/lymphatic complaints Allergic/Immunologic: Allergic/Immunologic: Reports no additional allergic/immunologic complaints Exam Narrative: PHYSICAL EXAM: WEIGHT 63.5 kg BMI 23.3 General: Disheveled, poor hygiene, thin body habitus HEENT: Mucous membranes are tacky, edentulous, no oral pharyngeal erythema, no scleral icterus Respiratory: Clear to auscultation bilaterally, no increased work of breathing Cardiovascular: Regular rate, 2+ bilateral radial pedal pulses Gastrointestinal: Soft, nontender, nondistended Skin: Multiple tattoos, tanned Musculoskeletal: No clubbing, cyanosis or edema Neurological: Alert and oriented x3, speech is faint and somewhat garbled, no gross motor deficits noted on limited exam Psychiatric: Agitated, restless, uncooperative, poor judgment insight : Continent of urine Hematologic/lymphatic: No a
[2021-05-13 16:00] VITALS: BP 111/74; PULSE 94; RESP 18; O2SAT 97
[2021-05-13 17:46] LABS: SARS-CoV-2 RNA PCR Negative
--- NOTE | 2021-05-13 18:37 | PC.NURSE ---
[facility] CALLED TO COME FILL OUT PETITION FOR [facility]. LEFT MESSAGE.
--- NOTE | 2021-05-13 20:50 | PC.NURSE ---
conditioning room worker had pt sign voluntary paperwork for placement at [facility]. Paperwork faxed and adult bed given to pt per reworker. Rosi from [facility] called back to ICU and stated that pt has to go involuntary to their facility because if he gets up here and changes his mind, there is nothing we can do about it.
[2021-05-13] MEDS: ONDANSETRON INJ 4 MG/2 ML VIAL IV PUSH (21:01)
[2021-05-14] VITALS: BP 117/72; PULSE 104; RESP 18; TEMP 37; O2SAT 96
[2021-05-14 08:00] VITALS: BP 112/72; PULSE 94; RESP 20; TEMP 36.7; O2SAT 98
[2021-05-14] MEDS: LORazepam INJ (*CRX) 2 MG/ML VIAL 1 MG IV PUSH ×2 (08:48→18:36)
--- NOTE | 2021-05-14 12:38 | PM.IMPN ---
Progress Note: A&P Assessment and Plan (1) Suicide ideation: Code(s): R45.851 - Suicidal ideations Status: Acute Assessment and Plan: Patient was admitted the ICU on IMU status, yesterday was downgraded to medical status and is cleared for psychiatric evaluation. investments manager is at bedside. The patient is on suicide precautions. The patient is still verbalizing suicidal ideation, with an active plan. (2) Methamphetamine abuse: Code(s): F15.10 - Other stimulant abuse, uncomplicated Status: Acute Assessment and Plan: Ativan as needed. (3) Chest pain: Qualifiers: Chest pain type: unspecified Qualified Code(s): R07.9 - Chest pain, unspecified Code(s): R07.9 - Chest pain, unspecified Status: Acute Assessment and Plan: Patient has elevated troponins due to methamphetamine use. His troponin profile is flat and not indicative of acute cardiac ischemia. The patient is medically cleared for psychiatric evaluation. (4) Tobacco abuse: Code(s): Z72.0 - Tobacco use Status: Acute Assessment and Plan: Nicotine patch has been ordered as needed for symptoms of withdrawal and or/per patient's request. Additional Plan Care coordination and crisis management evaluated the patient, he is awaiting placement to a psych facility Subjective Date/time seen: 05/14/21 12:38 Interval history: This is a 45-year-old male with past medical history significant for methamphetamine use, pericardial effusion, posttraumatic stress disorder, schizophrenia, tobacco dependence who was admitted on 05/11/2021 with complaints of chest pain and suicidal ideation. He last used methamphetamines on the night of the he will smoke and inject methamphetamine. He reports that he still has a plan to jump out a window to harm himself as it seems the best way possible to end his life. He denies any nausea or vomiting. He denies abdominal pain. He has been urinating without difficulty. 05/14/2021: Patient being seen for hospitalist group. Patient is easily arousable, hungry and asking for breakfast. Denies any pain, shortness of breath, nausea vomiting at this time. Goes back to sleep as soon as he answers one-word questions. Moves all extremities spontaneously Review of Systems Review of Systems: All systems reviewed & are unremarkable except as noted in HPI and below Exam Narrative: General: Disheveled, poor hygiene, thin body habitus, not in any distress HEENT: Mucous membranes, no scleral icterus Respiratory: Clear to auscultation bilaterally, no increased work of breathing Cardiovascular: Regular rate, rhythm, normal S1-S2, 2+ bilateral radial pedal pulses Gastrointestinal: Soft, nontender, nondistended, normoactive bowel sounds Skin: Multiple tattoos, Musculoskeletal: No clubbing, cyanosis or edema Neurological: Patient is easily arousable, give 6 one-word answers and then goes back to sleep. Moves all extremities spontaneously Psychiatric:calm and cooperative : Continent of urine, urine is clear Objective Data Vital Signs Vital Signs: Vital Signs - 24 hr 05/13/21 16:00 05/14/21 00:00 05/14/21 08:00 Temperature 98.6 F 98.1 F Pulse Rate 94 104 H 94 Respiratory Rate 18 18 20 Blood Pressure 111/74 117/72 112/72 Pulse Oximetry 97 96 98 Intake/Output Intake/Output: Intake & Output 05/11/21 05/12/21 05/13/21 05/14/21 23:59 23:59 23:59 23:59 Intake Total 3060 2520 360 Output Total 1200 1550 Balance 1860 970 360 Meds/Results Medications: Active Medications Generic Name Dose Route Start Last Admin Trade Name Freq PRN Reason Stop Dose Admin Lorazepam 1 mg 05/12/21 00:38 05/14/21 08:48 Lorazepam Inj (*Crx) 2 Mg/Ml Vial IV PUSH 1 mg Q6H PRN Administration Anxiety Nicotine 1 patch 05/12/21 20:42 Nicotine (*Pbkc) 21 Mg Patch TRANSDERM QAM PRN Nicotine withdrawal Ondansetron HC
[2021-05-14 16:00] VITALS: BP 102/56; PULSE 99; RESP 16; TEMP 36.8; O2SAT 97
[2021-05-14] MEDS: ONDANSETRON INJ 4 MG/2 ML VIAL IV PUSH ×2 (19:48→23:47)
[2021-05-14] MEDS: PROMETHAZINE HCL 25 MG/ML AMPUL 12.5 MG IV PUSH (21:32)
[2021-05-15] VITALS: BP 118/92; PULSE 66; RESP 14; TEMP 37; O2SAT 99
[2021-05-15] MEDS: LORazepam INJ (*CRX) 2 MG/ML VIAL 1 MG IV PUSH ×3 (00:33→18:57)
[2021-05-15 04:35] LABS: Hematocrit 37.4 % (42.0-52.0); Hemoglobin 11.6 g/dL (14.0-18.0); Mean Corpuscular Hemoglobin 26.8 pg (26-34); Mean Corpuscular Volume 86.4 fl (80-100); Mean Platelet Volume 7.8 fl (7.4-10.4); Platelet Count Result 506 k/mm3 (150-375); Red Blood Count 4.33 M/mm3 (4.6-6.20); Red Cell Distribution Width 19.9 % (11.5-14.5)
[2021-05-15 04:49] LABS: Alanine Aminotransferase 73 U/L (4-50); Albumin Level 3.1 g/dL (3.5-5.1); Alkaline Phosphatase 83 U/L (38-126); Anion Gap 1 mmol/L (8-16); Aspartate Amino Transferase 76 U/L (17-59); Bilirubin,Total 0.1 mg/dL (0.2-1.3); Blood Urea Nitrogen 14 mg/dL (9-20); Calcium 9.3 mg/dL (8.4-10.2); Carbon Dioxide 36 mmol/L (22-30); Chloride 97 mmol/L (98-107); Estimated CRCL calculation 98 ml/min; Estimated Glomerular Filt Rate > 60; Glucose 117 mg/dL (65-110); Magnesium 1.8 mg/dL (1.6-2.3); Potassium 4.4 mmol/L (3.4-5.0); Sodium 134 mmol/L (137-145)
[2021-05-15] MEDS: ONDANSETRON INJ 4 MG/2 ML VIAL IV PUSH ×2 (05:07→08:54)
[2021-05-15 08:00] VITALS: BP 145/97; PULSE 77; RESP 20; TEMP 36.7; O2SAT 98
--- NOTE | 2021-05-15 11:39 | PM.IMPN ---
Progress Note: A&P Assessment and Plan (1) Suicide ideation: Code(s): R45.851 - Suicidal ideations Status: Acute Assessment and Plan: Patient was admitted the ICU on IMU status, yesterday was downgraded to medical status and is cleared for psychiatric evaluation. full time babysitter is at bedside. The patient is on suicide precautions. The patient is still verbalizing suicidal ideation, with an active plan. (2) Methamphetamine abuse: Code(s): F15.10 - Other stimulant abuse, uncomplicated Status: Acute Assessment and Plan: Ativan as needed. (3) Chest pain: Qualifiers: Chest pain type: unspecified Qualified Code(s): R07.9 - Chest pain, unspecified Code(s): R07.9 - Chest pain, unspecified Status: Acute Assessment and Plan: Patient has elevated troponins due to methamphetamine use. His troponin profile is flat and not indicative of acute cardiac ischemia. The patient is medically cleared for psychiatric evaluation. (4) Tobacco abuse: Code(s): Z72.0 - Tobacco use Status: Acute Assessment and Plan: Nicotine patch has been ordered as needed for symptoms of withdrawal and or/per patient's request. Additional Plan Care coordination and crisis management evaluated the patient, he is awaiting placement to a psych facility Subjective Date/time seen: 05/15/21 08:39 S: Patient was examined at the bedside. He reports stomach upset. No additional complaints. He does not seem in any acute distress. Interval history: This is a 45-year-old male with past medical history significant for methamphetamine use, pericardial effusion, posttraumatic stress disorder, schizophrenia, tobacco dependence was admitted on 05/11/2021 with complaints of chest pain and suicidal ideation. He last used methamphetamines on the night of the he will smoke and inject methamphetamine. He reports that he still has a plan to jump out a window to harm himself as it seems the best way possible to end his life. He denies any nausea or vomiting. He denies abdominal pain. He has been urinating without difficulty. 05/15/2021: Patient returns to sleep as soon as he answers one-word questions. Moves all extremities spontaneously. Review of Systems Review of Systems: All systems reviewed & are unremarkable except as noted in HPI and below Constitutional: Constitutional: Reports no additional constitutional complaints Eyes: Eyes: Reports no additional eye complaints ENT: Reports system reviewed and no additional complaints, except as documented Cardiovascular: Cardiovascular: Reports no additional cardiovascular complaints Respiratory: Respiratory: Reports no additional respiratory complaints Gastrointestinal: Gastrointestinal: Reports abdominal pain and Reports nausea Genitourinary: Genitourinary: Reports no additional male genitourinary complaints Musculoskeletal: Musculoskeletal: Reports no additional musculoskeletal complaints Integumentary/Breasts: Skin/Breast: Reports system reviewed and no additional complaints, except as docu Neurologic: Reports system reviewed and no additional complaints, except as documented Psychiatric: Psychiatric: Reports suicidal ideation Exam Narrative: General: Disheveled, poor hygiene, thin body habitus, not in any distress HEENT: Mucous membranes, no scleral icterus Respiratory: Clear to auscultation bilaterally, no increased work of breathing Cardiovascular: Regular rate, rhythm, normal S1-S2, 2+ bilateral radial pedal pulses Gastrointestinal: Soft, nontender, nondistended, normoactive bowel sounds Skin: Multiple tattoos, Musculoskeletal: No clubbing, cyanosis or edema Neurological: Patient is easily arousable, give one-word answers and then goes back to sleep. Moves all extremities spontaneously Psychiatric:calm and cooperative : Continent of urine, urine is clear Const: General: comfortable, no a
[2021-05-15 13:02] LABS: EDCOVIDSCREEN Negative (Negative)
[2021-05-15 16:00] VITALS: BP 136/93; PULSE 90; RESP 18; TEMP 36.8; O2SAT 98
[2021-05-15 23:50] VITALS: BP 142/98; PULSE 89; RESP 20; TEMP 36.4; O2SAT 96
--- NOTE | 2021-05-16 00:59 | PC.NURSE ---
Spoke with Robin at [facility]. States that patient will need PCR within the last 24 hours to be placed and that bed will be available later today. They will need to be notified when results are available. They have confirmed that they received face sheet for this patient.
[2021-05-16] MEDS: LORazepam INJ (*CRX) 2 MG/ML VIAL 1 MG IV PUSH (07:27)
[2021-05-16 08:00] VITALS: BP 99/64; PULSE 102; RESP 12; TEMP 36.8; O2SAT 96
--- NOTE | 2021-05-16 09:47 | PM.IMPN ---
Progress Note: A&P Assessment and Plan (1) Suicide ideation: Code(s): R45.851 - Suicidal ideations Status: Acute Assessment and Plan: Patient currently in ICU on medical status and is cleared for psychiatric evaluation. house sitter is at bedside. The patient is on suicide precautions. The patient is still verbalizing suicidal ideation, with an active plan. (2) Methamphetamine abuse: Code(s): F15.10 - Other stimulant abuse, uncomplicated Status: Acute Assessment and Plan: Ativan as needed. (3) Chest pain: Qualifiers: Chest pain type: unspecified Qualified Code(s): R07.9 - Chest pain, unspecified Code(s): R07.9 - Chest pain, unspecified Status: Acute Assessment and Plan: Patient has elevated troponins due to methamphetamine use. His troponin profile is flat and not indicative of acute cardiac ischemia. The patient is medically cleared for psychiatric evaluation. (4) Tobacco abuse: Code(s): Z72.0 - Tobacco use Status: Acute Assessment and Plan: Nicotine patch has been ordered as needed for symptoms of withdrawal and or/per patient's request. Additional Plan Care coordination and crisis management evaluated the patient, he is awaiting placement to a psych facility Subjective Date/time seen: 05/16/21 09:47 S: Patient returns to sleep as soon as he answers one-word questions. Moves all extremities spontaneously. He does not have any complaints today. He does not appear to be in any distress. Interval history: This is a 45-year-old male with past medical history significant for methamphetamine use, pericardial effusion, posttraumatic stress disorder, schizophrenia, tobacco dependence was admitted on 05/11/2021 with complaints of chest pain and suicidal ideation. He last used methamphetamines on the night of the he will smoke and inject methamphetamine. He reports that he still has a plan to jump out a window to harm himself as it seems the best way possible to end his life. He denies any nausea or vomiting. He denies abdominal pain. He has been urinating without difficulty. HE ate 80% of his breakfast today. Review of Systems Review of Systems: All systems reviewed & are unremarkable except as noted in HPI and below ROS unobtainable: Yes unobtainable due to medical condition Constitutional: Constitutional: Denies fever(s) Eyes: Eyes: Denies change in vision ENT: Denies nasal obstruction and Denies odynophagia Cardiovascular: Cardiovascular: Denies dyspnea Gastrointestinal: Gastrointestinal: Denies dysphagia and Denies odynophagia Neurologic: Denies weakness Endocrine: Endocrine: Reports no additional endocrine complaints Hematologic/Lymphatic: Hematologic/Lymphatic: Reports no additional hematologic/lymphatic complaints Allergic/Immunologic: Allergic/Immunologic: Reports no additional allergic/immunologic complaints Exam Narrative: General: Disheveled, poor hygiene, thin body habitus, not in any distress HEENT: Mucous membranes, no scleral icterus Respiratory: Clear to auscultation bilaterally, no increased work of breathing Cardiovascular: Regular rate, rhythm, normal S1-S2, 2+ bilateral radial pedal pulses Gastrointestinal: Soft, nontender, nondistended, normoactive bowel sounds Skin: Multiple tattoos, Musculoskeletal: No clubbing, cyanosis or edema Neurological: Patient is easily arousable, give one-word answers and then goes back to sleep. Moves all extremities spontaneously Psychiatric:calm and cooperative : Continent of urine, urine is clear Const: General: comfortable, no acute distress, well developed, alert and awake Nutritional Appearance: thin Orientation/consciousness: patient oriented x3 HENMT: Head: normal to inspection, normocephalic and atraumatic Ears: hearing grossly normal bilaterally General nose exam: Normal external nose present Face and sinus: normal facial exa
--- NOTE | 2021-05-16 11:13 | PCDIET ---
Nutrition Follow-Up Complete: Nutrition Diagnosis: Involuntary weight loss related to unknown etiology, possibly psychosocial factors, as evidenced by documented 11.1% weight loss x 3 months which is significant. Nutrition Goal: Patient to consume 75% of meals/supplements or greater and maintain weight. Goal in progress. Average intake since 05/12/21 has been 73% of recorded meals. Noted patient refused all meals yesterday. Patient sleeping soundly at time of visit; spoke with sitter who reports patient ate well at breakfast. Recommend continuing regular diet with Ensure Compact BID. Last recorded weight is 56 kg which is down from last review. Recommend re-weighing to ensure accuracy. Bowel Motility: No documented BM. If medically appropriate, would consider adding medication(s) to promote BM. Labs Reviewed: WBC (15.0), RBC (4.33), Glu (117), Na (134), Alb (3.1) Meds Noted: Ativan Additional Notes: No documented skin breakdown. Will continue to monitor with same goal. Nutrition Monitoring and Evaluation: Follow up every 5 days.
--- NOTE | 2021-05-16 14:45 | PC.NURSE ---
Report called to MASSIEL Desai at [facility].
[2021-05-16] MEDS: LORazepam (*CRX) 1 MG TABLET 2 MG PO (15:15)
[2021-05-16 18:52] LABS: SARS-CoV-2 RNA PCR Negative
--- NOTE | 2021-05-18 19:42 | PM.TDS ---
Transfer Discharge Sum: Prov Provider Date of admission: 05/11/21 22:08 Primary care physician: BREWERY TECHNICIAN PHYSICIAN Admitting clinician: Justino Wiley MD Consults: 05/11/21 22:13 Consult to Physician Routine Comment: Consulting Provider: Wicho Tabares Reason for consultation: elevated troponin Has provider been notified: Yes DS: Admitting Diagnosis Discharge Date 05/16/21 Admitting Diagnosis Chest pain DS: Discharge Diagnosis Discharge Diagnosis (1) Suicide ideation: Code(s): R45.851 - Suicidal ideations Status: Acute Assessment and Plan: Patient currently in ICU on medical status and is cleared for psychiatric evaluation. envelope sealing machine operator is at bedside. The patient is on suicide precautions. The patient is still verbalizing suicidal ideation, with an active plan. (2) Methamphetamine abuse: Code(s): F15.10 - Other stimulant abuse, uncomplicated Status: Acute Assessment and Plan: Ativan as needed. (3) Chest pain: Qualifiers: Chest pain type: unspecified Qualified Code(s): R07.9 - Chest pain, unspecified Code(s): R07.9 - Chest pain, unspecified Status: Acute Assessment and Plan: Patient has elevated troponins due to methamphetamine use. His troponin profile is flat and not indicative of acute cardiac ischemia. The patient is medically cleared for psychiatric evaluation. (4) Tobacco abuse: Code(s): Z72.0 - Tobacco use Status: Acute Assessment and Plan: Nicotine patch has been ordered as needed for symptoms of withdrawal and or/per patient's request. Transfer Discharge Sum: Med Medications Active and Home Medications: Home Medications No Home Medications 05/11/21 [History Confirmed 05/11/21] Transfer Discharge Sum: Hosp Hospital Course Hospital course: This is a 45-year-old male with past medical history significant for methamphetamine use, pericardial effusion, posttraumatic stress disorder, schizophrenia, tobacco dependence. Patient presented to the emergency room complaining of chest pain and suicidal ideation also patient does admit to doing methamphetamine for the last several days. Patient denies any shortness of breath ,cough ,sputum production, PND ,orthopnea ,nausea, vomiting ,abdominal pain, leg pain, leg swelling ,syncope or near-syncope. When asked if he still thinking about hurting himself he says yes patient can not really give much history he denied any discomfort at the time of my visit. Preliminary workup was significant for chest x-ray with abnormal cardiac silhouette. A urine tox was significant for amphetamine. Initial troponins were elevated. Patient has elevated troponins due to methamphetamine use. His troponin profile is flat and not indicative of acute cardiac ischemia. He was evaluated by cardiology/ Atypical, highly reproducible chest pain with palpation the chest wall diffusely described as sharp by the patient most likely musculoskeletal and noncardiac. This is very likely sequelae of methamphetamine use and not consistent with angina or myocardial ischemia. At this time, patient is otherwise hemodynamically stable and not suffering acute myocardial infarction. He is not a candidate for any further invasive testing nor is it warranted at present. The patient was medically cleared for psychiatric evaluation. Patient is a chronic smoker and nicotine patch has been ordered as needed for symptoms of withdrawal and or/per patient's request. Patient was monitored in ICU for 72 hours. There were no telemetry events. He was cleared and downgraded to a medical status pending transfer. envelope sealing machine operator remained at his bedside. The patient was on suicide watch. Throughout the admission the patient was still verbalizing suicidal ideation, with an active plan. Patient was transferred to [facility] for psychiatric care. Time Spent with Patient Time attestation: Total ti
[2021-06-15 15:09] LABS: Reference Lab Test Result None Detected
== END 2021-05-16 16:05 ==
LOC: ANHED 20:08 → ANHICU 05-12 00:12
PROVIDERS: Internal Medicine; Physician Assistant; Admitting Provider Internal Medicine; Emergency Provider Emergency Medicine; Visit Provider Internal Medicine
DX: R07.89 Other chest pain (principal); R45.851 Suicidal ideations; I31.3 Pericardial effusion (noninflammatory); R77.8 Other specified abnormalities of plasma proteins; F20.9 Schizophrenia, unspecified; F17.210 Nicotine dependence, cigarettes, uncomplicated; F15.10 Other stimulant abuse, uncomplicated; F19.10 Other psychoactive substance abuse, uncomplicated; F43.10 Post-traumatic stress disorder, unspecified; Z20.822 Contact with and (suspected) exposure to COVID-19; R10.9 Unspecified abdominal pain
CPT/HCPCS: 36415; 70450; 71045; 80053; 80307; 81001; 83735; 84443; 84484; 85025; 85027; 87426; 93005; 96361; 96374; 96375; 96376; 99285; A9270; C9803; G0378; G0379; J2060; J2405; J2550; J7120; U0003; U0005

== ENCOUNTER 2021-09-22 08:57 | Emergency (ER) | payer OTHER, SELFPAY ==
--- NOTE | ~2021-09-22 | XR_ITS ---
EXAMINATION: XR chest 1V portable DATE: 09/22/2021 09:47 INDICATION: Dizziness. TECHNIQUE: A single frontal view of the chest was obtained. COMPARISON: Chest single view 05/11/2021, CT abdomen and pelvis 03/15/2021 FINDINGS: The chest demonstrates clear lungs without pneumonia, pleural effusion, or pneumothorax. Th e heart size is normal. IMPRESSION: 1. No acute cardiopulmonary disease. Reviewed, dictated and finalized at location A. PER FEEDER
--- NOTE | 2021-09-22 09:00 | ECG_ITS ---
Measurements Intervals [place] Rate: 94 P: 82 [place]: 198 QRS: -68 QRSD: 114 T: 68 QT: 350 QTc: 439 Interpretive Statements SINUS RHYTHM LEFT AXIS DEVIATION INCOMPLETE LEFT BUNDLE BRANCH BLOCK ANTEROSEPTAL INFARCT, AGE INDETERMINATE BASELINE ARTIFACT- I, II, III, AVR, AVL, AVF, V1-V3 ABNORMAL ECG Electronically Signed On 09-23-2021 20:51:22 TRAVEL ACCOMMODATION INSPECTOR by Walter Gray D.O.
--- NOTE | 2021-09-22 09:08 | ED.GENADULT ---
HPI - General Adult General Chief complaint: Unspecified Stated complaint: not feeling well took meth yesterday Time Seen by Provider: 09/22/21 09:03 Source: RN notes reviewed History of Present Illness HPI narrative: Patient presents emergency department via EMS for not feeling well. Patient states that he did methamphetamine yesterday and has been feeling weak and shaky since that time. States he has been having intermittent feelings of the dizziness as well as numbness and tingling in his hands and feet he denies any fevers or chills chest pain shortness of breath abdominal pain nausea or vomiting or any other symptoms he denies any unilateral weakness. The patient apparently spent the night and a police waiting room last night and then had flagged down EMS today Related Data Home Medications Medication Instructions Recorded Confirmed No Home Medications 05/11/21 05/11/21 Allergies Allergy/AdvReac Type Severity Reaction Status Date / Time haloperidol Allergy Swelling Verified 05/11/21 20:00 of Lip/Tongue/Throat Review of Systems Review of Systems: Gen.: Denies fevers or chills Eyes: Denies eye pain or visual change ENT: Denies congestion Respiratory: Denies shortness of breath or cough CV: Denies chest pain or palpitations GI: Denies abdominal pain nausea, emesis or diarrhea denies burning, urgency, frequency or hematuria Musculoskeletal: Denies back pain or muscle pain Neuro: Reports weakness and intermittent dizziness Skin: Denies rash Except as documented, all other systems reviewed and negative [facility] Past Medical History Medical History Alcohol abuse 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 He is estranged from his family members. Smoking packs per day: 2 Smoking cigarettes per day: 40.0 Years smoked: 35 Smoking pack-years: 70.00 Smoking status: Current every day smoker Tobacco type: cigarettes Alcohol intake: current Substance use: current Substance use type: amphetamines Last use: 02/04 meth 02/10 marijuana Additional occupation/education comments: Unemployed Gender identity (if verbalized by the patient): Male Spiritual care concerns: No Exam Narrative: APPEARANCE: No acute distress, nontoxic, resting in bed HEENT: Normocephalic, atraumatic, OMM, TMs clear bilaterally EYES: PERRL, EOMI NECK: Supple, nontender, full range of motion without pain, no meningismus RESPIRATORY: No respiratory distress, clear to auscultation bilaterally with no rhonchi wheezing or rales CARDIOVASCULAR: RRR s murmur ABDOMINAL: Soft, nontender, nondistended MUSCULOSKELETAL: Moves all extremities. No clubbing, cyanosis or edema. NEURO: A and O ?3, following commands, speech normal, no facial droop,muscle strength 5 out of 5 bilateral upper and lower extremities SKIN:: Warm, dry. Normal Color PSYCHIATRIC: Normal affect/mood Course Course Emergency Course: Patient states he is feeling much better today for discharge states he can call his brother to pick him up and that he can stay at his brother's house I did offer case management for placement in a jail today but he states that he can go with his brother Attempted to redraw a repeat CK on the patient the patient really is refusing blood draw discussed with him the risks of renal failure and rhabdomyolysis he has received 2 L of fluid and urinated numerous times he continues to refuse case management saw the patient patient wishing to leave at this time has bus toke
[2021-09-22 09:36] VITALS: BP 139/93; PULSE 93; RESP 18; TEMP 36.9; O2SAT 100
[2021-09-22] MEDS: SODIUM CHLORIDE 0.9% IV 1,000 ML 999 ML IV CONT ×2 (09:37→10:47)
[2021-09-22 09:48] LABS: INR 1.1; Partial Thromboplastin Time 30.9 SECONDS (22.3-36.8); Prothrombin Time 14.1 Seconds (11.1-14.7)
[2021-09-22 09:49] LABS: Ethanol < 10 mg/dL (<10)
[2021-09-22 09:50] LABS: Alanine Aminotransferase 32 U/L (4-50); Albumin Level 3.2 g/dL (3.5-5.1); Alkaline Phosphatase 100 U/L (38-126); Anion Gap 5 mmol/L (8-16); Aspartate Amino Transferase 68 U/L (17-59); Bilirubin,Total 0.3 mg/dL (0.2-1.3); Blood Urea Nitrogen 17 mg/dL (9-20); Calcium 8.4 mg/dL (8.4-10.2); Carbon Dioxide 25 mmol/L (22-30); Chloride 108 mmol/L (98-107); Creatine Kinase 1069 U/L (55-170); Estimated Glomerular Filt Rate > 60; Glucose 87 mg/dL (65-110); Potassium 4.5 mmol/L (3.4-5.0); Sodium 138 mmol/L (137-145)
[2021-09-22 09:51] LABS: Basophils Absolute Auto 0.2 K/mm3 (0.0-0.1); Basophils Percent Auto 1.5 % (0.2-1.2); Eosinophils Absolute Auto 0.6 K/mm3 (0-0.3); Eosinophils Percent Auto 5.5 % (0-4.4); Hematocrit 36.9 % (42.0-52.0); Hemoglobin 11.3 g/dL (14.0-18.0); Immature Granulocyte Absolute 0.23 K/mm3 (0.00-0.031); Immature Granulocyte Percent A 2.2 % (0-0.5); Lymphocytes Absolute Auto 1.48 K/mm3 (0.9-3.2); Lymphocytes Percent Auto 14.5 % (18.3-44.2); Magnesium 1.9 mg/dL (1.6-2.3); Mean Corpuscular HGB Conc 30.6 g/dl (32-36); Mean Corpuscular Hemoglobin 24.2 pg (26-34); Monocytes Absolute Auto 0.8 K/mm3 (0.1-0.6); Neutrophils Percent Auto 68.3 % (45.5-73.1); Platelet Count Result 579 k/mm3 (150-375); Red Blood Count 4.67 M/mm3 (4.6-6.20); Red Cell Distribution Width 21.9 % (11.5-14.5); White Blood Count 10.2 K/mm3 (4.5-10.0)
--- NOTE | 2021-09-22 11:13 | PC.NURSE ---
Has refused to provide a urine specimen until this time; also refuses urinary catheter
[2021-09-22 11:26] VITALS: BP 131/75; PULSE 89
--- NOTE | 2021-09-22 11:31 | PC.NURSE ---
orthostatic BP done and patient tolerated procedure well, denies SOB, dizziness , yet C/O hands shaking per patient hands and legs shaking this is normal for him and he just needed to be checked out the the EC
[2021-09-22 11:39] LABS: Add Urine Microscopic? NO; Appearance Urine Clear (Clear); Bilirubin Urine Negative (Negative); Blood Urine Negative (Negative); Color Urine Yellow (Yellow); Glucose Urine UA Negative (Negative); Ketones Urine Negative (Negative); Leukocyte Esterase Ur Negative LEU/UL (Negative); Nitrate Urine Negative (Negative); Protein Urine Negative (Negative); Specific Grav Ur 1.015 (1.001-1.035); Urobilinogen Urine Negative mg/dL (<2.0)
[2021-09-22 11:49] LABS: Barbiturate Screen Urine Negative (Negative); Benzodiazepines Screen Urine Negative (Negative)
[2021-09-22 12:03] VITALS: BP 125/83; PULSE 93; RESP 18; TEMP 36.8; O2SAT 100
[2021-09-22 12:13] LABS: Cannabinoid Screen Urine Positive (Negative); Cocaine Screen Urine Negative (Negative); Methadone Screen Urine Negative (Negative); Opiate Screen Urine Negative (Negative); Phencyclidine Screen Urine Negative (Negative)
[2021-09-22 12:30] LABS: Amphetamine Screen Urine Positive (Negative)
[2021-09-22 12:46] VITALS: BP 130/86; PULSE 110; RESP 18; TEMP 37.2; O2SAT 100
--- NOTE | 2021-09-22 12:47 | PCCCNOTE ---
Phone call received from ER to assist patient with homeless resources. Spoke with bedside RN Shameka, she states that he was staying at [place] [employer] and there is not contact number for his brother and he doesn't know the number. Spoke with patient at bedside, explained about calling [facility] hotline, he states that it won't work and he doesn't like homeless shelters. Advised that he could use our phone to call the hotlines for both [facility] or [place], patient refusing just wants to get out of here. Advised that if he does not want to make calls, the only walk in intermediate is [facility] in [place], explained about day program and if needing overnight will need to be there between 7pm-9pm. Patient states, he thinks that might work. Bedside RN Shameka came in and has found phone number for patient's brother. Shameka walks to house phone and patient calls his brother but his brother declines for patient to come to his house. Patient is reggie and ready to go, healthcare translator states that we want to give him a meal before he leaves. Patient states that he knows the bus route to get to [facility]. incident coordinator will provide him with bus tokens. incident coordinator provides him with bus tokens and extra sweatshirt, patient states that he wants to go and wants his IV out. Notified Shameka, his bedside RN. Patient was provided with sandwich by ER team. Has list of resources and bus tokens.
[2021-09-22 13:28] LABS: Creatine Kinase 1018 U/L (55-170)
--- NOTE | 2021-09-29 08:23 | PC.NURSE ---
LATE ENTRY This note is being entered to document information to the patient's record. The following information was omitted on [09/29/2021], by Shameka Fink RN[] Normal Saline stopped on 1008 and 1052 total of 2000ml infused on 09/23/2021.
== END 2021-09-22 12:50 | disposition home or self-care (01) ==
PROVIDERS: Emergency Provider Emergency Medicine
DX: E86.0 Dehydration (principal); F15.10 Other stimulant abuse, uncomplicated; Z59.00 Homelessness unspecified; F17.210 Nicotine dependence, cigarettes, uncomplicated; I44.7 Left bundle-branch block, unspecified; R94.31 Abnormal electrocardiogram [ECG] [EKG]
CPT/HCPCS: 36415; 71045; 80053; 80307; 81003; 82550; 83735; 85025; 85610; 85730; 93005; 96360; 99283; J7030

== ENCOUNTER 2021-11-11 02:00 | Inpatient (IN) | payer OTHER, SELFPAY ==
[2021-11-11] VITALS (11 sets, daily range): BP systolic 94–154; BP diastolic 63–97; PULSE 53–90; RESP 15–24; TEMP 36.4–36.8; O2SAT 95–100; BMI 23.1
--- NOTE | ~2021-11-11 | NM_ITS ---
EXAMINATION: NM vanessa stress w perfusion DATE: 11/11/2021 15:23 INDICATION: Chest pain. TECHNIQUE: Rest images were obtained following intravenous administration of 8.9 mCi Tc99m tetrofosmi n (Myoview). The patient was infused intravenously with Lexiscan (regadenoson). Then, 28.2 mCi Tc99m tetrofosmin (Myoview) was administered intravenously, and stress images were obtained. Data was recon structed into short axis and horizontal and vertical long axis SPECT images. Gated SPECT images were also obtained. COMPARISON: Chest CT 02/10/2021 FINDINGS: There is no definite reversible or fixed perfusion abnormality to suggest ischemia or infar ction. There is no segmental wall motion abnormality. Left ventricular ejection fraction measures 5 4%. IMPRESSION: 1. No definite ischemia or infarct. 2. Normal left ventricular ejection fraction measuring 54%. Reviewed, dictated and finalized at location A.
--- NOTE | ~2021-11-11 | XR_ITS ---
EXAMINATION: XR chest 1V portable INDICATION: Overdose TECHNIQUE: Portable AP chest at 0251 hours COMPARISON: 09/22/2021 FINDINGS: The lungs are free of acute opacities. There is no pleural effusion or pneumothorax. The ca rdiomediastinal silhouette is normal. IMPRESSION: 1. No acute cardiopulmonary abnormality. Reviewed, dictated and finalized at location A.
--- NOTE | ~2021-11-11 | CT_ITS ---
EXAMINATION: CT abdomen pelvis wo con DATE: 11/17/2021 13:16 INDICATION: Abdominal pain. TECHNIQUE: Computed tomography (CT) of the abdomen and pelvis was performed without intravenous contr ast. Automated exposure control and iterative reconstruction technique were employed. The dose-length product was 206.11 mGy-cm. COMPARISON: CT abdomen and pelvis 03/15/2021 FINDINGS: The visualized portions of the lung bases demonstrate peripheral reticular and groundglass opacities in the lungs, consistent with chronic interstitial lung disease. No pleural effusion. The h eart size is normal. No pericardial effusion. There is wall thickening of the distal esophagus. The l iver, gallbladder, spleen, pancreas, and adrenal glands are normal. There is mild atrophy of right ki dney moderate atrophy of left kidney. There is a 1 mm stone in right kidney. There are parenchymal ca lcifications in the kidneys. The bladder is distended. There are no dilated loops of bowel. The appen laura is normal. There are no pathologically enlarged lymph nodes. There is no free intraperitoneal flu id. There is mild thoracolumbar spondylosis. IMPRESSION: 1. Wall thickening of distal esophagus, likely esophagitis. Reviewed, dictated and finalized at location B.
--- NOTE | 2021-11-11 02:07 | ECG_ITS ---
Measurements Intervals [place] Rate: 88 P: 75 [place]: 191 QRS: -76 QRSD: 126 T: 80 QT: 377 QTc: 458 Interpretive Statements SINUS RHYTHM LEFT ANTERIOR FASCICULAR BLOCK [QRS AXIS <= -45, QR IN I, RS IN II] ANTEROSEPTAL MYOCARDIAL INFARCTION , OF INDETERMINATE AGE [40+ ms Q WAVE IN V1-V4] ABNORMAL ECG COMPARED TO ECG 09/22/2021 09:00:16 LEFT ANTERIOR FASCICULAR BLOCK NOW PRESENT Electronically Signed On 11-11-2021 15:44:10 CDT by Tino Chavira M.D.
[2021-11-11] MEDS: ENOXAPARIN 80 MG/0.8 ML SYRINGE SUB-Q (04:00)
[2021-11-11] MEDS: ONDANSETRON INJ 4 MG/2 ML VIAL IV PUSH ×3 (04:00→21:11)
[2021-11-11] MEDS: NITROGLYCERIN OINTMENT 1 INCH DOSE TRANSDERM (04:00)
[2021-11-11] MEDS: KETOROLAC 30 MG/ML VIAL (*BKC) IV PUSH (04:00)
--- NOTE | 2021-11-11 04:20 | ADMGEN ---
This patient, Dhiraj Keane, was admitted to Intensive Care Unit-9. Patient/family oriented to hospital policies and general routines including ID bracelet, bed and alarms, visiting hours, pain management, procedures, bathroom and other care routines, personal items, smoking policy, room service/diet, and visiting hours. Information on how to activate the Rapid Response Team has been discussed. Patient/Family are encouraged to report perceived risks to care and to ask questions if they do not understand what they are told or what they should do.
--- NOTE | 2021-11-11 05:57 | ED.CHESTPAIN ---
HPI - Chest Pain General Source: patient and EMS Mode of arrival: EMS Limitations: no limitations History of Present Illness HPI narrative: 46-year-old male presents emergency room I am secondary to chest pain. Patient is homeless. He uses meth and last use this morning. He states he been having visual hallucinations of angels coming to get him. Patient also states he is having some depressive and suicidal thoughts and wants to jump off a bridge. He went to the police station telling him as having chest pain they called EMS and brought him to the emergency room. He is very nonspecific in the way describes the pain he describes it as sharp pain in the midportion of his chest. He states I have had several heart attacks before . However he is never had any stents placed. Related Data Home Medications Medication Instructions Recorded Confirmed No Home Medications 05/11/21 05/11/21 Allergies Allergy/AdvReac Type Severity Reaction Status Date / Time haloperidol Allergy Swelling Verified 05/11/21 20:00 of Lip/Tongue/Throat Review of Systems Review of Systems: CONSTITUTIONAL: Denies fever, chills, or sweats. EYES: Denies visual changes, redness, or discharge. ENT: Denies rhinorrhea, congestion, sore throat, or otalgia. CARDIOVASCULAR: Chest pain as noted above no palpitations. No edema RESPIRATORY: Denies cough or dyspnea. GASTROINTESTINAL: Denies abdominal pain, nausea, vomiting, or diarrhea. GENITOURINARY: Denies dysuria or hematuria. SKIN: Denies rash or itching. MUSCULOSKELETAL: Denies back pain, joint pain, or myalgia. NEUROLOGIC: Denies headache, numbness, or weakness. 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 He is estranged from his family members. Smoking packs per day: 1 Smoking cigarettes per day: 20.0 Years smoked: 30 Smoking pack-years: 30.00 Smoking status: Current every day smoker Tobacco type: cigarettes Alcohol intake: current Drinks per week: 10 Substance use: current Substance use type: methamphetamine Last use: 02/04 meth 02/10 marijuana Additional occupation/education comments: Unemployed Gender identity (if verbalized by the patient): Male Spiritual care concerns: No Exam Narrative: APPEARANCE: Well appearing, no pain or distress, well-nourished. Head normocephalic and atraumatic. EYES: PERRLA/EOMI, conjunctivae very clear. NOSE: Normal with no drainage EARS:TMS clear Geovany Waters, with good light reflex. THROAT: Pharynx clear, no exudate. NECK: Supple. No adenopathy, no masses. RESPIRATORY: Airway patent, respirations nonlabored. Clear to auscultation bilaterally, no rales, rhonchi, wheezing. CARDIOVASCULAR: Regular rate and rhythm without murmurs, rubs, or gallops. ABDOMINAL: Soft, nontender, nondistended, no hepatosplenomegaly Musculoskeletal: Moves all extremities. Strength/ROM intact, No edema, No calf tenderness. NEURO: Alert. Cranial nerves II through XII intact. Normal gait. Good coordination. Nonfocal examination. SKIN:: Warm, dry. Normal Color PSYCHIATRIC: Patient somewhat agitated. He keeps moving around in the bed. Course Vital Signs Vital signs: Vital Signs Temperature 97.9 F 11/11/21 05:22 Pulse Rate 89 11/11/21 05:22 Respiratory Rate 18 11/11/21 05:22 Blood Pressure 116/83 11/11/21 05:22 Pulse Oximetry 97 11/11/21 05:22 Temperature 97.9 F 04
--- NOTE | 2021-11-11 05:59 | PC.NURSE ---
Dr Wiley called for Admission orders at 0325am. yolanda cuelloech
[2021-11-11 06:09] LABS: Basophils Absolute Auto 0.1 K/mm3 (0.0-0.1); Basophils Percent Auto 1.4 % (0.2-1.2); Eosinophils Absolute Auto 0.6 K/mm3 (0-0.3); Eosinophils Percent Auto 5.7 % (0-4.4); Hematocrit 35.5 % (42.0-52.0); Hemoglobin 11.1 g/dL (14.0-18.0); Immature Granulocyte Absolute 0.05 K/mm3 (0.00-0.031); Immature Granulocyte Percent A 0.5 % (0-0.5); Lymphocytes Absolute Auto 2.07 K/mm3 (0.9-3.2); Lymphocytes Percent Auto 21.1 % (18.3-44.2); Mean Corpuscular HGB Conc 31.3 g/dl (32-36); Mean Corpuscular Hemoglobin 24.7 pg (26-34); Mean Corpuscular Volume 79.1 fl (80-100); Mean Platelet Volume 8.6 fl (7.4-10.4); Monocytes Absolute Auto 1.4 K/mm3 (0.1-0.6); Monocytes Percent Auto 13.8 % (2.6-8.5); Neutrophils Absolute Auto 5.6 K/mm3 (1.3-6.7); Neutrophils Percent Auto 57.5 % (45.5-73.1); Platelet Count Result 476 k/mm3 (150-375); Red Blood Count 4.49 M/mm3 (4.6-6.20); White Blood Count 9.8 K/mm3 (4.5-10.0)
[2021-11-11 06:12] LABS: Alanine Aminotransferase 12 U/L (4-50); Albumin Level 3.5 g/dL (3.5-5.1); Alkaline Phosphatase 111 U/L (38-126); Anion Gap 5 mmol/L (8-16); Aspartate Amino Transferase 36 U/L (17-59); Bilirubin,Total < 0.1 mg/dL (0.2-1.3); Blood Urea Nitrogen 23 mg/dL (9-20); Calcium 8.5 mg/dL (8.4-10.2); Carbon Dioxide 32 mmol/L (22-30); Chloride 100 mmol/L (98-107); Estimated Glomerular Filt Rate > 60; Glucose 107 mg/dL (65-110); Sodium 137 mmol/L (137-145)
[2021-11-11 06:13] LABS: Ethanol < 10 mg/dL (<10); Troponin I 0.075 ng/mL (0.000-0.034)
[2021-11-11 07:02] LABS: Troponin I 0.086 ng/mL (0.000-0.034)
--- NOTE | 2021-11-11 09:48 | EST_ITS ---
Patient Info Name: Dhiraj Keane Age: 46 years : 1975 Gender: Male Ht: 64 in Wt: 160 lbs BSA: 1.83 m2 Exam Date: 11/11/2021 2:13 PM Exam Location: [facility] Stress Patient Status: Outpatient Admit Date: 11/11/2021 Staff Ordering Physician: Gen Lee MD Attending Provider: Justino Wiley MD Exercise Technologist: Quin Cooney RDCS Exercise Physician: Walter Gray DO Exam Type: CA stress vanessa w NM Study Info Indications - elevated troponin R07.9 - Chest pain, unspecified A regadenoson stress test was performed. Summary 1. 1. Inconclusive lexiscan stress test for ischemic ST changes due to baseline LBBB. 2. 2. Baseline hypertension. 3. 3. Nuclear scan to follow and will be reported separately. Please correlate with it. 4. 4. Patient informed of the above results. Protocol: Lexiscan Stress ECG Details Stage: REST Duration (min): 5 min : 26 sec HR (bpm): 58 SBP (mmHg): 143 DBP (mmHg): 95 Stage: REST Duration (min): 12 min : 10 sec HR (bpm): 58 SBP (mmHg): 143 DBP (mmHg): 95 Stage: STAGE 1 Duration (min): 0 min : 59 sec HR (bpm): 87 SBP (mmHg): 167 DBP (mmHg): 99 Stage: RECOVERY Duration (min): 1 min : 0 sec HR (bpm): 86 SBP (mmHg): 149 DBP (mmHg): 85 Stage: RECOVERY Duration (min): 2 min : 0 sec HR (bpm): 80 SBP (mmHg): 149 DBP (mmHg): 85 Stage: RECOVERY Duration (min): 3 min : 0 sec HR (bpm): 81 SBP (mmHg): 143 DBP (mmHg): 89 Stage: RECOVERY Duration (min): 3 min : 3 sec HR (bpm): 81 SBP (mmHg): 143 DBP (mmHg): 89 Rest HR: 58 bpm Peak HR: 90 bpm Rest Sys BP: 143 mmHg Peak Sys BP: 167 mmHg Max Pred HR: 172 bpm % Max Pred HR: 52 % Target HR: 146 bpm Max RPP: 15,030 bpm*mmHg Termination Reason: Completed protocol Cardiac Symptoms: Shortness of breath, Baseline 3/10 chest pain Total Time: 1 min : 0 sec Rest Cuevas BP: 95 mmHg Peak Cuevas BP: 99 mmHg Total Dose: 0.4 mg Resting ECG Sinus rhythm, LBBB. Stress ECG No ST changes. Arrhythmias None. Report Signatures
[2021-11-11 09:57] LABS: Troponin I 0.088 ng/mL (0.000-0.034)
[2021-11-11] MEDS: MORPHINE SULFATE (*CRX) 2 MG/ML INJ IV PUSH ×3 (10:45→18:43)
[2021-11-11 12:09] LABS: Barbiturate Screen Urine Negative (Negative); Benzodiazepines Screen Urine Negative (Negative)
[2021-11-11 12:11] LABS: Add Urine Microscopic? NO; Appearance Urine Clear (Clear); Bilirubin Urine Negative (Negative); Blood Urine Negative (Negative); Cannabinoid Screen Urine Positive (Negative); Cocaine Screen Urine Negative (Negative); Color Urine Yellow (Yellow); Glucose Urine UA Negative (Negative); Ketones Urine Negative (Negative); Leukocyte Esterase Ur Negative LEU/UL (Negative); Methadone Screen Urine Negative (Negative); Nitrate Urine Negative (Negative); Opiate Screen Urine Negative (Negative); Phencyclidine Screen Urine Negative (Negative); Protein Urine Negative (Negative); Specific Grav Ur 1.025 (1.001-1.035); Urobilinogen Urine 0.2 mg/dL (<2.0); pH Urine 6.5 (5.0-9.0)
[2021-11-11 12:51] LABS: Amphetamine Screen Urine Positive (Negative)
[2021-11-11] MEDS: DICYCLOMINE HCL INJ 20 MG/2 ML VIAL 10 MG IM (13:06)
--- NOTE | 2021-11-11 16:31 | PM.IMHP ---
H&P: HPI History of Present Illness Date/Time: 11/11/21 16:31 ED-HPI narrative: 46-year-old male presents emergency room I am secondary to chest pain. Patient is homeless. He uses meth and last use this morning. He states he been having visual hallucinations of angels coming to get him. Patient also states he is having some depressive and suicidal thoughts and wants to jump off a bridge. He went to the police station telling him as having chest pain they called EMS and brought him to the emergency room. He is very nonspecific in the way describes the pain he describes it as sharp pain in the midportion of his chest. He states I have had several heart attacks before . However he is never had any stents placed. 11/11/2021 interval history: Patient continue to complain of chest pain, currently patient also having abdominal pain nausea, vomiting and diarrhea, patient has several episode of nausea and vomiting will give the patient Bentyl, patient also received morphine for chest pain, will do the Lexiscan to further evaluate patient's chest pain and elevated tropes and further recommendation to follow, patient has history of illicit drug abuse methenamine, patient also expressed that he was to commit suicide by jumping off the bridge, once patient is medically stable will have crisis team evaluate the patient patient will benefit going to inpatient psych irvin, patient is admitted as observation status Chief Complaint: chest pain suicidal ideation Review of Systems Review of Systems: All systems reviewed & are unremarkable except as noted in HPI and below PMFSH Past Medical History Medical History Alcohol abuse 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 He is estranged from his family members. Smoking packs per day: 1 Smoking cigarettes per day: 20.0 Years smoked: 30 Smoking pack-years: 30.00 Smoking status: Current every day smoker Tobacco type: cigarettes Alcohol intake: current Drinks per week: 10 Substance use: current Substance use type: methamphetamine Last use: 7/9 meth 02/10 marijuana Additional occupation/education comments: Unemployed Gender identity (if verbalized by the patient): Male Spiritual care concerns: No Meds Home Medications and Allergies Home Medications Medication Instructions Recorded Confirmed Type No Home Medications 05/11/21 11/11/21 History Allergies Allergy/AdvReac Type Severity Reaction Status Date / Time haloperidol Allergy Swelling Verified 05/11/21 20:00 of Lip/Tongue/Throat Vital Signs Vital Signs - 24 hr 11/11/21 05:22 11/11/21 06:00 11/11/21 08:00 Temperature 97.9 F 98.2 F Pulse Rate 89 90 88 Respiratory Rate 18 18 18 Blood Pressure 116/83 111/79 94/63 L Pulse Oximetry 97 97 97 11/11/21 10:00 11/11/21 11:47 11/11/21 12:00 Temperature 97.5 F L Pulse Rate 68 61 58 L Respiratory Rate 24 H 20 18 Blood Pressure 133/90 150/97 H Pulse Oximetry 99 100 100 11/11/21 14:00 Temperature Pulse Rate 62 Respiratory Rate 16 Blood Pressure 149/92 H Pulse Oximetry 98 Exam Narrative: patient appears chronically ill older than his age Patient is comfortable, NAD but in pain HEENT: eyes are clear and none icteric LUNGS: normal respiratory effort ABD: not distended Lower extremities: no edema SKIN: nonjaundiced Neuro: grossly intact. H&P: Results Labs Labs: Short CBC 11/11/21 Range/Units 02:31 WBC 9.8 (4.5-10.0) K/mm3 Hgb 11.1 L
[2021-11-11] MEDS: ENOXAPARIN 60 MG/0.6 ML SYRINGE SUB-Q (21:05)
[2021-11-12] VITALS (9 sets, daily range): BP systolic 138–159; BP diastolic 71–100; PULSE 59–94; RESP 15–26; TEMP 36.1–36.9; O2SAT 94–99
--- NOTE | 2021-11-12 | ECHO_ITS ---
Patient Info Name: Dhiraj Keane Age: 46 years : 1975 Gender: Male Ht: 64 in Wt: 128 lbs BSA: 1.62 m2 HR: 61 bpm BP: 152 / 71 mmHg Heart Rhythm: Sinus Rhythm Technical Quality: Good Exam Date: 11/12/2021 10:19 AM Exam Location: [facility] Patient Status: Inpatient Admit Date: 11/11/2021 Staff Ordering Physician: Gen Lee MD [employer] Crm Developer: Elise Degroot RDCS Attending Provider: Justino Wiley MD Exam Type: CA echo doppler color flow Study Info Indications R07.1 - Chest pain on breathing Complete two-dimensional, color flow and Doppler transthoracic echocardiogram is performed. Summary 1. Complete two-dimensional, color flow and Doppler transthoracic echocardiogram is performed. 2. Left ventricular chamber dimension is mildly enlarged. 3. Left ventricular systolic function is low normal, estimated at 50%. 4. There is no increased left ventricular wall thickness. 5. The left ventricular diastolic function is normal. 6. There is mild aortic valve regurgitation. 7. There is mild mitral valve regurgitation. 8. There is mild tricuspid valve regurgitation. Left Ventricle Left ventricular chamber dimension is mildly enlarged. Left ventricular systolic function is low normal, estimated at 50%. There is no increased left ventricular wall thickness. The left ventricular diastolic function is normal. Right Ventricle Right ventricular chamber dimension is normal. Right ventricular systolic function is normal. Left Atria Left atrial chamber dimension is normal. Right Atria Right atrial chamber dimension is normal. Atrial Septum Intact interatrial septum visualized by color flow imaging. Aortic Valve The aortic valve is trileaflet. There is no aortic valve sclerosis. There is no aortic valve stenosis. There is mild aortic valve regurgitation. Pulmonic Valve The pulmonic valve is normal. There is no pulmonic valve stenosis. There is trace pulmonic regurgitation. Mitral Valve The mitral valve has normal leaflets. There is no mitral valve stenosis. There is mild mitral valve regurgitation. Tricuspid Valve The tricuspid valve leaflets are normal. There is no significant tricuspid valve stenosis. There is mild tricuspid valve regurgitation. Pericardium/Pleural The pericardium appears normal. There is trivial pericardial effusion. Inferior Vena Cava Normal inferior vena cava with >50% collapse upon inspiration consistent with normal right atrial pressure, 5 mmHg. Aorta The aortic root size at the sinus of Valsalva is borderline dilated. Left Ventricular Outflow Tract Name Value Normal LVOT 2D LVOT Diameter 2.5 cm LVOT Doppler LVOT Peak Gradient 2 mmHg LVOT Mean Gradient 1 mmHg LVOT VTI 18 cm LVOT VTI/AV VTI Ratio 0.8 LVOT Stroke Volume 87 ml LVOT CO 18.0 l/min LVOT CI 11.1 l/min/m2 Pulmonic Valve
--- NOTE | 2021-11-12 09:07 | PM.CNCAR ---
Assessment and Plan Assessment and plan (1) Elevated troponin: Code(s): R77.8 - Other specified abnormalities of plasma proteins Status: Acute Assessment and Plan: Patient has had chronically elevated troponins during most hospitalizations over the past year at this facility. Likely secondary to ongoing and continued substance abuse including methamphetamines. (2) Active substance abuse: Code(s): F19.10 - Other psychoactive substance abuse, uncomplicated Status: Acute (3) Chest pain: Qualifiers: Chest pain type: unspecified Qualified Code(s): R07.9 - Chest pain, unspecified Code(s): R07.9 - Chest pain, unspecified Status: Acute Assessment and Plan: His chest pain is noncardiac in my opinion. It is highly reproducible by pushing on his chest. (4) Equivocal stress test: Code(s): R94.39 - Abnormal result of other cardiovascular function study Status: Acute Assessment and Plan: His stress test is essentially normal. His perfusion imaging is normal. Ejection fraction is normal. His EKG portion of a stress test is inconclusive because of his underlying baseline ECG abnormalities but with normal perfusion imaging, this should be considered a normal stress test (5) Tobacco abuse: Code(s): Z72.0 - Tobacco use Status: Acute Assessment and Plan: Counseling performed (6) Pericardial effusion: Code(s): I31.3 - Pericardial effusion (noninflammatory) Status: Acute Assessment and Plan: ECHO is ordered and pending Assuming echocardiogram is unremarkable, no further cardiac workup needed History of Present Illness History of Present Illness Consult date/time: 11/12/21 09:07 Requesting physician: Gen Lee MD Consult reason: chest pain Reason For Visit: Chest Pain Narrative: Reason consultation: Chest pain, inconclusive stress test Requesting provider: Dr. Lee Date of service 11/12/2021 History patient is a 46-year-old male who was admitted to the hospital because of chest pain. Patient has significant psychiatric history. He is homeless. Patient states that he has been having some chest pain for the past couple of days. It hurts by breathing as well as by pushing on his chest. He had a stress test yesterday that was normal by perfusion imaging but inconclusive by EKG simply because his incomplete left bundle-branch block. Patient denies any syncope, presyncope. Has had some shortness of breath. No unusual edema. No palpitations. Review of Systems Review of Systems: All systems reviewed & are unremarkable except as noted in HPI and below Constitutional: Constitutional: Denies weakness Eyes: Eyes: Denies blurry vision ENT: Reports Normal hearing present Cardiovascular: Cardiovascular: Reports chest pain Respiratory: Respiratory: Denies hemoptysis Gastrointestinal: Gastrointestinal: Denies abdominal pain Genitourinary: Genitourinary: Denies dysuria Musculoskeletal: Musculoskeletal: Denies neck pain Integumentary/Breasts: Skin/Breast: Denies dry skin Neurologic: Denies headache(s) Psychiatric: Psychiatric: Reports behavioral changes Endocrine: Endocrine: Denies excessive sweating Hematologic/Lymphatic: Hematologic/Lymphatic: Denies easy bleeding Allergic/Immunologic: Allergic/Immunologic: Denies GI upset with certain foods PMFSH Past Medical History Medical History Alcohol abuse 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
[2021-11-12] MEDS: ENOXAPARIN 60 MG/0.6 ML SYRINGE SUB-Q ×2 (09:26→21:01)
[2021-11-12] MEDS: ONDANSETRON INJ 4 MG/2 ML VIAL IV PUSH ×3 (11:00→23:36)
--- NOTE | 2021-11-12 12:19 | PM.IMPN ---
Progress Note: A&P Assessment and Plan (1) Non-ST elevated myocardial infarction (non-STEMI): Code(s): I21.4 - Non-ST elevation (NSTEMI) myocardial infarction Status: Acute Assessment and Plan: ED-[facility] narrative: 46-year-old male presents emergency room I am secondary to chest pain. Patient is homeless. He uses meth and last use this morning. He states he been having visual hallucinations of angels coming to get him. Patient also states he is having some depressive and suicidal thoughts and wants to jump off a bridge. He went to the police station telling him as having chest pain they called EMS and brought him to the emergency room. He is very nonspecific in the way describes the pain he describes it as sharp pain in the midportion of his chest. He states I have had several heart attacks before . However he is never had any stents placed. 11/11/2021 interval history: Patient continue to complain of chest pain, currently patient also having abdominal pain nausea, vomiting and diarrhea, patient has several episode of nausea and vomiting will give the patient Bentyl, patient also received morphine for chest pain, will do the Lexiscan to further evaluate patient's chest pain and elevated tropes and further recommendation to follow, patient has history of illicit drug abuse methenamine, patient also expressed that he was to commit suicide by jumping off the bridge, once patient is medically stable will have crisis team evaluate the patient patient will benefit going to inpatient [facility]. 11/12/2021 interval history: Patient with chest pain and elevated tropes a Lexiscan patient nuclear medication portion of the stress test did not show any ischemic event however EKG portion of the stress test appear to be abnormal, patient was seen by hydroelectric plant maintainer suggested since nuclear medicine stress test if normal suggesting normal perfusion EKG portion of the stress test may not be significant to further evaluate patient will have cardiac echo, if the cardiac echo is normal the patient does not need further workup for elevated tropes and chest pain, patient continued to remain somnolent not cooperative okay if cardiac echo is normal we will have crisis team evaluate the patient for possible transfer to [facility]. (2) Suicidal ideation: Code(s): R45.851 - Suicidal ideations Status: Acute Assessment and Plan: once patient is clinically and medically stable, will have crisis team evaluate the patient, will benefit going to inpatient [facility]. (3) Active substance abuse: Code(s): F19.10 - Other psychoactive substance abuse, uncomplicated Status: Acute Assessment and Plan: patient needs be evaluated by psychiatrist (4) Depression: Qualifiers: Active/Remission status: currently active Depression Type: major depressive disorder Major depression episode severity: moderate Major depression recurrence: unspecified whether recurrent Qualified Code(s): F32.1 - Major depressive disorder, single episode, moderate Code(s): F32.A - Depression, unspecified Status: Acute Assessment and Plan: patient needs to be evaluated by psychiatrist. Subjective Date/time seen: 11/12/21 12:19 ED-HPI narrative: 46-year-old male presents emergency room I am secondary to chest pain. Patient is homeless. He uses meth and last use this morning. He states he been having visual hallucinations of angels coming to get him. Patient also states he is having some depressive and suicidal thoughts and wants to jump off a bridge. He went to the police station telling him as having chest pain they called EMS and brought him to the emergency room. He is very nonspecific in the way describes the pain he describes it as sharp pain in the midportion of his chest. He states I have had several heart attacks before . However he is never had any stents placed. 11/11/2021 interval history: Patient continue
[2021-11-12 15:45] LABS: EDCOVIDSCREEN Negative (Negative)
--- NOTE | 2021-11-12 15:48 | PM.DS ---
DS: Summary Time Spent with Patient Time attestation: Total time spent providing and/or coordinating discharge services: DS: Data Data Completed and Pending Labs on day of discharge: Labs from last 24 hours 11/12/21 15:27 SARS-CoV-2 IgG/IgM Ag?Rapid Negative Discharge Plan Discharge Attending physician on discharge: Gen Lee Consulting providers: Tino Chavira Discharging Clinician: Gen Lee Patient Disposition: Acute Care Hospital Activity: as tolerated Diet: heart healthy Discharge Instructions: patient being discharged to inpatient psychiatric hospital Discharge Medications: No Action No Home Medications RF: 0 Date of admission: 11/11/21 10:28 Primary Care Provider: PHYSICIAN,DRY CLIPPER TENDER Admitting Provider: Justino Wiley V. Attending physician on admission: Justino Wiely V. Condition: Serious Quality VTE Prophylaxis VTE prophylaxis: pharmacologic ordered
--- NOTE | 2021-11-12 22:00 | PC.NURSE ---
Report given to Wilma RANKIN who is taking over care of patient at this time.
[2021-11-12] MEDS: DICYCLOMINE HCL INJ 20 MG/2 ML VIAL 10 MG IM (23:30)
[2021-11-13] VITALS: BP 134/85; PULSE 99; RESP 18; TEMP 37.1; O2SAT 99
[2021-11-13] MEDS: ONDANSETRON INJ 4 MG/2 ML VIAL IV PUSH ×2 (05:37→16:31)
[2021-11-13 08:00] VITALS: BP 158/96; PULSE 61; RESP 24; TEMP 36.8; O2SAT 97
[2021-11-13 08:48] LABS: Hematocrit 40.3 % (42.0-52.0); Hemoglobin 12.3 g/dL (14.0-18.0); Mean Corpuscular HGB Conc 30.5 g/dl (32-36); Mean Corpuscular Hemoglobin 24.6 pg (26-34); Mean Corpuscular Volume 80.4 fl (80-100); Platelet Count Result 394 k/mm3 (150-375); Red Blood Count 5.01 M/mm3 (4.6-6.20); Red Cell Distribution Width 20.8 % (11.5-14.5)
[2021-11-13 09:02] LABS: Alanine Aminotransferase 12 U/L (4-50); Albumin Level 3.7 g/dL (3.5-5.1); Alkaline Phosphatase 89 U/L (38-126); Anion Gap 6 mmol/L (8-16); Aspartate Amino Transferase 33 U/L (17-59); Bilirubin,Total 0.2 mg/dL (0.2-1.3); Blood Urea Nitrogen 16 mg/dL (9-20); Calcium 9.3 mg/dL (8.4-10.2); Carbon Dioxide 28 mmol/L (22-30); Chloride 100 mmol/L (98-107); Estimated CRCL calculation 82 ml/min; Estimated Glomerular Filt Rate > 60; Glucose 100 mg/dL (65-110); Magnesium 1.8 mg/dL (1.6-2.3); Sodium 134 mmol/L (137-145)
[2021-11-13] MEDS: ENOXAPARIN 60 MG/0.6 ML SYRINGE SUB-Q (09:29)
--- NOTE | 2021-11-13 10:04 | PM.PNCARD ---
Progress Note: A&P Assessment and Plan (1) Elevated troponin: Code(s): R77.8 - Other specified abnormalities of plasma proteins Status: Acute Assessment and Plan: Patient has had chronically elevated troponins during most hospitalizations over the past year at this facility. Likely secondary to ongoing and continued substance abuse including methamphetamines. (2) Active substance abuse: Code(s): F19.10 - Other psychoactive substance abuse, uncomplicated Status: Acute (3) Chest pain: Qualifiers: Chest pain type: unspecified Qualified Code(s): R07.9 - Chest pain, unspecified Code(s): R07.9 - Chest pain, unspecified Status: Acute Assessment and Plan: His chest pain is noncardiac in my opinion. It is highly reproducible by pushing on his chest. Will give a dose Toradol 15 mg IV x1 (4) Equivocal stress test: Code(s): R94.39 - Abnormal result of other cardiovascular function study Status: Acute Assessment and Plan: His stress test is essentially normal. His perfusion imaging is normal. Ejection fraction is normal. His EKG portion of a stress test is inconclusive because of his underlying baseline ECG abnormalities but with normal perfusion imaging, this should be considered a normal stress test (5) Tobacco abuse: Code(s): Z72.0 - Tobacco use Status: Acute Assessment and Plan: Counseling performed (6) Pericardial effusion: Code(s): I31.3 - Pericardial effusion (noninflammatory) Status: Acute Assessment and Plan: 2. Left ventricular chamber dimension is mildly enlarged. 3. Left ventricular systolic function is low normal, estimated at 50%. 4. There is no increased left ventricular wall thickness. 5. The left ventricular diastolic function is normal. 6. There is mild aortic valve regurgitation. 7. There is mild mitral valve regurgitation. 8. There is mild tricuspid valve regurgitation. (7) Hypertension: Code(s): I10 - Essential (primary) hypertension Status: Acute Assessment and Plan: Will start amlodipine 5 mg p.o. daily. Avoid beta-ruthie given his substance use history Subjective Date/time seen: 11/13/21 10:04 Interval history: 46-year-old admitted for psychiatric as well as chest pain reasons Date of service 11/13/2021: Still has some chest pain today. Waiting placement. Blood pressure is elevated. No shortness of breath Review of Systems Review of Systems: All systems reviewed & are unremarkable except as noted in HPI and below Constitutional: Constitutional: Denies excessive sweating, Denies headache(s) and Denies weakness Eyes: Eyes: Denies blurry vision ENT: Reports Normal hearing present, Denies headache(s) and Denies neck pain Cardiovascular: Cardiovascular: Reports chest pain Respiratory: Respiratory: Denies hemoptysis Gastrointestinal: Gastrointestinal: Denies abdominal pain Genitourinary: Genitourinary: Denies dysuria Musculoskeletal: Musculoskeletal: Denies neck pain Integumentary/Breasts: Skin/Breast: Denies dry skin Neurologic: Reports Normal hearing present, Reports behavioral changes, Denies headache(s) and Denies weakness Psychiatric: Psychiatric: Reports behavioral changes Endocrine: Endocrine: Denies excessive sweating Hematologic/Lymphatic: Hematologic/Lymphatic: Denies easy bleeding Allergic/Immunologic: Allergic/Immunologic: Denies GI upset with certain foods Exam Narrative: Awake alert. Appears unkempt. Const: General: comfortable and no acute distress HENMT: General nose exam: Normal nares present Eyes: Sclera: sclerae normal Neck: Neck: supple and no JVD Chest: Other: He does have reproducible chest wall pain to palpation that is the same chest pain that he states he has been having that brought him to the hospital Resp: Auscultation: clear to auscultation bilaterally Cardio: Rate: regular rate Rh
--- NOTE | 2021-11-13 11:23 | PM.IMPN ---
Progress Note: A&P Assessment and Plan (1) Non-ST elevated myocardial infarction (non-STEMI): Code(s): I21.4 - Non-ST elevation (NSTEMI) myocardial infarction Status: Acute Assessment and Plan: ED-HPI narrative: 46-year-old male presents emergency room I am secondary to chest pain. Patient is homeless. He uses meth and last use this morning. He states he been having visual hallucinations of angels coming to get him. Patient also states he is having some depressive and suicidal thoughts and wants to jump off a bridge. He went to the police station telling him as having chest pain they called EMS and brought him to the emergency room. He is very nonspecific in the way describes the pain he describes it as sharp pain in the midportion of his chest. He states I have had several heart attacks before . However he is never had any stents placed. 11/11/2021 interval history: Patient continue to complain of chest pain, currently patient also having abdominal pain nausea, vomiting and diarrhea, patient has several episode of nausea and vomiting will give the patient Bentyl, patient also received morphine for chest pain, will do the Lexiscan to further evaluate patient's chest pain and elevated tropes and further recommendation to follow, patient has history of illicit drug abuse methenamine, patient also expressed that he was to commit suicide by jumping off the bridge, once patient is medically stable will have crisis team evaluate the patient patient will benefit going to inpatient [facility]. 11/12/2021 interval history: Patient with chest pain and elevated tropes a Lexiscan patient nuclear medication portion of the stress test did not show any ischemic event however EKG portion of the stress test appear to be abnormal, patient was seen by seconds inspector suggested since nuclear medicine stress test if normal suggesting normal perfusion EKG portion of the stress test may not be significant to further evaluate patient will have cardiac echo, if the cardiac echo is normal the patient does not need further workup for elevated tropes and chest pain, patient continued to remain somnolent not cooperative okay if cardiac echo is normal we will have crisis team evaluate the patient for possible transfer to [facility]. 11/13/2021 interval history: on 11/12 patient was seen by crisis team and evaluated the patient and recommended patient will benefit going to inpatient [facility] for more treatment and referrals were sent to psychiatric hospital, no respond so far, patient remains clinically c/o abdominal pain and nausea, no BM for 2-3 day, will start patient on Colace and Miralax, will continue o monitor. (2) Suicidal ideation: Code(s): R45.851 - Suicidal ideations Status: Acute Assessment and Plan: once patient is clinically and medically stable, will have crisis team evaluate the patient, will benefit going to inpatient [facility]. (3) Active substance abuse: Code(s): F19.10 - Other psychoactive substance abuse, uncomplicated Status: Acute Assessment and Plan: patient needs be evaluated by psychiatrist (4) Depression: Qualifiers: Active/Remission status: currently active Depression Type: major depressive disorder Major depression episode severity: moderate Major depression recurrence: unspecified whether recurrent Qualified Code(s): F32.1 - Major depressive disorder, single episode, moderate Code(s): F32.A - Depression, unspecified Status: Acute Assessment and Plan: patient needs to be evaluated by psychiatrist. Subjective Date/time seen: 11/13/21 11:23 ED-HPI narrative: 46-year-old male presents emergency room I am secondary to chest pain. Patient is homeless. He uses meth and last use this morning. He states he been having visual hallucinations of angels coming to get him. Patient also states he is having some depressive and suicidal thoughts and want
[2021-11-13] MEDS: polyethylene glycoL 3350 17 GM POWD.PACK PO (12:08)
[2021-11-13] MEDS: amLODIPine BESYLATE 5 MG TABLET PO (12:08)
[2021-11-13 16:34] VITALS: BP 140/99; PULSE 69; RESP 24; TEMP 36.8; O2SAT 97
--- NOTE | 2021-11-13 19:39 | PC.NURSE ---
Received call from [facility], they are unable to accept patient at this time. Contacted by Gina Baires [phone], a bed is possibly available at [facility], paperwork to be faxed to [phone], phone [phone]. Notified night charge nurse of the above. Viry advised that [facility] does not have a bed available at this time.
[2021-11-13 20:00] VITALS: PULSE 63; RESP 24; O2SAT 98
[2021-11-13 20:26] VITALS: TEMP 36.6
[2021-11-13] MEDS: DOCUSATE SODIUM 100 MG CAPSULE PO (20:28)
[2021-11-13 23:13] VITALS: BP 128/92; PULSE 79; RESP 14; TEMP 36.4; O2SAT 97
[2021-11-14] MEDS: MORPHINE SULFATE (*CRX) 2 MG/ML INJ IV PUSH ×2 (03:00→10:36)
[2021-11-14 04:49] LABS: Hematocrit 40.7 % (42.0-52.0); Hemoglobin 12.8 g/dL (14.0-18.0); Mean Corpuscular HGB Conc 31.4 g/dl (32-36); Mean Corpuscular Hemoglobin 24.5 pg (26-34); Mean Platelet Volume 8.4 fl (7.4-10.4); Platelet Count Result 441 k/mm3 (150-375); Red Blood Count 5.22 M/mm3 (4.6-6.20); Red Cell Distribution Width 20.5 % (11.5-14.5); White Blood Count 9.6 K/mm3 (4.5-10.0)
[2021-11-14 05:01] LABS: Alanine Aminotransferase 11 U/L (4-50); Albumin Level 3.6 g/dL (3.5-5.1); Alkaline Phosphatase 86 U/L (38-126); Anion Gap 6 mmol/L (8-16); Aspartate Amino Transferase 31 U/L (17-59); Bilirubin,Total 0.2 mg/dL (0.2-1.3); Blood Urea Nitrogen 14 mg/dL (9-20); Calcium 9.1 mg/dL (8.4-10.2); Carbon Dioxide 29 mmol/L (22-30); Chloride 96 mmol/L (98-107); Estimated CRCL calculation 93 ml/min; Estimated Glomerular Filt Rate > 60; Glucose 99 mg/dL (65-110); Potassium 3.9 mmol/L (3.4-5.0); Sodium 131 mmol/L (137-145)
[2021-11-14 08:00] VITALS: BP 122/90; PULSE 122; RESP 18; O2SAT 100; O2SAT 97
[2021-11-14] MEDS: ENOXAPARIN 30 MG/0.3 ML SYRINGE SUB-Q (10:16)
[2021-11-14] MEDS: amLODIPine BESYLATE 5 MG TABLET PO (10:16)
[2021-11-14] MEDS: DOCUSATE SODIUM 100 MG CAPSULE PO ×2 (10:16→20:17)
[2021-11-14] MEDS: polyethylene glycoL 3350 17 GM POWD.PACK PO (10:16)
[2021-11-14 16:00] VITALS: BP 134/94; PULSE 84; RESP 16; O2SAT 98
--- NOTE | 2021-11-14 17:05 | PM.IMPN ---
Progress Note: A&P Assessment and Plan (1) Non-ST elevated myocardial infarction (non-STEMI): Code(s): I21.4 - Non-ST elevation (NSTEMI) myocardial infarction Status: Acute Assessment and Plan: ED-HPI narrative: 46-year-old male presents emergency room I am secondary to chest pain. Patient is homeless. He uses meth and last use this morning. He states he been having visual hallucinations of angels coming to get him. Patient also states he is having some depressive and suicidal thoughts and wants to jump off a bridge. He went to the police station telling him as having chest pain they called EMS and brought him to the emergency room. He is very nonspecific in the way describes the pain he describes it as sharp pain in the midportion of his chest. He states I have had several heart attacks before . However he is never had any stents placed. 11/11/2021 interval history: Patient continue to complain of chest pain, currently patient also having abdominal pain nausea, vomiting and diarrhea, patient has several episode of nausea and vomiting will give the patient Bentyl, patient also received morphine for chest pain, will do the Lexiscan to further evaluate patient's chest pain and elevated tropes and further recommendation to follow, patient has history of illicit drug abuse methenamine, patient also expressed that he was to commit suicide by jumping off the bridge, once patient is medically stable will have crisis team evaluate the patient patient will benefit going to inpatient [facility]. 11/12/2021 interval history: Patient with chest pain and elevated tropes a Lexiscan patient nuclear medication portion of the stress test did not show any ischemic event however EKG portion of the stress test appear to be abnormal, patient was seen by rn dialysis suggested since nuclear medicine stress test if normal suggesting normal perfusion EKG portion of the stress test may not be significant to further evaluate patient will have cardiac echo, if the cardiac echo is normal the patient does not need further workup for elevated tropes and chest pain, patient continued to remain somnolent not cooperative okay if cardiac echo is normal we will have crisis team evaluate the patient for possible transfer to [facility]. 11/13/2021 interval history: on 11/12 patient was seen by crisis team and evaluated the patient and recommended patient will benefit going to inpatient [facility] for more treatment and referrals were sent to psychiatric hospital, no respond so far, patient remains clinically c/o abdominal pain and nausea, no BM for 2-3 day, will start patient on Colace and Miralax, will continue o monitor. 11/14/2021 interval history: on 11/12 patient was seen by crisis team and evaluated the patient and recommended patient will benefit going to inpatient [facility] for more treatment and referrals were sent to psychiatric hospital, no respond so far, patient remains clinically c/o abdominal pain and nausea, still no BM for 2-3 day, will continue patient on Colace and Miralax, will stop IV morphine and place the patient on [place] 5/325 q.6 as needed will continue o monitor. (2) Suicidal ideation: Code(s): R45.851 - Suicidal ideations Status: Acute Assessment and Plan: once patient is clinically and medically stable, will have crisis team evaluate the patient, will benefit going to inpatient [facility]. (3) Active substance abuse: Code(s): F19.10 - Other psychoactive substance abuse, uncomplicated Status: Acute Assessment and Plan: patient needs be evaluated by psychiatrist (4) Depression: Qualifiers: Active/Remission status: currently active Depression Type: major depressive disorder Major depression episode severity: moderate Major depression recurrence: unspecified whether recurrent Qualified Code(s): F32.1 - Major depressive disorder, single episode, moderate Code(s)
[2021-11-14] MEDS: ACETAMINOPHEN 325 MG TABLET 650 MG PO (18:00)
[2021-11-14 20:00] VITALS: BP 122/74; PULSE 78; RESP 18; TEMP 36.6; O2SAT 99
[2021-11-15] VITALS: PULSE 80; RESP 16
[2021-11-15 04:00] VITALS: BP 102/84; PULSE 76; RESP 16; TEMP 36.9; O2SAT 99
[2021-11-15 04:51] LABS: Hematocrit 44.5 % (42.0-52.0); Hemoglobin 13.7 g/dL (14.0-18.0); Mean Corpuscular HGB Conc 30.8 g/dl (32-36); Mean Corpuscular Hemoglobin 24.5 pg (26-34); Mean Corpuscular Volume 79.6 fl (80-100); Mean Platelet Volume 8.4 fl (7.4-10.4); Platelet Count Result 473 k/mm3 (150-375); Red Blood Count 5.59 M/mm3 (4.6-6.20); Red Cell Distribution Width 20.7 % (11.5-14.5); White Blood Count 10.6 K/mm3 (4.5-10.0)
[2021-11-15 05:08] LABS: Alanine Aminotransferase 13 U/L (4-50); Albumin Level 3.9 g/dL (3.5-5.1); Alkaline Phosphatase 86 U/L (38-126); Anion Gap 5 mmol/L (8-16); Aspartate Amino Transferase 34 U/L (17-59); Bilirubin,Total 0.2 mg/dL (0.2-1.3); Blood Urea Nitrogen 20 mg/dL (9-20); Calcium 9.2 mg/dL (8.4-10.2); Carbon Dioxide 31 mmol/L (22-30); Chloride 95 mmol/L (98-107); Estimated CRCL calculation 93 ml/min; Estimated Glomerular Filt Rate > 60; Glucose 105 mg/dL (65-110); Potassium 4.1 mmol/L (3.4-5.0); Sodium 131 mmol/L (137-145)
[2021-11-15 08:00] VITALS: BP 108/77; PULSE 81; RESP 16; O2SAT 96
[2021-11-15] MEDS: ENOXAPARIN 30 MG/0.3 ML SYRINGE SUB-Q (08:33)
[2021-11-15] MEDS: DOCUSATE SODIUM 100 MG CAPSULE PO (08:33)
[2021-11-15] MEDS: amLODIPine BESYLATE 5 MG TABLET PO (08:33)
[2021-11-15] MEDS: ACETAMINOPHEN 325 MG TABLET 650 MG PO (08:33)
[2021-11-15] MEDS: polyethylene glycoL 3350 17 GM POWD.PACK PO (08:33)
--- NOTE | 2021-11-15 09:33 | PC.NURSE ---
Spoke to Tasia from Crisis this morning at 07:30. There is not a bed available for patient to transfer to at this time. Crisis will be in later today to re-evaluate patient. Patient states he is going to jump off a bridge when he gets out. He stated that he has lost everything, including his dog, his camping gear, his clothing and his entire family.
[2021-11-15 13:12] VITALS: BP 103/64; PULSE 78; RESP 16; TEMP 36.9; O2SAT 100
--- NOTE | 2021-11-15 14:34 | PM.IMPN ---
Progress Note: A&P Assessment and Plan (1) Non-ST elevated myocardial infarction (non-STEMI): Code(s): I21.4 - Non-ST elevation (NSTEMI) myocardial infarction Status: Acute Assessment and Plan: ED-HPI narrative: 46-year-old male presents emergency room I am secondary to chest pain. Patient is homeless. He uses meth and last use this morning. He states he been having visual hallucinations of angels coming to get him. Patient also states he is having some depressive and suicidal thoughts and wants to jump off a bridge. He went to the police station telling him as having chest pain they called EMS and brought him to the emergency room. He is very nonspecific in the way describes the pain he describes it as sharp pain in the midportion of his chest. He states I have had several heart attacks before . However he is never had any stents placed. 11/11/2021 interval history: Patient continue to complain of chest pain, currently patient also having abdominal pain nausea, vomiting and diarrhea, patient has several episode of nausea and vomiting will give the patient Bentyl, patient also received morphine for chest pain, will do the Lexiscan to further evaluate patient's chest pain and elevated tropes and further recommendation to follow, patient has history of illicit drug abuse methenamine, patient also expressed that he was to commit suicide by jumping off the bridge, once patient is medically stable will have crisis team evaluate the patient patient will benefit going to inpatient [facility]. 11/12/2021 interval history: Patient with chest pain and elevated tropes a Lexiscan patient nuclear medication portion of the stress test did not show any ischemic event however EKG portion of the stress test appear to be abnormal, patient was seen by laboratory immunologist suggested since nuclear medicine stress test if normal suggesting normal perfusion EKG portion of the stress test may not be significant to further evaluate patient will have cardiac echo, if the cardiac echo is normal the patient does not need further workup for elevated tropes and chest pain, patient continued to remain somnolent not cooperative okay if cardiac echo is normal we will have crisis team evaluate the patient for possible transfer to [facility]. 11/13/2021 interval history: on 11/12 patient was seen by crisis team and evaluated the patient and recommended patient will benefit going to inpatient [facility] for more treatment and referrals were sent to psychiatric hospital, no respond so far, patient remains clinically c/o abdominal pain and nausea, no BM for 2-3 day, will start patient on Colace and Miralax, will continue o monitor. 11/14/2021 interval history: on 11/12 patient was seen by crisis team and evaluated the patient and recommended patient will benefit going to inpatient [facility] for more treatment and referrals were sent to psychiatric hospital, no respond so far, patient remains clinically c/o abdominal pain and nausea, still no BM for 2-3 day, will continue patient on Colace and Miralax, will stop IV morphine and place the patient on [place] 5/325 q.6 as needed will continue o monitor. 11/15/2021 interval history: on 11/12 patient was seen by crisis team and evaluated the patient and recommended patient will benefit going to inpatient [facility] for more treatment and referrals were sent to psychiatric hospital, no respond so far, patient remains clinically c/o abdominal pain and nausea, still no BM for 3-4 day, will continue patient on Colace and Miralax, will give Mag citrate today, will stop IV morphine and place the patient on [place] 5/325 q.6 as needed will continue o monitor. (2) Suicidal ideation: Code(s): R45.851 - Suicidal ideations Status: Acute Assessment and Plan: once patient is clinically and medically stable, will have crisis team evaluate the patient, will benefit going to inpatient [facility]. (3) Active
[2021-11-15] MEDS: MAGNESIUM CITRATE 300 ML BTL 75 ML PO (15:29)
[2021-11-15 16:00] VITALS: BP 108/76; PULSE 76; RESP 16; O2SAT 100
[2021-11-15 20:00] VITALS: BP 112/76; PULSE 72; RESP 16; TEMP 36.5; O2SAT 100
[2021-11-16] VITALS: BP 119/87; PULSE 88; RESP 18; TEMP 36.7; O2SAT 100
[2021-11-16 04:00] VITALS: BP 113/71; PULSE 75; RESP 16; TEMP 37.2; O2SAT 96
[2021-11-16 04:10] LABS: Hematocrit 39.5 % (42.0-52.0); Hemoglobin 12.4 g/dL (14.0-18.0); Mean Corpuscular HGB Conc 31.4 g/dl (32-36); Mean Corpuscular Hemoglobin 24.4 pg (26-34); Mean Corpuscular Volume 77.6 fl (80-100); Mean Platelet Volume 8.5 fl (7.4-10.4); Platelet Count Result 407 k/mm3 (150-375); Red Blood Count 5.09 M/mm3 (4.6-6.20); Red Cell Distribution Width 20.6 % (11.5-14.5)
[2021-11-16 04:24] LABS: Alanine Aminotransferase 13 U/L (4-50); Albumin Level 3.4 g/dL (3.5-5.1); Alkaline Phosphatase 75 U/L (38-126); Anion Gap 3 mmol/L (8-16); Aspartate Amino Transferase 30 U/L (17-59); Bilirubin,Total < 0.1 mg/dL (0.2-1.3); Blood Urea Nitrogen 24 mg/dL (9-20); Calcium 8.5 mg/dL (8.4-10.2); Carbon Dioxide 31 mmol/L (22-30); Chloride 95 mmol/L (98-107); Estimated CRCL calculation 82 ml/min; Estimated Glomerular Filt Rate > 60; Glucose 113 mg/dL (65-110); Potassium 3.9 mmol/L (3.4-5.0); Sodium 129 mmol/L (137-145)
[2021-11-16 08:00] VITALS: BP 109/79; PULSE 78; RESP 12; TEMP 35.6; O2SAT 100
[2021-11-16] MEDS: ENOXAPARIN 30 MG/0.3 ML SYRINGE SUB-Q (09:11)
[2021-11-16] MEDS: DOCUSATE SODIUM 100 MG CAPSULE PO (09:11)
[2021-11-16] MEDS: polyethylene glycoL 3350 17 GM POWD.PACK PO (09:11)
[2021-11-16] MEDS: amLODIPine BESYLATE 5 MG TABLET PO (09:11)
--- NOTE | 2021-11-16 10:48 | PC.NURSE ---
Spoke with Natalia from [facility] ([phone]) at [phone] and [phone] regarding the patient's safety contract versus need for inpatient psychiatric placement. Verified with Dr Lee that patient will in fact require an inpatient psychiatric placement due to the continued suicidal ideations stated by the patient today. Natalia to continue to search for placement.
--- NOTE | 2021-11-16 11:06 | PC.NURSE ---
Spoke with Natalia from [facility] at 1059 regarding inpatient referrals for this patient. RN to fax facesheet to [facility] ( ). Natalia also sent a referral to [facility] in [place].
[2021-11-16] MEDS: OLANZapine 10 MG INJ VIAL 5 MG IM (15:03)
[2021-11-16 16:00] VITALS: BP 89/58; PULSE 97; RESP 12; TEMP 36.6; O2SAT 99
[2021-11-17] VITALS: BP 116/76; PULSE 81; RESP 16; TEMP 36.6; O2SAT 100
[2021-11-17] MEDS: HYDROcodone/acetaminophen (*CRX) 5-325 MG TABLET 1 TAB PO (01:14)
[2021-11-17] MEDS: ONDANSETRON INJ 4 MG/2 ML VIAL IV PUSH ×4 (01:41→23:36)
[2021-11-17] MEDS: PROMETHAZINE HCL 25 MG/ML AMPUL IM ×2 (03:04→20:04)
[2021-11-17 08:00] VITALS: BP 154/100; PULSE 92; RESP 22; TEMP 36.6; O2SAT 100
--- NOTE | 2021-11-17 09:16 | PC.NURSE ---
PATIENT CONTINUES WITH EPISODES OF EMESIS. WILL HOLD MEDS FOR NOW.
[2021-11-17 10:58] LABS: Hematocrit 43.1 % (42.0-52.0); Hemoglobin 13.6 g/dL (14.0-18.0); Mean Corpuscular HGB Conc 31.6 g/dl (32-36); Mean Corpuscular Hemoglobin 24.7 pg (26-34); Mean Corpuscular Volume 78.4 fl (80-100); Mean Platelet Volume 8.3 fl (7.4-10.4); Platelet Count Result 445 k/mm3 (150-375)
[2021-11-17 11:15] LABS: Alanine Aminotransferase 14 U/L (4-50); Albumin Level 4.1 g/dL (3.5-5.1); Alkaline Phosphatase 90 U/L (38-126); Anion Gap 6 mmol/L (8-16); Aspartate Amino Transferase 33 U/L (17-59); Bilirubin,Total 0.2 mg/dL (0.2-1.3); Blood Urea Nitrogen 22 mg/dL (9-20); Calcium 9.3 mg/dL (8.4-10.2); Carbon Dioxide 30 mmol/L (22-30); Chloride 100 mmol/L (98-107); Estimated CRCL calculation 81 ml/min; Estimated Glomerular Filt Rate > 60; Glucose 113 mg/dL (65-110); Potassium 4.2 mmol/L (3.4-5.0); Sodium 136 mmol/L (137-145)
[2021-11-17] MEDS: ENOXAPARIN 30 MG/0.3 ML SYRINGE SUB-Q (11:59)
[2021-11-17 12:54] LABS: Lipase 51 U/L (23-300)
[2021-11-17 15:43] VITALS: BP 130/90; PULSE 82; RESP 16; TEMP 36.1; O2SAT 99
--- NOTE | 2021-11-17 19:05 | PM.IMPN ---
Progress Note: A&P Assessment and Plan (1) Non-ST elevated myocardial infarction (non-STEMI): Code(s): I21.4 - Non-ST elevation (NSTEMI) myocardial infarction Status: Acute Assessment and Plan: ED-HPI narrative: 46-year-old male presents emergency room I am secondary to chest pain. Patient is homeless. He uses meth and last use this morning. He states he been having visual hallucinations of angels coming to get him. Patient also states he is having some depressive and suicidal thoughts and wants to jump off a bridge. He went to the police station telling him as having chest pain they called EMS and brought him to the emergency room. He is very nonspecific in the way describes the pain he describes it as sharp pain in the midportion of his chest. He states I have had several heart attacks before . However he is never had any stents placed. 11/11/2021 interval history: Patient continue to complain of chest pain, currently patient also having abdominal pain nausea, vomiting and diarrhea, patient has several episode of nausea and vomiting will give the patient Bentyl, patient also received morphine for chest pain, will do the Lexiscan to further evaluate patient's chest pain and elevated tropes and further recommendation to follow, patient has history of illicit drug abuse methenamine, patient also expressed that he was to commit suicide by jumping off the bridge, once patient is medically stable will have crisis team evaluate the patient patient will benefit going to inpatient [facility]. 11/12/2021 interval history: Patient with chest pain and elevated tropes a Lexiscan patient nuclear medication portion of the stress test did not show any ischemic event however EKG portion of the stress test appear to be abnormal, patient was seen by circuits engineer suggested since nuclear medicine stress test if normal suggesting normal perfusion EKG portion of the stress test may not be significant to further evaluate patient will have cardiac echo, if the cardiac echo is normal the patient does not need further workup for elevated tropes and chest pain, patient continued to remain somnolent not cooperative okay if cardiac echo is normal we will have crisis team evaluate the patient for possible transfer to [facility]. 11/13/2021 interval history: on 11/12 patient was seen by crisis team and evaluated the patient and recommended patient will benefit going to inpatient [facility] for more treatment and referrals were sent to psychiatric hospital, no respond so far, patient remains clinically c/o abdominal pain and nausea, no BM for 2-3 day, will start patient on Colace and Miralax, will continue o monitor. 11/14/2021 interval history: on 11/12 patient was seen by crisis team and evaluated the patient and recommended patient will benefit going to inpatient [facility] for more treatment and referrals were sent to psychiatric hospital, no respond so far, patient remains clinically c/o abdominal pain and nausea, still no BM for 2-3 day, will continue patient on Colace and Miralax, will stop IV morphine and place the patient on [place] 5/325 q.6 as needed will continue o monitor. 11/15/2021 interval history: on 11/12 patient was seen by crisis team and evaluated the patient and recommended patient will benefit going to inpatient [facility] for more treatment and referrals were sent to psychiatric hospital, no respond so far, patient remains clinically c/o abdominal pain and nausea, still no BM for 3-4 day, will continue patient on Colace and Miralax, will give Mag citrate today, will stop IV morphine and place the patient on [place] 5/325 q.6 as needed will continue o monitor. 11/16/2021 interval history: on 11/12 patient was seen by crisis team and evaluated the patient and recommended patient will benefit going to inpatient [facility] for more treatment and referrals were sent to psychiatric hospital, no respond so far, today patient is
[2021-11-17] MEDS: PANTOPRAZOLE SODIUM IV 40 MG VIAL IV PUSH (21:33)
[2021-11-17 23:57] VITALS: BP 150/97; PULSE 80; RESP 16; TEMP 36.8; O2SAT 100
[2021-11-18 07:36] LABS: Hematocrit 42.9 % (42.0-52.0); Hemoglobin 13.1 g/dL (14.0-18.0); Mean Corpuscular HGB Conc 30.5 g/dl (32-36); Mean Corpuscular Hemoglobin 24.4 pg (26-34); Mean Platelet Volume 8.3 fl (7.4-10.4); Platelet Count Result 412 k/mm3 (150-375); Red Blood Count 5.36 M/mm3 (4.6-6.20); Red Cell Distribution Width 21.4 % (11.5-14.5); White Blood Count 9.1 K/mm3 (4.5-10.0)
[2021-11-18 07:47] LABS: Alanine Aminotransferase 14 U/L (4-50); Albumin Level 3.8 g/dL (3.5-5.1); Alkaline Phosphatase 88 U/L (38-126); Anion Gap 6 mmol/L (8-16); Aspartate Amino Transferase 34 U/L (17-59); Bilirubin,Total 0.3 mg/dL (0.2-1.3); Blood Urea Nitrogen 19 mg/dL (9-20); Calcium 9.4 mg/dL (8.4-10.2); Carbon Dioxide 29 mmol/L (22-30); Chloride 100 mmol/L (98-107); Estimated CRCL calculation 73 ml/min; Estimated Glomerular Filt Rate > 60; Glucose 97 mg/dL (65-110); Potassium 3.9 mmol/L (3.4-5.0); Sodium 135 mmol/L (137-145)
[2021-11-18 08:00] VITALS: BP 112/80; PULSE 88; RESP 18; TEMP 36.3; O2SAT 97
[2021-11-18] MEDS: PANTOPRAZOLE SODIUM IV 40 MG VIAL IV PUSH (08:17)
[2021-11-18] MEDS: ENOXAPARIN 30 MG/0.3 ML SYRINGE SUB-Q (08:17)
[2021-11-18] MEDS: DOCUSATE SODIUM 100 MG CAPSULE PO (08:17)
[2021-11-18] MEDS: amLODIPine BESYLATE 5 MG TABLET PO (08:18)
--- NOTE | 2021-11-18 13:01 | PM.DS ---
DS: Admitting Diagnosis Discharge Date 11/18/2021 Admitting Diagnosis Chest pain DS: Discharge Diagnosis Discharge Diagnosis (1) Non-ST elevated myocardial infarction (non-STEMI): Code(s): I21.4 - Non-ST elevation (NSTEMI) myocardial infarction Status: Acute Assessment and Plan: 46-year-old male presents emergency room secondary to chest pain. Patient is homeless. He uses meth and last use was this morning on the day of admission. He states he been having visual hallucinations of angels coming to get him. Patient also states he is having some depressive and suicidal thoughts and wants to jump off a bridge. He went to the police station telling him as having chest pain they called EMS and brought him to the emergency room. He is very nonspecific in the way describes the pain he describes it as sharp pain in the midportion of his chest. He states I have had several heart attacks before . However he is never had any stents placed. He was evaluated with director geophysical laboratory and underwent stress test which came back normal. He did mildly elevated troponin likely related to his illicit drug use. His blood pressure was elevated and during the hospital stay he was started on amlodipine. Blood pressure improved with the treatment and is suggested continue this as an outpatient basis. Does not have primary care that he follows up with and was given/provided with a list primary care physician is in follow-up with. Due to hospital stay he had reported symptoms of suicidal ideation and hence suicide watch was started. He was evaluated by crisis team initially was falling currently getting admitted to the inpatient [facility]. While awaiting for the placement, he had improvement in his symptoms and re-evaluation was made on 11/17/2021. Crisis team recommended the safety contract with patient. He was agreeable for discharge home with close follow-up with the crisis team. (2) Suicidal ideation: Code(s): R45.851 - Suicidal ideations Status: Acute Assessment and Plan: once patient is clinically and medically stable, will have crisis team evaluate the patient, will benefit going to inpatient [facility]. Cystine revaluated 11/17/2021 patient no longer suicidal. Safety contract signed 11/18/2021 (3) Active substance abuse: Code(s): F19.10 - Other psychoactive substance abuse, uncomplicated Status: Acute Assessment and Plan: patient needs be evaluated by psychiatrist Follow-up as an outpatient basis (4) Depression: Qualifiers: Active/Remission status: currently active Depression Type: major depressive disorder Major depression episode severity: moderate Major depression recurrence: unspecified whether recurrent Qualified Code(s): F32.1 - Major depressive disorder, single episode, moderate Code(s): F32.A - Depression, unspecified Status: Acute Assessment and Plan: patient needs to be evaluated by psychiatrist. As an outpatient basis DS: Summary Hospital Course Hospital Course: See above Time Spent with Patient Time attestation: Total time spent providing and/or coordinating discharge services: 45 minutes Exam Narrative: patient appears chronically ill older than his age Patient is comfortable, NAD but in pain HEENT: eyes are clear and none icteric LUNGS: normal respiratory effort ABD: not distended nontender, soft palpation Lower extremities: no edema cyanosis or clubbing SKIN: nonjaundiced Neuro: grossly intact. Alert and oriented x3 DS: Data Data Completed and Pending Completed studies during hospitalization: Exam Type: CA echo doppler color flow Study Info Indications R07.1 - Chest pain on breathing Complete two-dimensional, color flow and Doppler transthoracic echocardiogram is performed. Summary 1. Complete two-dimensional, color flow and Doppler transthoracic echocardiogram is performed. 2.
--- NOTE | 2021-11-18 14:30 | PC.NURSE ---
Transportation tokens given x 6 per care coordination for public transportation. Resources given to patient at discharge with discharge instructions
== END 2021-11-18 14:30 | disposition home or self-care (01) | DRG 203 ==
LOC: ANHED 04:55 → ANHICU 06:00
PROVIDERS: Family Medicine; Admitting Provider Internal Medicine; Emergency Provider Emergency Medicine; Visit Provider Internal Medicine
DX: R07.89 Other chest pain (principal); F15.129 Other stimulant abuse with intoxication, unspecified; R45.851 Suicidal ideations; F32.1 Major depressive disorder, single episode, moderate; Z59.00 Homelessness unspecified; Z20.822 Contact with and (suspected) exposure to COVID-19; F43.10 Post-traumatic stress disorder, unspecified; F20.9 Schizophrenia, unspecified; F17.210 Nicotine dependence, cigarettes, uncomplicated; I31.3 Pericardial effusion (noninflammatory); I10 Essential (primary) hypertension
CPT/HCPCS: 36415; 71045; 74176; 78452; 80053; 80307; 81003; 83690; 83735; 84484; 85025; 85027; 87426; 93005; 93017; 93306; 96365; 96366; 96372; 96374; 96375; 96376; 99285; A9270; A9502; C9113; C9803; G0378; G0379; J0131; J0500; J1650; J1885; J2270; J2405; J2550; J2785

== ENCOUNTER 2022-01-27 15:22 | Emergency (ER) | payer OTHER, SELFPAY ==
[2022-01-27 15:25] VITALS: BP 140/107; PULSE 70; RESP 16; TEMP 36.8; O2SAT 100
--- NOTE | 2022-01-27 15:34 | ED.PSYCH ---
HPI - Psych General Chief Complaint: Psychiatric Symptoms <Tino Mejia APRN - Last Filed: 01/27/22 18:52> Stated Complaint: avh with paranoia <Tino Mejia APRN - Last Filed: 01/27/22 18:52> Time Seen by Provider: 01/27/22 15:30 <Tino Mejia APRN - Last Filed: 01/27/22 18:52> History of Present Illness HPI Narrative: 46-year-old male presents to the emergency room via EMS for evaluation of suicidal ideation. Patient states he has a plan which involves jumping off of a bridge. <Tino Mejia APRN - Last Filed: 01/27/22 18:52> Related Data Allergies/Adverse Reactions: Allergies Allergy/AdvReac Type Severity Reaction Status Date / Time haloperidol Allergy Swelling Verified 05/11/21 20:00 of Lip/Tongue/Throat <Tino Mejia APRN - Last Filed: 01/27/22 18:52> Review of Systems Review of Systems: CONSTITUTIONAL: Denies fever, chills, or sweats. EYES: Denies visual changes, redness, or discharge. ENT: Denies rhinorrhea, congestion, sore throat, or otalgia. CARDIOVASCULAR: Denies chest pain, palpitations, or edema. RESPIRATORY: Denies cough or dyspnea. GASTROINTESTINAL: Denies abdominal pain, nausea, vomiting, or diarrhea. GENITOURINARY: Denies dysuria or hematuria. SKIN: Denies rash or itching. MUSCULOSKELETAL: Denies back pain, joint pain, or myalgia. NEUROLOGIC: Denies headache, numbness, dizziness, or weakness. PSYCHIATRIC: Denies anxiety or depression. <Tino Mejia APRN - Last Filed: 01/27/22 18:52> [facility] Past Medical History Medical History: Medical History Alcohol abuse Coffee ground emesis Depression Methamphetamine use PTSD (post-traumatic stress disorder) Schizophrenia Smoker <Tino Mejia APRN - Last Filed: 01/27/22 18:52> Surgical History Surgical History: Surgical History No pertinent past surgical history <Tino Mejia APRN - Last Filed: 01/27/22 18:52> Family History Family History: Family History Sibling Asthma Grandparent Cancer <Tino Mejia APRN - Last Filed: 01/27/22 18:52> Social History Social History: Social History Social History: He is unemployed and homeless. He is estranged from his family members. Smoking packs per day: 1 Smoking cigarettes per day: 20.0 Years smoked: 30 Smoking pack-years: 30.00 Smoking status: Current every day smoker Tobacco type: cigarettes Alcohol intake: current Drinks per week: 10 Substance use: current Substance use type: amphetamines Last use: 02/04 meth 02/10 marijuana Additional occupation/education comments: Unemployed Gender identity (if verbalized by the patient): Male Spiritual care concerns: No <Tino Mejia APRN - Last Filed: 01/27/22 18:52> Exam Narrative: GENERAL: Disheveled, well-nourished, no physical limitations, and in no acute distress. HEAD: Normocephalic, atraumatic. EYES: Conjunctivae normal, PERRLA and EOMI. CHEST: Clear to auscultation. No respiratory distress. No wheezes rales or rhonchi. No tenderness. HEART: Regular rate and rhythm. No murmur heard. Normal peripheral pulses.. BACK: No CVA tenderness; No cervical/thoracic/lumbar tenderness, step-offs, bony abnormality; FROM EXTREMITIES: Normal range of motion. No edema. No clubbing or cyanosis SKIN: Warm, dry, no rash. No noted wounds NEURO: No focal deficits. Alert and oriented x3. MAEW. CN's II-XI intact bilaterally, normal gait PSYCH: Cooperative. Paranoid and delusional. <Tino Mejia APRN - Last Filed: 01/27/22 18:52> Course Course Emergency Course: 1850: Patient is medically clear and awaiting clearance from crisis. <Tino Mejia APRN - Last Filed: 01/27/22 18:52> Vital Signs Vital signs: Vital Signs Temperature 98.2 F 01/27/22 15:25 Pu
[2022-01-27 16:14] LABS: SARS-CoV-2 RNA PCR Negative
[2022-01-27 16:24] LABS: Basophils Absolute Auto 0.2 K/mm3 (0.0-0.1); Basophils Percent Auto 1.6 % (0.2-1.2); Eosinophils Absolute Auto 0.4 K/mm3 (0-0.3); Eosinophils Percent Auto 3.8 % (0-4.4); Hematocrit 40.8 % (42.0-52.0); Hemoglobin 12.6 g/dL (14.0-18.0); Immature Granulocyte Absolute 0.05 K/mm3 (0.00-0.031); Immature Granulocyte Percent A 0.5 % (0-0.5); Lymphocytes Absolute Auto 2.07 K/mm3 (0.9-3.2); Lymphocytes Percent Auto 20.4 % (18.3-44.2); Mean Corpuscular HGB Conc 30.9 g/dl (32-36); Mean Corpuscular Hemoglobin 24.4 pg (26-34); Mean Corpuscular Volume 78.9 fl (80-100); Mean Platelet Volume 8.3 fl (7.4-10.4); Monocytes Absolute Auto 1.6 K/mm3 (0.1-0.6); Monocytes Percent Auto 15.3 % (2.6-8.5); Neutrophils Absolute Auto 5.9 K/mm3 (1.3-6.7); Neutrophils Percent Auto 58.4 % (45.5-73.1); Platelet Count Result 467 k/mm3 (150-375); Red Blood Count 5.17 M/mm3 (4.6-6.20); Red Cell Distribution Width 20.1 % (11.5-14.5); White Blood Count 10.1 K/mm3 (4.5-10.0)
[2022-01-27 16:34] LABS: Acetaminophen < 10 ug/mL (10-30); Salicylate < 1.0 mg/dL (2-20)
[2022-01-27 16:34] LABS: Ethanol < 10 mg/dL (<10)
--- NOTE | 2022-01-27 16:40 | PC.NURSE ---
pt yelling in room. talking in circles about how he isnt a rapist and he doesnt trust anyone. pt cussing and yelling. pt moved to room 15. sitter remains at bedside.
[2022-01-27 16:44] LABS: Alanine Aminotransferase 18 U/L (6-50); Albumin Level 4.2 g/dL (3.5-5.1); Alkaline Phosphatase 107 U/L (38-126); Anion Gap 8 mmol/L (8-16); Aspartate Amino Transferase 36 U/L (17-59); Bilirubin,Total 0.4 mg/dL (0.2-1.3); Blood Urea Nitrogen 21 mg/dL (9-20); Calcium 9.2 mg/dL (8.4-10.2); Carbon Dioxide 25 mmol/L (22-30); Chloride 105 mmol/L (98-107); Estimated CRCL calculation 86 ml/min; Estimated Glomerular Filt Rate > 60; Glucose 112 mg/dL (65-110); Potassium 3.8 mmol/L (3.4-5.0); Sodium 138 mmol/L (137-145)
--- NOTE | 2022-01-27 16:49 | PC.NURSE ---
food tray ordered
[2022-01-27 18:23] LABS: Appearance Urine Clear (Clear); Bilirubin Urine 1+ (Negative); Blood Urine Negative (Negative); Color Urine Yellow (Yellow); Glucose Urine UA Negative (Negative); Ketones Urine Negative (Negative); Leukocyte Esterase Ur Negative LEU/UL (Negative); Nitrate Urine Negative (Negative); Protein Urine Trace mg/dL (Negative); Specific Grav Ur >= 1.030 (1.001-1.035); Urobilinogen Urine 0.2 mg/dL (<2.0); pH Urine 5.5 (5.0-9.0)
[2022-01-27 18:27] LABS: Mucus Urine Rare /lpf; Squamous Epithelial Cell Urine Rare /hpf (Few)
[2022-01-27 18:28] LABS: Add Urine Microscopic? YES
[2022-01-27 18:37] LABS: Barbiturate Screen Urine Negative (Negative); Benzodiazepines Screen Urine Negative (Negative)
[2022-01-27 18:39] LABS: Cannabinoid Screen Urine Positive (Negative); Cocaine Screen Urine Negative (Negative); Methadone Screen Urine Negative (Negative); Opiate Screen Urine Negative (Negative); Phencyclidine Screen Urine Negative (Negative)
[2022-01-27 19:10] LABS: Amphetamine Screen Urine Positive (Negative)
[2022-01-27] MEDS: LORazepam (*CRX) 1 MG TABLET PO (21:20)
--- NOTE | 2022-01-27 21:39 | PC.NURSE ---
Pt will not answer [place] Screening questions at this time. Will try again later. Pt speaking in giberish when asked questions.
--- NOTE | 2022-01-27 22:00 | PC.NURSE ---
21:45 Spoke with Shirley at [facility]. Patient's chart is currently being reviewed by psychiatrist on staff. Was informed that Patient certificate will need to be re-done before 20:50 01/28/2022 if patient is still in the ED here. Patient petition will need to be re-done within 72 hours of 20:50 01/27/2022 if patient is still in the ED here. Shirley will call back in 30 minutes with an update on patient status.
--- NOTE | 2022-01-27 22:29 | PC.NURSE ---
22:29 Spoke with Shirley at [facility] and patient has been accepted there. Patient has been put on a waitlist, but is the first on the waitlist. Will most likely hear more in the morning when they have morning discharges at [facility].
[2022-01-28 05:03] VITALS: BP 118/81; PULSE 78; RESP 16; TEMP 36.8; O2SAT 96
--- NOTE | 2022-01-28 05:03 | PC.NURSE ---
Spoke with Meliza at [facility] who wanted updated VS.
--- NOTE | 2022-01-28 07:17 | PC.NURSE ---
Gave Nurse to Nurse report to [facility]. Spoke with Cortney RANKIN.
== END 2022-01-28 08:40 ==
PROVIDERS: Emergency Medicine; Emergency Provider Nurse Practitioner Family
DX: R45.851 Suicidal ideations (principal); F19.10 Other psychoactive substance abuse, uncomplicated; F20.9 Schizophrenia, unspecified; F17.210 Nicotine dependence, cigarettes, uncomplicated; Z20.822 Contact with and (suspected) exposure to COVID-19
CPT/HCPCS: 36415; 80053; 80307; 81001; 84443; 85025; 99285; A9270; C9803; U0003; U0005

== ENCOUNTER 2022-04-08 20:45 | Emergency (ER) | payer OTHER, SELFPAY ==
--- NOTE | 2022-04-08 20:49 | ECG_ITS ---
Measurements Intervals [place] Rate: 81 P: 78 TX: 184 QRS: -72 QRSD: 149 T: 70 QT: 422 QTc: 491 Interpretive Statements SINUS RHYTHM SUPRAVENTRICULAR BIGEMINY LEFT AXIS DEVIATION LEFT BUNDLE BRANCH BLOCK ABNORMAL ECG COMPARED TO ECG 11/11/2021 02:07:18 SUPRAVENTRICULAR BIGEMINY NOW PRESENT Electronically Signed On 04-08-2022 21:43:13 CDT by Walter Gray D.O.
[2022-04-08 20:50] VITALS: BP 145/82; PULSE 88; RESP 16; TEMP 36.6; O2SAT 100
--- NOTE | 2022-04-08 20:53 | ED.PSYCH ---
HPI - Psych General Chief Complaint: Psychiatric Symptoms <BEBA Burton Last Filed: 04/09/22 02:02> Stated Complaint: suicidal <BEBA Burton Last Filed: 04/09/22 02:02> Time Seen by Provider: 04/08/22 20:46 <BEBA Burton Last Filed: 04/09/22 02:02> History of Present Illness HPI Narrative: 46-year-old male with a history of polysubstance use here via EMS for evaluation of suicidal ideation. Patient states that he has a plan to jump off of a bridge. He denies any substance use tonight but notes that he has a history of alcohol and methamphetamine use. He denies any homicidal ideation, audio or visual hallucinations. States that he wants to get clean. States he feels nauseated and has vomited once but denies any abdominal pain. <BEBA Burton Last Filed: 04/09/22 02:02> Related Data Home Medications: Home Medications Medication Instructions Recorded Confirmed No Home Medications 04/08/22 04/08/22 <BEBA Burton Last Filed: 04/09/22 02:02> Allergies/Adverse Reactions: Allergies Allergy/AdvReac Type Severity Reaction Status Date / Time haloperidol Allergy Swelling Verified 04/08/22 20:49 of Lip/Tongue/Throat <BEBA Burton Last Filed: 04/09/22 02:02> Review of Systems Review of Systems: Gen.: Denies fevers or chills Eyes: Denies eye pain or visual change ENT: Denies congestion Respiratory: Denies shortness of breath or cough CV: Denies chest pain or palpitations GI: Reports nausea and vomiting. Denies abdominal pain or diarrhea : denies burning, urgency, frequency or hematuria Musculoskeletal: Denies back pain or muscle pain Neuro: Denies numbness, tingling, weakness or focal weakness Skin: Denies rash Psych: Reports suicidal ideation Except as documented, all other systems reviewed and negative <BEBA Burton Last Filed: 04/09/22 02:02> PMFSH Past Medical History Medical History: Medical History Alcohol abuse Coffee ground emesis Depression Methamphetamine use PTSD (post-traumatic stress disorder) Schizophrenia Smoker <Yvonne Lehman PA-C - Last Filed: 04/09/22 02:02> Surgical History Surgical History: Surgical History No pertinent past surgical history <Yvonne Lehman PA-C - Last Filed: 04/09/22 02:02> Family History Family History: Family History Sibling Asthma Grandparent Cancer <Yvonne Lehman PA-C - Last Filed: 04/09/22 02:02> Social History Social History: Social History Social History: He is unemployed and homeless. He is estranged from his family members. Smoking packs per day: 1 Smoking cigarettes per day: 20.0 Years smoked: 30 Smoking pack-years: 30.00 Smoking status: Current every day smoker Tobacco type: cigarettes Alcohol intake: current Drinks per week: 10 Substance use: current Substance use type: marijuana and methamphetamine Last use: 02/04 meth 02/10 marijuana Additional occupation/education comments: Unemployed Gender identity (if verbalized by the patient): Male Spiritual care concerns: No <Yvonne Lehman PA-C - Last Filed: 04/09/22 02:02> Exam Narrative: APPEARANCE: Disheveled and thin appearing appears intoxicated Head: Normocephalic and atraumatic. EYES: PERRLA/EOMI, conjunctivae clear NOSE: No nasal drainage EARS: External ear normal in appearance THROAT: Oropharynx is clear. Mucous membranes are moist. NECK: Supple. No adenopathy, no masses. RESPIRATORY: Airway patent, respirations nonlabored. Clear to auscultation bilaterally, no rales, rhonchi, wheezing. CARDIOVASCULAR: Regular rate and rhythm without murmurs, rubs, or gallops. ABDOMINAL
[2022-04-08] MEDS: ONDANSETRON HCL ODT 4 MG TABLET PO (21:25)
[2022-04-08 21:35] LABS: Basophils Absolute Auto 0.1 K/mm3 (0.0-0.1); Basophils Percent Auto 1.4 % (0.2-1.2); Eosinophils Percent Auto 10.5 % (0-4.4); Hematocrit 38.1 % (42.0-52.0); Immature Granulocyte Absolute 0.02 K/mm3 (0.00-0.031); Immature Granulocyte Percent A 0.2 % (0-0.5); Lymphocytes Absolute Auto 1.96 K/mm3 (0.9-3.2); Lymphocytes Percent Auto 20.9 % (18.3-44.2); Mean Corpuscular HGB Conc 31.5 g/dl (32-36); Mean Corpuscular Hemoglobin 25.6 pg (26-34); Mean Corpuscular Volume 81.4 fl (80-100); Mean Platelet Volume 8.2 fl (7.4-10.4); Monocytes Absolute Auto 1.1 K/mm3 (0.1-0.6); Monocytes Percent Auto 11.5 % (2.6-8.5); Neutrophils Absolute Auto 5.2 K/mm3 (1.3-6.7); Neutrophils Percent Auto 55.5 % (45.5-73.1); Platelet Count Result 430 k/mm3 (150-375); Red Blood Count 4.68 M/mm3 (4.6-6.20); Red Cell Distribution Width 19.9 % (11.5-14.5); White Blood Count 9.4 K/mm3 (4.5-10.0)
[2022-04-08 21:44] LABS: Alanine Aminotransferase 18 U/L (6-50); Albumin Level 3.6 g/dL (3.5-5.1); Alkaline Phosphatase 105 U/L (38-126); Anion Gap 9 mmol/L (8-16); Aspartate Amino Transferase 27 U/L (17-59); Bilirubin,Total 0.2 mg/dL (0.2-1.3); Blood Urea Nitrogen 16 mg/dL (9-20); Carbon Dioxide 26 mmol/L (22-30); Chloride 101 mmol/L (98-107); Estimated CRCL calculation 94 ml/min; Estimated Glomerular Filt Rate > 60; Glucose 124 mg/dL (65-110); Potassium 3.4 mmol/L (3.4-5.0); Sodium 136 mmol/L (137-145)
--- NOTE | 2022-04-08 21:46 | PC.NURSE ---
Per Yvonne Keyes, pt does not need sitter as he is a moderate risk. Also discussed with MASSIEL Mora. technical customer support specialist removed from pt's room at this time.
[2022-04-08 22:02] LABS: Add Urine Microscopic? YES; Appearance Urine Clear (Clear); Bilirubin Urine Negative (Negative); Blood Urine Trace-lysed (Negative); Color Urine Yellow (Yellow); Glucose Urine UA Negative (Negative); Ketones Urine Negative (Negative); Leukocyte Esterase Ur Negative LEU/UL (Negative); Nitrate Urine Negative (Negative); Protein Urine 1+ mg/dL (Negative); Specific Grav Ur >= 1.030 (1.001-1.035); Urobilinogen Urine 0.2 mg/dL (<2.0); pH Urine 5.5 (5.0-9.0)
[2022-04-08 22:09] LABS: Bacteria Urine Trace /hpf; Mucus Urine Rare /lpf
[2022-04-08 22:13] LABS: SARS-CoV-2 RNA PCR Negative
[2022-04-08 22:19] LABS: Barbiturate Screen Urine Negative (Negative); Benzodiazepines Screen Urine Negative (Negative)
[2022-04-08 22:22] LABS: Cannabinoid Screen Urine Positive (Negative); Cocaine Screen Urine Negative (Negative); Methadone Screen Urine Negative (Negative); Opiate Screen Urine Negative (Negative); Phencyclidine Screen Urine Negative (Negative)
--- NOTE | 2022-04-08 22:41 | PC.NURSE ---
Pt medically cleared at 2230 by Yvonne Keyes NP. Crisis called for pt evaluation by MASSIEL Mora.
--- NOTE | 2022-04-08 23:09 | PC.NURSE ---
Pt got up to use restroom. Ambulated into restroom with slow, steady, unassisted gait. Back to room without difficulty. Awaiting crisis assessment.
[2022-04-08 23:17] LABS: Amphetamine Screen Urine Positive (Negative)
--- NOTE | 2022-04-08 23:28 | PC.NURSE ---
Per Crisis team, they will begin to look for placement as pt is voluntary admit.
[2022-04-09] VITALS (22 sets, daily range): BP systolic 145–147; BP diastolic 74–97; PULSE 60–88; RESP 12–26; TEMP 36.5–36.9; O2SAT 98–100
--- NOTE | 2022-04-09 01:46 | PC.NURSE ---
This RN called [facility] in [place] and spoke c MASSIEL Guerra. They report they never received the pt's chart faxed by [place]. Refaxed at this time to [phone] ATTN: Charlie. GENAP Yvonne Patino and MASSIEL Pereyra notified.
--- NOTE | 2022-04-09 02:35 | PC.NURSE ---
PT requesting something for my stomach, my stomach hurts. Pt given Maalox and V/S taken, pt continued to be monitored and moved from room 15 to [address] Kemal fall.
[2022-04-09] MEDS: MAG HYDROX/AL HYDROX/SIMETH 30 ML UDC PO (02:36)
[2022-04-09 03:07] LABS: Lipase 52 U/L (23-300)
[2022-04-09 03:09] LABS: Ethanol < 10 mg/dL (<10)
--- NOTE | 2022-04-09 03:28 | PC.NURSE ---
Faxed ETOH level and Physician statement of medical clearance to [facility] as requested by MASSIEL Guerra. Awaiting response.
[2022-04-09] MEDS: BELLADONNA ALK/PHENOB ELIX 10 ML, MAG HYDROX/ALUMINUM HYD/SIMETH 30 ML, LIDOCAINE HCL 2... PO (04:20)
[2022-04-09] MEDS: PANTOPRAZOLE SODIUM IV 40 MG VIAL IV PUSH (04:22)
--- NOTE | 2022-04-09 05:08 | PC.NURSE ---
Called Charlie for update on possible psych admission to [facility] in [place], [place]. Per RN, psychiatrist may accept pt before 0700. Will continue to monitor.
--- NOTE | 2022-04-09 06:15 | PC.NURSE ---
Addendum entered by Hafsa Moscoso RN 04/09/22 06:51: Pt offered diet tray and pt declined at this time. Pt cooperative with v/s and requested sprite, sprite given and pt tolerated well. Pt moved to room 15. Blankets provider. No further request at this time. Original Note: Pt offered diet tray
--- NOTE | 2022-04-09 07:07 | PC.NURSE ---
Report given to MASSIEL Lorenzana
--- NOTE | 2022-04-09 11:13 | PC.NURSE ---
Report received from Harriett RANKIN, care assumed.
--- NOTE | 2022-04-09 12:06 | PC.NURSE ---
Spoke with Tasia from [facility] who states the physician will accept pt. Tasia asked for our fax number to fax consent paperwork which I gave to her.
--- NOTE | 2022-04-09 13:49 | PC.NURSE ---
[facility] has no truck. [facility] accepted with an ETA of 1700.
== END 2022-04-09 17:21 ==
PROVIDERS: Physician Assistant; Emergency Provider Emergency Medicine
DX: R45.851 Suicidal ideations (principal); Z20.822 Contact with and (suspected) exposure to COVID-19; Z59.00 Homelessness unspecified; F17.210 Nicotine dependence, cigarettes, uncomplicated; R00.8 Other abnormalities of heart beat; I44.7 Left bundle-branch block, unspecified
CPT/HCPCS: 36415; 80053; 80307; 81001; 83690; 84443; 85025; 93005; 96374; 99285; A9270; C9113; C9803; U0003; U0005

== ENCOUNTER 2022-11-29 21:53 | Emergency (ER) | payer OTHER, SELFPAY ==
--- NOTE | ~2022-11-29 | CT_ITS ---
Non-contrast Head CT History: Altered mental status COMPARISON: 05/11/2021 Technique: Axial non-contrast imaging of the brain was performed. Dose reduction technique was used on this scan by utilizing automated exposure control and iterative reconstruction technique. The dose -length product (DLP) was 681.00 mGy-cm. Findings: There is no evidence of intracranial hemorrhage, mass lesion, or acute infarct. Brain par enchyma appears normal. The ventricles and subarachnoid spaces are normal in size. The calvarium ap pears normal. The visualized paranasal sinuses and mastoid air cells are clear. Impression: No significant abnormality seen. Reviewed, dictated and finalized at location . Impression: No significant abnormality seen.
--- NOTE | ~2022-11-29 | XR_ITS ---
EXAMINATION: XR chest 1V portable Exam Date/Time: 11/29/2022 22:13 CDT HISTORY: chest pain Comparison: 11/11/2021. RESULT: Lines, tubes, and devices: None. Lungs and pleura: Clear. Cardiomediastinal silhouette: Stable. Other: No acute osseous or upper abdominal finding. IMPRESSION: No acute cardiopulmonary process. Reviewed, dictated and finalized at location K.
[2022-11-29 21:54] VITALS: BP 142/93; PULSE 128; RESP 22; TEMP 37.4; O2SAT 100
--- NOTE | 2022-11-29 22:00 | ECG_ITS ---
Measurements Intervals [place] Rate: 121 P: 53 NM: 153 QRS: -72 QRSD: 137 T: 68 QT: 333 QTc: 474 Interpretive Statements SINUS TACHYCARDIA RIGHT BUNDLE BRANCH BLOCK LEFT ANTERIOR FASCICULAR BLOCK LEFT VENTRICULAR HYPERTROPHY AND ST-T CHANGE BASELINE WANDER- V1 ABNORMAL ECG COMPARED TO ECG 04/08/2022 20:59:56 SINUS TACHYCARDIA NOW PRESENT RIGHT BUNDLE-BRANCH BLOCK NOW PRESENT LEFT VENTRICULAR HYPERTROPHY NOW PRESENT Electronically Signed On 11-30-2022 6:23:37 CDT by Walter Gray D.O.
[2022-11-29 22:12] LABS: Basophils Absolute Auto 0.1 K/mm3 (0.0-0.1); Eosinophils Absolute Auto 0.1 K/mm3 (0-0.3); Eosinophils Percent Auto 0.8 % (0-4.4); Hematocrit 31.2 % (42.0-52.0); Hemoglobin 9.3 g/dL (14.0-18.0); Immature Granulocyte Absolute 0.06 K/mm3 (0.00-0.031); Immature Granulocyte Percent A 0.6 % (0-0.5); Lymphocytes Absolute Auto 1.67 K/mm3 (0.9-3.2); Lymphocytes Percent Auto 15.4 % (18.3-44.2); Mean Corpuscular HGB Conc 29.8 g/dl (32-36); Mean Corpuscular Hemoglobin 20.8 pg (26-34); Mean Corpuscular Volume 69.6 fl (80-100); Mean Platelet Volume 8.3 fl (7.4-10.4); Monocytes Absolute Auto 1.3 K/mm3 (0.1-0.6); Monocytes Percent Auto 11.9 % (2.6-8.5); Neutrophils Absolute Auto 7.6 K/mm3 (1.3-6.7); Neutrophils Percent Auto 70.3 % (45.5-73.1); Platelet Count Result 629 k/mm3 (150-375); Red Blood Count 4.48 M/mm3 (4.6-6.20); Red Cell Distribution Width 23.7 % (11.5-14.5); White Blood Count 10.9 K/mm3 (4.5-10.0)
[2022-11-29 22:17] VITALS: O2SAT 97
[2022-11-29 22:21] LABS: Hypochromasia 1+ (NORMAL); Platelet Estimate Increased (Adequate); Schistocytes None Seen (NORMAL)
[2022-11-29 22:22] LABS: Anisocytosis 3+ (NORMAL)
[2022-11-29 22:23] LABS: Prothrombin Time 13.5 Seconds (11.1-14.7)
[2022-11-29 22:24] LABS: Partial Thromboplastin Time 25.1 SECONDS (22.3-36.8)
[2022-11-29 22:29] LABS: Acetaminophen < 10 ug/mL (10-30); Ethanol < 10 mg/dL (<10); Salicylate < 1.0 mg/dL (2-20)
[2022-11-29] MEDS: LORazepam INJ (*CRX) 2 MG/ML VIAL IV PUSH (22:32)
[2022-11-29 22:38] VITALS: BP 131/83; PULSE 124; RESP 26; O2SAT 97
[2022-11-29 23:12] LABS: Thyroid Stimulating Hormone 0.914 uIU/mL (0.465-4.680)
[2022-11-29 23:34] LABS: Barbiturate Screen Urine Negative (Negative); Benzodiazepines Screen Urine Negative (Negative)
[2022-11-29 23:43] LABS: Alanine Aminotransferase 16 U/L (6-50); Albumin Level 3.9 g/dL (3.5-5.1); Alkaline Phosphatase 108 U/L (38-126); Anion Gap 7 mmol/L (8-16); Aspartate Amino Transferase 30 U/L (17-59); Bilirubin,Total 0.4 mg/dL (0.2-1.3); Blood Urea Nitrogen 25 mg/dL (9-20); Carbon Dioxide 24 mmol/L (22-30); Chloride 105 mmol/L (98-107); Estimated Glomerular Filt Rate > 60; Glucose 105 mg/dL (65-110); Lipase 51 U/L (23-300); Sodium 136 mmol/L (137-145)
[2022-11-29 23:45] LABS: Cannabinoid Screen Urine Negative (Negative); Cocaine Screen Urine Negative (Negative); Opiate Screen Urine Negative (Negative); Phencyclidine Screen Urine Negative (Negative)
[2022-11-29 23:51] LABS: Methadone Screen Urine Negative (Negative)
[2022-11-30] VITALS (9 sets, daily range): BP systolic 100–123; BP diastolic 59–84; PULSE 85–117; RESP 16–26; TEMP 36.8; O2SAT 92–100
[2022-11-30] MEDS: LORazepam INJ (*CRX) 2 MG/ML VIAL IV PUSH (00:07)
[2022-11-30] MEDS: BENZTROPINE MESYLATE INJ 1 MG/ML AMPUL IM (00:19)
[2022-11-30 00:57] LABS: Amphetamine Screen Urine Positive (Negative)
[2022-11-30] MEDS: SODIUM CHLORIDE 0.9% IV 1,000 ML 999 ML IV CONT ×2 (01:07→02:18)
--- NOTE | 2022-11-30 02:40 | ED.GENADULT ---
HPI - General Adult General Chief complaint: Overdose Stated complaint: od Time Seen by Provider: 11/29/22 22:07 History of Present Illness HPI narrative: A 47-year-old male with history of psychiatric illness and polysubstance use disorder presenting for possible drug overdose. Patient said he did meth and cocaine earlier today. At this point he is acting bizarre and rolling around the bed while smacking his lips. He is mumbling is not able to provide any useful history other than what drugs he used. He told EMS he was having chest pain. Related Data Allergies Allergy/AdvReac Type Severity Reaction Status Date / Time haloperidol Allergy Swelling Verified 04/09/22 04:23 of Lip/Tongue/Throat PMFSH Past Medical History Medical History Alcohol abuse 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 He is estranged from his family members. Smoking packs per day: 1 Smoking cigarettes per day: 20.0 Years smoked: 30 Smoking pack-years: 30.00 Smoking status: Current every day smoker Tobacco type: cigarettes Alcohol intake: current Drinks per week: 10 Substance use: current Substance use type: amphetamines Last use: 02/04 meth 02/10 marijuana Living arrangements: homeless Additional occupation/education comments: Unemployed Gender identity (if verbalized by the patient): Male Spiritual care concerns: No Exam Narrative: APPEARANCE: The patient is rolling back and forth on the bed purposeless Krysta while smacking his lips. He is mumbling when he talks Head: atraumatic. EYES: EOMI, NOSE: Atraumatic NECK: Trachea midline RESPIRATORY: No increased rate of breathing cough clear to auscultation CARDIOVASCULAR: tachycardic ABDOMINAL: Non-distended, soft nontender no guarding rebound MUSCULOSKELETAl: No obvious deformities, no evidence of trauma NEURO: Alert. Moving 4/4 extremities SKIN:: Warm, dry. Normal color PSYCHIATRIC: bizarre behavior Course Course Emergency Course: 0700: Signed out to oncoming physician pending sobriety and re-evaluation. Vital Signs Vital signs: Vital Signs Temperature 37.4 C 11/29/22 21:54 Pulse Rate 128 H 11/29/22 21:54 Respiratory Rate 22 H 11/29/22 21:54 Blood Pressure 142/93 H 11/29/22 21:54 Pulse Oximetry 100 11/29/22 21:54 Oxygen Delivery Room Air 11/29/22 21:54 Temperature 36.8 C 11/30/22 14:24 Pulse Rate 85 11/30/22 14:24 Respiratory Rate 16 11/30/22 14:24 Blood Pressure 102/64 11/30/22 14:24 Pulse Oximetry 100 11/30/22 14:24 Oxygen Delivery Room Air 11/29/22 22:17 Medical Decision Making MDM Narrative Medical decision making narrative: -Presentation: 47-year-old male history of psychiatric illness and drug overdose presenting with meth and cocaine use. He is acting bizarrely. Unable to provide much history. Mentioned chest pain to ems but not to me. Patient will be given Ativan for cocaine chest pain. He has been given Cogentin for lip smacking and dystonic movements. Given 2 L of fluid. chest pain workup ordered. -DDX includes but is not limited to: Cocaine chest pain, drug overdose, psychiatric illness, Head trauma -Co-morbidities complicating care: polysubstance use disorder, schizophrenia -Social determinants of health: unemployed, estranged from his family -External Chart Review: review of multiple ER visits for meth and cocaine use. -Hx from independent Sources: EMS -Discussion of Management/Consultants: None -[place]
[2022-11-30 03:06] LABS: Creatine Kinase 331 U/L (55-170)
[2022-11-30 03:19] LABS: Troponin I 0.018 ng/mL (0.000-0.034)
[2022-11-30 04:30] LABS: Troponin I 0.015 ng/mL (0.000-0.034)
[2022-11-30 06:11] LABS: Glucose Point of Care 77 mg/dl (65-105)
--- NOTE | 2022-11-30 07:45 | PC.NURSE ---
called dietary and ordered breakfast tray for pt
--- NOTE | 2022-11-30 09:15 | PC.NURSE ---
Pt awake now and this RN reevaluates pt. Pt is now saying he is having suicidal thoughts and states that he was trying to overdose last night and that he also had a plan to jump in traffic. Room cleared, belongings removed and locked, green scrubs given, sitter placed at bedside
[2022-11-30 10:22] LABS: SARS-CoV-2 RNA PCR Negative (Negative)
[2022-11-30 12:47] LABS: Appearance Urine Clear (Clear); Bacteria Urine None Seen /hpf; Bilirubin Urine Negative (Negative); Blood Urine Negative (Negative); Color Urine Yellow (Yellow); Glucose Urine UA Negative (Negative); Ketones Urine Trace mg/dL (Negative); Leukocyte Esterase Ur Negative LEU/UL (Negative); Nitrate Urine Negative (Negative); Protein Urine 1+ mg/dL (Negative); RBC Urine 0-2 /hpf (0-2); Specific Grav Ur 1.019 (1.001-1.035); Squamous Epithelial Cell Urine None seen /hpf (Few); Urobilinogen Urine 0.2 mg/dL (<2.0); WBC Urine 0-5 /hpf
[2022-11-30 12:53] LABS: Add Urine Microscopic? YES
[2022-11-30 15:11] LABS: Creatine Kinase 293 U/L (55-170)
--- NOTE | 2022-11-30 15:57 | PC.NURSE ---
per [facility] ED declined pt. awaiting call back from [facility]
--- NOTE | 2022-11-30 17:55 | PC.NURSE ---
pt accepted at [facility] by Dr. Boyd. Report given to Haylie at [facility]. pt aware.
== END 2022-11-30 19:03 ==
PROVIDERS: Emergency Medicine; Emergency Provider Emergency Medicine
DX: D50.9 Iron deficiency anemia, unspecified (principal); T43.651A Poisoning by methamphetamines accidental (unintentional), initial encounter; G24.01 Drug induced subacute dyskinesia; F99 Mental disorder, not otherwise specified; Z20.822 Contact with and (suspected) exposure to COVID-19; F17.210 Nicotine dependence, cigarettes, uncomplicated; Z59.00 Homelessness unspecified; R00.0 Tachycardia, unspecified; I45.2 Bifascicular block; I51.7 Cardiomegaly
CPT/HCPCS: 36415; 70450; 71045; 80053; 80307; 81001; 82550; 82948; 83690; 84443; 84484; 85025; 85610; 85730; 93005; 96361; 96372; 96374; 99285; J0515; J2060; J7030; U0003; U0005

== ENCOUNTER 2023-10-15 02:15 | Emergency (ER) | payer OTHER, SELFPAY ==
[2023-10-15 02:16] VITALS: BP 111/70; PULSE 85; RESP 16; TEMP 36.7; O2SAT 99
--- NOTE | 2023-10-15 02:34 | ECG_ITS ---
Measurements Intervals [place] Rate: 80 P: 77 NV: 200 QRS: -67 QRSD: 172 T: 68 QT: 419 QTc: 486 Interpretive Statements SINUS RHYTHM BORDERLINE AV CONDUCTION DELAY RIGHT BUNDLE BRANCH BLOCK LEFT ANTERIOR FASCICULAR BLOCK LEFT VENTRICULAR HYPERTROPHY AND ST-T CHANGE ABNORMAL ECG COMPARED TO ECG 11/29/2022 21:58:59 SINUS RHYTHM NOW PRESENT Electronically Signed On 10-15-2023 6:39:21 CDT by Walter Gray D.O.
[2023-10-15 02:55] LABS: Basophils Absolute Auto 0.1 K/mm3 (0.0-0.1); Basophils Percent Auto 1.3 % (0.2-1.2); Eosinophils Absolute Auto 0.5 K/mm3 (0-0.3); Eosinophils Percent Auto 5.5 % (0-4.4); Hematocrit 32.1 % (42.0-52.0); Hemoglobin 9.5 g/dL (14.0-18.0); Immature Granulocyte Absolute 0.03 K/mm3 (0.00-0.031); Immature Granulocyte Percent A 0.3 % (0-0.5); Lymphocytes Absolute Auto 2.49 K/mm3 (0.9-3.2); Lymphocytes Percent Auto 28.3 % (18.3-44.2); Mean Corpuscular HGB Conc 29.6 g/dl (32-36); Mean Corpuscular Hemoglobin 21.1 pg (26-34); Mean Corpuscular Volume 71.3 fl (80-100); Mean Platelet Volume 8.6 fl (7.4-10.4); Monocytes Absolute Auto 0.8 K/mm3 (0.1-0.6); Monocytes Percent Auto 9.3 % (2.6-8.5); Neutrophils Absolute Auto 4.9 K/mm3 (1.3-6.7); Neutrophils Percent Auto 55.3 % (45.5-73.1); Platelet Count Result 425 k/mm3 (150-375); Red Cell Distribution Width 22.9 % (11.5-14.5); White Blood Count 8.8 K/mm3 (4.5-10.0)
[2023-10-15 02:55] LABS: Appearance Urine Clear (Clear); Bacteria Urine None Seen /hpf; Bilirubin Urine Negative (Negative); Blood Urine Negative (Negative); Color Urine Yellow (Yellow); Glucose Urine UA Negative (Negative); Ketones Urine Negative (Negative); Leukocyte Esterase Ur 1+ LEU/UL (Negative); Nitrate Urine Negative (Negative); Non Pathogenic Casts 0-2; Protein Urine Negative (Negative); RBC Urine 0-2 /hpf (0-2); Specific Grav Ur 1.016 (1.001-1.035); Squamous Epithelial Cell Urine None Seen /hpf (Few); Urobilinogen Urine 0.2 mg/dL (<2.0); pH Urine 6.5 (5.0-9.0)
[2023-10-15 02:59] LABS: Add Urine Microscopic? YES
[2023-10-15 03:10] LABS: Amphetamine Screen Urine Negative (Negative); Barbiturate Screen Urine Negative (Negative); Benzodiazepines Screen Urine Negative (Negative); Cannabinoid Screen Urine Positive (Negative); Cocaine Screen Urine Negative (Negative); Methadone Screen Urine Negative (Negative); Opiate Screen Urine Negative (Negative); Phencyclidine Screen Urine Negative (Negative)
[2023-10-15 03:11] LABS: Acetaminophen < 10 ug/mL (10-30); Ethanol < 10 mg/dL (<10); Salicylate < 1.0 mg/dL (2-20)
[2023-10-15 03:12] LABS: Alanine Aminotransferase 11 U/L (6-50); Albumin Level 3.1 g/dL (3.5-5.1); Alkaline Phosphatase 87 U/L (38-126); Anion Gap 3 mmol/L (8-16); Aspartate Amino Transferase 24 U/L (17-59); Bilirubin,Total 0.2 mg/dL (0.2-1.3); Blood Urea Nitrogen 17 mg/dL (9-20); Carbon Dioxide 25 mmol/L (22-30); Chloride 107 mmol/L (98-107); Estimated CRCL calculation 91 ml/min; Estimated Glomerular Filt Rate > 60; Glucose 93 mg/dL (65-110); Potassium 4.1 mmol/L (3.4-5.0); Sodium 135 mmol/L (137-145)
[2023-10-15 03:15] LABS: Hypochromasia 1+; Microcytosis 1+ (NORMAL); Platelet Estimate Adequate (Adequate); Schistocytes None Seen
[2023-10-15 03:26] LABS: Influenza A QL RT-PCR Negative (Negative); Influenza B QL RT-PCR Negative (Negative); RSV RNA, RT-PCR Negative (Negative); SARS-CoV-2 RNA PCR Negative (Negative)
--- NOTE | 2023-10-15 03:57 | ED.GENADULT ---
HPI - General Adult General Chief complaint: Psychiatric Symptoms <Navarro Nuñez MD - Last Filed: 10/15/23 06:12> Stated complaint: HOMICIDAL IDEATIONS, AMS, HALLUCINATIONS <Navarro Nuñez MD - Last Filed: 10/15/23 06:12> Time Seen by Provider: 10/15/23 02:33 <Navarro Nuñez MD - Last Filed: 10/15/23 06:12> History of Present Illness HPI narrative: Patient is a 48-year-old gentleman who presents emergency department with chief complaint of I am going to hurt somebody else or myself. The patient was in the local police station but was not allowed to stay in the lobby due to becoming aggressive. The patient became agitated after he was told to leave and then said that he wanted to hurt others or himself rib patient reports that he has been seeing shadows and reports that he has not slept in 4 days patient does report that he has history of bipolar disorder CHF hypertension and depression the patient does report that he has prior use meth but it has been a week or so since he has used <Navarro Nuñez MD - Last Filed: 10/15/23 06:12> Related Data Allergies/adverse reactions: Allergies Allergy/AdvReac Type Severity Reaction Status Date / Time haloperidol Allergy Swelling Verified 04/09/22 04:23 of Lip/Tongue/Throat <Navarro Nuñez MD - Last Filed: 10/15/23 06:12> Review of Systems Review of Systems: A 10 system review of systems was completed on the patient and is negative except for what is stated in the HPI. Nursing and ancillary documentation was reviewed. <Navarro Nuñez MD - Last Filed: 10/15/23 06:12> [facility] Past Medical History Medical History: Medical History Alcohol abuse Coffee ground emesis Depression Methamphetamine use PTSD (post-traumatic stress disorder) Schizophrenia Smoker <Navarro Nuñez MD - Last Filed: 10/15/23 06:12> Surgical History Surgical History: Surgical History No pertinent past surgical history <Navarro Nuñez MD - Last Filed: 10/15/23 06:12> Family History Family History: Family History Sibling Asthma Grandparent Cancer <Navarro Nuñez MD - Last Filed: 10/15/23 06:12> Social History Social History: Social History Social History: He is unemployed and homeless. He is estranged from his family members. Smoking packs per day: 1 Smoking cigarettes per day: 20.0 Years smoked: 30 Smoking pack-years: 30.00 Smoking status: Current every day smoker Tobacco type: cigarettes Alcohol intake: current Drinks per week: 10 Substance use: current Substance use type: marijuana Last use: 02/04 meth 02/10 marijuana Living arrangements: homeless Additional occupation/education comments: Unemployed Gender identity (if verbalized by the patient): Male Spiritual care concerns: No <Navarro Nuñez MD - Last Filed: 10/15/23 06:12> Exam Narrative: GENERAL: Well-appearing, well-nourished, and in no acute distress. HEAD: Normocephalic, atraumatic. EYES: PERRLA and EOMI. ENT: Nares clear, no rhinorrhea or epistaxis. Mucous membranes moist. NECK: Supple. CHEST: Clear to auscultation. No respiratory distress. HEART: Regular rate and rhythm. No murmur heard. Normal peripheral pulses. ABDOMEN: Soft, nontender, nondistended, normal active bowel sounds. EXTREMITIES: Normal range of motion. No edema. SKIN: Warm, dry, no rash. NEURO: No focal deficits. Alert and oriented x3. PSYCH: Normal mood and affect. <Navarro Nuñez MD - Last Filed: 10/15/23 06:12> Course Course Emergency Course: Patient accepted to [facility] for psychiatric care by Dr. Evangelista at 3:19 p.m. <Cristian Brown MD - Last Filed
--- NOTE | 2023-10-15 04:01 | PC.NURSE ---
Per [facility] Nuñez, pt is medically cleared for evaluation, and transport if needed.
[2023-10-15 07:22] VITALS: BP 130/82; PULSE 79; RESP 14; TEMP 36.4; O2SAT 100
--- NOTE | 2023-10-15 07:28 | PC.NURSE ---
Meal tray offered, pt declined at this time
[2023-10-15 10:25] VITALS: BP 126/78; PULSE 73; RESP 14; O2SAT 99
--- NOTE | 2023-10-15 10:26 | PC.NURSE ---
Meal tray offered, pt declined
[2023-10-15] MEDS: ACETAMINOPHEN 325 MG TABLET 650 MG PO (10:45)
--- NOTE | 2023-10-15 11:12 | PC.NURSE ---
Report given to Denise RANKIN, all questions answered
--- NOTE | 2023-10-15 13:57 | PC.NURSE ---
Lunch arrived to room.
[2023-10-15 14:02] VITALS: BP 128/74; PULSE 74; RESP 18; TEMP 36.9; O2SAT 98
== END 2023-10-15 23:47 ==
PROVIDERS: Emergency Provider Emergency Medicine
DX: R45.851 Suicidal ideations (principal); Z11.52 Encounter for screening for COVID-19; F31.9 Bipolar disorder, unspecified; F43.10 Post-traumatic stress disorder, unspecified; F20.9 Schizophrenia, unspecified; F17.210 Nicotine dependence, cigarettes, uncomplicated; Z59.00 Homelessness unspecified; I45.10 Unspecified right bundle-branch block; R94.31 Abnormal electrocardiogram [ECG] [EKG]
CPT/HCPCS: 36415; 80053; 80307; 84443; 85025; 87077; 87086; 87088; 87181; 87637; 93005; 99285; A9270

== ENCOUNTER 2023-10-27 18:33 | Emergency (ER) | payer OTHER, SELFPAY ==
--- NOTE | ~2023-10-27 | CT_ITS ---
EXAMINATION: CTA chest PE abdomen pel DATE: 10/27/2023 21:18 INDICATION: Chest pain. Shortness of breath. Abdominal bloating. TECHNIQUE: Computed tomography angiography (CTA) of the chest was performed with 100 mL Omnipaque-350 intravenous contrast timed to evaluate the pulmonary arteries. Coronal maximum intensity projection 3D-reconstructions were created by the technologist. Computed tomography (CT) of the abdomen and pelv is was performed with intravenous contrast. Automated exposure control and iterative reconstruction t echnique were employed. The dose-length product was 553.10 mGy-cm. COMPARISON: CT abdomen and pelvis 11/17/2021 FINDINGS: CTA chest: There is mild emphysema. There are chronic peripheral reticular opacities in the lungs. No pleural effusion. The heart size is normal. There are coronary artery calcifications. No pericardial effusion. There is no pulmonary embolus. There is mild mediastinal lymphadenopathy. There is a large volume of material in the esophagus. There is mild chronic anterior wedging of multiple thoracic vladimir tebral bodies. There is severe cervical spondylosis and mild thoracic spondylosis. CT abdomen and pelvis: The liver, gallbladder, spleen, pancreas, and adrenal glands are normal. There is mild atrophy of right kidney and moderate atrophy of left kidney. There are no dilated loops of b owel. The appendix is normal. There are no pathologically enlarged lymph nodes. There is no free intr aperitoneal fluid. There is mild lumbar spondylosis. IMPRESSION: 1. Large volume of material in the esophagus. 2. No pulmonary embolus. 3. Mild emphysema and mild chronic interstitial lung disease. 4. Mild mediastinal lymphadenopathy, likely reactive. Reviewed, dictated and finalized at location A.
--- NOTE | ~2023-10-27 | XR_ITS ---
EXAMINATION: XR chest 1V portable DATE: 10/27/2023 19:06 INDICATION: Chest pain. Shortness of breath. TECHNIQUE: A single frontal view of the chest was obtained. COMPARISON: Chest single view 11/29/2022, CT abdomen and pelvis 11/17/2021 FINDINGS: There is no pneumonia, pleural effusion, or pneumothorax. The heart size is normal. IMPRESSION: 1. No acute cardiopulmonary disease. Reviewed, dictated and finalized at location A.
--- NOTE | 2023-10-27 18:41 | ECG_ITS ---
Measurements Intervals [place] Rate: 84 P: 64 NH: 192 QRS: -72 QRSD: 158 T: 77 QT: 408 QTc: 485 Interpretive Statements SINUS RHYTHM RIGHT BUNDLE BRANCH BLOCK LEFT ANTERIOR FASCICULAR BLOCK LEFT VENTRICULAR HYPERTROPHY AND ST-T CHANGE ABNORMAL ECG COMPARED TO ECG 10/15/2023 02:48:40 NO SIGNIFICANT CHANGES Electronically Signed On 10-27-2023 21:07:17 CDT by Walter Gray D.O.
[2023-10-27 18:42] VITALS: BP 111/72; PULSE 87; PULSE 89; RESP 20; TEMP 36.7; O2SAT 100; O2SAT 98
[2023-10-27 18:45] VITALS: BP 96/60; PULSE 87; RESP 20; O2SAT 100
--- NOTE | 2023-10-27 18:57 | ED.CHESTPAIN ---
HPI - Chest Pain General Chief Complaint: Chest Pain Stated Complaint: fall, knee and hip pain Source: patient Mode of arrival: ambulatory Limitations: no limitations History of Present Illness HPI narrative: Patient is a 48 y/o male who presents to the ED via EMS with report of CP. Patient reports having with pain in the center of his chest for the last 1 hour. Pain radiates through to his back. Patient states overall he just does not feel well. Also reports having swelling of his lower extremities, abdomen for the last few days. He has history of CHF and states he is not currently on any medications for this. Unable to afford them. He is currently homeless. Does not currently see a jeeper operator. Reports mild shortness of breath, diffuse abd pain. Denies N/V. Denies fevers, cough, cold sx's. Patient denies drug or alcohol abuse. Denies IV drug use. Related Data Allergies Allergy/AdvReac Type Severity Reaction Status Date / Time haloperidol Allergy Swelling Verified 04/09/22 04:23 of Lip/Tongue/Throat Review of Systems Review of Systems: CONSTITUTIONAL: Denies fever, chills, or sweats. ENT: Denies rhinorrhea, congestion, sore throat. CARDIOVASCULAR: See HPI. RESPIRATORY: See HPI. GASTROINTESTINAL: See HPI. MUSCULOSKELETAL: See HPI NEUROLOGIC: Denies headache, dizziness, numbness, or weakness. All systems reviewed & are unremarkable except as noted in HPI and below PMFSH Past Medical History Medical History Alcohol abuse 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 He is estranged from his family members. Smoking packs per day: 1 Smoking cigarettes per day: 20.0 Years smoked: 30 Smoking pack-years: 30.00 Smoking status: Current every day smoker Tobacco type: cigarettes Alcohol intake: current Drinks per week: 10 Substance use: current Substance use type: marijuana Last use: 02/04 meth 02/10 marijuana Living arrangements: homeless Additional occupation/education comments: Unemployed Gender identity (if verbalized by the patient): Male Spiritual care concerns: No Exam Narrative: GENERAL: Chronically ill appearing, mildly disheveled, obese with BMI of 30.1. In no acute distress. HEAD: Normocephalic, atraumatic. RESPIRATORY: Airway patent, respirations nonlabored. Decreased lung sounds in lung bases bilaterally, no focal rhonchi or wheezing CARDIOVASCULAR: Regular rate and rhythm. No appreciable murmur. ABDOMINAL: Abdomen is mildly distended and bloated, minimally tender. Normoactive BS. MUSCULOSKELETAL: Moves all extremities. No gross deformities. Diffuse nonpitting edema of lower extremities, symmetric bilaterally, no tenderness. Swelling to L olecranon, consistent with bursitis, nontender, no erythema or warmth. No wounds or drainage. No limited ROM of elbow. SKIN: Warm, dry, normal color. NEURO: A&O X3. Speech clear. PSYCHIATRIC: Appropriate mood and affect. Normal interaction. Course Vital Signs Vital signs: Vital Signs Temperature 98.0 F 10/27/23 18:42 Pulse Rate 87 10/27/23 18:42 Respiratory Rate 20 10/27/23 18:42 Blood Pressure 111/72 10/27/23 18:42 Pulse Oximetry 100 10/27/23 18:42 Oxygen Delivery Room Air 10/27/23 18:42 Temperature 98.0 F 10/27/23 18:42 Pulse Rate 90 10/27/23 21:40 Respiratory Rate 22 H 10/27/23 21:40 Blood Pressure 121/52 L 10/27/23 21:40 Pulse Oximetry 98 10/27/23 21:40 Oxygen Delivery Room Air 10/27/23 18:42
[2023-10-27 19:35] LABS: Basophils Absolute Auto 0.1 K/mm3 (0.0-0.1); Basophils Percent Auto 0.8 % (0.2-1.2); Eosinophils Absolute Auto 0.4 K/mm3 (0-0.3); Eosinophils Percent Auto 4.1 % (0-4.4); Hematocrit 28.6 % (42.0-52.0); Hemoglobin 8.7 g/dL (14.0-18.0); Immature Granulocyte Absolute 0.03 K/mm3 (0.00-0.031); Immature Granulocyte Percent A 0.3 % (0-0.5); Lymphocytes Absolute Auto 1.91 K/mm3 (0.9-3.2); Mean Corpuscular HGB Conc 30.4 g/dl (32-36); Mean Corpuscular Hemoglobin 21.3 pg (26-34); Mean Corpuscular Volume 69.9 fl (80-100); Mean Platelet Volume 8.8 fl (7.4-10.4); Monocytes Absolute Auto 1.2 K/mm3 (0.1-0.6); Monocytes Percent Auto 11.7 % (2.6-8.5); Neutrophils Absolute Auto 6.9 K/mm3 (1.3-6.7); Neutrophils Percent Auto 65.1 % (45.5-73.1); Platelet Count Result 410 k/mm3 (150-375); Red Blood Count 4.09 M/mm3 (4.6-6.20); Red Cell Distribution Width 22.1 % (11.5-14.5); White Blood Count 10.6 K/mm3 (4.5-10.0)
[2023-10-27 19:41] LABS: INR 0.9; Partial Thromboplastin Time 30.9 Seconds (22.3-36.8)
[2023-10-27 19:43] LABS: Appearance Urine Clear (Clear); Bilirubin Urine Negative (Negative); Blood Urine Negative (Negative); Color Urine Yellow (Yellow); Glucose Urine UA Negative (Negative); Ketones Urine Negative (Negative); Leukocyte Esterase Ur Negative LEU/UL (Negative); Nitrate Urine Negative (Negative); Protein Urine Negative (Negative); Specific Grav Ur 1.013 (1.001-1.035); Urobilinogen Urine 0.2 mg/dL (<2.0); pH Urine 5.5 (5.0-9.0)
[2023-10-27 19:52] LABS: Troponin I < 0.012 ng/mL (0.000-0.034)
[2023-10-27 19:53] LABS: Alanine Aminotransferase 13 U/L (6-50); Alkaline Phosphatase 82 U/L (38-126); Anion Gap 4 mmol/L (4-12); Aspartate Amino Transferase 26 U/L (17-59); Bilirubin,Total 0.1 mg/dL (0.2-1.3); Blood Urea Nitrogen 10 mg/dL (9-20); Calcium 8.5 mg/dL (8.4-10.2); Carbon Dioxide 25 mmol/L (22-30); Chloride 106 mmol/L (98-107); Estimated CRCL calculation 104 ml/min; Estimated Glomerular Filt Rate > 60; Glucose 107 mg/dL (65-110); Lipase 48 U/L (23-300); Potassium 3.4 mmol/L (3.4-5.0); Sodium 135 mmol/L (137-145)
[2023-10-27 19:55] LABS: Add Urine Microscopic? NO
[2023-10-27 19:57] LABS: Amphetamine Screen Urine Negative (Negative); Barbiturate Screen Urine Negative (Negative); Benzodiazepines Screen Urine Negative (Negative); Cannabinoid Screen Urine Positive (Negative); Cocaine Screen Urine Negative (Negative); Methadone Screen Urine Negative (Negative); Opiate Screen Urine Negative (Negative); Phencyclidine Screen Urine Negative (Negative)
[2023-10-27 19:58] LABS: D Dimer 0.67 ug/mL (<0.48)
[2023-10-27 20:00] LABS: NT Pro B Type Natriuretic Pept 91 pg/mL (19.9-100)
[2023-10-27 20:01] LABS: Ethanol < 10 mg/dL (<10)
[2023-10-27 20:17] LABS: Platelet Estimate Adequate (Adequate)
[2023-10-27 20:18] LABS: Anisocytosis 2+; Ovalocytes 1+; Schistocytes Rare
[2023-10-27 20:24] VITALS: BP 95/58; PULSE 77; RESP 20; O2SAT 98
[2023-10-27] MEDS: SODIUM CHLORIDE 0.9% IV 1,000 ML 999 ML IV CONT (20:53)
[2023-10-27 21:38] LABS: Iron 20 ug/dL (49-181)
[2023-10-27 21:40] VITALS: BP 121/52; PULSE 90; RESP 22; O2SAT 98
[2023-10-27 21:48] LABS: Percent Iron Saturation 6 % (20-50)
--- NOTE | 2023-10-27 21:50 | ECG_ITS ---
Measurements Intervals [place] Rate: 89 P: 75 NM: 223 QRS: -66 QRSD: 143 T: 52 QT: 397 QTc: 483 Interpretive Statements SINUS RHYTHM WITH FIRST DEGREE AV BLOCK ATRIAL PREMATURE COMPLEX RIGHT BUNDLE BRANCH BLOCK LEFT ANTERIOR FASCICULAR BLOCK LEFT VENTRICULAR HYPERTROPHY WITH ST-T CHANGE BASELINE ARTIFACT- I, II, III, AVR, AVL, AVF, V1-V3 ABNORMAL ECG COMPARED TO ECG 10/27/2023 18:23:17 FIRST DEGREE AV BLOCK NOW PRESENT Electronically Signed On 10-28-2023 8:02:39 CDT by Walter Gray D.O.
[2023-10-27 22:11] LABS: Thyroid Stimulating Hormone Reflex 0.615 uIU/mL (0.465-4.68)
[2023-10-27 22:15] LABS: Ferritin 6.78 ng/mL (11.1-264)
[2023-10-27 22:18] LABS: Troponin I < 0.012 ng/mL (0.000-0.034)
[2023-10-27 22:24] LABS: Folic Acid 7.7 ng/mL (2.76->20)
== END 2023-10-27 23:38 | disposition home or self-care (01) ==
PROVIDERS: Emergency Provider Physician Assistant; Referring Provider Emergency Medicine
DX: R07.89 Other chest pain (principal); D50.9 Iron deficiency anemia, unspecified; Z59.00 Homelessness unspecified; I50.9 Heart failure, unspecified
CPT/HCPCS: 36415; 71045; 71275; 74177; 80053; 80307; 81003; 82607; 82728; 82746; 83540; 83550; 83690; 83880; 84443; 84484; 85025; 85380; 85610; 85730; 86850; 86900; 86901; 93005; 96360; 99284; J7030; Q9967

== ENCOUNTER 2024-02-06 13:23 | Emergency (ER) | payer OTHER, SELFPAY ==
[2024-02-06] VITALS (21 sets, daily range): BP systolic 105–128; BP diastolic 64–90; PULSE 73–103; RESP 19–30; TEMP 37.4; O2SAT 94–100
--- NOTE | ~2024-02-06 | XR_ITS ---
XR chest 1V portable Ordering provider: Alexsandra Choi MD History: 48 years Male with . chest pain WITH RECENT DRUG USE PER PT . Comparison: October 10, 2023 FINDINGS: MEDIASTINUM: The cardiac silhouette is slightly enlarged. Congestive fracisco. LUNGS: No infiltrates, effusions or pneumothorax. Bilateral interstitial changes with prominent bradford ngs in the lower lobes. OTHER: No free air under the diaphragm. Degenerative changes of the spine. IMPRESSION: Bilateral interstitial changes with prominent markings in the lower lobes. Possibility of pneumonitis or cardiac decompensation and pulmonary edema is not excluded. Reviewed, dictated and finalized at location A. IMPRESSION: Bilateral interstitial changes with prominent markings in the lower lobes. Poss ibility of pneumonitis or cardiac decompensation and pulmonary edema is not exc luded.
--- NOTE | 2024-02-06 13:31 | ECG_ITS ---
Test Date: 2024-02-06 13:39:05 Measurements Intervals [place] Rate: 72 P: 69 CT: 216 QRS: -68 QRSD: 166 T: 32 QT: 414 QTc: 454 Interpretive Statements SINUS RHYTHM WITH FIRST DEGREE AV BLOCK RIGHT BUNDLE BRANCH BLOCK LEFT ANTERIOR FASCICULAR BLOCK VOLTAGE CRITERIA FOR LVH BASELINE ARTIFACT- I, II, III, AVR, AVL, AVF, V1-V2 ABNORMAL ECG No previous ECG available for comparison Electronically Signed On 02-06-2024 14:22:47 CDT by Walter Gray D.O.
--- NOTE | 2024-02-06 14:16 | ED.CHESTPAIN ---
HPI - Chest Pain General Chief Complaint: Chest Pain <Betty Finch MD - Last Filed: 02/08/24 07:08> Stated Complaint: CP <Betty Finch MD - Last Filed: 02/08/24 07:08> Time Seen by Provider: 02/06/24 14:02 <Betty Finch MD - Last Filed: 02/08/24 07:08> History of Present Illness HPI narrative: Patient is a 48-year-old male with history of polysubstance use, coronary artery disease here with chest pain. Patient states that his chest pain began about an hour ago. He states that he ate an edible and began having pain in his chest. The pain is located in midsternum, nonradiating. He also endorses using meth today. He denies any nausea, vomiting, lightheadedness. He does state that he feels quite tired after eating edible. He denies prior cardiac stents. 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 He is estranged from his family members. Smoking packs per day: 1 Smoking cigarettes per day: 20.0 Years smoked: 30 Smoking pack-years: 30.00 Smoking status: Current every day smoker Tobacco type: cigarettes Alcohol intake: current Drinks per week: 10 Substance use: current Substance use type: marijuana Last use: 02/04 meth 02/10 marijuana Living arrangements: homeless Additional occupation/education comments: Unemployed Gender identity (if verbalized by the patient): Male Spiritual care concerns: No <Betty Finch MD - Last Filed: 02/08/24 07:08> Exam Narrative: GENERAL: Well-appearing, well-nourished, and in no acute distress. HEAD: Normocephalic, atraumatic. EYES: PERRLA and EOMI. ENT: Nares clear. Mucous membranes moist. NECK: Supple. CHEST: Clear to auscultation. No respiratory distress. HEART: Regular rate and rhythm. Normal peripheral pulses. ABDOMEN: Soft, nontender, nondistended. EXTREMITIES: Normal range of motion. No edema. olecranon bursa appreciated on the left, nontender, not warm to the touch, normal range of motion. SKIN: Warm, dry, no rash. NEURO: No focal deficits. Drowsy answers questions with short answers and limited history provided. PSYCH: Flat affect <Betty Finch MD - Last Filed: 02/08/24 07:08> Course Course Emergency Course: Chart review performed. [facility] He reportedly did meth and an edible today. Triage vitals normal. Last visit for chest pain was in September of this year. Patient seen evaluated, nontoxic appearing, Drowsy but will answer some questions. He did use both meth and an edible today. On chart review it appears fused been seen at this hospital for an NSTEMI after drug use in 2021. He did have a normal stress test while in the hospital. Was di
[2024-02-06 14:19] LABS: Basophils Absolute Auto 0.1 K/mm3 (0.0-0.1); Basophils Percent Auto 1.4 % (0.2-1.2); Eosinophils Absolute Auto 0.5 K/mm3 (0-0.3); Eosinophils Percent Auto 4.9 % (0-4.4); Hematocrit 37.7 % (42.0-52.0); Hemoglobin 11.4 g/dL (14.0-18.0); Immature Granulocyte Absolute 0.04 K/mm3 (0.00-0.031); Immature Granulocyte Percent A 0.4 % (0-0.5); Lymphocytes Absolute Auto 1.95 K/mm3 (0.9-3.2); Mean Corpuscular HGB Conc 30.2 g/dl (32-36); Mean Corpuscular Hemoglobin 21.8 pg (26-34); Mean Corpuscular Volume 71.9 fl (80-100); Mean Platelet Volume 8.8 fl (7.4-10.4); Monocytes Absolute Auto 0.8 K/mm3 (0.1-0.6); Neutrophils Absolute Auto 6.8 K/mm3 (1.3-6.7); Neutrophils Percent Auto 66.3 % (45.5-73.1); Platelet Count Result 384 k/mm3 (150-375); Red Blood Count 5.24 M/mm3 (4.6-6.20); Red Cell Distribution Width 23.8 % (11.5-14.5); White Blood Count 10.3 K/mm3 (4.5-10.0)
[2024-02-06 14:26] LABS: Alanine Aminotransferase 12 U/L (6-50); Albumin Level 3.7 g/dL (3.5-5.1); Alkaline Phosphatase 96 U/L (38-126); Anion Gap 7 mmol/L (4-12); Aspartate Amino Transferase 21 U/L (17-59); Bilirubin,Total 0.3 mg/dL (0.2-1.3); Blood Urea Nitrogen 9 mg/dL (9-20); Calcium 8.7 mg/dL (8.4-10.2); Carbon Dioxide 28 mmol/L (22-30); Chloride 102 mmol/L (98-107); Estimated CRCL calculation 81 ml/min; Estimated Glomerular Filt Rate > 60; Glucose 105 mg/dL (65-110); INR 0.9; Lipase 65 U/L (23-300); Potassium 4.2 mmol/L (3.4-5.0); Prothrombin Time 12.5 Seconds (11.1-14.7); Sodium 137 mmol/L (137-145)
[2024-02-06 14:27] LABS: Partial Thromboplastin Time 25.5 Seconds (22.3-36.8)
[2024-02-06 14:37] LABS: Troponin I < 0.012 ng/mL (0.000-0.034)
[2024-02-06 14:53] LABS: Platelet Estimate Slightly Increased (Adequate)
[2024-02-06 14:54] LABS: Anisocytosis 3+; Microcytosis 2+ (NORMAL); Schistocytes None Seen
[2024-02-06 14:55] LABS: Hypochromasia 1+
[2024-02-06] MEDS: ASPIRIN 81 MG CHEWABLE TABLET 324 MG PO (14:55)
[2024-02-06 15:11] LABS: Ethanol < 10 mg/dL (<10)
--- NOTE | 2024-02-06 17:22 | ECG_ITS ---
Test Date: 2024-02-06 17:22:43 Measurements Intervals [place]borne Rate: 78 P: 71 SC: 219 QRS: -69 QRSD: 162 T: 55 QT: 419 QTc: 480 Interpretive Statements SINUS RHYTHM WITH FIRST DEGREE AV BLOCK LEFT ANTERIOR FASCICULAR BLOCK RIGHT BUNDLE BRANCH BLOCK VOLTAGE CRITERIA FOR LVH ABNORMAL ECG Compared to ECG 02/06/2024 13:39:05 NO SIGNIFICANT CHANGE Electronically Signed On 02-07-2024 14:15:19 CDT by Walter Gray D.O.
[2024-02-06 17:40] LABS: Barbiturate Screen Urine Negative (Negative); Benzodiazepines Screen Urine Negative (Negative)
[2024-02-06 17:42] LABS: Cannabinoid Screen Urine Positive (Negative); Cocaine Screen Urine Negative (Negative); Methadone Screen Urine Negative (Negative); Opiate Screen Urine Negative (Negative); Phencyclidine Screen Urine Negative (Negative)
[2024-02-06 17:43] LABS: NT Pro B Type Natriuretic Pept 208 pg/mL (19.9-100)
[2024-02-06 17:55] LABS: Troponin I < 0.012 ng/mL (0.000-0.034)
[2024-02-06 18:06] LABS: Amphetamine Screen Urine Positive (Negative)
[2024-02-06] MEDS: ACETAMINOPHEN 500 MG TABLET 1000 MG PO (18:54)
[2024-02-06] MEDS: PANTOPRAZOLE SODIUM IV 40 MG VIAL IV PUSH (18:55)
[2024-02-06] MEDS: LORazepam INJ (*CRX) 2 MG/ML VIAL 0.5 MG IV PUSH (18:55)
[2024-02-06 20:02] LABS: Troponin I < 0.012 ng/mL (0.000-0.034)
[2024-02-07 05:34] VITALS: BP 115/76; PULSE 85; TEMP 36.5; O2SAT 100
== END 2024-02-07 05:50 | disposition home or self-care (01) ==
PROVIDERS: Emergency Medicine; Emergency Provider Student in an Organized Health Care Education/Training Program
DX: F15.10 Other stimulant abuse, uncomplicated (principal); R07.9 Chest pain, unspecified; I25.10 Atherosclerotic heart disease of native coronary artery without angina pectoris; F17.210 Nicotine dependence, cigarettes, uncomplicated
CPT/HCPCS: 36415; 71045; 80053; 80307; 83690; 83880; 84484; 85025; 85610; 85730; 93005; 96374; 96375; 99284; A9270; J2060; J2470

== ENCOUNTER 2024-05-17 23:08 | Emergency (ER) | payer OTHER, SELFPAY ==
[2024-05-17 23:11] VITALS: BP 111/72; PULSE 86; RESP 16; TEMP 36.8; O2SAT 96
[2024-05-17 23:30] LABS: Basophils Absolute Auto 0.2 K/mm3 (0.0-0.1); Basophils Percent Auto 1.1 % (0.2-1.2); Eosinophils Absolute Auto 0.6 K/mm3 (0-0.3); Eosinophils Percent Auto 4.3 % (0-4.4); Hematocrit 37.8 % (42.0-52.0); Hemoglobin 11.5 g/dL (14.0-18.0); Immature Granulocyte Absolute 0.05 K/mm3 (0.00-0.031); Immature Granulocyte Percent A 0.4 % (0-0.5); Lymphocytes Absolute Auto 2.43 K/mm3 (0.9-3.2); Lymphocytes Percent Auto 17.3 % (18.3-44.2); Mean Corpuscular HGB Conc 30.4 g/dl (32-36); Mean Corpuscular Hemoglobin 23.8 pg (26-34); Mean Corpuscular Volume 78.1 fl (80-100); Mean Platelet Volume 8.6 fl (7.4-10.4); Monocytes Absolute Auto 1.2 K/mm3 (0.1-0.6); Monocytes Percent Auto 8.2 % (2.6-8.5); Neutrophils Absolute Auto 9.7 K/mm3 (1.3-6.7); Neutrophils Percent Auto 68.7 % (45.5-73.1); Platelet Count Result 413 k/mm3 (150-375); Red Blood Count 4.84 M/mm3 (4.6-6.20); Red Cell Distribution Width 21.7 % (11.5-14.5)
[2024-05-17 23:41] LABS: Acetaminophen < 10 ug/mL (10-30); Ethanol < 10 mg/dL (<10); Salicylate < 1.0 mg/dL (2-20)
[2024-05-17 23:42] LABS: Alanine Aminotransferase 15 U/L (6-50); Albumin Level 3.7 g/dL (3.5-5.1); Alkaline Phosphatase 119 U/L (38-126); Anion Gap 6 mmol/L (4-12); Aspartate Amino Transferase 27 U/L (17-59); Bilirubin,Total 0.4 mg/dL (0.2-1.3); Blood Urea Nitrogen 15 mg/dL (9-20); Calcium 9.1 mg/dL (8.4-10.2); Carbon Dioxide 26 mmol/L (22-30); Chloride 107 mmol/L (98-107); Estimated CRCL calculation 60 ml/min; Estimated Glomerular Filt Rate > 60; Glucose 110 mg/dL (65-110); Lipase 72 U/L (23-300); Potassium 3.9 mmol/L (3.4-5.0); Sodium 139 mmol/L (137-145)
[2024-05-18 00:06] LABS: Influenza A QL RT-PCR Negative (Negative); Influenza B QL RT-PCR Negative (Negative); RSV RNA, RT-PCR Negative (Negative); SARS-CoV-2 RNA PCR Negative (Negative)
--- NOTE | 2024-05-18 03:04 | ED.PSYCH ---
HPI - Psych General Chief Complaint: Psychiatric Symptoms <Bharti Hampton MD - Last Filed: 05/18/24 06:11> Stated Complaint: Right sided abd pain <Bharti Hampton MD - Last Filed: 05/18/24 06:11> Time Seen by Provider: 05/18/24 02:14 <Bharti Hampton MD - Last Filed: 05/18/24 06:11> History of Present Illness HPI Narrative: Patient is a 48-year-old male who presents to the emergency department complaining of abdominal pain and suicidal thoughts. Upon my assessment, patient denies any abdominal pain but admits that he has been suicidal. Patient admits that he did tell the triage nurse that he wanted to jump off a bridge and did tell me that he wants to hang himself. Patient also admits that he did use meth today. When asked how he used the meth, patient states that he swallowed it. Patient has a golf sized round mass to his right elbow and when asked regarding that, patient states that that is something that is chronic and refuses to allow me to evaluated stating that that is not why he is here. Patient is denying any homicidal ideations at this time. Patient is cooperative although obtaining the history is somewhat difficult as he does appear to be under the influence of some drugs. <Bharti Hampton MD - Last Filed: 05/18/24 06:11> Related Data Allergies/Adverse Reactions: Allergies Allergy/AdvReac Type Severity Reaction Status Date / Time haloperidol Allergy Swelling Verified 04/09/22 04:23 of Lip/Tongue/Throat <Bharti Hampton MD - Last Filed: 05/18/24 06:11> Review of Systems Review of Systems: All systems are reviewed and are negative unless stated otherwise in the HPI. 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 He is estranged from his family members. Smoking packs per day: 1 Smoking cigarettes per day: 20.0 Years smoked: 30 Smoking pack-years: 30.00 Smoking status: Current every day smoker Tobacco type: cigarettes Alcohol intake: current Drinks per week: 10 Substance use: current Substance use type: methamphetamine and unknown Last use: 02/04 meth 02/10 marijuana Living arrangements: homeless Additional occupation/education comments: Unemployed Gender identity (if verbalized by the patient): Male Spiritual care concerns: No <Bharti Hampton MD - Last Filed: 05/18/24 06:11> Exam Narrative: General: Alert, awake, afebrile, in no acute distress. HEENT: PERRL, no rhinorrhea, no post nasal drip, oropharynx clear. Cardiovascular: Regular rate and rhythm, no murmurs, rubs or gallops, no peripheral edema. Respiratory: Clear to auscultation bilaterally, no tachypnea, no wheezing, no rhonchi, no rubs, no respiratory distress. Abdomen: Soft, nontender, nondistended, no rebound, no guarding, no peritoneal signs. Musculoskeletal: Golf sized round right elbow swelling/ mass, intact left upper extremity flexion and extension at the left elbow joint. Skin: No rashes or petechia, no signs of infection. Neurological: Alert and oriented to person, place, and time. Follows all commands. No focal deficits, speech is clear and fl
[2024-05-18 03:27] VITALS: BP 182/105; PULSE 73; RESP 16; TEMP 36.4; O2SAT 97
[2024-05-18 06:35] VITALS: BP 165/104; PULSE 63; RESP 16; O2SAT 95
[2024-05-18 07:19] VITALS: BP 153/98; PULSE 76; RESP 17; O2SAT 98
[2024-05-18 07:47] LABS: Barbiturate Screen Urine Negative (Negative); Benzodiazepines Screen Urine Negative (Negative)
[2024-05-18 07:48] LABS: Add Urine Microscopic? YES; Appearance Urine Cloudy (Clear); Bacteria Urine None Seen /hpf; Bilirubin Urine Negative (Negative); Blood Urine 3+ (Negative); Color Urine Yellow (Yellow); Glucose Urine UA Negative (Negative); Ketones Urine 1+ mg/dL (Negative); Leukocyte Esterase Ur 2+ LEU/UL (Negative); Need Manual Microscopic Reviewed; Nitrate Urine Positive (Negative); Protein Urine 3+ mg/dL (Negative); RBC Urine >100 /hpf (0-2); Specific Grav Ur 1.012 (1.001-1.035); Squamous Epithelial Cell Urine None Seen /hpf (Few); WBC Urine >100 /hpf (0-3); pH Urine 6.5 (5.0-9.0)
[2024-05-18 07:49] LABS: Cannabinoid Screen Urine Positive (Negative); Cocaine Screen Urine Negative (Negative); Methadone Screen Urine Negative (Negative); Opiate Screen Urine Negative (Negative); Phencyclidine Screen Urine Negative (Negative)
[2024-05-18 08:15] LABS: Amphetamine Screen Urine Positive (Negative)
[2024-05-18] MEDS: CEPHALEXIN 500 MG CAPSULE PO (08:58)
--- NOTE | 2024-05-18 10:54 | PC.NURSE ---
Lab tests faxed to [facility] at this time by this RN as requested by Yousuf at [facility].
[2024-05-18 12:07] VITALS: BP 158/75; PULSE 82; RESP 165; O2SAT 98
== END 2024-05-18 13:11 ==
PROVIDERS: Physician Assistant; Emergency Provider Emergency Medicine
DX: N39.0 Urinary tract infection, site not specified (principal); F15.90 Other stimulant use, unspecified, uncomplicated; F10.10 Alcohol abuse, uncomplicated; F43.10 Post-traumatic stress disorder, unspecified; F20.9 Schizophrenia, unspecified; F17.210 Nicotine dependence, cigarettes, uncomplicated; Z59.00 Homelessness unspecified; Z20.822 Contact with and (suspected) exposure to COVID-19
CPT/HCPCS: 36415; 80053; 80143; 80179; 80307; 81001; 82077; 83690; 84443; 85025; 87086; 87181; 87637; 99285; A9270

== ENCOUNTER 2024-07-15 05:01 | Emergency (ER) | payer OTHER, SELFPAY ==
--- NOTE | ~2024-07-15 | CT_ITS ---
CT abdomen pelvis w con Ordering provider: Sam Sommer MD History: 49 years Male with . ab pain . Comparison: None. Technique: CT abdomen and pelvis with IV and without oral contrast. Automated exposure control and it erative reconstruction technique were employed. The dose-length product was 191.23 mGy-cm. 100 mL Omn ipaque 350 was given IV. Findings: VISUALIZED LOWER CHEST: Dependent atelectatic changes. Underlying emphysematous changes./ UPPER ABDOMINAL ORGANS: Liver: Normal. Gallbladder: Contracted. Spleen: Normal. Stomach/duodenum: Small sliding hiatus hernia. Pancreas: Normal. Adrenals: Normal. Kidneys: Bilateral cortical nonenhancing areas which may indicate pyelonephritis with bilateral scarr ing. Left kidney is smaller than the right. Possible tiny calcification the left kidney upper pole and in the right kidney midpole. PELVIC ORGANS: The bladder shows slightly thickened wall. BOWEL AND MESENTERY: Colon: No evidence of diverticulitis.. A material is loaded in the colon suggestive of constipation. Appendix is not demonstrated. No inflammatory changes seen in the right lower quadrant. Small Bowel: Normal. No obstruction. Peritoneum/mesentery: No free air or free fluid. No mesenteric lymphadenopathy. RETROPERITONEUM: Mild atheromatous disease of the abdominal aorta. No retroperitoneal lymphadenopat hy. MUSCULOSKELETAL: Superficial soft tissues: The superficial soft tissues are normal. Bones: Age appropriate degenerative changes of the spine. IMPRESSION: 1. No evidence of appendicitis, diverticulitis or intestinal obstruction. 2. Constipation 3. Small sliding hiatus hernia. 4. Multiple cortical hypodensities which may indicate pyelonephritis with scarring seen bilaterally. Small left kidney. Possible tiny calcifications in the left kidney upper pole and the right kidney m idpole. Reviewed, dictated and finalized at location A. N DESIGNER IMPRESSION: 1. No evidence of appendicitis, diverticulitis or intestinal obstruction. 2. Constipation 3. Small sliding hiatus hernia. 4. Multiple cortical hypodensities which may indicate pyelonephritis with scar ring seen bilaterally. Small left kidney. Possible tiny calcifications in the l eft kidney upper pole and the right kidney midpole.
[2024-07-15 05:14] VITALS: BP 156/108; PULSE 90; RESP 16; TEMP 36.8; O2SAT 100
[2024-07-15 05:44] LABS: Basophils Absolute Auto 0.2 K/mm3 (0.0-0.1); Basophils Percent Auto 1.5 % (0.2-1.2); Eosinophils Absolute Auto 0.9 K/mm3 (0-0.3); Eosinophils Percent Auto 8.1 % (0-4.4); Hematocrit 33.9 % (42.0-52.0); Hemoglobin 10.4 g/dL (14.0-18.0); Immature Granulocyte Absolute 0.02 K/mm3 (0.00-0.031); Immature Granulocyte Percent A 0.2 % (0-0.5); Lymphocytes Absolute Auto 2.18 K/mm3 (0.9-3.2); Lymphocytes Percent Auto 19.3 % (18.3-44.2); Mean Corpuscular HGB Conc 30.7 g/dl (32-36); Mean Corpuscular Hemoglobin 23.5 pg (26-34); Mean Corpuscular Volume 76.5 fl (80-100); Mean Platelet Volume 8.7 fl (7.4-10.4); Monocytes Absolute Auto 1.3 K/mm3 (0.1-0.6); Monocytes Percent Auto 11.7 % (2.6-8.5); Neutrophils Absolute Auto 6.7 K/mm3 (1.3-6.7); Neutrophils Percent Auto 59.2 % (45.5-73.1); Platelet Count Result 420 k/mm3 (150-375); Red Blood Count 4.43 M/mm3 (4.6-6.20); Red Cell Distribution Width 19.4 % (11.5-14.5); White Blood Count 11.3 K/mm3 (4.5-10.0)
[2024-07-15 05:56] LABS: Alanine Aminotransferase 13 U/L (6-50); Albumin Level 3.8 g/dL (3.5-5.1); Alkaline Phosphatase 110 U/L (38-126); Anion Gap 3 mmol/L (4-12); Aspartate Amino Transferase 26 U/L (17-59); Bilirubin,Total 0.3 mg/dL (0.2-1.3); Blood Urea Nitrogen 21 mg/dL (9-20); Calcium 9.5 mg/dL (8.4-10.2); Carbon Dioxide 30 mmol/L (22-30); Chloride 106 mmol/L (98-107); Estimated CRCL calculation 42 ml/min; Estimated Glomerular Filt Rate 49; Glucose 108 mg/dL (65-110); Potassium 3.7 mmol/L (3.4-5.0); Sodium 139 mmol/L (137-145)
--- NOTE | 2024-07-15 06:28 | PC.NURSE ---
Patient vomits all over mattress. Patient educated to use emesis bag if he feels the need to vomit. Patient verbalizes understanding and asks for a blanket. Sitter at bedside. EDP aware of nausea/vomit.
[2024-07-15 06:31] LABS: Influenza A QL RT-PCR Negative (Negative); Influenza B QL RT-PCR Negative (Negative); RSV RNA, RT-PCR Negative (Negative); SARS-CoV-2 RNA PCR Negative (Negative)
--- NOTE | 2024-07-15 07:06 | ED.GENADULT ---
HPI - General Adult General Chief complaint: Abdominal Pain Stated complaint: hallucinations and abd pain Time Seen by Provider: 07/15/24 06:54 History of Present Illness HPI narrative: 49-year-old male presenting to the emergency department for evaluation alcohol intoxication, methamphetamine use, suicidal ideation abdominal pain. patient states he has abdominal pain every day in this is his typical abdominal pain. Patient states he last used methamphetamine a few days ago. Patient does have a cyst over his left elbow which he states has been present for the last few months. Patient states he is homeless intentionally. 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 He is estranged from his family members. Smoking packs per day: 1 Smoking cigarettes per day: 20.0 Years smoked: 30 Smoking pack-years: 30.00 Smoking status: Current every day smoker Tobacco type: cigarettes Alcohol intake: current Drinks per week: 10 Substance use: current Substance use type: marijuana and methamphetamine Last use: 02/04 meth 02/10 marijuana Living arrangements: homeless Additional occupation/education comments: Unemployed Gender identity (if verbalized by the patient): Male Spiritual care concerns: No Exam Narrative: APPEARANCE: Well appearing, no pain, no distress, well-nourished. HEAD: normocephalic, atraumatic. EYES: PERRLA/EOMI, conjunctivae clear. NOSE: Normal no drainage EARS:TMS clear with good light reflex. THROAT: Pharynx clear, no exudate. NECK: Supple. No adenopathy, no masses. RESPIRATORY: Airway patent, respirations nonlabored. Clear to auscultation bilaterally, no rales, rhonchi, wheezing. CARDIOVASCULAR: Regular rate and rhythm without murmurs rubs or gallops. ABDOMINAL: Soft, nontender, nondistended, normal bowel sounds MUSCULOSKELETAL: elbow bursitis NEURO: Alert. Cranial nerves II through XII intact. Good gait. Good coordination SKIN: Warm, dry. Normal Color Course Course Emergency Course: APPEARANCE: Well appearing, no pain, no distress, well-nourished. HEAD: normocephalic, atraumatic. EYES: PERRLA/EOMI, conjunctivae clear. NOSE: Normal no drainage EARS:TMS clear with good light reflex. THROAT: Pharynx clear, no exudate. NECK: Supple. No adenopathy, no masses. RESPIRATORY: Airway patent, respirations nonlabored. Clear to auscultation bilaterally, no rales, rhonchi, wheezing. CARDIOVASCULAR: Regular rate and rhythm without murmurs rubs or gallops. ABDOMINAL: Soft, nontender, nondistended, normal bowel sounds MUSCULOSKELETAL: Left elbow bursitis NEURO: Alert. Cranial nerves II through XII intact. Good gait. Good coordination SKIN: Warm, dry. Normal Color Vital Signs Vital signs: Vital Signs Temperature 98.2 F 07/15/24 05:14 Pulse Rate 90 07/15/24 05:14 Respiratory Rate 16 07/15/24 05:14 Blood Pressure 156/108 H 07/15/24 05:14 Pulse Oximetry 100 07/15/24 05:14 Temperature 98.2 F 07/15/24 05:14 Pulse Rate 64 07/15/24 12:15 Respiratory Rate 16 07/15/24 12:15 Blood Pressure 168/94 H 07/15/24 12:15 Pulse Oximetry 98 07/15/24 12:15 Medical Decision Making [facility] Narrative Medical decision making narrative: 49-year-old male present to the emergency department for evaluation for abdominal pain and suicidal ideation. Patient is afebrile with a leukocytosis of 11.3 and hemoglobin of 10.4 patient did have a creatinine of 1.5 the typical baseline of 1. UA shows no underlying evidence of infection patient was positive for cannabinoids patient was negative for influenza RSV and for COVID, abdominal CT was negative for acute intra-abdominal pathology. Patient is medically cleared at this time to be evaluated by crisis and patient is medically cleared for transport an inpatient psychiatric hospitalization as needed. Patient was admitted to [facility] for inpatient psychiatric treatment. Patient was stable at time of transfer Differential Diagnosis Differential Diagnosis: Nausea vomiting abdominal pain, colitis, diverticulitis, substance abuse, depression, suicidal ideation Vital Signs Vital Signs: Vital Signs Temperature 98.2 F 07/15/24 05:14 Pulse Rate 90 07/15/24 05:14 Respiratory Rate 16 07/15/24 05:14 Blood Pressure 156/108 H 07/15/24 05:14 Pulse Oximetry 100 07/15/24 05:14 Temperature 98.2 F 07/15/24 05:14 Pulse Rate 64 07/15/24 12:15 Respiratory Rate 16 07/15/24 12:15 Blood Pressure 168/94 H 07/15/24 12:15 Pulse Oximetry 98 07/15/24 12:15 Lab Data Lab results reviewed: Yes I reviewed the patient's lab results. 07/15/24 05:37 07/15/24 05:37 Labs: Lab Results 07/15/24 07/15/24 07/15/24 Range/Units 05:36 05:37 06:56 WBC 11.3 H (4.5-10.0) K/mm3 RBC 4.43 L (4.6-6.20) M/mm3 Hgb 10.4 L (14.0-18.0) g/dL Hct 33.9 L (42.0-52.0) % MCV 76.5 L (80-100) fl MCH 23.5 L (26-34) pg MCHC 30.7 L (32-36) g/dl RDW 19.4 H (11.5-14.5) % Plt Count 420 H (150-375) k/mm3 MPV 8.7 (7.4-10.4) fl Immature Gran % (Auto) 0.2 (0-0.5) % Neut % (Auto) 59.2 (45.5-73.1) % Lymph % (Auto) 19.3 (18.3-44.2) % [place] % (Auto) 11.7 H (2.6-8.5) % Eos % (Auto) 8.1 H (0-4.4) % Baso % (Auto) 1.5 H (0.2-1.2) % Lymph # (Auto) 2.18 (0.9-3.2) K/mm3 [place] # (Auto) 1.3 H (0.1-0.6) K/mm3 Eos # (Auto) 0.9 H (0-0.3) K/mm3 Baso # (Auto) 0.2 H (0.0-0.1) K/mm3 Abs Immat Gran (auto) 0.02 (0.00-0.031) K/mm3 Absolute Neuts (auto) 6.7 (1.3-6.7) K/mm3 Absolute Nucleated RBC 0.000 (0.0-0.012) K/mm3 Nucleated RBC % 0.0 (0.0-0.2) % Sodium 139 (137-145) mmol/L Potassium 3.7 (3.4-5.0) mmol/L Chloride 106 (98-107) mmol/L Carbon Dioxide 30 (22-30) mmol/L Anion Gap 3 L (4-12) mmol/L BUN 21 H (9-20) mg/dL Creatinine 1.50 H (0.7-1.3) mg/dL Estim Creat Clear Calc 42 ml/min Estimated GFR 49 L (59 - ) Glucose 108 (65-110) mg/dL Calcium 9.5 (8.4-10.2) mg/dL Magnesium 2.1 (1.6-2.3) mg/dL Total Bilirubin 0.3 (0.2-1.3) mg/dL AST 26 (17-59) U/L ALT 13 (6-50) U/L Alkaline Phosphatase 110 (38-126) U/L Total Protein 7.0 (6.3-8.2) g/dL Albumin 3.8 (3.5-5.1) g/dL TSH (Reflex) 2.110 (0.465-4.68) uIU/mL Urine Color Yellow (Yellow) Urine Appearance Cloudy H (Clear) Urine pH 7.5 (5.0-9.0) Ur Specific [place] 1.016 (1.001-1.035) Urine Protein Trace (Negative) mg/dL Urine Glucose (UA) Negative (Negative) mg/dL Urine Ketones Trace H (Negative) mg/dL Ur Blood (Man) Negative (Negative) Urine Nitrate Negative (Negative) Urine Bilirubin Negative (Negative) Urine Urobilinogen 0.2 (<2.0) mg/dL Leukocyte Esterase Rfl Negative (Negative) MARBELLA/UL Urine RBC 0-2 (0-2) /hpf Urine WBC 0-5 (0-3) /hpf Ur Squamous Epith Cells None seen (Few) /hpf Urine Bacteria None seen /hpf Urine Casts 0-2 Salicylates < 1.0 L (2-20) mg/dL Urine Opiates Screen Negative (Negative) Urine Methadone Screen Negative (Negative) Acetaminophen < 10 L (10-30) ug/mL Ur Barbiturates Screen Negative (Negative) Ur Phencyclidine Scrn Negative (Negative) Ur Amphetamine Screen Negative (Negative) U Benzodiazepines Scrn Negative (Negative) Urine Cocaine Screen Negative (Negative) U Cannabinoids Screen Positive A (Negative) Ethyl Alcohol < 10 (<10) mg/dL Influenza A (RT-PCR) Negative (Negative) Influenza B (RT-PCR) Negative (Negative) RSV (RT-PCR) Negative (Negative) SARS-CoV-2 RNA (RT-PCR) Negative (Negative) Imaging Data Radiologist's impression: Impressions Abdomen/Pelvis CT 07/15/24 08:20 IMPRESSION: 1. No evidence of appendicitis, diverticulitis or intestinal obstruction. 2. Constipation 3. Small sliding hiatus hernia. 4. Multiple cortical hypodensities which may indicate pyelonephritis with scarring seen bilaterally. Small left kidney. Possible tiny calcifications in the left kidney upper pole and the right kidney midpole. Discharge Plan Discharge Clinical Impression: Suicide ideation Patient Disposition: Psychiatric Hosp Condition: Serious Instructions: Antibiotic Form Patient Language: Upper Sorbian Prescriptions: No Action ferrous sulfate [FeroSul] 325 mg (65 mg iron) tablet 325 mg PO DAILY Qty: 30 3RF ferrous sulfate 325 mg (65 mg iron) tablet 325 mg PO DAILY Qty: 30 0RF cephalexin 500 mg capsule 500 mg PO Q6H 7 Days Qty: 28 0RF Follow-up/Referrals: PHYSICIAN,TECHNICAL SALES SPECIALIST [Primary Care Provider] -
[2024-07-15 07:09] LABS: Add Urine Microscopic? YES; Appearance Urine Cloudy (Clear); Bacteria Urine None Seen /hpf; Bilirubin Urine Negative (Negative); Blood Urine Negative (Negative); Color Urine Yellow (Yellow); Glucose Urine UA Negative (Negative); Ketones Urine Trace mg/dL (Negative); Leukocyte Esterase Ur Negative LEU/UL (Negative); Nitrate Urine Negative (Negative); Non Pathogenic Casts 0-2; Protein Urine Trace mg/dL (Negative); RBC Urine 0-2 /hpf (0-2); Specific Grav Ur 1.016 (1.001-1.035); Squamous Epithelial Cell Urine None Seen /hpf (Few); Urobilinogen Urine 0.2 mg/dL (<2.0); WBC Urine 0-5 /hpf (0-3); pH Urine 7.5 (5.0-9.0)
[2024-07-15 07:20] LABS: Barbiturate Screen Urine Negative (Negative); Benzodiazepines Screen Urine Negative (Negative)
[2024-07-15 07:24] LABS: Amphetamine Screen Urine Negative (Negative); Cannabinoid Screen Urine Positive (Negative); Cocaine Screen Urine Negative (Negative); Opiate Screen Urine Negative (Negative); Phencyclidine Screen Urine Negative (Negative)
[2024-07-15 07:28] LABS: Methadone Screen Urine Negative (Negative)
[2024-07-15] MEDS: SODIUM CHLORIDE 0.9% IV 1,000 ML 999 ML IV CONT ×2 (08:53)
[2024-07-15 08:55] LABS: Magnesium 2.1 mg/dL (1.6-2.3)
[2024-07-15 09:25] LABS: Acetaminophen < 10 ug/mL (10-30); Salicylate < 1.0 mg/dL (2-20)
[2024-07-15 09:26] LABS: Ethanol < 10 mg/dL (<10)
[2024-07-15 12:15] VITALS: BP 168/94; PULSE 64; RESP 16; O2SAT 98
--- NOTE | 2024-07-15 16:40 | PC.NURSE ---
accepted at [facility] by DR. Oro waiting for transport
[2024-07-15 17:22] VITALS: BP 142/80; PULSE 86; RESP 16; TEMP 36.4; O2SAT 98
== END 2024-07-15 17:23 ==
PROVIDERS: Emergency Medicine; Emergency Provider Emergency Medicine
DX: R45.851 Suicidal ideations (principal); Z11.52 Encounter for screening for COVID-19; M70.32 Other bursitis of elbow, left elbow; F43.10 Post-traumatic stress disorder, unspecified; F20.9 Schizophrenia, unspecified; F32.A Depression, unspecified; F17.210 Nicotine dependence, cigarettes, uncomplicated; Z59.00 Homelessness unspecified; K59.00 Constipation, unspecified; K44.9 Diaphragmatic hernia without obstruction or gangrene; R93.422 Abnormal radiologic findings on diagnostic imaging of left kidney; R93.421 Abnormal radiologic findings on diagnostic imaging of right kidney
CPT/HCPCS: 36415; 74177; 80053; 80143; 80179; 80307; 81001; 82077; 83735; 84443; 85025; 87637; 96360; 99285; J7030; Q9967

== ENCOUNTER 2024-12-02 10:35 | Emergency (ER) | payer OTHER, SELFPAY ==
--- NOTE | ~2024-12-02 | CT_ITS ---
CT of the Abdomen and Pelvis: Indication: Epigastric pain Technique: 2.5 mm axial scans were obtained through the abdomen and pelvis following intravenous adm inistration of 100 cc of Omnipaque 350. Dose reduction technique was used on this scan by utilizing a utomated exposure control and iterative reconstruction technique. The dose-length product (DLP) was 2 26.35 mGy-cm. COMPARISON: 07/15/2024 Findings: Scans through the lung bases demonstrate mild chronic interstitial disease peripherally. The liver, spleen, pancreas, gallbladder, and adrenal glands are within normal limits. Stable areas o f bilateral renal cortical scarring as well as nonobstructing stones and/or dystrophic cortical calci fications. No evidence of aortic aneurysm. No lymphadenopathy. No bowel obstruction or bowel wall thickening. There is no evidence to suggest acute appendicitis. Images through the pelvis were performed. Questionable mild urinary bladder wall thickening. No pelvi c mass seen. No ascites. Impression: Questionable cystitis. Correlate clinically and with urinalysis. Stable areas of bilateral renal cortical scarring. Reviewed, dictated and finalized at location . Impression: Questionable cystitis. Correlate clinically and with urinalysis. Stable areas of bilateral renal cortical scarring.
[2024-12-02 10:41] VITALS: BP 166/122; PULSE 70; RESP 14; TEMP 36.4; O2SAT 100
--- NOTE | 2024-12-02 11:02 | PC.NURSE ---
Had emesis on waiting room floor. Thin watery rust colored emesis with what appeared to be streaks of blood
[2024-12-02 11:28] LABS: Basophils Absolute Auto 0.1 K/mm3 (0.0-0.1); Eosinophils Absolute Auto 0.2 K/mm3 (0-0.3); Eosinophils Percent Auto 1.9 % (0-4.4); Hematocrit 43.5 % (42.0-52.0); Hemoglobin 13.4 g/dL (14.0-18.0); Immature Granulocyte Absolute 0.05 K/mm3 (0.00-0.031); Immature Granulocyte Percent A 0.5 % (0-0.5); Lymphocytes Absolute Auto 1.25 K/mm3 (0.9-3.2); Lymphocytes Percent Auto 11.3 % (18.3-44.2); Mean Corpuscular HGB Conc 30.8 g/dl (32-36); Mean Corpuscular Hemoglobin 25.3 pg (26-34); Mean Corpuscular Volume 82.2 fl (80-100); Mean Platelet Volume 9.3 fl (7.4-10.4); Monocytes Absolute Auto 0.7 K/mm3 (0.1-0.6); Monocytes Percent Auto 6.4 % (2.6-8.5); Neutrophils Absolute Auto 8.7 K/mm3 (1.3-6.7); Neutrophils Percent Auto 78.9 % (45.5-73.1); Platelet Count Result 359 k/mm3 (150-375); Red Blood Count 5.29 M/mm3 (4.6-6.20); Red Cell Distribution Width 19.7 % (11.5-14.5)
--- OUTSIDE RECORDS SUMMARY | 2024-12-02 11:29 | XMS_ITS | Patient Health Record ---
Author Organization [facility] Address [address] [place] [address] Care Team Providers Care Supercharge Repair Supervisor Name Role Phone NajeraMichelPhillip Primary Care Provider Allergies Allergen (clinical drug ingredient) Drug/Non Drug Allergy documented on EMR Reaction Allergy Type Onset Date Status Haldol Unknown Drug Allergy Active Reason For Referral No Information Medications Medication SIG (Take, Route, Fr equency, Duration) Notes Start Date End Date Status Promethazine HCl 25 MG 1 tablet as neede d Orally every 6 hrs Active hydrOXYzine HCl 25 MG 2 capsules as need ed Orally every 4 hours Active Multivitamin Adults - as directed Orally Active Social History Tobacco Use: Social History Observation Description Date Details (start date - stop date) Current Smoker NA - NA Sex Assigned At : Social History Observation Description Sex Assigned At Male Dont use, Tobacco Use/Smoking Question Answer Notes Are you a current smoker Plan Of Treatment No Information Insurance Providers Payer Name Payer Address Payer Phone Subscriber Number Group Number Insured Name Patient Relationship to Insured Coverage Start Date Coverage End Date [address] [phone] [id number] Dhiraj Keane Self - patient is the insured 1 Medical (General) History Surgical History Surgery Date(Month/Year)
--- OUTSIDE RECORDS SUMMARY | 2024-12-02 11:29 | XMS_ITS | Referral Summary ---
Author Organization [facility] Address [address] [place] [address] Care Team Providers Care Flue Dust Laborer Name Role Phone No, Physician Primary Care Provider [phone] Allergies Active Allergy Reactions Criticality Noted Date Comments Haloperidol Other (See comments) Low 07/07/2019 Muscles lock up Medications ARIPiprazole (ABILIFY) 10 mg tablet Take 10 mg by mouth daily Active buPROPion XL (WELLBUTRIN XL) 150 mg 24 hr tablet Take 150 mg by mouth daily Active FLUoxetine (FLUoxetine) 10 mg tablet/capsule Take 10 mg by mouth daily Active pantoprazole DR (PROTONIX) 40 mg EC tablet Take 40 mg by mouth daily Active busPIRone (BUSPAR) 10 mg tabletIndication s:Generalized Anxiety Disorder Take 10 mg by mouth 2 (two) times a day Active Active Problems Problem Noted Date Diagnosed Date Antisocial personality disorder 11/07/2020 Severe methamphetamine use disorder 04/03/2020 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 Never 11/06/2020 How often do you get together with friends or re latives? Never 11/06/2020 How often do you attend voodoo or adventist serv ices? Never 11/06/2020 Do you belong to any clubs o r organizations such as voodoo groups, unions, fraternal or athletic groups, or school groups? No 11/06/2020 How often do you attend meet ings of the clubs or organizations you belong to? Never 11/06/2020 Are you , , di vorced, , never , or living with a partner? 11/06/2020 AUDIT-C Answer Date Recorded Q1: How often do you have a drink containing alc ohol? 2-4 times a month 11/06/2020 Q2: How many drinks containi ng alcohol do you have on a typical day when you are drinking? 1 or 2 11/06/2020 Q3: How often do you have si x or more drinks on one occasion? Never 11/06/2020 Overall Financial Resource Strain (CARDIA) Answe r Date Recorded How hard is it for you to pa y for the very basics like food, housing, medical care, and heating? Hard 11/06/2020 PHQ-2 Answer Date Recorded PHQ-2 Total Score (If total score is 3 or more points, staff should administer the PHQ-9) 2 11/06/2020 Hunger Vital Sign Answer Date Recorded Within the past 12 months, y ou worried that your food would run out before you got the money to buy more. Sometimes true Within the past 12 months, t he food you bought just didn't last and you didn't have money to get more. Sometimes true 04/2021 PRAPARE - Transportation Answer Date Re corded In the past 12 months, has l ack of transportation kept you from medical appointments or from getting medications? Yes 10/28 In the past 12 months, has l ack of transportation kept you from meetings, work, or from getting things needed for daily living? Yes 11/06/2020 Housing Stability Vital Sign Answer Maninder e Recorded In the last 12 months, was t here a time when you were not able to pay the mortgage or rent on time? Yes 11/06/2020 [address] of Places Lived in the Last Year Not on f ile 11/06/2020 In the last 12 months, was t here a time when you did not have a steady place to sleep or slept in a half-way (including now)? Yes 11/06/2020 Personal Safety Answer Date Recorded Getting School Help Needed Not on file 09/28 Education Answer Date Recorded What is the highest level of school you have completed or the highest degree you have received? 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 Gender Identity Not on file Sexual Orientation Not on file Last Filed Vital Signs Vital Sign Reading Time Taken Comments Blood Pressure 140/98 02/02/2022 11:14 PM CDT Pulse 110 02/02/2022 11:14 PM CDT Temperature 36.8 C (98.3 F) 02/02/2022 11:14 PM CDT Respiratory Rate 26 02/02/2022 11:14 PM CDT Oxygen Saturation 97% 02/02/2022 11:14 PM CDT Inhaled Oxygen Concentration - - Weight 68 kg (149 lb 14.6 oz) 02/02/2022 11:14 P M CDT Height 162.6 cm (5' 4 ) 02/02/2022 11:14 PM CDT Body Mass Index 25.73 02/02/2022 11:14 PM CDT Plan of Treatment Not on file Procedures Procedure Name Priority Date/Time Associated Diagnosis Comments HEPATITIS PANEL, ACUTE Routine 11/06/2020 6:21 PM CDT from Last 3 Months or Most Recently Relevant to Health Maintenance Results * Hepatitis panel, acute (11/06/2020 6:21 PM CDT) Hep A IgM Nonreactive Nonreactive [facility] Comment: Interpretive Data: If Hep A IgM Ab is reported as Equivocal, a new sample should be drawn in two weeks for testing. Current interpretive data was last revised on 19. Hep B core IgM Nonreactive Nonreactive [facility] Comment: Interpretive Data If HepB Core IgM Ab is reported as Equivocal, a new sample should be drawn in two weeks for testing. Current interpretive data was last revised on 19. Hep C Ab Nonreactive Nonreactive [facility] Comment:Antibodies to HCV no t detected. Does NOT exclude the possibility of recent exposure to HCV. HepBsAg Nonreactive Nonreactive [facility] Blood specimen (specimen) 11/06/2020 6:21 PM CDT 11/06/2020 8:05 PM CDT Amairani Garcias MD LAB MICROBIOLOGY - GENERAL [facility]IS [facility] Edited Result - Final [facility] Department [place] [address] from Last 3 Months or Most Recently Relevant to Health Maintenance Insurance [facility] Member Subscriber Plan / Payer ( fective 2019-Present) Name:Dhiraj Keane Relation to Subscriber:Self Name:Dhiraj Keane Payer ID:[id number] (NAIC) Type:MEDICAID RISK OTHER Address: [address] [facility] Advance Directives For more information, please contact: [phone] * Full Code (Latest Code Status on File) Date Activated Date Inactivated Comments 11/06/2020 9:40 AM 11/09/2020 4:49 PM * Full Code Date Activated Date Inactivated Comments 04/02/2020 11:33 PM 04/06/2020 5:54 PM Care Teams Flue Dust Laborer Relationship Specialty Start Date End Date No, Physician PCP - General 01/07/21
--- OUTSIDE RECORDS SUMMARY | 2024-12-02 11:29 | XMS_ITS | Encounter Summary ---
Author Organization [facility] Address [address] [place] [address] Care Team Providers Care Equity Manager Name Role Phone None, Provider Primary Care Provider Unavaila ble None, Provider Primary Care Provider Unavaila ble None, Provider MD Unavailable Unavailable Encounter Details Date Type Department Care Team (Late st Contact Info) Description 01/04/2019 Abstract [facility] CONVERSION [address] [place] [address] , Generic Conversion, Social History Tobacco Use Types Packs/Day Years Used Date Smoking Tobacco: Never Assessed Sex and Gender Information Value Date Recorded Sex Assigned at Not on file Legal Sex Male 4:45 PM CDT Gender Identity Not on file Sexual Orientation Not on file documented as of this encounter Plan of Treatment Not on file documented as of this encounter Visit Diagnoses Not on filedocumented in this encounter Additional Health Concerns Infection Onset Date Last Indicated Resolved Time COVID-19 Rule Out 03/04/2020 03/04/2020 03/04/2020 10:01 AM CDT COVID-19 Rule Out 10/24/2020 10/24/2020 10/24/2020 10:01 AM CDT COVID-19 Rule Out 11/19/2020 11/19/2020 11/19/2020 2:07 AM CDT COVID-19 Rule Out 02/05/2022 02/05/2022 02/05/2022 9:20 AM CDT COVID-19 Rule Out 10/03/2023 10/03/2023 10/04/2023 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
--- OUTSIDE RECORDS SUMMARY | 2024-12-02 11:29 | XMS_ITS | Clinical Summary ---
Author Organization [facility] Address [address] [place] [address] Care Team Providers Care Cco Name Role Phone None, Provider MD Primary Care Provider Unavaila ble None, Provider MD Unavailable Unavailable Allergies Active Allergy Reactions Criticality Noted Date Comments Haloperidol Dystonia 02/06/2020 Haloperidol Anaphylaxis High 02/05/2022 Medications * This document contains information received from the source organization and may not represent a complete record from that organization. No known medications Social History Tobacco Use Types Packs/Day Years Used Date Smoking Tobacco: Every Day Smokeless Tobacco: Never Tobacco Cessation:Ready to Q uit: Not Asked; Counseling Given: Not Answered Alcohol Use Standard Drinks/Week Comments Not Currently 0 (1 standard drink = 0.6 oz pur e alcohol) very little Sex and Gender Information Value Date Recorded Sex Assigned at Not on file Legal Sex Male 4:45 PM CDT Gender Identity Not on file Sexual Orientation Not on file Last Filed Vital Signs Vital Sign Reading Time Taken Comments Blood Pressure 127/90 11/16/2023 3:29 PM CDT Pulse 16 11/16/2023 3:29 PM CDT Temperature 36.3 C (97.4 F) 11/16/2023 11:55 AM CDT Respiratory Rate 18 11/16/2023 3:29 PM CDT Oxygen Saturation 94% 11/16/2023 3:29 PM CDT Inhaled Oxygen Concentration - - Weight 70.3 kg (155 lb) 11/16/2023 11:55 AM CDT Height 162.6 cm (5' 4 ) 11/16/2023 11:55 AM CDT Body Mass Index 26.61 11/16/2023 11:55 AM CDT Plan of Treatment Health Maintenance Due Date Last Done Comments Colorectal Cancer Screening Colonoscopy (10 Years) 1973 Annual Physical 1976 Hepatitis C 1991 DTaP, Tdap and Td Vaccines ( 1 - Tdap) 1992 Hepatitis B Vaccines (1 of 3 - 19+ 3-dose series) 1992 Pneumococcal Vaccine: 50+ Ye ars (1 of 2 - PCV) 1992 Zoster Vaccines (1 of 2) 2023 COVID-19 Vaccine (2 - 2023-2 5 season) 2024 11/05/2020 Meningococcal B Vaccine Aged Out No l onger eligible based on patient's age to complete this topic Meningococcal Vaccine Aged Out No madeline lila eligible based on patient's age to complete this topic RSV Immunizations Under 20 Months Aged Out No longer eligible based on patient's age to complete this topic Insurance [facility] Care Teams Cco Relationship Specialty Start Date End Date None, ProviderMD PCP - General 02/05/22 None, ProviderMD 02/05/22
--- OUTSIDE RECORDS SUMMARY | 2024-12-02 11:29 | XMS_ITS | Clinical Summary ---
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 Never 11/06/2020 Do you belong to any clubs o r organizations such as denominational groups, unions, fraternal or athletic groups, or [...] place to sleep or slept in a long-term (including now)? Yes 11/06/2020 Personal Safety Answer Date Recorded Getting School Help Needed Not on file 09/28 Education Answer Date Recorded What is the highest level of school you have completed or the highest degree you have received? 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 Gender Identity Not on file Sexual Orientation Not on file Obstetrics History Last Filed Vital Signs Vital Sign Reading [...] 02/02/2022 11:14 PM CDT Plan of Treatment Health Maintenance Due Date Last Done Comments Colon Cancer Screening-Colonoscopy 1973 Prostate Cancer Screening-PSA 1973 DTaP/Tdap/Td Vaccine (1 - Tdap) 1984 Hepatitis B Screening 1991 Regular Well Visit/Exam 18-64 1991 Pneumococcal vaccine <65 (1 of 2 - PCV) 1992 Depression Screening 11/06/2021 11/06/2020, 11/07/19 21 Zoster Vaccine (1 of 2) 2023 Influenza Vaccine (#1) 2024 Hepatitis C Screening Completed 11/06/2020 Procedures Procedure Name Priority Date/Time Associated Diagnosis Comments HEPATITIS PANEL, ACUTE Routine 11/06/2020 6:21 PM CDT from Last 3 Months or Most Recently Relevant to Health Maintenance Results * Hepatitis panel, acute (11/06/2020 6:21 PM CDT) Hep A IgM Nonreactive Nonreactive [facility] Comment: Interpretive Data: If Hep A IgM Ab is reported as Equivocal, a new sample should be drawn in two weeks for testing. Current interpretive data was last revised on 19. Hep B core IgM Nonreactive Nonreactive [facility] Comment: Interpretive Data If HepB Core IgM Ab is reported as Equivocal, a new sample should be drawn in two weeks for testing. Current interpretive data was last revised on 19. Hep C Ab Nonreactive Nonreactive [facility] Comment:Antibodies to HCV no t detected. Does NOT exclude the possibility of recent exposure to HCV. HepBsAg Nonreactive Nonreactive [facility] Blood specimen (specimen) 11/06/2020 6:21 PM CDT 11/06/2020 8:05 PM CDT Amairani Garcias MD LAB MICROBIOLOGY - GENERAL ORDRuchi B[facility]LEY Edited Result - Final [facility] Department [place] [address] from Last 3 Months or Most Recently Relevant to Health Maintenance Insurance [facility] Member Subscriber Plan / Payer (Ef fective 2019-Present) Name:Dhiraj Keane Relation to Subscriber:Self Name:Dhiraj Keane Payer ID:[id number] (NAIC) Type:MEDICAID RISK OTHER Address: [address] [facility] Advance Directives For more information, please contact: [phone] * Full Code (Latest Code Status on File) Date Activated Date Inactivated Comments 11/06/2020 9:40 AM 11/09/2020 4:49 PM * Full Code Date Activated Date Inactivated Comments 04/02/2020 11:33 PM 04/06/2020 5:54 PM Care Teams Semiconductors Wafer Breaker Relationship Specialty Start Date End Date No, Physician PCP - General 01/07/21
--- OUTSIDE RECORDS SUMMARY | 2024-12-02 11:29 | XMS_ITS | Continuity of Care Document ---
Author Organization [facility] Address [address] [place] [address] Phone Care Team Providers Care Vb Developer Name Role Phone Morgan Bagley MD Unavailable Unavailable Procedures Procedure Date ECHO W/DOPPLER, INTERPRETATION 20 Advance Directives Directive Yes / No Effective Date File Name No Information Encounters Encounter Description Practice Location Reason(s) For Visit Diagnoses Date Provider Providers Copied on Encounter [facility], [address], [place], [place], [id number], [place] tel:[phone] Maryuri Machado [facility] No Information 0 Yudi Mora. [address], [place], [place], [id number] , [place]. tel:[phone] Referring Provider: Jose Carlos Tyler, Hospitalist Maryuri Machado, [place], [address]. tel:[phone] Family History Family Member Type Diagnosis Age At Onset No Information Payers Payer name Insurance type Covered republican ID Authoriza tion(s) No Information Social History Type Description Quantity Date Captured Comments Sex Male Smoking Status No Information Chief Complaint And Reason For Visit No Information Reason For Referral Reason For Referral No Information History Of Present Illness Encounter Date Complaint History Of Prese nt Illness No Information Functional Status Date Functional Assessmen t No Information Instructions Date Instruction Additional Infor mation No Information Assessments Type Assessment Date No Information Patient Care Teams Name Effective Dates (start - stop) Status Members No Information
--- OUTSIDE RECORDS SUMMARY | 2024-12-02 11:29 | XMS_ITS | CONTINUITY OF CARE DOCUMENT ---
Author Name prabhjot rick Address Unknown Organization [facility] Address [address] [place] [address] Phone [phone] Care Team Providers Care Inset Cutter Name Role Phone El Apple MD Unavailable El Apple MD Unavailable INSURANCE PROVIDERS Payer name Policy type / Coverage type [employer]i [employer] alliance party ID [place] MED[place] Medicaid [id number]
--- OUTSIDE RECORDS SUMMARY | 2024-12-02 11:29 | XMS_ITS | Clinical Summary ---
Author Organization [facility] Address [address] [place] [address] Care Team Providers Care Maintenance Helper Utility Engineer Name Role Phone Tong Guy MD Unavailable [phone] Willard Mak TIP CEMENTER-CERTIFIED ATHLETIC TRAINER Unavailable [phone] Sanam Rick TIP CEMENTER-CERTIFIED ATHLETIC TRAINER Unavailable [phone] Shanna Ray TIP CEMENTER-CERTIFIED ATHLETIC TRAINER Unavailable [phone] Source Comments [facility],non-owned Affiliates and Associated Physician Practices is amultiple site organization consisting of ambulatory clinics and hospital sitesin [place], [place], [place] and [place]. This disclosure is being madepursuant to the Care Everywhere program and may not contain all information available regarding this patient. Last updated 18.[facility] Allergies Active Allergy Reactions Criticality Noted Date Comments Haloperidol Other,Unknown High 07/07/2019 Pt states his whole body locks up, even with cogentin. Muscles lock up Medications * This document contains information received from the source organization and may not represent a complete record from that organization. * Be aware that medications may not be up to date on this document. Alwaysverify current medications with the patient. paliperidone palmitate ER (Invega Sustenna) 156 MG/ML injectionIndic ations:Schizop hrenia Inject 156 (one hundred fifty six) mg into muscle every 30 days Reasons: Schizophrenia 1 mL 4 Active nicotine (Nicoderm CQ) 14 MG/24HR patchIndicatio ns:Nicotine Dependence Apply 1 (one) patch to skin once daily Reasons: Nicotine Addiction 7 patch 4 Active Active Problems Problem Noted Date Diagnosed Date Cannabis use disorder, severe, dependence 2023 Tobacco use disorder 10/16/2023 Cocaine use disorder, severe, in sustained remis mazin 10/16/2023 Schizophrenia, unspecified type 10/15/2023 Gastroesophageal reflux disease 10/15/2023 10/15/2023 Borderline personality disorder 04/16/2022 10/15/2023 Alcohol use disorder, severe, in sustained remis mazin 04/12/2022 10/15/2023 Methamphetamine use disorder, severe 01/24/2022 Opioid use disorder, severe, in sustained remiss ion 03/03/2019 Resolved Problems Problem Noted Date Diagnosed Date Resolved Date Severe manic bipolar 1 disor tatiana with psychotic behavior 02/05/2022 02/06/2022 Suicidal ideation 01/19/2022 01/24/2022 Social History Tobacco Use Types Packs/Day Years Used Date Smoking Tobacco: Every Day Cigarettes 2 33 Smokeless Tobacco: Never Tobacco Cessation:Ready to Q uit: Not Asked; Counseling Given: Not Answered Alcohol Use Standard Drinks/Week Comments Not Currently 0 (1 standard drink = 0.6 oz pure alcohol) drinks 1-2 5ths a day every day AUDIT-C Answer Date Recorded Q1: How often do you have a drink containing alcohol? Never 10/15/2023 Q2: How many drinks containi ng alcohol do you have on a typical day when you are drinking? Patient does not drink Q3: How often do you have si x or more drinks on one occasion? Never 10/15/2023 Overall Financial Resource Strain (CARDIA) Answe r Date Recorded How hard is it for you to pa y for the very basics like food, housing, medical care, and heating? Very hard 10/15/2023 [facility] [place] of Occupat ional Health - Occupational Stress Questionnaire Answer Date Recorded Do you feel stress - tense, restless, nervous, or anxious, or unable to sleep at night because your mind is troubled all the time - these days? Very much 10/15/2023 Hunger Vital Sign Answer Date Recorded Within the past 12 months, y ou worried that your food would run out before you got the money to buy more. Sometimes true Within the past 12 months, t he food you bought just didn't last and you didn't have money to get more. Sometimes true PRAPARE - Transportation Answer Date Re corded In the past 12 months, has l ack of transportation kept you from medical appointments or from getting medications? No 09/27 In the past 12 months, has l ack of transportation kept you from meetings, work, or from getting things needed for daily living? No 10/15/2023 Housing Stability Vital Sign Answer Maninder e Recorded In the last 12 months, was t here a time when you were not able to pay the mortgage or rent on time? Yes 10/15/2023 In the last 12 months, how many places have you lived? 1 10/15/2023 In the last 12 months, was t here a time when you did not have a steady place to sleep or slept in a long-term (including now)? 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 Gender Identity Not on file Sexual Orientation Not on file Last Filed Vital Signs Vital Sign Reading Time Taken Comments Blood Pressure 111/62 10/23/2023 8:06 AM CDT Pulse 76 10/23/2023 8:06 AM CDT Temperature 36.4 C (97.5 F) 10/23/2023 8:06 AM CDT Respiratory Rate 16 10/23/2023 8:06 AM CDT Oxygen Saturation 100% 10/23/2023 8:06 AM CDT Inhaled Oxygen Concentration - - Weight 72 kg (158 lb 11.7 oz) 10/15/2023 6:54 PM CDT Height 162.6 cm (5' 4.02 ) 10/15/2023 6:54 PM CD T Body Mass Index 27.23 10/15/2023 6:54 PM CDT Plan of Treatment Health Maintenance Due Date Last Done Comments COLOGUARD (AGES 45-75) - COLON CA SCREENING 1973 COLON MONITORING 1973 COLONOSCOPY - COLON CA SCREENING 1973 CT COLONOGRAPHY - COLON CA SCREENING 1973 Colorectal Cancer Screening 1973 FIT - COLON CA SCREENING 1973 FLEX SIG - COLON CA SCREENING 1973 DTAP/TDAP/TD VACCINES (1 - Tdap) 1992 HEPATITIS B VACCINE (1 of 3 - 19+ 3-dose series) 1992 PNEUMOCOCCAL VACCINE 50+ (1 of 2 - PCV) 1992 LUNG CANCER SCREENING 2023 ZOSTER VACCINE (1 of 2) 2023 COVID-19 VACCINE (1 - season) 2024 DEPRESSION SCREENING 07/30/2024 INFLUENZA VACCINE (Season Ended) 2025 LIPID TESTING 10/17/2028 10/18/2023, 03/30, 07/09/2019, Additional history exists HIV SCREENING Completed 12/07/2020 HEPATITIS C SCREENING Completed 04/12/2022, 021 HIB VACCINE Aged Out No longer eligi ble based on patient's age to complete this topic HPV VACCINE Aged Out No longer eligi ble based on patient's age to complete this topic MENINGOCOCCAL (Group B) VACCINE SHARED DECISION-MAKING Aged Out No longer eligible based on patient's age to complete this topic MENINGOCOCCAL GROUPS A/C/Y/W VACCINE Aged Out No longer eligible based on patient's age to complete this topic Procedures Procedure Name Priority Date/Time Associated Diagnosis Comments LIPID PROFILE Routine 10/18/2023 6:07 AM CDT HEPATITIS C AB SCREEN RFLX NAAT QUANT STAT 12/07/2020 5:28 PM CDT HIV-1 HIV-2 ANTIGEN/ANTIBODY STAT 12/07/2020 5:28 PM CDT from Last 3 Months or Most Recently Relevant to Health Maintenance Results * LIPID PROFILE (10/18/2023 6:07 AM CDT) [facility] Cholesterol 140 <200 mg/dL 10/18/2023 6:38 AM CDT [facility] Triglycerides 102 <150 mg/dL 10/18/2023 6:38 AM CDT [facility] HDL Cholesterol 46 >40 mg/dL 6:38 AM CDT [facility] Chol HDL Ratio 3.0 1.0 - 6.0 10/18/2023 6:38 AM CDT [facility] LDL Calculated 74 65 - 130 mg/dL 10/18/2023 6:38 AM CDT [facility] VLDL Calculated 20 <=30 mg/dL 6:38 AM CDT [facility] Blood BLOOD SPECIMEN / Unknown Lab Venipuncture / Unknown 10/18/2023 6:07 AM CDT 10/18/2023 6:16 AM CDT Narrative [facility] - 10/18/2023 6:38 AM CDT Lipid Profile Comment: CHOLESTEROL LEVEL..................CLINICAL INTERPRETATION LESS THAN 200 MG/DL..............................DESIRABLE 200-239 MG/DL..............................BORDERLINE HIGH GREATER THAN 240 MG/DL................................HIGH LDL-CHOLESTEROL LEVEL..............CLINICAL INTERPRETATION LESS THAN 100 MG/DL................................OPTIMAL 100-129 MG/DL.................................NEAR OPTIMAL GREATER THAN 160 MG/DL...........................HIGH RISK HDL RISK LEVEL GREATER THEN 60 MG/DL............................DECREASED 40-60 MG/DL........................................AVERAGE LESS THAN 40 MG/DL...............................INCREASED TRIGLYCERIDE LEVEL..................CLINICAL INTERPRETATION LESS THAN 150 MG/DL...............................DESIRABLE 150-199 MG/DL...............................BORDERLINE HIGH 200-499 MG/DL..........................................HIGH GREATER THAN 500..................................VERY HIGH THE NATIONAL CHOLESTEROL EDUCATION PROGRAM HAS SET THE ABOVE GUIDELINES (REFERANCE VALUES) FOR CHOLESTEROL AND HDL. RISK ASSOCIATED WITH CHOLESTEROL/HDL RATIOS RISK....................MALE RATIO.............FEMALE RATIO 1/2 AVERAGE.................<3.4.......................<3.3 LOW RISK.................... 4.0 ...................... 3.8 AVERAGE..................... 5.0 ...................... 4.5 2X AVERAGE.................. 9.5 ...................... 7.0 3X AVERAGE...................>23........................>11 us Willard L Aubree TIP CEMENTER-CERTIFIED ATHLETIC TRAINER LAB - CHEMISTRY ORDERABL ES Final Result [facility] [address] * HIV-1 HIV-2 ANTIGEN/ANTIBODY (12/07/2020 5:28 PM CDT) HIV Antigen/Antibod y 1 & 2 Non-reacti ve Non-react angela 12/07/2020 6:29 PM CDT [facility] Comment:Neither HIV-1 p24 An tigen nor HIV-1/HIV-2 Antibodies are detected. Blood BLOOD SPECIMEN / Unknown Venipuncture / Unknown 12/07/2020 5:28 PM CDT 12/07/2020 5:39 PM CDT us Cyndi Feliz MD LAB - HEMATOLOGY ORDERABLES Final Result Performing Organization Address [facility] Co de Phone Number [address] [address], [place] [phone] * HEPATITIS C AB SCREEN RFLX NAAT QUANT (12/07/2020 5:28 PM CDT) Hepatitis C Antibody Non-react angela Non-reac tive 12/07/2020 6:29 PM CDT [facility] Comment:Hepatitis C Antibody screen indicates no serologic evidence of past or current infection with Hepatitis C Virus. Patients with unexplained liver disease who are immunocompromised or suspected of having acute Hepatitis C infection may benefit from Nucleic Acid Test (PATRICIA) for Hepatitis C Viral RNA to confirm Hepatitis C status. Blood BLOOD SPECIMEN / Unknown Venipuncture / Unknown 12/07/2020 5:28 PM CDT 12/07/2020 5:39 PM CDT us Cyndi Feliz MD LAB - CHEMISTRY ORDERABLES F inal Result Performing Organization Address [facility]/ZIP Co de Phone Number [address] [address], [place] [phone] from Last 3 Months or Most Recently Relevant to Health Maintenance Insurance [facility] Advance Directives * Full Code (Latest Code Status on File) Date Activated Date Inactivated Comments 10/15/2023 5:53 PM 10/23/2023 3:33 PM * Full Code Date Activated Date Inactivated Comments 02/05/2022 11:33 PM 02/09/2022 12:23 PM * Full Code Date Activated Date Inactivated Comments 01/19/2022 2:04 PM 01/24/2022 11:06 AM * Full Code Date Activated Date Inactivated Comments 03/02/2019 7:04 PM 03/09/2019 2:32 PM Care Teams Maintenance Helper Utility Engineer Relationship Specialty Start Date End Date Tong Guy MD [address] [place] [address] Hospitalist Internal Medicine 02/05/22 Willard Mak APRN-CERTIFIED ATHLETIC TRAINER [address] [place] [phone] Nurse Practitioner Nurse Practitioner 02/05/22 Sanam Rick APRN-CERTIFIED ATHLETIC TRAINER [address] [place] [phone] Nurse Practitioner 02/05/22 Shanna Ray, TIP CEMENTER-CERTIFIED ATHLETIC TRAINER [address] [place] [phone] Nurse Practitioner 02/05/22
[2024-12-02 11:35] LABS: Add Urine Microscopic? YES; Appearance Urine Clear (Clear); Bacteria Urine None Seen /hpf; Bilirubin Urine Negative (Negative); Blood Urine Negative (Negative); Color Urine Yellow (Yellow); Glucose Urine UA Negative (Negative); Ketones Urine Negative (Negative); Leukocyte Esterase Ur Negative LEU/UL (Negative); Nitrate Urine Negative (Negative); Non Pathogenic Casts 0-2; Protein Urine Trace mg/dL (Negative); RBC Urine 0-2 /hpf (0-2); Specific Grav Ur 1.016 (1.001-1.035); Squamous Epithelial Cell Urine None Seen /hpf (Few); Urobilinogen Urine 0.2 mg/dL (<2.0); WBC Urine 0-5 /hpf (0-3); pH Urine 7.5 (5.0-9.0)
[2024-12-02 11:36] LABS: Ethanol < 10 mg/dL (<10)
[2024-12-02 11:37] LABS: Alanine Aminotransferase 19 U/L (6-50); Albumin Level 4.5 g/dL (3.5-5.1); Alkaline Phosphatase 116 U/L (38-126); Anion Gap 8 mmol/L (4-12); Aspartate Amino Transferase 32 U/L (17-59); Bilirubin,Total 0.5 mg/dL (0.2-1.3); Blood Urea Nitrogen 12 mg/dL (9-20); Calcium 9.6 mg/dL (8.4-10.2); Carbon Dioxide 27 mmol/L (22-30); Chloride 100 mmol/L (98-107); Estimated CRCL calculation 99 ml/min; Estimated Glomerular Filt Rate > 60; Glucose 102 mg/dL (65-110); Lipase 60 U/L (23-300); Potassium 3.8 mmol/L (3.4-5.0); Sodium 135 mmol/L (137-145)
[2024-12-02 11:46] LABS: INR 0.9; Partial Thromboplastin Time 29.8 Seconds (22.3-36.8); Prothrombin Time 12.1 Seconds (11.1-14.7)
[2024-12-02 11:55] LABS: Amphetamine Screen Urine Positive (Negative); Barbiturate Screen Urine Negative (Negative); Benzodiazepines Screen Urine Negative (Negative); Cannabinoid Screen Urine Positive (Negative); Cocaine Screen Urine Negative (Negative); Methadone Screen Urine Negative (Negative); Opiate Screen Urine Negative (Negative); Phencyclidine Screen Urine Negative (Negative)
--- OUTSIDE RECORDS SUMMARY | 2024-12-02 12:24 | XMS_ITS | Clinical Summary ---
Author Organization [facility] Address [address] [facility] [place] [address] Care Team Providers Care Cube Machine Tender Name Role Phone Tong Guy MD Unavailable [phone] Willard Mak MOTOR DRIVER-SET UP MACHINIST Unavailable [phone] Sanam Rick MOTOR DRIVER-SET UP MACHINIST Unavailable [phone] Shanna Ray MOTOR DRIVER-SET UP MACHINIST Unavailable [phone] Source Comments [facility],non-owned Affiliates and Associated Physician Practices is amultiple site organization consisting of ambulatory clinics and hospital sitesin [place], [place], [place] and [place]. This disclosure is being madepursuant to the Care Everywhere program and may not contain all information available regarding this patient. Last updated 18.[facility] Allergies Active Allergy Reactions Criticality Noted [...] medical care, and heating? Very hard 10/15/[address] [facility] [place] of Occupat ional Health - Occupational Stress [...] place to sleep or slept in a detention (including now)? Yes 10/15/2023 Sex and Gender Information Value Date Recorded Sex Assigned at Not on file Legal Sex Male 6:39 PM TELESALES REPRESENTATIVE Gender Identity Not on file Sexual Orientation [...] * LIPID PROFILE (10/18/2023 6:07 AM CDT) [facility] Cholesterol 140 <200 mg/dL 10/18/2023 6:38 AM CDT [facility] Triglycerides 102 <150 mg/dL 10/18/2023 6:38 AM CDT [facility] HDL Cholesterol 46 >40 mg/dL 6:38 AM CDT [facility] Chol HDL Ratio 3.0 1.0 - 6.0 10/18/2023 6:38 AM CDT [facility] LDL Calculated 74 65 - 130 mg/dL 10/18/2023 6:38 AM CDT [facility] VLDL Calculated 20 <=30 mg/dL 6:38 AM CDT [facility] Blood BLOOD SPECIMEN / Unknown Lab Venipuncture / Unknown 10/18/2023 6:07 AM CDT 10/18/2023 6:16 AM CDT Narrative [facility] - 10/18/2023 6:38 AM CDT Lipid [...] 7.0 3X AVERAGE...................>23........................>11 us Willard L Aubree MOTOR DRIVER-SET UP MACHINIST LAB - CHEMISTRY ORDERABL ES Final Result [facility] [address] * HIV-1 HIV-2 ANTIGEN/ANTIBODY (12/07/2020 5:28 PM CDT) HIV Antigen/Antibod y 1 & 2 Non-reacti ve Non-react angela 12/07/2020 6:29 PM CDT [facility] Comment:Neither HIV-1 p24 An tigen nor HIV-1/HIV-2 Antibodies are detected. Blood BLOOD SPECIMEN / Unknown Venipuncture / Unknown 12/07/2020 5:28 PM CDT 12/07/2020 5:39 PM CDT us Cyndi Feliz MD LAB - HEMATOLOGY ORDERABLES Final Result Performing Organization Address [facility] Co de Phone Number [address] [address], [place] [phone] * HEPATITIS C AB SCREEN RFLX NAAT QUANT (12/07/2020 5:28 PM CDT) Hepatitis C Antibody Non-react angela Non-reac tive 12/07/2020 6:29 PM CDT [facility] Comment:Hepatitis C Antibody screen indicates no serologic [...] ORDERABLES F inal Result Performing Organization Address [facility]/ZIP Co de Phone Number [address] [address], [place] [phone] from Last 3 Months or Most Recently Relevant to Health Maintenance Insurance [facility] Advance Directives * Full Code (Latest Code [...] 7:04 PM 03/09/2019 2:32 PM Care Teams Cube Machine Tender Relationship Specialty Start Date End Date Tong Guy MD [address] [place] [address] Hospitalist Internal Medicine 02/05/22 Willard Mak APRN-SET UP MACHINIST [address] [place] [phone] Nurse Practitioner Nurse Practitioner 02/05/22 Sanam Rick APRN-SET UP MACHINIST [address] [place] [phone] Nurse Practitioner 02/05/22 Shanna Ray, MOTOR DRIVER-SET UP MACHINIST [address] [place] [phone] Nurse Practitioner 02/05/22
--- OUTSIDE RECORDS SUMMARY | 2024-12-02 12:24 | XMS_ITS | Encounter Summary ---
Author Organization [facility] Address [address] [place] [address] Care Team Providers Care Machinist Bench Name Role Phone None, Provider Primary Care Provider Unavaila ble None, Provider Primary Care Provider Unavaila ble None, Provider MD Unavailable Unavailable Encounter Details Date Type Department Care Team (Late st Contact Info) Description 01/04/2019 Abstract [facility] CONVERSION [address] [place] [address] , Generic Conversion, Social History Tobacco Use [...] Rule Out 10/03/2023 10/03/2023 10/04/2023 12:25 AM GLASS CUTTER HAND COVID-19 Rule Out 10/25/2023 10/25/2023 10/26/2023 1:01 AM CDT documented as of this encounter Care Teams Machinist Bench Relationship Specialty Start Date End Date None, ProviderMD PCP - General 02/06/20 02/04/22 None, ProviderMD PCP - General 02/05/22 None, ProviderMD 02/05/22 documented as of this encounter
--- OUTSIDE RECORDS SUMMARY | 2024-12-02 12:24 | XMS_ITS | Clinical Summary ---
Author Organization [facility] Address [address] [place] [address] Care Team Providers Care Sidewalk Inspector Name Role Phone No, Physician Primary Care Provider [phone] Allergies Active Allergy Reactions Criticality Noted Date [...] Never 11/06/2020 How often do you attend jewish or hoahaoism serv ices? Never 11/06/2020 Do you belong to any clubs o r organizations such as jewish groups, unions, fraternal or athletic groups, or [...] place to sleep or slept in a prison (including now)? Yes 11/06/2020 Personal Safety Answer Date Recorded Getting School Help Needed Not on file 09/28 Education Answer Date Recorded What is the highest level of school you have completed or the highest degree you have received? 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 Current interpretive data was last revised on 19. Hep C Ab Nonreactive Nonreactive [facility] Comment:Antibodies to HCV no t detected. Does NOT exclude the possibility of recent exposure to HCV. HepBsAg Nonreactive Nonreactive [facility] Blood specimen (specimen) 11/06/2020 6:21 PM CDT 11/06/2020 8:05 PM CDT Amairani Garcias MD LAB MICROBIOLOGY - GENERAL ORDRuchi BAILEY Edited Result - Final [facility] Department [place] [address] from Last 3 Months or Most Recently Relevant to Health Maintenance Insurance [facility] Member Subscriber Plan / Payer (Ef fective 2019-Present) Name:Dhiraj Keane Relation to Subscriber:Self Name:Dhiraj Keane Payer ID:[id number] (NAIC) Type:MEDICAID RISK OTHER Address: [address] [facility] Advance Directives For more information, please contact: [phone] * Full Code (Latest Code Status on File) Date Activated Date Inactivated Comments 11/06/2020 9:40 AM 11/09/2020 4:49 PM * Full Code Date Activated Date Inactivated Comments 04/02/2020 11:33 PM 04/06/2020 5:54 PM Care Teams Sidewalk Inspector Relationship Specialty Start Date End Date No, Physician PCP - General 01/07/21
--- OUTSIDE RECORDS SUMMARY | 2024-12-02 12:24 | XMS_ITS | Clinical Summary ---
Author Organization [facility] Address [address] [place] [address] Care Team Providers Care Water Conservationist Name Role Phone None, Provider MD Primary [...] complete this topic Insurance [employer] Care Teams Water Conservationist Relationship Specialty Start Date End Date None, ProviderMD PCP - General 02/05/22 None, ProviderMD 02/05/22
--- OUTSIDE RECORDS SUMMARY | 2024-12-02 12:24 | XMS_ITS | CONTINUITY OF CARE DOCUMENT ---
Author Name prabhjot rick Address Unknown Organization [facility] Address [address] [place] [address] Phone [phone] Care Team Providers Care Floor Sander Name Role Phone El Apple MD Unavailable El Apple MD Unavailable INSURANCE PROVIDERS Payer name Policy type / Coverage type Luci red constitution party ID [place] Medicaid [id number]
--- OUTSIDE RECORDS SUMMARY | 2024-12-02 12:24 | XMS_ITS | Referral Summary ---
Author Organization [facility] Address [address] [place] [address] Care Team Providers Care Occ Med Physician Name Role Phone No, Physician Primary Care Provider [phone] Allergies Active Allergy Reactions Criticality Noted Date [...] Never 11/06/2020 How often do you attend rastafarian or gnosticist serv ices? Never 11/06/2020 Do you belong to any clubs o r organizations such as rastafarian groups, unions, fraternal or athletic groups, or [...] place to sleep or slept in a jail (including now)? Yes 11/06/2020 Personal Safety Answer Date Recorded Getting School Help Needed Not on file 09/28 Education Answer Date Recorded What is the highest level of school you have completed or the highest degree you have received? GED or equivalent 04/2021 Sex and Gender Information Value Date Recorded Sex Assigned at Not on file Legal Sex Male 5:50 PM BOBBIN FIXER Gender Identity Not on file Sexual Orientation [...] PM CDT) Hep A IgM Nonreactive Nonreactive [facility] Comment: Interpretive Data: If Hep A IgM Ab is reported as Equivocal, a new sample should be drawn in two weeks for testing. Current interpretive data was last revised on 19. Hep B core IgM Nonreactive Nonreactive [facility] Comment: Interpretive Data If HepB Core IgM Ab is reported as Equivocal, a new sample should be drawn in two weeks for testing. Current interpretive data was last revised on 19. Hep C Ab Nonreactive Nonreactive [facility] Comment:Antibodies to HCV no t detected. Does NOT exclude the possibility of recent exposure to HCV. HepBsAg Nonreactive Nonreactive [facility] Blood specimen (specimen) 11/06/2020 6:21 PM CDT 11/06/2020 8:05 PM CDT Amairani Garcias MD LAB MICROBIOLOGY - GENERAL LUIS BAILEY Edited Result - Final [facility] Department [place] [address] from Last 3 Months or Most Recently Relevant to Health Maintenance Insurance [facility] Member Subscriber Plan / Payer ( fective 2019-Present) Name:Dhiraj Keane Relation to Subscriber:Self Name:Dhiraj Keane Payer ID:[id number] (NAIC) Type:MEDICAID RISK OTHER Address: [address] [facility] Advance Directives For more information, please contact: [phone] * Full Code (Latest Code Status on File) Date Activated Date Inactivated Comments 11/06/2020 9:40 AM 11/09/2020 4:49 PM * Full Code Date Activated Date Inactivated Comments 04/02/2020 11:33 PM 04/06/2020 5:54 PM Care Teams Occ Med Physician Relationship Specialty Start Date End Date No, Physician PCP - General 01/07/21
--- OUTSIDE RECORDS SUMMARY | 2024-12-02 12:24 | XMS_ITS | Continuity of Care Document ---
Author Organization [facility] Address [address] [place] [address] Phone Care Team Providers Care Car Pilot Name Role Phone Morgan Bagley MD Unavailable Unavailable Procedures Procedure Date ECHO W/DOPPLER, INTERPRETATION 20 Advance Directives Directive Yes / No Effective Date File Name No Information Encounters Encounter Description Practice Location Reason(s) For Visit Diagnoses Date Provider Providers Copied on Encounter [facility], [address], [place], [place], [id number], [place] tel:[phone] Maryuri Machado [facility] No Information 0 Yudi Mora. [address], [place], [place], [id number] , [place]. tel:[phone] Referring Provider: Jose Carlos Tyler, Hospitalist Maryuri Machado, [place], [address]. tel:[phone] Family History Family Member Type Diagnosis Age At Onset No Information Payers Payer name Insurance type Covered libertarian ID Authoriza tion(s) No Information Social History [...]
--- NOTE | 2024-12-02 12:57 | ED.ABDPAIN ---
HPI - Abdominal Pain General Chief Complaint: Abdominal Pain Stated Complaint: abd pain Time Seen by Provider: 12/02/24 11:57 Source: patient Mode of arrival: EMS Limitations: no limitations History of Present Illness HPI narrative: This is a 49-year-old male with history of alcohol abuse and schizophrenia, brought in by EMS complaining of abdominal pain. The patient states it hurts ?all over? for the past day. He denies any known aggravating alleviating factors. He complains of nausea with some nonbloody vomiting. He states he has had auditory and visual hallucinations. He has no at this time. Related Data Allergies Allergy/AdvReac Type Severity Reaction Status Date / Time haloperidol Allergy Swelling Verified 12/02/24 13:06 of Lip/Tongue/Throat Review of Systems Review of Systems: All systems reviewed & are unremarkable except as noted in HPI and below PMFSH Past Medical History Medical History Coffee ground emesis Smoker PTSD (post-traumatic stress disorder) Depression Schizophrenia Methamphetamine use Alcohol abuse Surgical History Surgical History No pertinent past surgical history Family History Family History Sibling Asthma Grandparent Cancer Social History Social History Social History: He is unemployed and homeless. He is estranged from his family members. Smoking packs per day: 1 Smoking cigarettes per day: 20.0 Years smoked: 30 Smoking pack-years: 30.00 Smoking status: Current every day smoker Tobacco type: cigarettes Alcohol intake: current Drinks per week: 10 Substance use: current Substance use type: marijuana, amphetamines and methamphetamine Last use: 02/04 meth 02/10 marijuana Living arrangements: homeless Additional occupation/education comments: Unemployed Gender identity (if verbalized by the patient): Male Spiritual care concerns: No Exam Narrative: GENERAL: Well-developed, well-nourished, and in no acute distress. Sleeping in bed HEAD: Normocephalic, atraumatic. EYES: PERRLA and EOMI. CHEST: Clear to auscultation. No respiratory distress. No wheezes rales or rhonchi HEART: Regular rate and rhythm. No murmur heard. Normal peripheral pulses. ABDOMEN: Soft, mild tenderness to palpation, greatest in the left upper quadrant and epigastrium without rebound or guarding, nondistended, normal active bowel sounds. EXTREMITIES: There is a nontender, soft, tennis ball-sized cystic mass on the left dorsal elbow, consistent with olecranon bursa. There is no noted erythema, induration warmth or other fluctuance. Normal range of motion of all extremities. No edema. SKIN: Warm, dry, no rash. NEURO: Alert and oriented x3. No focal deficit. Moving all 4 limbs spontaneously PSYCH: Normal mood and affect. Course Course Emergency Course: 14:50 - CT demonstrates changes consistent with cystitis but is otherwise unremarkable. CBC demonstrates a mild white blood cell count elevation of 11 with hemoglobin of 13. I suspect this is related to the patient amphetamines as noted by his urine drug screen. Coags within normal limits. Chemistries unremarkable. Urinalysis not concerning for urinary tract infection. Urine drug screen also positive for cannabinoids. Alcohol level negative. On re-evaluation, the patient states the pain is improved but he now states he wishes to throw himself off a bridge. Will contact crisis counseling. He is medically cleared for psychiatric admission if indicated. 17:30 - The patient was evaluated by crisis counseling notes he has continued suicidal ideations with a plan. Voluntary admission is recommended. 19:24 - The patient is accepted by Dr. Small at [facility] for major depressive disorder. Vital Signs Vital signs: Vital Signs Temperature 97.5 F L 12/02/24 10:41 Pulse Rate 70 12/02/24 10:41 Respiratory Rate 14 12/02/24 10:41 Blood Pressure 166/122 H 12/02/24 10:41 Pulse Oximetry 100 12/02/24 10:41 Oxygen Delivery Room Air 12/02/24 10:41 Temperature 98.2 F 12/02/24 18:23 Pulse Rate 74 12/02/24 18:23 Respiratory Rate 18 12/02/24 18:23 Blood Pressure 171/98 H 12/02/24 18:23 Pulse Oximetry 99 12/02/24 18:23 Oxygen Delivery Room Air 12/02/24 10:41 MDM - Abdominal Pain MDM Narrative Medical decision making narrative: Plan: Labs, imaging, pain control edematous, reassess Differential Diagnosis Differential diagnosis: Likely acute appendicitis, calculus of kidney, diverticulitis, gastroenteritis, pancreatitis, small bowel obstruction and other (drug/alcohol intoxication, pyelonephritis, bowel perforation, gastritis, GERD, metabolic abnormality, other) Lab Data 12/02/24 11:06 12/02/24 11:06 Labs: Lab Results 12/02/24 12/02/24 12/02/24 Range/Units 11:06 11:11 18:29 WBC 11.0 H (4.5-10.0) K/mm3 RBC 5.29 (4.6-6.20) M/mm3 Hgb 13.4 L D (14.0-18.0) g/dL Hct 43.5 (42.0-52.0) % MCV 82.2 (80-100) fl MCH 25.3 L (26-34) pg MCHC 30.8 L (32-36) g/dl RDW 19.7 H (11.5-14.5) % Plt Count 359 (150-375) k/mm3 MPV 9.3 (7.4-10.4) fl Immature Gran % (Auto) 0.5 (0-0.5) % Neut % (Auto) 78.9 H (45.5-73.1) % Lymph % (Auto) 11.3 L (18.3-44.2) % [place] % (Auto) 6.4 (2.6-8.5) % Eos % (Auto) 1.9 (0-4.4) % Baso % (Auto) 1.0 (0.2-1.2) % Lymph # (Auto) 1.25 (0.9-3.2) K/mm3 [place] # (Auto) 0.7 H (0.1-0.6) K/mm3 Eos # (Auto) 0.2 (0-0.3) K/mm3 Baso # (Auto) 0.1 (0.0-0.1) K/mm3 Abs Immat Gran (auto) 0.05 H (0.00-0.031) K/mm3 Absolute Neuts (auto) 8.7 H (1.3-6.7) K/mm3 Absolute Nucleated RBC 0.000 (0.0-0.012) K/mm3 Nucleated RBC % 0.0 (0.0-0.2) % PT 12.1 (11.1-14.7) Seconds INR 0.9 APTT 29.8 (22.3-36.8) Seconds Sodium 135 L (137-145) mmol/L Potassium 3.8 (3.4-5.0) mmol/L Chloride 100 (98-107) mmol/L Carbon Dioxide 27 (22-30) mmol/L Anion Gap 8 (4-12) mmol/L BUN 12 D (9-20) mg/dL Creatinine 0.63 L (0.7-1.3) mg/dL Estim Creat Clear Calc 99 ml/min Estimated GFR > 60 (59 - ) Glucose 102 (65-110) mg/dL Calcium 9.6 (8.4-10.2) mg/dL Total Bilirubin 0.5 (0.2-1.3) mg/dL AST 32 (17-59) U/L ALT 19 (6-50) U/L Alkaline Phosphatase 116 (38-126) U/L Total Protein 8.0 (6.3-8.2) g/dL Albumin 4.5 (3.5-5.1) g/dL Lipase 60 (23-300) U/L Urine Color Yellow (Yellow) Urine Appearance Clear (Clear) Urine pH 7.5 (5.0-9.0) Ur Specific [place] 1.016 (1.001-1.035) Urine Protein Trace (Negative) mg/dL Urine Glucose (UA) Negative (Negative) mg/dL Urine Ketones Negative (Negative) mg/dL Ur Blood (Man) Negative (Negative) Urine Nitrate Negative (Negative) Urine Bilirubin Negative (Negative) Urine Urobilinogen 0.2 (<2.0) mg/dL Leukocyte Esterase Rfl Negative (Negative) MARBELLA/UL Urine RBC 0-2 (0-2) /hpf Urine WBC 0-5 (0-3) /hpf Ur Squamous Epith Cells None seen (Few) /hpf Urine Bacteria None seen /hpf Urine Casts 0-2 Urine Opiates Screen Negative (Negative) Urine Methadone Screen Negative (Negative) Ur Barbiturates Screen Negative (Negative) Ur Phencyclidine Scrn Negative (Negative) Ur Amphetamine Screen Positive A (Negative) U Benzodiazepines Scrn Negative (Negative) Urine Cocaine Screen Negative (Negative) U Cannabinoids Screen Positive A (Negative) Ethyl Alcohol < 10 (<10) mg/dL Influenza A (RT-PCR) Pending Influenza B (RT-PCR) Pending RSV (RT-PCR) Pending SARS-CoV-2 RNA (RT-PCR) Pending Imaging Data Radiologist's impression: ITS Impressions Abdomen/Pelvis CT 12/02/24 13:18 Impression: Questionable cystitis. Correlate clinically and with urinalysis. Stable areas of bilateral renal cortical scarring. Discharge Plan Discharge Clinical Impression: Abdominal pain, acute, epigastric, Major depressive disorder, Nausea and vomiting, Amphetamine abuse Patient Disposition: Psychiatric Hosp Condition: Stable Instructions: Antibiotic Form Patient Language: Romanian Prescriptions: No Action ferrous sulfate [FeroSul] 325 mg (65 mg iron) tablet 325 mg PO DAILY Qty: 30 3RF ferrous sulfate 325 mg (65 mg iron) tablet 325 mg PO DAILY Qty: 30 0RF cephalexin 500 mg capsule 500 mg PO Q6H 7 Days Qty: 28 0RF Follow-up/Referrals: UNKNOWN,DOCTOR [Primary Care Provider] - Time of Disposition: 19:25
[2024-12-02] MEDS: KETOROLAC 30 MG/ML VIAL (*BKC) IV PUSH (13:01)
[2024-12-02] MEDS: ONDANSETRON INJ 4 MG/2 ML VIAL IV PUSH ×2 (13:01→17:46)
[2024-12-02] MEDS: BELLADONNA ALK/PHENOB ELIX 10 ML, MAG HYDROX/ALUMINUM HYD/SIMETH 30 ML, LIDOCAINE 2% VI... PO (13:02)
--- NOTE | 2024-12-02 13:35 | PC.NURSE ---
Patient sleeping at this time. breathing even and non labored. patient denies needs or complaints at this time. light turned off
--- NOTE | 2024-12-02 14:51 | PC.NURSE ---
Dr Villa informed this RN that patient told him that he wants to jump off a bridge . Patient to be changed and suicide precautions initiated.
[2024-12-02 18:23] VITALS: BP 171/98; PULSE 74; RESP 18; TEMP 36.8; O2SAT 99
--- NOTE | 2024-12-02 18:38 | PC.NURSE ---
Spoke with Elise [facility]fall [facility] and she states that the patient is not medically cleared per their provider. This RN informed her that patient has been medically cleared per our provider and she states patient is denied impatient treatment
[2024-12-02 19:12] LABS: Influenza A QL RT-PCR Negative (Negative); Influenza B QL RT-PCR Negative (Negative); RSV RNA, RT-PCR Negative (Negative); SARS-CoV-2 RNA PCR Negative (Negative)
[2024-12-02] MEDS: ONDANSETRON HCL ODT 4 MG TABLET PO (20:18)
--- NOTE | 2024-12-02 20:54 | PC.NURSE ---
Attempted to call EMS that transported pt about possible IV access still in place. Lowry Fiordaliza was hung up on. This RN also called accepting facility [facility] about removal of possible IV and was sent to voicemail after stating my name and where I was from. Charge notified.
--- NOTE | 2024-12-02 21:23 | PC.NURSE ---
Noticed Voluntary paperwork in chart. Charge notified. Faxed over to facility.
== END 2024-12-02 20:30 ==
PROVIDERS: Emergency Medicine; Emergency Provider Preventive Medicine Aerospace Medicine
DX: R10.13 Epigastric pain (principal); F32.A Depression, unspecified; R11.2 Nausea with vomiting, unspecified; F15.10 Other stimulant abuse, uncomplicated; Z20.822 Contact with and (suspected) exposure to COVID-19; F17.210 Nicotine dependence, cigarettes, uncomplicated
CPT/HCPCS: 36415; 74177; 80053; 80307; 81001; 82077; 83690; 85025; 85610; 85730; 87637; 96374; 96375; 96376; 99285; A9270; J1885; J2405; Q9967

== ENCOUNTER 2025-04-16 04:13 | Emergency (ER) | payer OTHER, SELFPAY ==
[2025-04-16] VITALS (8 sets, daily range): BP systolic 123–186; BP diastolic 90–98; PULSE 85–105; RESP 12–26; TEMP 36.7; O2SAT 99–100
--- NOTE | ~2025-04-16 | CT_ITS ---
EXAMINATION: CT abdomen pelvis w con DATE: 04/16/2025 05:08 INDICATION: Generalized abdominal pain. TECHNIQUE: Computed tomography (CT) of the abdomen and pelvis was performed with 100 mm Omnipaque 350 intravenous contrast. Automated exposure control and iterative reconstruction technique were employed. The dose-length product was 335.65 mGy-cm. COMPARISON: CT abdomen and pelvis 12/02/2024 FINDINGS: The visualized portions of lung bases demonstrate chronic peripheral septal thickening and mild emphysema. No pleural effusion. The heart size is normal. No pericardial effusion. Esophageal wall thickening is noted, consistent with esophagitis. The liver, gallbladder, spleen, pancreas, and adrenal glands are normal. There is mild atrophy of right kidney and moderate atrophy of left kidney. There is a parenchymal calcification in right kidney. There is a parenchymal calcification in left kidney. There are no dilated loops of bowel. The appendix is not visualized. There are no pathologically enlarged lymph nodes. There is no free intraperitoneal fluid. There is a healing fracture of left parasymphyseal pubis. There are healing insufficiency fractures of the sacrum involving the bilateral ala and S3 body. There is mild thoracolumbar spondylosis. IMPRESSION: 1. Wall thickening of the esophagus, consistent with esophagitis. 2. Mild atrophy of right kidney and moderate atrophy of left kidney. Reviewed, dictated and finalized at location E.
--- NOTE | 2025-04-16 04:17 | ED_ITS ---
HPI - Psych General Chief Complaint: Psychiatric Symptoms <Graciela Cui MD - Last Filed: 04/16/25 08:13> Stated Complaint: SUICIDAL THOUGHTS, ABDOMINAL PAIN S/P METH USE <Graciela Cui MD - Last Filed: 04/16/25 08:13> Time Seen by Provider: 04/16/25 04:17 <Graciela Cui MD - Last Filed: 04/16/25 08:13> Source: patient, EMS and RN notes reviewed <Graciela Cui MD - Last Filed: 04/16/25 08:13> Mode of arrival: EMS <Graciela Cui MD - Last Filed: 04/16/25 08:13> History of Present Illness HPI Narrative: Patient presents with report of generalized abdominal pain. He reports he has been using amphetamines. Patient reports that he is having suicidal thoughts. In particular, he [place] to [place]. He states his last bowel movement was a few days ago. This was not preceded by diarrhea and otherwise he denies any bloody stools. No previous abdominal surgeries. He is complaining of nausea and vomiting. He had been gagging himself by putting his finger in his throat, causing himself to vomit on the floor. Stated he was trying to get the poison out. Emesis has not been bloody. He denies any fevers or chills. He has had the left although bursa swelling for approximately 1 year. <Graciela Cui MD - Last Filed: 04/16/25 08:13> Related Data Allergies/Adverse Reactions: Allergies Allergy/AdvReac Type Severity Reaction Status Date / Time haloperidol Allergy Swelling Verified 04/16/25 04:42 of Lip/Tongue/Throat <Graciela Cui MD - Last Filed: 04/16/25 08:13> PMFSH Past Medical History Medical History: Medical History Coffee ground emesis Smoker PTSD (post-traumatic stress disorder) Depression Schizophrenia Methamphetamine use Alcohol abuse <Graciela Cui MD - Last Filed: 04/16/25 08:13> Surgical History Surgical History: Surgical History No pertinent past surgical history <Graciela Cui MD - Last Filed: 04/16/25 08:13> Family History Family History: Family History Sibling Asthma Grandparent Cancer <Graciela Cui MD - Last Filed: 04/16/25 08:13> Social History Social History: Social History Social History: He is unemployed and homeless. He is estranged from his family members. Smoking packs per day: 1 Smoking cigarettes per day: 20.0 Years smoked: 30 Smoking pack-years: 30.00 Smoking status: Current every day smoker Tobacco type: cigarettes Alcohol intake: current Drinks per week: 10 Substance use: current Substance use type: marijuana, amphetamines and methamphetamine Last use: 04/16/25 meth 02/10 marijuana Living arrangements: homeless Additional occupation/education comments: Unemployed Gender identity (if verbalized by the patient): Male Spiritual care concerns: No <Graciela Cui MD - Last Filed: 04/16/25 08:13> Exam 2 Narrative: GENERAL: In no acute distress. Poor Hygiene HEAD: Normocephalic, atraumatic. EYES: Non injected, non icteric ENT: Nares clear, no rhinorrhea or epistaxis. Gross auditory acuity intact. NECK: Supple. No meningismus. CHEST: Speaking in full sentences. No respiratory distress. HEART: Regular rate and rhythm. . ABDOMEN: Soft, nondistended. Mild generalized tenderness to palpation throughout but without rigidity. Not peritoneal. EXTREMITIES: Normal range of motion. Prominent left elbow bursa swelling, no overlying skin changes, no tenderness to palpation or induration. SKIN: Warm, dry NEURO: No focal deficits. Alert and oriented. Answering questions. Following commands. Normal speech without aphasia or dysarthria. PSYCH: Behavior: Calm, poor eye contact. Mood is congruent with affect. Speech: Appropriate rate, quantity and volume. Endorses SI. States I'm suicidal. Does not appear to be responding to internal stimuli <Graciela Cui MD - Last Filed: 04/16/25 08:13> Course Reevaluation(s) Reevaluation #1: Patient was accepted at [facility] for inpatient psychiatric placement. Patient was well-appearing at time of transfer. <Sam Sommer MD - Last Filed: 04/16/25 17:12> Vital Signs Vital signs: Vital Signs Temperature 98.1 F 04/16/25 03:58 Pulse Rate 85 04/16/25 03:58 Respiratory Rate 24 H 04/16/25 03:58 Blood Pressure 186/98 H 04/16/25 03:58 Pulse Oximetry 99 04/16/25 03:58 Oxygen Delivery Room Air 04/16/25 03:58 Temperature 98.1 F 04/16/25 03:58 Pulse Rate 88 04/16/25 10:01 Respiratory Rate 21 H 04/16/25 10:01 Blood Pressure 144/98 H 04/16/25 10:01 Pulse Oximetry 100 04/16/25 07:46 Oxygen Delivery Room Air 04/16/25 03:58 <Graciela Cui MD - Last Filed: 04/16/25 08:13> Vital Signs Temperature 98.1 F 04/16/25 03:58 Pulse Rate 85 04/16/25 03:58 Respiratory Rate 24 H 04/16/25 03:58 Blood Pressure 186/98 H 04/16/25 03:58 Pulse Oximetry 99 04/16/25 03:58 Oxygen Delivery Room Air 04/16/25 03:58 Temperature 98.1 F 04/16/25 03:58 Pulse Rate 88 04/16/25 10:01 Respiratory Rate 21 H 04/16/25 10:01 Blood Pressure 144/98 H 04/16/25 10:01 Pulse Oximetry 100 04/16/25 07:46 Oxygen Delivery Room Air 04/16/25 03:58 <Sam Sommer MD - Last Filed: 04/16/25 17:12> MDM - Psych MDM Narrative Medical decision making narrative: Patient presents with report of generalized abdominal pain after using amphetamines. He reports suicidal ideation with a [place]. In the emergency department he is afebrile with vital signs notable for hypertension and tachycpnea. He has leukocytosis, somewhat chronic to a degree, however white blood cells nearly 16 today which is higher than historical. Hyperglycemia is without anion gap acidosis. Very mild hypokalemia. Oral repletion ordered. Lipase within normal limits. Viral swab negative. Ethanol level <10. He has some proteinuria but otherwise urine does not appear infected (despite CT notation of abnormal appearance of kidneys). Patient is reassessed at 5:35 a.m. and reports his nausea and abdominal pain are better. UDS with amphetamines and cannabinoids. At this time he is medically cleared to be evaluated by psych/crisis. Patient signed out pending evaluation and determination of disposition. <Graciela Cui MD - Last Filed: 04/16/25 08:13> Lab Data Attestation: I reviewed the patient's lab results. <Graciela Cui MD - Last Filed: 04/16/25 08:13> Lab results narrative: TSH normal <Graciela Cui MD - Last Filed: 04/16/25 08:13> Result diagrams: 04/16/25 04:19 04/16/25 04:19 <Gracieal Cui MD - Last Filed: 04/16/25 08:13> Labs: Lab Results 04/16/25 04/16/25 Range/Units 04:19 05:16 WBC 15.8 H (4.5-10.0) K/mm3 RBC 5.48 (4.6-6.20) M/mm3 Hgb 14.7 (14.0-18.0) g/dL Hct 46.3 (42.0-52.0) % MCV 84.5 (80-100) fl MCH 26.8 (26-34) pg MCHC 31.7 L (32-36) g/dl RDW 19.1 H (11.5-14.5) % Plt Count 391 H (150-375) k/mm3 MPV 9.0 (7.4-10.4) fl Immature Gran % (Auto) 0.6 H (0-0.5) % Neut % (Auto) 75.2 H (45.5-73.1) % Lymph % (Auto) 13.2 L (18.3-44.2) % [place] % (Auto) 8.1 (2.6-8.5) % Eos % (Auto) 1.8 (0-4.4) % Baso % (Auto) 1.1 (0.2-1.2) % Lymph # (Auto) 2.08 (0.9-3.2) K/mm3 [place] # (Auto) 1.3 H (0.1-0.6) K/mm3 Eos # (Auto) 0.3 (0-0.3) K/mm3 Baso # (Auto) 0.2 H (0.0-0.1) K/mm3 Abs Immat Gran (auto) 0.09 H (0.00-0.031) K/mm3 Absolute Neuts (auto) 11.9 H (1.3-6.7) K/mm3 Absolute Nucleated RBC 0.000 (0.0-0.012) K/mm3 Nucleated RBC % 0.0 (0.0-0.2) % Sodium 138 (137-145) mmol/L Potassium 3.3 L (3.4-5.0) mmol/L Chloride 98 (98-107) mmol/L Carbon Dioxide 33 H (22-30) mmol/L Anion Gap 7 (4-12) mmol/L BUN 12 (9-20) mg/dL Creatinine 0.78 (0.7-1.3) mg/dL Estim Creat Clear Calc 75 ml/min Estimated GFR > 60 (59 - ) Glucose 160 H (65-110) mg/dL Calcium 9.5 (8.4-10.2) mg/dL Total Bilirubin 0.4 (0.2-1.3) mg/dL AST 34 (17-59) U/L ALT 24 (6-50) U/L Alkaline Phosphatase 134 H (38-126) U/L Total Protein 7.2 (6.3-8.2) g/dL Albumin 4.2 (3.5-5.1) g/dL Lipase 69 (23-300) U/L TSH (Reflex) 2.470 (0.465-4.68) uIU/mL Urine Color Yellow (Yellow) Urine Appearance Clear (Clear) Urine pH 7.5 (5.0-9.0) Ur Specific [place] 1.020 (1.001-1.035) Urine Protein 2+ H (Negative) mg/dL Urine Glucose (UA) Negative (Negative) mg/dL Urine Ketones Negative (Negative) mg/dL Ur Blood (Man) Negative (Negative) Urine Nitrate Negative (Negative) Urine Bilirubin Negative (Negative) Urine Urobilinogen 1.0 (<2.0) mg/dL Leukocyte Esterase Rfl Negative (Negative) MARBELLA/UL Urine RBC 0-2 (0-2) /hpf Urine WBC 0-5 (0-3) /hpf Ur Squamous Epith Cells None seen (Few) /hpf Urine Bacteria None seen /hpf Urine Casts 0-2 Urine Opiates Screen Negative (Negative) Urine Methadone Screen Negative (Negative) Ur Barbiturates Screen Negative (Negative) Ur Phencyclidine Scrn Negative (Negative) Ur Amphetamine Screen Positive A (Negative) U Benzodiazepines Scrn Negative (Negative) Urine Cocaine Screen Negative (Negative) U Cannabinoids Screen Positive A (Negative) Ethyl Alcohol < 10 (<10) mg/dL Influenza A (RT-PCR) Negative (Negative) Influenza B (RT-PCR) Negative (Negative) RSV (RT-PCR) Negative (Negative) SARS-CoV-2 RNA (RT-PCR) Negative (Negative) <Graciela Cui MD - Last Filed: 04/16/25 08:13> Lab Results 04/16/25 04/16/25 Range/Units 04:19 05:16 WBC 15.8 H (4.5-10.0) K/mm3 RBC 5.48 (4.6-6.20) M/mm3 Hgb 14.7 (14.0-18.0) g/dL Hct 46.3 (42.0-52.0) % MCV 84.5 (80-100) fl MCH 26.8 (26-34) pg MCHC 31.7 L (32-36) g/dl RDW 19.1 H (11.5-14.5) % Plt Count 391 H (150-375) k/mm3 MPV 9.0 (7.4-10.4) fl Immature Gran % (Auto) 0.6 H (0-0.5) % Neut % (Auto) 75.2 H (45.5-73.1) % Lymph % (Auto) 13.2 L (18.3-44.2) % [place] % (Auto) 8.1 (2.6-8.5) % Eos % (Auto) 1.8 (0-4.4) % Baso % (Auto) 1.1 (0.2-1.2) % Lymph # (Auto) 2.08 (0.9-3.2) K/mm3 [place] # (Auto) 1.3 H (0.1-0.6) K/mm3 Eos # (Auto) 0.3 (0-0.3) K/mm3 Baso # (Auto) 0.2 H (0.0-0.1) K/mm3 Abs Immat Gran (auto) 0.09 H (0.00-0.031) K/mm3 Absolute Neuts (auto) 11.9 H (1.3-6.7) K/mm3 Absolute Nucleated RBC 0.000 (0.0-0.012) K/mm3 Nucleated RBC % 0.0 (0.0-0.2) % Sodium 138 (137-145) mmol/L Potassium 3.3 L (3.4-5.0) mmol/L Chloride 98 (98-107) mmol/L Carbon Dioxide 33 H (22-30) mmol/L Anion Gap 7 (4-12) mmol/L BUN 12 (9-20) mg/dL Creatinine 0.78 (0.7-1.3) mg/dL Estim Creat Clear Calc 75 ml/min Estimated GFR > 60 (59 - ) Glucose 160 H (65-110) mg/dL Calcium 9.5 (8.4-10.2) mg/dL Total Bilirubin 0.4 (0.2-1.3) mg/dL AST 34 (17-59) U/L ALT 24 (6-50) U/L Alkaline Phosphatase 134 H (38-126) U/L Total Protein 7.2 (6.3-8.2) g/dL Albumin 4.2 (3.5-5.1) g/dL Lipase 69 (23-300) U/L TSH (Reflex) 2.470 (0.465-4.68) uIU/mL Urine Color Yellow (Yellow) Urine Appearance Clear (Clear) Urine pH 7.5 (5.0-9.0) Ur Specific [place] 1.020 (1.001-1.035) Urine Protein 2+ H (Negative) mg/dL Urine Glucose (UA) Negative (Negative) mg/dL Urine Ketones Negative (Negative) mg/dL Ur Blood (Man) Negative (Negative) Urine Nitrate Negative (Negative) Urine Bilirubin Negative (Negative) Urine Urobilinogen 1.0 (<2.0) mg/dL Leukocyte Esterase Rfl Negative (Negative) MARBELLA/UL Urine RBC 0-2 (0-2) /hpf Urine WBC 0-5 (0-3) /hpf Ur Squamous Epith Cells None seen (Few) /hpf Urine Bacteria None seen /hpf Urine Casts 0-2 Urine Opiates Screen Negative (Negative) Urine Methadone Screen Negative (Negative) Ur Barbiturates Screen Negative (Negative) Ur Phencyclidine Scrn Negative (Negative) Ur Amphetamine Screen Positive A (Negative) U Benzodiazepines Scrn Negative (Negative) Urine Cocaine Screen Negative (Negative) U Cannabinoids Screen Positive A (Negative) Ethyl Alcohol < 10 (<10) mg/dL Influenza A (RT-PCR) Negative (Negative) Influenza B (RT-PCR) Negative (Negative) RSV (RT-PCR) Negative (Negative) SARS-CoV-2 RNA (RT-PCR) Negative (Negative) <Sam Sommer MD - Last Filed: 04/16/25 17:12> Imaging Data Radiologist's impression: CT abd & pelvis w/ Contrast Stat rad: Edema or thickening lower 1/3 of esophagus. There is a large air-fluid level in the stomach. Correlate for gastroenteritis and reflux esophagitis. No intestinal, biliary or urinary obstruction. No free fluid or free air. Incidental findings:: Bandlike decreased enhancement throughout both kidneys and dysplastic appearance suggests renal scarring. Pyelonephritis would be difficult to entirely exclude. Correlate urinalysis. == Impressions Abdomen/Pelvis CT 04/16/25 08:04 IMPRESSION: 1. Wall thickening of the esophagus, consistent with esophagitis. 2. Mild atrophy of right kidney and moderate atrophy of left kidney. <Graciela Cui MD - Last Filed: 04/16/25 08:13> Discharge Plan Discharge Clinical Impression: Suicidal ideation, Leukocytosis, Generalized abdominal pain, Effusion of bursa of left elbow, Hyperglycemia, Hypokalemia, Proteinuria, Amphetamine use, Marijuana use, Esophagitis, Bilateral renal atrophy <Graciela Cui MD - Last Filed: 04/16/25 08:13> Patient Disposition: Still a Patient <Graciela Cui MD - Last Filed: 04/16/25 08:13> Condition: Stable <Graciela Cui MD - Last Filed: 04/16/25 08:13> Instructions: Antibiotic Form <Graciela Cui MD - Last Filed: 04/16/25 08:13> Patient Language: Panamanian <Graciela Cui MD - Last Filed: 04/16/25 08:13> Prescriptions: No Action ferrous sulfate [FeroSul] 325 mg (65 mg iron) tablet 325 mg PO DAILY Qty: 30 3RF ferrous sulfate 325 mg (65 mg iron) tablet 325 mg PO DAILY Qty: 30 0RF cephalexin 500 mg capsule 500 mg PO Q6H 7 Days Qty: 28 0RF <Graciela Cui MD - Last Filed: 04/16/25 08:13> Follow-up/Referrals: UNKNOWN,DOCTOR [Primary Care Provider] <Graciela Cui MD - Last Filed: 04/16/25 08:13>
[2025-04-16 04:27] LABS: Hematocrit 46.3 % (42.0-52.0); Hemoglobin 14.7 g/dL (14.0-18.0); Immature Granulocyte Percent A 0.6 % (0-0.5); Lymphocytes Absolute Auto 2.08 K/mm3 (0.9-3.2); Mean Corpuscular HGB Conc 31.7 g/dl (32-36); Mean Corpuscular Hemoglobin 26.8 pg (26-34); Mean Corpuscular Volume 84.5 fl (80-100); Nucleated Red Blood Cells Absolute Auto 0.000 K/mm3 (0.0-0.012); Nucleated Red Blood Cells Perc 0.0 % (0.0-0.2); Platelet Count Result 391 k/mm3 (150-375); Red Blood Count 5.48 M/mm3 (4.6-6.20); White Blood Count 15.8 K/mm3 (4.5-10.0)
--- NOTE | 2025-04-16 04:38 | PC.NURSE ---
Pt attempted to provide a urine sample, bu was unable. Will retry again shortly. EDP notified.
[2025-04-16] MEDS: ACETAMINOPHEN 500 MG TABLET 1000 MG PO (04:46)
[2025-04-16 04:47] LABS: Alanine Aminotransferase 24 U/L (6-50); Albumin Level 4.2 g/dL (3.5-5.1); Alkaline Phosphatase 134 U/L (38-126); Anion Gap 7 mmol/L (4-12); Aspartate Amino Transferase 34 U/L (17-59); Bilirubin,Total 0.4 mg/dL (0.2-1.3); Blood Urea Nitrogen 12 mg/dL (9-20); Calcium 9.5 mg/dL (8.4-10.2); Carbon Dioxide 33 mmol/L (22-30); Chloride 98 mmol/L (98-107); Estimated CRCL calculation 75 ml/min; Estimated Glomerular Filt Rate > 60; Glucose 160 mg/dL (65-110); Lipase 69 U/L (23-300); Potassium 3.3 mmol/L (3.4-5.0); Sodium 138 mmol/L (137-145); Total Protein 7.2 g/dL (6.3-8.2)
[2025-04-16] MEDS: ONDANSETRON HCL ODT 4 MG TABLET PO (04:47)
[2025-04-16 05:01] LABS: Influenza A QL RT-PCR Negative (Negative); Influenza B QL RT-PCR Negative (Negative); RSV RNA, RT-PCR Negative (Negative); SARS-CoV-2 RNA PCR Negative (Negative)
[2025-04-16 05:10] LABS: Thyroid Stimulating Hormone Reflex 2.470 uIU/mL (0.465-4.68)
[2025-04-16] MEDS: POTASSIUM BICARBONATE 25 MEQ TABEF PO (05:18)
[2025-04-16 05:28] LABS: Add Urine Microscopic? YES; Appearance Urine Clear (Clear); Glucose Urine UA Negative (Negative); Leukocyte Esterase Ur Negative LEU/UL (Negative); Nitrate Urine Negative (Negative); Non Pathogenic Casts 0-2; Specific Grav Ur 1.020 (1.001-1.035)
[2025-04-16 05:43] LABS: Cannabinoid Screen Urine Positive (Negative)
--- NOTE | 2025-04-16 05:52 | PC.NURSE ---
This RN spoke to Haylie from [facility] and was told someone would be here shortly.
--- NOTE | 2025-04-16 10:19 | PC.NURSE ---
Spoke with Salina from [facility]. requested updated vitals, and reason for admission on consent form.
--- NOTE | 2025-04-16 11:39 | PC.NURSE ---
spoke with Minna RANKIN at [facility] [place] at this time, they are requesting CT results as well as updated vitals
== END 2025-04-16 15:45 ==
PROVIDERS: Emergency Provider Student in an Organized Health Care Education/Training Program
DX: R45.851 Suicidal ideations (principal); R10.84 Generalized abdominal pain; F15.90 Other stimulant use, unspecified, uncomplicated; F12.90 Cannabis use, unspecified, uncomplicated; M25.422 Effusion, left elbow; D72.829 Elevated white blood cell count, unspecified; R80.9 Proteinuria, unspecified; R73.9 Hyperglycemia, unspecified; E87.6 Hypokalemia; K20.90 Esophagitis, unspecified without bleeding; N26.1 Atrophy of kidney (terminal); Z11.52 Encounter for screening for COVID-19; F17.210 Nicotine dependence, cigarettes, uncomplicated; Z59.00 Homelessness unspecified
CPT/HCPCS: 36415; 74177; 80053; 80307; 81001; 82077; 83690; 84443; 85025; 87637; 99285; A9270; Q9967

== ENCOUNTER 2025-05-07 23:31 | Emergency (ER) | payer OTHER, SELFPAY ==
[2025-05-07 23:33] VITALS: BP 133/89; PULSE 109; RESP 14; TEMP 36.6; O2SAT 100
[2025-05-08 00:24] LABS: Hematocrit 36.5 % (42.0-52.0); Hemoglobin 11.8 g/dL (14.0-18.0); Immature Granulocyte Percent A 0.6 % (0-0.5); Lymphocytes Absolute Auto 2.04 K/mm3 (0.9-3.2); Mean Corpuscular HGB Conc 32.3 g/dl (32-36); Mean Corpuscular Hemoglobin 27.3 pg (26-34); Mean Corpuscular Volume 84.3 fl (80-100); Nucleated Red Blood Cells Absolute Auto 0.000 K/mm3 (0.0-0.012); Nucleated Red Blood Cells Perc 0.0 % (0.0-0.2); Platelet Count Result 314 k/mm3 (150-375); Red Blood Count 4.33 M/mm3 (4.6-6.20); White Blood Count 10.6 K/mm3 (4.5-10.0)
[2025-05-08 00:26] LABS: Add Urine Microscopic? NO; Appearance Urine Clear (Clear); Glucose Urine UA Negative (Negative); Leukocyte Esterase Ur Negative LEU/UL (Negative); Nitrate Urine Negative (Negative); Specific Grav Ur 1.023 (1.001-1.035)
[2025-05-08] MEDS: MAG HYDROX/AL HYDROX/SIMETH 30 ML UDC PO (00:26)
[2025-05-08 00:49] LABS: Cannabinoid Screen Urine Positive (Negative)
[2025-05-08 00:56] LABS: Acetaminophen < 10 ug/mL (10-30); Salicylate < 1.0 mg/dL (2-20)
[2025-05-08 01:07] LABS: Alanine Aminotransferase 18 U/L (6-50); Albumin Level 3.4 g/dL (3.5-5.1); Alkaline Phosphatase 112 U/L (38-126); Anion Gap 8 mmol/L (4-12); Aspartate Amino Transferase 33 U/L (17-59); Bilirubin,Total < 0.1 mg/dL (0.2-1.3); Blood Urea Nitrogen 20 mg/dL (9-20); Calcium 9.0 mg/dL (8.4-10.2); Carbon Dioxide 26 mmol/L (22-30); Chloride 97 mmol/L (98-107); Estimated Glomerular Filt Rate > 60; Glucose 110 mg/dL (65-110); Potassium 3.4 mmol/L (3.4-5.0); Sodium 131 mmol/L (137-145); Total Protein 5.7 g/dL (6.3-8.2)
[2025-05-08 01:11] LABS: Thyroid Stimulating Hormone Reflex 1.020 uIU/mL (0.465-4.68)
--- NOTE | 2025-05-08 01:19 | ED.PSYCH ---
HPI - Psych General Chief Complaint: Psychiatric Symptoms <Laurie Denney APRN - Last Filed: 05/08/25 04:07> Stated Complaint: hallucinations; Suicidal with plan <Laurie Denney APRN - Last Filed: 05/08/25 04:07> Time Seen by Provider: 05/08/25 00:21 <Laurie Denney APRN - Last Filed: 05/08/25 04:07> History of Present Illness HPI Narrative: Patient is a 49-year-old male presents to the ER with suicidal ideation. He reports his symptoms have worsened over the past couple of days. Patient reports he has a history of mental health issues and has been hospitalized in the past. He believes his most recent hospitalization was 6 months ago. Patient reports he had plans to jump off a bridge. He also reports he has not slept in days. Patient reports he is homeless and prefers to be nomad. He endorses a history of acid reflux, CHF, neuropathy, and high blood pressure. Patient reports recently he has been using ice and heroin to self medicate. He reports he has not had alcohol in about 6 months. Patient denies any chest pain, shortness of breath, recent fevers, or abdominal pain. <Laurie Denney APRN - Last Filed: 05/08/25 04:07> Related Data Allergies/Adverse Reactions: Allergies Allergy/AdvReac Type Severity Reaction Status Date / Time haloperidol Allergy Swelling Verified 04/16/25 04:42 of Lip/Tongue/Throat <Laurie Denney APRN - Last Filed: 05/08/25 04:07> Review of Systems Review of Systems: All systems reviewed & are unremarkable except as noted in HPI and below <Laurie Denney APRN - Last Filed: 05/08/25 04:07> PMF Past Medical History Medical History: Medical History Coffee ground emesis Smoker PTSD (post-traumatic stress disorder) Depression Schizophrenia Methamphetamine use Alcohol abuse <Laurie Denney APRN - Last Filed: 05/08/25 04:07> Surgical History Surgical History: Surgical History No pertinent past surgical history <Laurie Denney APRN - Last Filed: 05/08/25 04:07> Family History Family History: Family History Sibling Asthma Grandparent Cancer <Laurie Denney APRN - Last Filed: 05/08/25 04:07> Social History Social History: Social History Social History: He is unemployed and homeless. He is estranged from his family members. Smoking packs per day: 1 Smoking cigarettes per day: 20.0 Years smoked: 30 Smoking pack-years: 30.00 Smoking status: Current every day smoker Tobacco type: cigarettes Alcohol intake: current Drinks per week: 10 Substance use: current Substance use type: methamphetamine Last use: 04/16/25 meth 02/10 marijuana Living arrangements: homeless Additional occupation/education comments: Unemployed Gender identity (if verbalized by the patient): Male Spiritual care concerns: No <Laurie Denney APRN - Last Filed: 05/08/25 04:07> Exam Narrative: GENERAL: Disheveled, cachectic, non-toxic, in no acute distress. HEAD: Normocephalic, atraumatic. NECK: Supple. No adenopathy, no masses. RESPIRATORY: Airway patent, respirations nonlabored. Clear to auscultation bilaterally, no rales, rhonchi, wheezing. CARDIOVASCULAR: Regular rate and rhythm without murmurs, rubs, or gallops. Peripheral pulses 2+ and equal bilaterally. ABDOMINAL: Soft, nontender, nondistended, no hepatosplenomegaly. Normoactive BS. MUSCULOSKELETAL: Moves all extremities. Strength/ROM intact without gross deformities. SKIN: Warm, dry, normal color. No rashes. NEURO: A&O X3. Speech clear. Cranial nerves II-XII intact. No ataxic movements. PSYCHIATRIC: Flat affect. Normal interaction. <Laurie Denney APRN - Last Filed: 05/08/25 04:07> Course Vital Signs Vital signs: Vital Signs Temperature 97.8 F 05/07/25 23:33 Pulse Rate 109 H 05/07/25 23:33 Respiratory Rate 14 05/07/25 23:33 Blood Pressure 133/89 05/07/25 23:33 Pulse Oximetry 100 05/07/25 23:33 Oxygen Delivery Room Air 05/07/25 23:33 Temperature 97.6 F 05/08/25 07:34 Pulse Rate 82 05/08/25 07:34 Respiratory Rate 17 05/08/25 07:34 Blood Pressure 133/82 05/08/25 07:34 Pulse Oximetry 98 05/08/25 07:34 Oxygen Delivery Room Air 05/07/25 23:33 <Laurie Denney, NORMA - Last Filed: 05/08/25 04:07> Vital Signs Temperature 97.8 F 05/07/25 23:33 Pulse Rate 109 H 05/07/25 23:33 Respiratory Rate 14 05/07/25 23:33 Blood Pressure 133/89 05/07/25 23:33 Pulse Oximetry 100 05/07/25 23:33 Oxygen Delivery Room Air 05/07/25 23:33 Temperature 97.6 F 05/08/25 07:34 Pulse Rate 82 05/08/25 07:34 Respiratory Rate 17 05/08/25 07:34 Blood Pressure 133/82 05/08/25 07:34 Pulse Oximetry 98 05/08/25 07:34 Oxygen Delivery Room Air 05/07/25 23:33 <Phillip Villegas DO - Last Filed: 05/08/25 05:54> Vital Signs Temperature 97.8 F 05/07/25 23:33 Pulse Rate 109 H 05/07/25 23:33 Respiratory Rate 14 05/07/25 23:33 Blood Pressure 133/89 05/07/25 23:33 Pulse Oximetry 100 05/07/25 23:33 Oxygen Delivery Room Air 05/07/25 23:33 Temperature 97.6 F 05/08/25 07:34 Pulse Rate 82 05/08/25 07:34 Respiratory Rate 17 05/08/25 07:34 Blood Pressure 133/82 05/08/25 07:34 Pulse Oximetry 98 05/08/25 07:34 Oxygen Delivery Room Air 05/07/25 23:33 <Sam Sommer MD - Last Filed: 05/08/25 18:07> MDM - Psych MDM Narrative Medical decision making narrative: Patient is a 49-year-old male presents to the ER with suicidal ideation. He reports his symptoms have worsened over the past couple of days. Patient reports he has a history of mental health issues and has been hospitalized in the past. He believes his most recent hospitalization was 6 months ago. Patient reports he had plans to jump off a bridge. He also reports he has not slept in days. Patient reports he is homeless and prefers to be nomad. He endorses a history of acid reflux, CHF, neuropathy, and high blood pressure. Patient reports recently he has been using ice and heroin to self medicate. He reports he has not had alcohol in about 6 months. Patient denies any chest pain, shortness of breath, recent fevers, or abdominal pain. Labs Ordered: CBC, CMP, TSH, UA, UDS, Tylenol level, salicylate level, ethanol, COVID swab Imaging Ordered: None necessary Medications Ordered: Mylanta p.o. (patient request), Ativan 1 mg p.o. Diagnosis: Suicidal ideation, major depressive disorder Consults: 0130- Pt is medically cleared for mental health intake evaluation. 0-[facility] signed out to Dr. Villegas, pending pt placement. <Laurie Denney, BANKING SERVICES OFFICER - Last Filed: 05/08/25 04:07> Patient is a 49-year-old male presents to the ER with suicidal ideation. He reports his symptoms have worsened over the past couple of days. Patient reports he has a history of mental health issues and has been hospitalized in the past. He believes his most recent hospitalization was 6 months ago. Patient reports he had plans to jump off a bridge. He also reports he has not slept in days. Patient reports he is homeless and prefers to be nomad. He endorses a history of acid reflux, CHF, neuropathy, and high blood pressure. Patient reports recently he has been using ice and heroin to self medicate. He reports he has not had alcohol in about 6 months. Patient denies any chest pain, shortness of breath, recent fevers, or abdominal pain. Labs Ordered: CBC, CMP, TSH, UA, UDS, Tylenol level, salicylate level, ethanol, COVID swab Imaging Ordered: None necessary Medications Ordered: Mylanta p.o. (patient request), Ativan 1 mg p.o. Diagnosis: Suicidal ideation, major depressive disorder Consults: 0- Pt is medically cleared for mental health intake evaluation. [facility] signed out to Dr. Villgeas, pending pt placement. Patient accepted for transfer by Jovi Garcia at [facility]. <Phillip Villegas DO - Last Filed: 05/08/25 05:54> Patient is a 49-year-old male presents to the ER with suicidal ideation. He reports his symptoms have worsened over the past couple of days. Patient reports he has a history of mental health issues and has been hospitalized in the past. He believes his most recent hospitalization was 6 months ago. Patient reports he had plans to jump off a bridge. He also reports he has not slept in days. Patient reports he is homeless and prefers to be nomad. He endorses a history of acid reflux, CHF, neuropathy, and high blood pressure. Patient reports recently he has been using ice and heroin to self medicate. He reports he has not had alcohol in about 6 months. Patient denies any chest pain, shortness of breath, recent fevers, or abdominal pain. Labs Ordered: CBC, CMP, TSH, UA, UDS, Tylenol level, salicylate level, ethanol, COVID swab Imaging Ordered: None necessary Medications Ordered: Mylanta p.o. (patient request), Ativan 1 mg p.o. Diagnosis: Suicidal ideation, major depressive disorder Consults: 0130- Pt is medically cleared for mental health intake evaluation. 0-[facility] signed out to Dr. Villegas, pending pt placement. Patient accepted for transfer by Jovi Garcia at [facility]. --- santiago 9:44 a.m. on re-evaluation patient denies homicidal suicidal ideation. Patient denies having any hallucinations. Patient states this was due to his meth use. Patient had signed voluntary and patient is requesting to be discharged. patient was alert appropriate time of discharge. <Sam Sommer MD - Last Filed: 05/08/25 18:07> Differential Diagnosis Differential diagnosis: Likely acute psychosis, suicidal ideation, bipolar disorder, depression, drug-induced psychotic disorder and acute anxiety <Laurie Denney APRN - Last Filed: 05/08/25 04:07> Lab Data Attestation: I reviewed the patient's lab results. <Laurie Denney APRN - Last Filed: 05/08/25 04:07> Result diagrams: 05/08/25 00:17 05/08/25 00:17 <Laurie Hensley Jumana, BANKING SERVICES OFFICER - Last Filed: 05/08/25 04:07> Labs: Lab Results 05/08/25 Range/Units 00:17 WBC 10.6 H (4.5-10.0) K/mm3 RBC 4.33 L (4.6-6.20) M/mm3 Hgb 11.8 L (14.0-18.0) g/dL Hct 36.5 L (42.0-52.0) % MCV 84.3 (80-100) fl MCH 27.3 (26-34) pg MCHC 32.3 (32-36) g/dl RDW 19.0 H (11.5-14.5) % Plt Count 314 (150-375) k/mm3 MPV 8.3 (7.4-10.4) fl Immature Gran % (Auto) 0.6 H (0-0.5) % Neut % (Auto) 65.0 (45.5-73.1) % Lymph % (Auto) 19.3 (18.3-44.2) % [place] % (Auto) 9.9 H (2.6-8.5) % Eos % (Auto) 3.9 (0-4.4) % Baso % (Auto) 1.3 H (0.2-1.2) % Lymph # (Auto) 2.04 (0.9-3.2) K/mm3 [place] # (Auto) 1.1 H (0.1-0.6) K/mm3 Eos # (Auto) 0.4 H (0-0.3) K/mm3 Baso # (Auto) 0.1 (0.0-0.1) K/mm3 Abs Immat Gran (auto) 0.06 H (0.00-0.031) K/mm3 Absolute Neuts (auto) 6.9 H (1.3-6.7) K/mm3 Absolute Nucleated RBC 0.000 (0.0-0.012) K/mm3 Nucleated RBC % 0.0 (0.0-0.2) % Sodium 131 L (137-145) mmol/L Potassium 3.4 (3.4-5.0) mmol/L Chloride 97 L (98-107) mmol/L Carbon Dioxide 26 (22-30) mmol/L Anion Gap 8 (4-12) mmol/L BUN 20 (9-20) mg/dL Creatinine 0.88 (0.7-1.3) mg/dL Estim Creat Clear Calc Not Reportable Estimated GFR > 60 (59 - ) Glucose 110 (65-110) mg/dL Calcium 9.0 (8.4-10.2) mg/dL Total Bilirubin < 0.1 L (0.2-1.3) mg/dL AST 33 (17-59) U/L ALT 18 (6-50) U/L Alkaline Phosphatase 112 (38-126) U/L Total Protein 5.7 L (6.3-8.2) g/dL Albumin 3.4 L (3.5-5.1) g/dL TSH (Reflex) 1.020 (0.465-4.68) uIU/mL Urine Color Yellow (Yellow) Urine Appearance Clear (Clear) Urine pH 5.5 (5.0-9.0) Ur Specific [place] 1.023 (1.001-1.035) Urine Protein Negative (Negative) mg/dL Urine Glucose (UA) Negative (Negative) mg/dL Urine Ketones Trace H (Negative) mg/dL Ur Blood (Man) Negative (Negative) Urine Nitrate Negative (Negative) Urine Bilirubin Negative (Negative) Urine Urobilinogen 1.0 (<2.0) mg/dL Leukocyte Esterase Rfl Negative (Negative) MARBELLA/UL Salicylates < 1.0 L (2-20) mg/dL Urine Opiates Screen Negative (Negative) Urine Methadone Screen Negative (Negative) Acetaminophen < 10 L (10-30) ug/mL Ur Barbiturates Screen Negative (Negative) Ur Phencyclidine Scrn Negative (Negative) Ur Amphetamine Screen Positive A (Negative) U Benzodiazepines Scrn Negative (Negative) Urine Cocaine Screen Negative (Negative) U Cannabinoids Screen Positive A (Negative) Ethyl Alcohol < 10 (<10) mg/dL SARS-CoV-2 RNA (RT-PCR) Negative (Negative) <Laurie Denney, BANKING SERVICES OFFICER - Last Filed: 05/08/25 04:07> Lab Results 05/08/25 Range/Units 00:17 WBC 10.6 H (4.5-10.0) K/mm3 RBC 4.33 L (4.6-6.20) M/mm3 Hgb 11.8 L (14.0-18.0) g/dL Hct 36.5 L (42.0-52.0) % MCV 84.3 (80-100) fl MCH 27.3 (26-34) pg MCHC 32.3 (32-36) g/dl RDW 19.0 H (11.5-14.5) % Plt Count 314 (150-375) k/mm3 MPV 8.3 (7.4-10.4) fl Immature Gran % (Auto) 0.6 H (0-0.5) % Neut % (Auto) 65.0 (45.5-73.1) % Lymph % (Auto) 19.3 (18.3-44.2) % [place] % (Auto) 9.9 H (2.6-8.5) % Eos % (Auto) 3.9 (0-4.4) % Baso % (Auto) 1.3 H (0.2-1.2) % Lymph # (Auto) 2.04 (0.9-3.2) K/mm3 [place] # (Auto) 1.1 H (0.1-0.6) K/mm3 Eos # (Auto) 0.4 H (0-0.3) K/mm3 Baso # (Auto) 0.1 (0.0-0.1) K/mm3 Abs Immat Gran (auto) 0.06 H (0.00-0.031) K/mm3 Absolute Neuts (auto) 6.9 H (1.3-6.7) K/mm3 Absolute Nucleated RBC 0.000 (0.0-0.012) K/mm3 Nucleated RBC % 0.0 (0.0-0.2) % Sodium 131 L (137-145) mmol/L Potassium 3.4 (3.4-5.0) mmol/L Chloride 97 L (98-107) mmol/L Carbon Dioxide 26 (22-30) mmol/L Anion Gap 8 (4-12) mmol/L BUN 20 (9-20) mg/dL Creatinine 0.88 (0.7-1.3) mg/dL Estim Creat Clear Calc Not Reportable Estimated GFR > 60 (59 - ) Glucose 110 (65-110) mg/dL Calcium 9.0 (8.4-10.2) mg/dL Total Bilirubin < 0.1 L (0.2-1.3) mg/dL AST 33 (17-59) U/L ALT 18 (6-50) U/L Alkaline Phosphatase 112 (38-126) U/L Total Protein 5.7 L (6.3-8.2) g/dL Albumin 3.4 L (3.5-5.1) g/dL TSH (Reflex) 1.020 (0.465-4.68) uIU/mL Urine Color Yellow (Yellow) Urine Appearance Clear (Clear) Urine pH 5.5 (5.0-9.0) Ur Specific [place] 1.023 (1.001-1.035) Urine Protein Negative (Negative) mg/dL Urine Glucose (UA) Negative (Negative) mg/dL Urine Ketones Trace H (Negative) mg/dL Ur Blood (Man) Negative (Negative) Urine Nitrate Negative (Negative) Urine Bilirubin Negative (Negative) Urine Urobilinogen 1.0 (<2.0) mg/dL Leukocyte Esterase Rfl Negative (Negative) MARBELLA/UL Salicylates < 1.0 L (2-20) mg/dL Urine Opiates Screen Negative (Negative) Urine Methadone Screen Negative (Negative) Acetaminophen < 10 L (10-30) ug/mL Ur Barbiturates Screen Negative (Negative) Ur Phencyclidine Scrn Negative (Negative) Ur Amphetamine Screen Positive A (Negative) U Benzodiazepines Scrn Negative (Negative) Urine Cocaine Screen Negative (Negative) U Cannabinoids Screen Positive A (Negative) Ethyl Alcohol < 10 (<10) mg/dL SARS-CoV-2 RNA (RT-PCR) Negative (Negative) <Phillip Villegas, DO - Last Filed: 05/08/25 05:54> Lab Results 05/08/25 Range/Units 00:17 WBC 10.6 H (4.5-10.0) K/mm3 RBC 4.33 L (4.6-6.20) M/mm3 Hgb 11.8 L (14.0-18.0) g/dL Hct 36.5 L (42.0-52.0) % MCV 84.3 (80-100) fl MCH 27.3 (26-34) pg MCHC 32.3 (32-36) g/dl RDW 19.0 H (11.5-14.5) % Plt Count 314 (150-375) k/mm3 MPV 8.3 (7.4-10.4) fl Immature Gran % (Auto) 0.6 H (0-0.5) % Neut % (Auto) 65.0 (45.5-73.1) % Lymph % (Auto) 19.3 (18.3-44.2) % [place] % (Auto) 9.9 H (2.6-8.5) % Eos % (Auto) 3.9 (0-4.4) % Baso % (Auto) 1.3 H (0.2-1.2) % Lymph # (Auto) 2.04 (0.9-3.2) K/mm3 [place] # (Auto) 1.1 H (0.1-0.6) K/mm3 Eos # (Auto) 0.4 H (0-0.3) K/mm3 Baso # (Auto) 0.1 (0.0-0.1) K/mm3 Abs Immat Gran (auto) 0.06 H (0.00-0.031) K/mm3 Absolute Neuts (auto) 6.9 H (1.3-6.7) K/mm3 Absolute Nucleated RBC 0.000 (0.0-0.012) K/mm3 Nucleated RBC % 0.0 (0.0-0.2) % Sodium 131 L (137-145) mmol/L Potassium 3.4 (3.4-5.0) mmol/L Chloride 97 L (98-107) mmol/L Carbon Dioxide 26 (22-30) mmol/L Anion Gap 8 (4-12) mmol/L BUN 20 (9-20) mg/dL Creatinine 0.88 (0.7-1.3) mg/dL Estim Creat Clear Calc Not Reportable Estimated GFR > 60 (59 - ) Glucose 110 (65-110) mg/dL Calcium 9.0 (8.4-10.2) mg/dL Total Bilirubin < 0.1 L (0.2-1.3) mg/dL AST 33 (17-59) U/L ALT 18 (6-50) U/L Alkaline Phosphatase 112 (38-126) U/L Total Protein 5.7 L (6.3-8.2) g/dL Albumin 3.4 L (3.5-5.1) g/dL TSH (Reflex) 1.020 (0.465-4.68) uIU/mL Urine Color Yellow (Yellow) Urine Appearance Clear (Clear) Urine pH 5.5 (5.0-9.0) Ur Specific [place] 1.023 (1.001-1.035) Urine Protein Negative (Negative) mg/dL Urine Glucose (UA) Negative (Negative) mg/dL Urine Ketones Trace H (Negative) mg/dL Ur Blood (Man) Negative (Negative) Urine Nitrate Negative (Negative) Urine Bilirubin Negative (Negative) Urine Urobilinogen 1.0 (<2.0) mg/dL Leukocyte Esterase Rfl Negative (Negative) MARBELLA/UL Salicylates < 1.0 L (2-20) mg/dL Urine Opiates Screen Negative (Negative) Urine Methadone Screen Negative (Negative) Acetaminophen < 10 L (10-30) ug/mL Ur Barbiturates Screen Negative (Negative) Ur Phencyclidine Scrn Negative (Negative) Ur Amphetamine Screen Positive A (Negative) U Benzodiazepines Scrn Negative (Negative) Urine Cocaine Screen Negative (Negative) U Cannabinoids Screen Positive A (Negative) Ethyl Alcohol < 10 (<10) mg/dL SARS-CoV-2 RNA (RT-PCR) Negative (Negative) <Sam Sommer MD - Last Filed: 05/08/25 18:07> Discharge Plan Discharge Clinical Impression: Suicide ideation, Polysubstance abuse, Major depressive disorder <Laurie Denney APRN - Last Filed: 05/08/25 04:07> Patient Disposition: Home <Laurie Denney APRN - Last Filed: 05/08/25 04:07> Condition: Stable <Laurie Denney APRN - Last Filed: 05/08/25 04:07> Instructions: Antibiotic Form <Laurie Denney APRN - Last Filed: 05/08/25 04:07> Additional Instructions: You were offered admission for psychiatric care joint but you declined and preferred to be discharged home. <Laurie Denney APRN - Last Filed: 05/08/25 04:07> Patient Language: Stateless <Laurie Denney APRN - Last Filed: 05/08/25 04:07> Prescriptions: No Action ferrous sulfate [FeroSul] 325 mg (65 mg iron) tablet 325 mg PO DAILY Qty: 30 3RF ferrous sulfate 325 mg (65 mg iron) tablet 325 mg PO DAILY Qty: 30 0RF cephalexin 500 mg capsule 500 mg PO Q6H 7 Days Qty: 28 0RF <Laurie Denney APRN - Last Filed: 05/08/25 04:07> Follow-up/Referrals: UNKNOWN,DOCTOR [Primary Care Provider] <Laurie Denney APRN - Last Filed: 05/08/25 04:07> Time of Disposition: 05:53 <Laurie Denney APRN - Last Filed: 05/08/25 04:07> 05:53 <Phillip Villegas DO - Last Filed: 05/08/25 05:54> 05:53 <Sam Sommer MD - Last Filed: 05/08/25 18:07>
[2025-05-08 01:43] LABS: SARS-CoV-2 RNA PCR Negative (Negative)
[2025-05-08] MEDS: LORazepam (*CRX) 1 MG TABLET PO (04:00)
[2025-05-08 05:28] VITALS: BP 128/68; PULSE 90; RESP 16; TEMP 36.6; O2SAT 100
[2025-05-08 07:34] VITALS: BP 133/82; PULSE 82; RESP 17; TEMP 36.4; O2SAT 98
--- NOTE | 2025-05-08 09:59 | PC.NURSE ---
Notified MD Sommer of patient requesting to leave. patient is alert and oriented x4 denies hallucinations, SI/HI. patient ambulatory with steady gait. MD Sommer to bedside to speak with patient. okay to be discharged at this time. [facility] notified of patient not being transferred.
== END 2025-05-08 10:00 | disposition home or self-care (01) ==
PROVIDERS: Emergency Provider Student in an Organized Health Care Education/Training Program
DX: R45.851 Suicidal ideations (principal); F32.9 Major depressive disorder, single episode, unspecified; F19.10 Other psychoactive substance abuse, uncomplicated; Z11.52 Encounter for screening for COVID-19; I50.9 Heart failure, unspecified; I11.0 Hypertensive heart disease with heart failure; K21.9 Gastro-esophageal reflux disease without esophagitis; G62.9 Polyneuropathy, unspecified; F17.210 Nicotine dependence, cigarettes, uncomplicated; Z59.00 Homelessness unspecified
CPT/HCPCS: 36415; 80053; 80143; 80179; 80307; 81003; 82077; 84443; 85025; 87635; 99284; A9270